=== PATIENT | female | born 1965 | race Hispanic/Latino ===

== ENCOUNTER 2019-08-22 14:20 | Emergency (ER) | payer OTHER ==
[2019-08-22] MEDS ORDERED: SODIUM CHLORIDE 0.9% 1000ML 1,000 ML IV ONE (14:21)
[2019-08-22 15:17] LABS: BASOPHILS % (AUTO) 0.4 % (0.0-5.0); HEMATOCRIT 32.5 % (36-48); LYMPHOCYTES % (AUTO) 20.5 % (21.0-51.0); MEAN CORPUSCULAR HEMOGLOBIN 26.8 pg (27.0-33.0); MEAN CORPUSCULAR VOLUME 83.8 fL (79-99); MONOCYTES % (AUTO) 8.4 % (3.0-13.0); NEUTROPHILS % (AUTO) 68.3 % (40.0-77.0); PLATELET COUNT (AUTO) 214 K/uL (130-400); RED BLOOD CELL COUNT(AUTO) 3.88 MIL/uL (4.00-5.50); RED CELL DISTRIBUTION WIDTH 14.3 % (11.0-15.5)
[2019-08-22 15:23] LABS: APPEARANCE,URINE Cloudy (CLEAR); BILIRUBIN,URINE Negative (NEGATIVE); COLOR,URINE Yellow (YELLOW); GLUCOSE, URINE (UA) 500 mg/dL (NEGATIVE); KETONES,URINE Negative (NEGATIVE); LEUKOCYTE ESTERASE ,URINE Moderate (NEGATIVE); NITRATE,URINE Positive (NEGATIVE); OCCULT BLOOD,URINE Negative (NEGATIVE); PROTEIN,URINE POS 2+ mg/dL (NEGATIVE); UROBILINOGEN,URINE 0.2 mg/dL (0.2-1.0)
[2019-08-22 15:34] LABS: ALBUMIN 2.9 g/dL (3.5-5.0); BILIRUBIN,TOTAL 0.2 mg/dL (0.2-1.0); CREATININE 2.8 mg/dL (0.5-1.5); POTASSIUM 4.2 mmol/L (3.5-5.1); TOTAL PROTEIN, SERUM 7.3 g/dL (6.0-8.3)
[2019-08-22 16:01] LABS: BACTERIA,URINE Many /HPF (None Seen); MUCUS,URINE Few LPF (None Seen); RBC,URINE None Seen /HPF (0-1)
[2019-08-22] MEDS ORDERED: CEFTRIAXONE SODIUM 1 GM ONE (16:34)
== END 2019-08-22 17:37 | disposition home or self-care (01) ==
LOC: EDH 14:20
DX: N17.9 Acute kidney failure, unspecified (principal); N39.0 Urinary tract infection, site not specified; E11.9 Type 2 diabetes mellitus without complications; I10 Essential (primary) hypertension; E78.00 Pure hypercholesterolemia, unspecified; Z98.890 Other specified postprocedural states
CPT/HCPCS: 36415; 71045; 80053; 81001; 85025; 87077; 87088; 87186; 96374; 99284; J0696; J7030

== ENCOUNTER 2022-02-22 12:44 | Inpatient (IN) | payer OTHER ==
[~2022-02-22] VITALS: Ht 160 cm; Wt 103.0 kg
[2022-02-22 13:08] VITALS: BP 141/81
[2022-02-22] MEDS ORDERED: DEXTROSE 50%-WATER 50 ML DISP.SYRIN IV PRN (14:00)
[2022-02-22] MEDS ORDERED: ONDANSETRON 4MG INJ IV PRN (14:00)
[2022-02-22] MEDS ORDERED: DiphenhydrAMINE HCL 50 MG/ML VIAL IV PRN (14:00)
[2022-02-22] MEDS ORDERED: GLUCAGON 1MG KIT 1 MG ML IM PRN (14:00)
[2022-02-22] MEDS ORDERED: MAG/ALUM/SIMETH 30 ML UDCUP PO PRN (14:00)
[2022-02-22] MEDS ORDERED: ACETAMINOPHEN 325 MG TAB PO PRN (14:00)
[2022-02-22] MEDS ORDERED: LACTULOSE 20 GM/30 ML UDCUP PO PRN (14:00)
[2022-02-22 14:30] LABS: BASOPHILS % (AUTO) 0.5 % (0.0-5.0); EOSINOPHILS % (AUTO) 2.1 % (0.0-8.0); HEMATOCRIT 35.7 % (36-48); LYMPHOCYTES % (AUTO) 16.4 % (21.0-51.0); MEAN CORPUSCULAR HGB CONC 32.5 g/dL (32.0-36.0); MEAN CORPUSCULAR VOLUME 86.2 fL (79-99); MONOCYTES % (AUTO) 7.2 % (3.0-13.0); NEUTROPHILS % (AUTO) 73.6 % (40.0-77.0); PLATELET COUNT (AUTO) 205 K/uL (130-400); RED BLOOD CELL COUNT(AUTO) 4.14 MIL/uL (4.00-5.50); RED CELL DISTRIBUTION WIDTH 15.2 % (11.0-15.5); WHITE BLOOD COUNT (AUTO) 8.8 K/uL (4.8-10.8)
[2022-02-22 14:39] LABS: INR 0.96 (0.85-1.15); PROTHROMBIN TIME 10.5 SEC (9.6-11.6)
[2022-02-22 14:43] LABS: ALBUMIN 3.1 g/dL (3.5-5.0); CREATININE 3.1 mg/dL (0.5-1.5); HEMOGLOBIN A1C 10.5 % (4.0-6.0); POTASSIUM 3.9 mmol/L (3.5-5.1); TOTAL PROTEIN, SERUM 7.5 g/dL (6.0-8.3)
[2022-02-22] MEDS: INSULIN HUMULIN R 100 UNIT/ML 3ML SQ SCH ×2 (15:43→20:35)
[2022-02-22 16:08] VITALS: BP 134/67
[2022-02-22] MEDS ORDERED: FOLI1TAB85 PO (16:31)
[2022-02-22] MEDS ORDERED: ATOR40TA69 PO (16:31)
[2022-02-22] MEDS ORDERED: CHOL500051 PO (16:31)
[2022-02-22] MEDS ORDERED: METO-391 PO (16:31)
[2022-02-22] MEDS ORDERED: HYDR-4153 PO (16:31)
[2022-02-22] MEDS ORDERED: GABA-529 PO (16:31)
[2022-02-22] MEDS ORDERED: TORS20TA4 PO (16:31)
[2022-02-22] MEDS ORDERED: ISOS60TA77 PO (16:31)
[2022-02-22] MEDS ORDERED: ENOXAPARIN SODIUM 100 MG/1 ML SQ SCH (18:00)
[2022-02-22 19:22] VITALS: BP 137/65
[2022-02-22] MEDS: METOPROLOL TARTRATE 25 MG TAB PO SCH (20:27)
[2022-02-22] MEDS ORDERED: HEPARIN 5,000 UNIT VIAL SQ SCH (21:00)
[2022-02-22 23:15] VITALS: BP 137/72
[2022-02-23 02:13] LABS: HEMATOCRIT 33.5 % (36-48); MEAN CORPUSCULAR HEMOGLOBIN 28.1 pg (27.0-33.0); MEAN CORPUSCULAR HGB CONC 33.1 g/dL (32.0-36.0); MEAN CORPUSCULAR VOLUME 84.8 fL (79-99); RED BLOOD CELL COUNT(AUTO) 3.95 MIL/uL (4.00-5.50); RED CELL DISTRIBUTION WIDTH 15.1 % (11.0-15.5); WHITE BLOOD COUNT (AUTO) 8.5 K/uL (4.8-10.8)
[2022-02-23 02:34] LABS: ALBUMIN 2.9 g/dL (3.5-5.0); CREATININE 3.1 mg/dL (0.5-1.5); POTASSIUM 3.7 mmol/L (3.5-5.1); TOTAL PROTEIN, SERUM 7.3 g/dL (6.0-8.3)
[2022-02-23 03:25] VITALS: BP 141/70
[2022-02-23] MEDS: INSULIN HUMULIN R 100 UNIT/ML 3ML SQ SCH ×4 (06:26→21:28)
[2022-02-23] MEDS ORDERED: REGADENOSON 0.4 MG/5 ML PF SYG IVP SCH (07:00)
[2022-02-23] MEDS: METOPROLOL TARTRATE 25 MG TAB PO SCH ×2 (07:39→21:26)
[2022-02-23 08:00] VITALS: BP 137/81
[2022-02-23] MEDS ORDERED: PANTOPRAZOLE 40 MG/VIAL IVP SCH (09:00)
[2022-02-23] MEDS: CLOPIDOGREL 75MG TAB PO SCH (10:29)
[2022-02-23] MEDS: PANTOPRAZOLE 40 MG TAB DR PO SCH (10:29)
[2022-02-23] MEDS: ACETAMINOPHEN 325 MG TAB PO PRN ×2 (11:22→23:38)
[2022-02-23] MEDS ORDERED: INSULIN HUMULIN R 100 UNIT/ML 3ML SQ SCH ×2 (11:30)
[2022-02-23 11:44] VITALS: BP 137/51
[2022-02-23 16:00] VITALS: BP 125/64
[2022-02-23] MEDS ORDERED: HEPARIN 25,000 UNITS/250ML D5W 250 ML IV SCH (17:00)
[2022-02-23 17:21] LABS: INR 0.99 (0.85-1.15); PROTHROMBIN TIME 10.8 SEC (9.6-11.6)
[2022-02-23 17:22] LABS: PARTIAL THROMBOPLASTIN TIME 26.2 SEC (26.3-35.5)
[2022-02-23] MEDS ORDERED: HEPARIN 5,000 UNIT VIAL ONE (18:37)
[2022-02-23 19:43] VITALS: BP 154/70
[2022-02-23] MEDS ORDERED: INSULIN GLARGINE 100 UNITS/ML 10 ML VIAL SQ SCH (21:00)
[2022-02-24] VITALS (12 sets, daily range): BP systolic 122–179; BP diastolic 62–113
[2022-02-24 01:29] LABS: BASOPHILS % (AUTO) 0.5 % (0.0-5.0); EOSINOPHILS % (AUTO) 2.1 % (0.0-8.0); HEMATOCRIT 35.1 % (36-48); LYMPHOCYTES % (AUTO) 19.9 % (21.0-51.0); MEAN CORPUSCULAR HGB CONC 32.8 g/dL (32.0-36.0); MEAN CORPUSCULAR VOLUME 85.6 fL (79-99); MONOCYTES % (AUTO) 7.3 % (3.0-13.0); PLATELET COUNT (AUTO) 211 K/uL (130-400); RED CELL DISTRIBUTION WIDTH 15.2 % (11.0-15.5); WHITE BLOOD COUNT (AUTO) 9.4 K/uL (4.8-10.8)
[2022-02-24 01:42] LABS: CREATININE 2.8 mg/dL (0.5-1.5); PHOSPHORUS 3.8 mg/dL (2.5-4.9); POTASSIUM 3.6 mmol/L (3.5-5.1)
[2022-02-24] MEDS: INSULIN HUMULIN R 100 UNIT/ML 3ML SQ SCH ×4 (06:18→20:59)
[2022-02-24] MEDS ORDERED: MIDAZOLAM HCL 1 MG/ML 2ML VIAL IVP ONE (08:00)
[2022-02-24] MEDS ORDERED: LIDOCAINE HCL 2% VISCOUS 15 ML UDCUP PO ONE (08:00)
[2022-02-24] MEDS ORDERED: ISOS20TA9 PO (08:22)
[2022-02-24] MEDS: CLOPIDOGREL 75MG TAB PO SCH (09:11)
[2022-02-24] MEDS: PANTOPRAZOLE 40 MG TAB DR PO SCH (09:11)
[2022-02-24] MEDS: METOPROLOL TARTRATE 25 MG TAB PO SCH ×2 (09:11→21:00)
[2022-02-24] MEDS: ISOSORBIDE DINITRATE 10MG TAB PO SCH ×2 (09:14→21:00)
[2022-02-25 00:22] VITALS: BP 150/73
[2022-02-25] MEDS: ACETAMINOPHEN 325 MG TAB PO PRN (01:36)
[2022-02-25 03:54] LABS: HEMATOCRIT 33.9 % (36-48); MEAN CORPUSCULAR HEMOGLOBIN 27.6 pg (27.0-33.0); MEAN CORPUSCULAR HGB CONC 32.2 g/dL (32.0-36.0); MEAN CORPUSCULAR VOLUME 85.8 fL (79-99); RED BLOOD CELL COUNT(AUTO) 3.95 MIL/uL (4.00-5.50); RED CELL DISTRIBUTION WIDTH 15.1 % (11.0-15.5); WHITE BLOOD COUNT (AUTO) 9.2 K/uL (4.8-10.8)
[2022-02-25 04:02] LABS: CREATININE 2.7 mg/dL (0.5-1.5); POTASSIUM 3.6 mmol/L (3.5-5.1)
[2022-02-25 04:32] VITALS: BP 139/66
[2022-02-25] MEDS: INSULIN HUMULIN R 100 UNIT/ML 3ML SQ SCH ×2 (06:00→12:36)
[2022-02-25 07:31] VITALS: BP 156/78
[2022-02-25] MEDS: ISOSORBIDE DINITRATE 10MG TAB PO SCH (08:06)
[2022-02-25] MEDS: PANTOPRAZOLE 40 MG TAB DR PO SCH (08:07)
[2022-02-25] MEDS: METOPROLOL TARTRATE 25 MG TAB PO SCH (08:07)
[2022-02-25] MEDS: CLOPIDOGREL 75MG TAB PO SCH (08:12)
[2022-02-25 11:34] VITALS: BP 123/60
[2022-02-25] MEDS ORDERED: CLOP75TA32 PO (12:09)
[2022-02-25] MEDS ORDERED: METO25TA6 PO (12:09)
[2022-02-25] MEDS ORDERED: ISOS10TA2 PO (12:09)
== END 2022-02-25 14:08 | disposition home or self-care (01) | DRG 291 ==
LOC: EDH 12:44 → DIRECT 12:45 → 2AH 13:08
PROVIDERS: ADMIT Hospitalist; ATTEND Hospitalist
PROC: B24BZZ4 Ultrasonography of Heart with Aorta, Transesophageal (ICD-10-PCS; principal; 2022-02-24)
DX: I13.0 Hypertensive heart and chronic kidney disease with heart failure and stage 1 through stage 4 chronic kidney disease, or unspecified chronic kidney disease (principal); I50.43 Acute on chronic combined systolic (congestive) and diastolic (congestive) heart failure; Z68.41 Body mass index [BMI] 40.0-44.9, adult; N17.9 Acute kidney failure, unspecified; N18.4 Chronic kidney disease, stage 4 (severe); I25.110 Atherosclerotic heart disease of native coronary artery with unstable angina pectoris; E66.01 Morbid (severe) obesity due to excess calories; E11.22 Type 2 diabetes mellitus with diabetic chronic kidney disease; D64.9 Anemia, unspecified; E78.00 Pure hypercholesterolemia, unspecified; Z95.5 Presence of coronary angioplasty implant and graft; Z79.02 Long term (current) use of antithrombotics/antiplatelets
CPT/HCPCS: 36415; 71045; 78452; 80048; 80053; 80061; 82948; 83036; 83880; 84100; 84484; 85025; 85027; 85610; 85730; 93017; 93306; 93312; 96374; A9500; G0378; J1644; J1650; J1815; J2250; J2785

== ENCOUNTER → 2022-03-21 | Outpatient (CLI) | payer OTHER ==
[~2022-03-21] MED LIST: ATOR40TA69 PO; CHOL500051 PO; CLOP75TA32 PO; FOLI1TAB85 PO; GABA-529 PO; ISOS10TA2 PO; METO25TA6 PO
[2022-03-21 13:08] LABS: CREATININE 3.8 mg/dL (0.5-1.5)
[2022-03-21 13:15] LABS: POTASSIUM 2.9 mmol/L (3.5-5.1)
== END | disposition home or self-care (01) ==
LOC: LAB 11:38
PROVIDERS: ATTEND Internal Medicine Cardiovascular Disease
DX: I25.10 Atherosclerotic heart disease of native coronary artery without angina pectoris (principal)
CPT/HCPCS: 36415; 80048; 83880

== ENCOUNTER → 2022-06-09 | Outpatient (CLI) | payer OTHER ==
[~2022-06-09] VITALS: Ht 160 cm; Wt 98.6 kg
[~2022-06-09] MED LIST changes: +ATOR40TA71 PO; +CARV6.2579 PO; +FAMO20TA8 PO; +INSU300I SQ; +INSU300I3 SQ; -ISOS10TA2 PO; +LORA10TA7 PO; -METO25TA6 PO; +NITR0.4T50 SL; +SEVE800 PO
[2022-06-09 14:31] LABS: BASOPHILS % (AUTO) 0.7 % (0.0-5.0); EOSINOPHILS % (AUTO) 4.5 % (0.0-8.0); HEMATOCRIT 38.5 % (36-48); LYMPHOCYTES % (AUTO) 17.5 % (21.0-51.0); MEAN CORPUSCULAR HEMOGLOBIN 29.6 pg (27.0-33.0); MEAN CORPUSCULAR HGB CONC 31.9 g/dL (32.0-36.0); MEAN CORPUSCULAR VOLUME 92.8 fL (79-99); MONOCYTES % (AUTO) 10.6 % (3.0-13.0); NEUTROPHILS % (AUTO) 66.4 % (40.0-77.0); PLATELET COUNT (AUTO) 200 K/uL (130-400); RED BLOOD CELL COUNT(AUTO) 4.15 MIL/uL (4.00-5.50); RED CELL DISTRIBUTION WIDTH 17.2 % (11.0-15.5); WHITE BLOOD COUNT (AUTO) 7.6 K/uL (4.8-10.8)
[2022-06-09 14:40] LABS: CREATININE 4.4 mg/dL (0.5-1.5); POTASSIUM 3.8 mmol/L (3.5-5.1)
[2022-06-09 14:44] LABS: INR 1.02 (0.85-1.15); PROTHROMBIN TIME 11.1 SEC (9.6-11.6)
[2022-06-09 14:45] LABS: PARTIAL THROMBOPLASTIN TIME 26.8 SEC (26.3-35.5)
[2022-06-09 15:02] LABS: B-TYPE NATRIURETIC PEPTIDE 399 pg/mL (0-100)
[2022-06-09 15:40] VITALS: BP 135/60
== END | disposition home or self-care (01) ==
LOC: DAH 10:00 → EDSTATUS 14:00
PROVIDERS: ATTEND Internal Medicine Cardiovascular Disease
DX: Z01.810 Encounter for preprocedural cardiovascular examination (principal); I25.10 Atherosclerotic heart disease of native coronary artery without angina pectoris; I50.22 Chronic systolic (congestive) heart failure; I44.7 Left bundle-branch block, unspecified; Z79.01 Long term (current) use of anticoagulants; Z79.899 Other long term (current) drug therapy
CPT/HCPCS: 36415; 71045; 80048; 83880; 85025; 85610; 85730; 93005

== ENCOUNTER 2022-06-28 06:02 | Day surgery (SDC) | payer OTHER ==
[2022-06-27 09:22] LABS: BASOPHILS % (AUTO) 0.7 % (0.0-5.0); EOSINOPHILS % (AUTO) 2.9 % (0.0-8.0); HEMATOCRIT 36.6 % (36-48); LYMPHOCYTES % (AUTO) 19.4 % (21.0-51.0); MEAN CORPUSCULAR HEMOGLOBIN 29.6 pg (27.0-33.0); MEAN CORPUSCULAR VOLUME 92.7 fL (79-99); MONOCYTES % (AUTO) 8.8 % (3.0-13.0); NEUTROPHILS % (AUTO) 67.9 % (40.0-77.0); PLATELET COUNT (AUTO) 147 K/uL (130-400); RED BLOOD CELL COUNT(AUTO) 3.95 MIL/uL (4.00-5.50); RED CELL DISTRIBUTION WIDTH 15.8 % (11.0-15.5); WHITE BLOOD COUNT (AUTO) 6.1 K/uL (4.8-10.8)
[2022-06-27 09:32] LABS: CREATININE 4.5 mg/dL (0.5-1.5); POTASSIUM 4.1 mmol/L (3.5-5.1)
[2022-06-27 09:37] VITALS: BP 155/80
[2022-06-27 10:00] LABS: INR 0.95 (0.85-1.15); PROTHROMBIN TIME 10.4 SEC (9.6-11.6)
[2022-06-27 10:01] LABS: PARTIAL THROMBOPLASTIN TIME 27.1 SEC (26.3-35.5)
[2022-06-27 10:17] LABS: B-TYPE NATRIURETIC PEPTIDE 499 pg/mL (0-100)
[2022-06-28] VITALS (10 sets, daily range): BP systolic 146–163; BP diastolic 63–80
[~2022-06-28] VITALS: Ht 162.6 cm; Wt 100.4 kg
[~2022-06-28 06:02] MED LIST changes: +0.9% NACL 500ML IV.SOLN 500 ML IV SCH; -ATOR40TA69 PO; +CARV6.25 PO; -CARV6.2579 PO; -FAMO20TA8 PO; -INSU300I SQ; -SEVE800 PO
[2022-06-28] MEDS ORDERED: 0.9%NACL 1000ML 1,000 ML IV ONE (06:36)
[2022-06-28] MEDS ORDERED: LIDOCAINE HCL 400MG/20ML VIAL ONE (07:27)
[2022-06-28] MEDS ORDERED: FENTANYL CITRATE PF 50 MCG/1 ML 2ML VIAL ONE (07:27)
[2022-06-28] MEDS ORDERED: IOHEXOL-350 50ML VIAL IV ONE (07:28)
[2022-06-28] MEDS ORDERED: IOHEXOL 350 MG/ML 100ML INFUS..BTL IV ONE (07:28)
[2022-06-28] MEDS ORDERED: HEPARIN 10,000 UNIT/10ML (1,000 UNIT/ML) VIAL ONE (07:28)
[2022-06-28] MEDS ORDERED: NITROGLYCERIN 50MG VIAL ONE (07:28)
[2022-06-28] MEDS ORDERED: MIDAZOLAM HCL 1 MG/ML 2ML VIAL ONE (07:28)
[2022-06-28] MEDS ORDERED: CLOPIDOGREL 300MG TAB ONE ×2 (08:39)
[2022-06-28] MEDS ORDERED: ASPIRIN 325MG EC TAB PO ONE (08:41)
[2022-06-28] MEDS ORDERED: ASPI-1197 PO (11:43)
== END 2022-06-28 13:50 | disposition home or self-care (01) ==
LOC: DAH 06:02
PROVIDERS: ATTEND Internal Medicine Cardiovascular Disease
DX: I25.119 Atherosclerotic heart disease of native coronary artery with unspecified angina pectoris (principal); E11.22 Type 2 diabetes mellitus with diabetic chronic kidney disease; I13.2 Hypertensive heart and chronic kidney disease with heart failure and with stage 5 chronic kidney disease, or end stage renal disease; N18.6 End stage renal disease; I50.22 Chronic systolic (congestive) heart failure; E78.5 Hyperlipidemia, unspecified; I25.5 Ischemic cardiomyopathy; Z99.2 Dependence on renal dialysis; Z79.01 Long term (current) use of anticoagulants; Z79.899 Other long term (current) drug therapy; Z95.5 Presence of coronary angioplasty implant and graft; Z98.890 Other specified postprocedural states; Z90.49 Acquired absence of other specified parts of digestive tract; Z82.49 Family history of ischemic heart disease and other diseases of the circulatory system; Z83.3 Family history of diabetes mellitus
CPT/HCPCS: 80048; 83880; 85025; 85610; 85730; 36415 ×2; 93005; 93571; 85347 ×2; 82948 ×2; 93458; C9600; C1887; C1894 ×2; C1760; C1769; C1874 ×2; C1725 ×2; J3010; J3490 ×2; J7030; J1644 ×2; J2250; Q9967 ×2; A4215; A4222; A4221; A4663; A4216; A4606; Q9965 ×2; A4223 ×3; 99156; 99157

== ENCOUNTER → 2022-09-22 | Outpatient (CLI) | payer OTHER ==
[~2022-09-22] MED LIST changes: -0.9% NACL 500ML IV.SOLN 500 ML IV SCH; +ASPI-1197 PO
== END | disposition home or self-care (01) ==
LOC: SHCH 12:32
PROVIDERS: ATTEND Internal Medicine Cardiovascular Disease
DX: I11.0 Hypertensive heart disease with heart failure (principal); I50.22 Chronic systolic (congestive) heart failure; I08.3 Combined rheumatic disorders of mitral, aortic and tricuspid valves; E78.5 Hyperlipidemia, unspecified; E11.9 Type 2 diabetes mellitus without complications
CPT/HCPCS: 93306

== ENCOUNTER 2022-12-13 05:37 | Day surgery (SDC) | payer OTHER ==
[2022-12-08 14:13] LABS: BASOPHILS # (AUTO) 0.03 K/uL (0.00-0.20); BASOPHILS % (AUTO) 0.4 % (0.0-5.0); EOSINOPHILS # (AUTO) 0.19 K/uL (0.00-0.70); EOSINOPHILS % (AUTO) 2.7 % (0.0-8.0); HEMATOCRIT 34.5 % (36-48); IMMATURE GRANULOCYTE ABSOLUTE 0.02 K/uL (0-1); LYMPHOCYTES # (AUTO) 1.7 K/uL (1.0-4.8); LYMPHOCYTES % (AUTO) 24.3 % (21.0-51.0); MEAN CORPUSCULAR HEMOGLOBIN 30.9 pg (27.0-33.0); MEAN CORPUSCULAR VOLUME 93.5 fL (79-99); MONOCYTES # (AUTO) 0.6 K/uL (0.1-1.0); NEUTROPHILS # (AUTO) 4.5 K/uL (1.8-7.7); NEUTROPHILS % (AUTO) 63.3 % (40.0-77.0); PLATELET COUNT (AUTO) 145 K/uL (130-400); RED BLOOD CELL COUNT(AUTO) 3.69 MIL/uL (4.00-5.50); RED CELL DISTRIBUTION WIDTH 14.2 % (11.0-15.5); WHITE BLOOD COUNT (AUTO) 7.1 K/uL (4.8-10.8)
[2022-12-08 14:17] VITALS: BP 184/75; PULSE 78; RESP 16
[2022-12-08 14:27] LABS: INR 0.94 (0.85-1.15); PROTHROMBIN TIME 10.9 SEC (9.6-11.6)
[2022-12-08 14:29] LABS: CREATININE 3.7 mg/dL (0.5-1.5); PARTIAL THROMBOPLASTIN TIME 26.9 SEC (26.3-35.5); POTASSIUM 4.7 mmol/L (3.5-5.1)
[~2022-12-13] VITALS: Ht 157.5 cm; Wt 101.6 kg
[2022-12-13] VITALS (10 sets, daily range): BP systolic 146–166; BP diastolic 60–83; PULSE 62–68; RESP 13–21
[~2022-12-13 05:37] MED LIST changes: +INSU100C14 SQ; -LORA10TA7 PO
[2022-12-13] MEDS ORDERED: 0.9%NACL 1000ML 1,000 ML IV ONE (06:19)
[2022-12-13] MEDS ORDERED: ISOS30TA92 PO (07:02)
[2022-12-13] MEDS ORDERED: BUPIVACAINE/PF 0.25% 30ML VIAL IJ ONE (07:19)
[2022-12-13] MEDS ORDERED: CEFAZOLIN SODIUM 1 GM VIAL ONE (07:19)
[2022-12-13] MEDS ORDERED: MEPERIDINE-PF 25 MG/ML SYG ONE ×5 (07:19→09:03)
[2022-12-13] MEDS ORDERED: LIDOCAINE HCL 1% MDV 50ML VIAL ONE (07:19)
[2022-12-13] MEDS ORDERED: MIDAZOLAM HCL 1 MG/ML 2ML VIAL ONE ×5 (07:19→09:03)
[2022-12-13] MEDS ORDERED: IOHEXOL-350 50ML VIAL IV ONE (08:23)
[2022-12-13] MEDS ORDERED: TRAM50TA4 PO (09:45)
[2022-12-13] MEDS ORDERED: ACETAMINOPHEN WITH CODEINE 1 TAB TAB PO PRN (10:00)
[2022-12-13] MEDS ORDERED: ACETAMINOPHEN 500 MG TABLET PO PRN (10:00)
== END 2022-12-13 13:08 | disposition home or self-care (01) ==
LOC: DAH 05:37
PROVIDERS: ATTEND Internal Medicine Cardiovascular Disease
DX: I25.5 Ischemic cardiomyopathy (principal); E11.22 Type 2 diabetes mellitus with diabetic chronic kidney disease; I13.2 Hypertensive heart and chronic kidney disease with heart failure and with stage 5 chronic kidney disease, or end stage renal disease; N18.6 End stage renal disease; I50.42 Chronic combined systolic (congestive) and diastolic (congestive) heart failure; I25.2 Old myocardial infarction; I25.10 Atherosclerotic heart disease of native coronary artery without angina pectoris; E78.5 Hyperlipidemia, unspecified; Z79.01 Long term (current) use of anticoagulants; Z79.899 Other long term (current) drug therapy; Z98.890 Other specified postprocedural states; Z79.82 Long term (current) use of aspirin; Z79.4 Long term (current) use of insulin; Z95.5 Presence of coronary angioplasty implant and graft; Z82.49 Family history of ischemic heart disease and other diseases of the circulatory system; Z83.3 Family history of diabetes mellitus; Z99.2 Dependence on renal dialysis
CPT/HCPCS: 80048; 85025; 85610; 85730; 36415; 93005; 33249; 82948; 71045; C1769; C1722; C1895; J0690; J7030 ×2; J3490 ×2; J2250 ×5; J2175 ×5; Q9967; A4215; A4222; A4221; A4663; A4216; A4606; A4223 ×2; 99156; 99157

== ENCOUNTER 2023-08-05 13:30 | Emergency (ER) | payer OTHER ==
[~2023-08-05] VITALS: Ht 157.5 cm; Wt 99.8 kg
[~2023-08-05 13:30] MED LIST changes: +ISOS30TA92 PO; +TRAM50TA4 PO
[2023-08-05 13:31] VITALS: BP 153/62; PULSE 79; RESP 18
[2023-08-05 14:11] LABS: BASOPHILS # (AUTO) 0.03 K/uL (0.00-0.20); BASOPHILS % (AUTO) 0.3 % (0.0-5.0); EOSINOPHILS # (AUTO) 0.14 K/uL (0.00-0.70); EOSINOPHILS % (AUTO) 1.4 % (0.0-8.0); HEMATOCRIT 38.7 % (36-48); IMMATURE GRANULOCYTE ABSOLUTE 0.03 K/uL (0-1); LYMPHOCYTES # (AUTO) 1.3 K/uL (1.0-4.8); MEAN CORPUSCULAR HEMOGLOBIN 30.8 pg (27.0-33.0); MEAN CORPUSCULAR HGB CONC 33.1 g/dL (32.0-36.0); MEAN CORPUSCULAR VOLUME 93.3 fL (79-99); MONOCYTES # (AUTO) 0.8 K/uL (0.1-1.0); MONOCYTES % (AUTO) 7.9 % (3.0-13.0); NEUTROPHILS # (AUTO) 7.7 K/uL (1.8-7.7); NEUTROPHILS % (AUTO) 77.1 % (40.0-77.0); PLATELET COUNT (AUTO) 137 K/uL (130-400); RED BLOOD CELL COUNT(AUTO) 4.15 MIL/uL (4.00-5.50); RED CELL DISTRIBUTION WIDTH 13.1 % (11.0-15.5)
[2023-08-05 14:44] LABS: POTASSIUM 4.5 mmol/L (3.5-5.1)
[2023-08-05 14:48] LABS: ALBUMIN 2.8 g/dL (3.5-5.0); BILIRUBIN,TOTAL 0.5 mg/dL (0.2-1.0); TOTAL PROTEIN, SERUM 7.1 g/dL (6.0-8.3)
[2023-08-05] MEDS: NEOMY SULF/BACITRA/POLYMYXIN B 1 EACH PACKET TP ONE (15:30)
[2023-08-05] MEDS: INSULIN HUMULIN R 100 UNIT/ML 3ML IV SCH (16:17)
[2023-08-05] MEDS: CLINDAMYCIN 150 MG CAP PO SCH (16:53)
[2023-08-05] MEDS ORDERED: CLIN-141 PO (17:45)
[2023-08-05] MEDS ORDERED: MUPI22O TP (17:45)
== END 2023-08-05 19:01 | disposition home or self-care (01) ==
LOC: EDH 13:30
DX: S90.822A Blister (nonthermal), left foot, initial encounter (principal); I12.9 Hypertensive chronic kidney disease with stage 1 through stage 4 chronic kidney disease, or unspecified chronic kidney disease; E11.22 Type 2 diabetes mellitus with diabetic chronic kidney disease; N18.9 Chronic kidney disease, unspecified; E11.65 Type 2 diabetes mellitus with hyperglycemia; E66.9 Obesity, unspecified; E78.00 Pure hypercholesterolemia, unspecified; Z79.82 Long term (current) use of aspirin; Z79.899 Other long term (current) drug therapy; Z98.890 Other specified postprocedural states; Z90.49 Acquired absence of other specified parts of digestive tract
CPT/HCPCS: 99284; 96374; 80053; 85025; 87040 ×2; 82948; 83605; 36415; 73630; J1815

== ENCOUNTER → 2023-09-30 | Outpatient (CLI) | payer OTHER ==
[~2023-09-30] MED LIST changes: +CLIN-141 PO; +MUPI22O TP
== END | disposition home or self-care (01) ==
LOC: SHCH 13:37
PROVIDERS: ATTEND Internal Medicine Cardiovascular Disease
DX: I70.203 Unspecified atherosclerosis of native arteries of extremities, bilateral legs (principal)
CPT/HCPCS: 93925

== ENCOUNTER 2024-01-05 21:22 | Emergency (ER) | payer OTHER ==
[~2024-01-05] VITALS: Ht 160 cm; Wt 99.8 kg
[2024-01-05 21:34] VITALS: TEMP 98.8
[2024-01-05] MEDS: NITROGLYCERIN 0.4 MG SL TAB SL PRN (21:41)
[2024-01-05] MEDS: ASPIRIN 81MG CHEW TAB PO ONE (21:41)
[2024-01-05 22:15] LABS: BASOPHILS # (AUTO) 0.06 K/uL (0.00-0.20); BASOPHILS % (AUTO) 0.7 % (0.0-5.0); EOSINOPHILS % (AUTO) 2.2 % (0.0-8.0); HEMATOCRIT 36.7 % (36-48); IMMATURE GRANULOCYTE ABSOLUTE 0.05 K/uL (0-1); LYMPHOCYTES # (AUTO) 2.1 K/uL (1.0-4.8); MEAN CORPUSCULAR HEMOGLOBIN 31.3 pg (27.0-33.0); MEAN CORPUSCULAR HGB CONC 33.8 g/dL (32.0-36.0); MEAN CORPUSCULAR VOLUME 92.7 fL (79-99); MONOCYTES # (AUTO) 0.8 K/uL (0.1-1.0); MONOCYTES % (AUTO) 8.9 % (3.0-13.0); NEUTROPHILS # (AUTO) 5.8 K/uL (1.8-7.7); NEUTROPHILS % (AUTO) 64.6 % (40.0-77.0); PLATELET COUNT (AUTO) 164 K/uL (130-400); RED BLOOD CELL COUNT(AUTO) 3.96 MIL/uL (4.00-5.50); RED CELL DISTRIBUTION WIDTH 12.6 % (11.0-15.5); WHITE BLOOD COUNT (AUTO) 8.9 K/uL (4.8-10.8)
[2024-01-05 22:16] LABS: B-TYPE NATRIURETIC PEPTIDE 110 pg/mL (0-100)
[2024-01-05 22:32] LABS: MAGNESIUM 2.5 mg/dL (1.80-2.40)
[2024-01-05 23:16] LABS: INR 1.06 (0.85-1.15); PROTHROMBIN TIME 11.4 SEC (9.6-11.6)
[2024-01-05] MEDS ORDERED: APIX5TAB PO (23:46)
[2024-01-05] MEDS ORDERED: FOLI0.8T22 PO (23:48)
[2024-01-06 00:19] LABS: CREATININE 5.5 mg/dL (0.5-1.0); POTASSIUM 3.9 mmol/L (3.5-5.1)
[2024-01-06] MEDS: ORPHENADRINE 60MG/2ML IM STA (00:33)
[2024-01-06 00:36] VITALS: BP 152/77; PULSE 97; RESP 18; O2SAT 98
[2024-01-06] MEDS ORDERED: METH100054 PO (01:31)
== END 2024-01-06 01:50 | disposition home or self-care (01) ==
LOC: EDH 21:22
DX: R07.89 Other chest pain (principal); E11.9 Type 2 diabetes mellitus without complications; E78.00 Pure hypercholesterolemia, unspecified; I10 Essential (primary) hypertension; Z79.01 Long term (current) use of anticoagulants; Z79.02 Long term (current) use of antithrombotics/antiplatelets; Z79.4 Long term (current) use of insulin; Z79.899 Other long term (current) drug therapy; Z90.49 Acquired absence of other specified parts of digestive tract; Z95.5 Presence of coronary angioplasty implant and graft; Z95.810 Presence of automatic (implantable) cardiac defibrillator
CPT/HCPCS: 36415; 71045; 80048; 82550; 83735; 83880; 84484; 85025; 85610; 93005; 96372; J2360

== ENCOUNTER 2024-11-22 12:43 | Emergency (ER) | payer OTHER ==
[~2024-11-22] VITALS: Ht 157.5 cm; Wt 98.9 kg
[~2024-11-22 12:43] MED LIST changes: +APIX5TAB PO; -ASPI-1197 PO; +ATOR40TA69 PO; -ATOR40TA71 PO; -CHOL500051 PO; -CLIN-141 PO; -CLOP75TA32 PO; +ESCI5TAB16 PO; +FOLI0.8T22 PO; -FOLI1TAB85 PO; -ISOS30TA92 PO; +Isosorbide Mono 30MG Sr Tab PO; -MUPI22O TP; +TICA90TA6 PO; -TRAM50TA4 PO
--- NOTE | 2024-11-22 13:03 | EKG ---
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[employer] [facility] : [id number] Requested By: GUILLAUME CAMPOS Order Number: [id number] Reading MD: Kendall Huffman Measurements Intervals [place] Rate: 74 P: -12 [place]: 177 QRS: -71 QRSD: 155 T: 68 QT: 484 QTc: 537 Interpretive Statements Sinus rhythm Nonspecific IVCD with LAD INTRAVENTRICULAR CONDUCTION DELAY Poor R wave progression Compared to ECG 11/10/2024 07:05:59 Intraventricular conduction delay now present Left ventricular hypertrophy now present Q waves now present Left bundle-branch block no longer present Electronically Signed On 11-22-2024 13:28:18 CDT by Kendall Huffman Please click the below link to view image of tracing.
[2024-11-22 13:23] VITALS: BP 98/46; PULSE 77; RESP 17; TEMP 98.2; O2SAT 92
[2024-11-22 13:29] LABS: IMMATURE GRANULOCYTE ABSOLUTE 0.03 K/uL (0-1); NUCLEATED RED BLOOD CELLS 2.1 % (0.0-0.19); PLATELET COUNT (AUTO) 157 K/uL (130-400); RED BLOOD CELL COUNT(AUTO) 3.13 MIL/uL (4.00-5.50); RED CELL DISTRIBUTION WIDTH 22.5 % (11.0-15.5); WHITE BLOOD COUNT (AUTO) 5.7 K/uL (4.8-10.8)
[2024-11-22 13:41] LABS: INR 1.3 (0.85-1.15)
[2024-11-22 13:46] LABS: CREATININE 4.3 mg/dL (0.5-1.0); GLOMERULAR FILTR. RATE CALC 11.0 mL/min (>90); GLUCOSE,RANDOM 185.0 mg/dL (70-105); SODIUM SERUM 131.0 mmol/L (136-145); UREA NITROGEN, BLOOD 46.0 mg/dL (7-18)
--- NOTE | 2024-11-22 13:55 | NUR ---
ER physician Dr. Dueñas informed of troponin levels of 566. As per Dr. Dueñas, order repeat troponins now, orders carried out.
[2024-11-22] MEDS ORDERED: IOHEXOL-350 75 ML VIAL IV ONE (14:55)
[2024-11-22] MEDS ORDERED: 0.9% NACL 500ML IV.SOLN 500 ML IV ONE (15:00)
--- NOTE | 2024-11-22 15:00 | HMCIMG ---
CHEST 1VW REASON: chest pain COMPARISON: Graft from 11/13/2024 is available. FINDINGS: Single view of the chest was obtained. Lungs are clear. There is cardiomegaly with left ventricular contour. There is uncoiling atherosclerotic change of thoracic aorta. There is a right-sided ICD with lead in right ventricle.. There is no pulmonary vascular congestion. Mediastinum and bony thorax appear unremarkable. IMPRESSION: 1 cardiomegaly with left ventricular contour which is unchanged from prior study 2. No evidence of airspace consolidation or pulmonary venous congestion..
--- NOTE | 2024-11-22 15:15 | NUR ---
PT RETURNED FROM CT AND CT STAFF REPORT IV INFILTRATED WHILE SCAN IN PROCESS. CT WAS NOT COMPLETED AND RETURNED TO ER. PT ADVICED THAT NEW ACCESS WOULD BE NEEDED TO COMPLETE CTP, PT REFUSED. PT STATES SHE DOES NOT WANT TO BE POKED ANYMORE AND WANTS TO GO HOME. PT SEEN CALLING HER FAMILY MEMBER TO COME PICK HER UP. ER MD MADE AWARE.
--- NOTE | 2024-11-22 15:37 | ERN ---
General Chief Complaint: Palpitations Stated Complaint: PALPITATIONS Time Seen by MD: 12:48 History of Present Illness Initial Comments 59-year-old female history of diabetes and hypertension, ESRD on dialysis, had a recent cardiac catheterization last week, who presents for episode of dizziness, palpitations and hypotension. Patient reports she completed dialysis earlier today. She went home. She was feeling weak. Home health checked on her, found her to be hypotensive blood pressure 90 systolic, with a heart rate 130. EMS found the patient to have episodes of tachycardia atrial fibrillation, but then she had returned to a sinus rhythm. On arrival here she has been sinus rhythm without complaints and stable vital signs. Allergies: Coded Allergies: No Known Allergies (Unverified Allergy, 11/14/12) Home Meds Active Scripts Ticagrelor (Ticagrelor) 90 Mg Tablet, 90 MG PO BID, #60 TAB 1 Refill Prov:YUMIKO LINDSAY 11/16/24 [Isosorbide [place] 30MG Sr Tab] 60 mg TAB.ER.24H No Conflict Check, 60 MG PO AM for 30 Days, #30 1 Refill Prov:YUMIKO LINDSAY 11/16/24 Reported Medications Escitalopram Oxalate (Escitalopram Oxalate) 5 Mg Tablet, 5 MG PO DAILY, TAB 11/12/24 Gabapentin (Gabapentin) 100 Mg Capsule, 300 MG PO BID, CAP 11/06/24 Atorvastatin Calcium (LIPITOR) 40 Mg Tablet, 40 MG PO HS, TAB 11/06/24 Folic Acid/Vitamin B Comp W-C (Shi-Cindy Tablet) 0.8 Mg Tablet, 0.8 MG PO DAILY, TAB 11/06/24 Apixaban (Eliquis) 5 Mg Tablet, 5 MG PO BID, TAB 11/06/24 Insulin Lispro (Humalog) 100 Unit/1 Ml Cartridge, 20 UNITS SQ TIDMEALS, CARTRIDGE 12/08/22 Carvedilol (Carvedilol) 6.25 Mg Tablet, 6.25 MG PO BID, TAB 06/27/22 Insulin Glargine,Hum.rec.anlog (Toujeo Max Solostar) 300 Unit/1 Ml Insuln.pen, 60 UNIT SQ DAILY, SYRINGE 06/09/22 Nitroglycerin (Nitroglycerin) 0.4 Mg Tab.subl, 0.4 MG SL AD PRN for CHEST PAIN, TAB.SL 06/09/22 Discontinued Reported Medications Isosorbide Mononitrate (Isosorbide Mononitrate ER) 30 Mg Tab.er.24h, 30 MG PO AM, TAB 12/13/22 Clopidogrel Bisulfate (Clopidogrel) 75 Mg Tablet, 75 MG PO DAILY, TAB 06/27/22 Past Medical History Past Medical History: Diabetes-Type II, High Cholesterol, Hypertension, Other Medical History Other: ckd on dialysis Past Surgical History: Cholecystectomy, LAVA Surgical History Other: DIALYSIS SHUNT TO LEFT ARM; CARDIAC STENTS Social History Social History: Lives with family Female( History) History: Not Applicable ROS Dictation CONSTITUTIONAL: Dizziness HEAD/FACE: No signs of trauma. EENT: No eye pain, no blurred vision, no tearing, no double vision, no ear pain, no ear discharge, no nose pain, no nasal congestion, no throat pain, no throat swelling, no mouth pain. RESPIRATORY: No cough, no orthopnea, no SOB, no stridor, no wheezing. CARDIOVASCULAR: Palpitation GASTROINTESTINAL/ABDOMINAL: No abdominal pain, no constipation, no diarrhea, no nausea, no vomiting. GENITOURINARY: No abnormal discharge, no dysuria, no frequent urination, no hematuria. No complaints of pain in the genitals. MUSCULOSKELETAL: No back pain, no gout, no joint pain, no joint swelling, no muscle pain, no muscle stiffness, no neck pain. INTEGUMENTARY: No change in color, no change in hair/nails, no dryness, no lesion, no lumps, no rash. NEUROLOGICAL/PSYCH: No anxiety, not depressed, no emotional problem, no headache, no numbness, no pre-existing deficit, no history of seizures, no tremors, no weakness. HEMATOLOGIC/LYMPHATIC: Not anemic, no history of blood clots, no apparent bleeding, no bruising, glands not swollen. All Systems Negative, Except as Noted. Physical Exam Physical Exam Dictation VITAL SIGNS: Reviewed. GENERAL APPEARANCE: Alert, oriented x3, no acute distress. HEAD AND FACE: Non-traumatic. EYES: PERRL, pink conjunctivas, eyelid no trauma, anterior chamber clear. EARS: Pinnas intact and no signs of trauma or erythema. Ear canals clear and no discharge. TMs no erythema. NOSE: No discharge, no bleeding. OROPHARYNX: Mouth normal, teeth no caries, tongue pink. Pharynx clear, no erythema. Tonsils no exudates, no abscesses noted. Mucous membrane moist. NECK: Supple, non-tender, no thyromegaly, no masses, no JVD, no bruits. BREAST: Deferred. CHEST: No tenderness, no crepitus, no paradoxical movement, no retractions. LUNGS: Clear, well-ventilated, symmetric, no rales, no wheezing, no rhonchi, no stridor, good breath sounds bilaterally. HEART: Regular rate, regular rhythm, no murmur, no gallops. VASCULAR: No peripheral edema. ABDOMEN: Soft, positive bowel sounds, nondistended, no guarding, nontender, no rebound, no masses no hepatomegaly, no splenomegaly, no Olson's sign, no hernias. RECTAL: Deferred. GENITAL: Deferred. NEUROLOGICAL: Normal speech, gross motor function intact, gross sensory function intact. MUSCULOSKELETAL: Neck nontender, full range of motion, back nontender, full range of motion. EXTREMITIES: Nontender, full range of motion. SKIN: Color pink, dry, no turgor, no rash, no lacerations, no abrasions, no contusions. LYMPHATICS: Deferred. Results Laboratory and Microbiology Lab and Micro Result Laboratory Tests Test 11/22/24 13:21 11/22/24 14:05 White Blood Count 5.7 K/uL (4.8-10.8) Red Blood Count 3.13 MIL/uL (4.00-5.50) L Hemoglobin 9.7 g/dL (12.0-16.0) L Hematocrit 31.2 % (36-48) L Mean Corpuscular Volume 99.7 fL (79-99) H Mean Corpuscular Hemoglobin 31.0 pg (27.0-33.0) Mean Corpuscular Hemoglobin Concent 31.1 g/dL (32.0-36.0) L Red Cell Distribution Width 22.5 % (11.0-15.5) H Platelet Count 157 K/uL (130-400) Mean Platelet Volume 10.2 fL (7.5-10.5) Immature Granulocyte % (Auto) 0.5 % (0-1) Neutrophils (%) (Auto) 71.9 % (40.0-77.0) Lymphocytes (%) (Auto) 16.4 % (21.0-51.0) L Monocytes (%) (Auto) 8.7 % (3.0-13.0) Eosinophils (%) (Auto) 1.6 % (0.0-8.0) Basophils (%) (Auto) 0.9 % (0.0-5.0) Neutrophils # (Auto) 4.1 K/uL (1.8-7.7) Lymphocytes # (Auto) 0.9 K/uL (1.0-4.8) L Monocytes # (Auto) 0.5 K/uL (0.1-1.0) Eosinophils # (Auto) 0.09 K/uL (0.00-0.70) Basophils # (Auto) 0.05 K/uL (0.00-0.20) Absolute Immature Granulocyte (auto 0.03 K/uL (0-1) Nucleated Red Blood Cells 2.1 % (0.0-0.19) H Red Blood Cell Morphology See comments Prothrombin Time 13.4 SEC (9.6-11.6) H Prothromb Time International Ratio 1.30 (0.85-1.15) H Activated Partial Thromboplast Time 29.2 SEC (26.3-35.5) Sodium Level 131 mmol/L (136-145) L Potassium Level 3.8 mmol/L (3.5-5.1) Chloride Level 93 mmol/L (101-111) L Carbon Dioxide Level 30 mmol/L (21-32) Blood Urea Nitrogen 46 mg/dL (7-18) H Creatinine 4.3 mg/dL (0.5-1.0) H Glomerular Filtration Rate Calc 11 mL/min (>90) Random Glucose 185 mg/dL (70-105) H Total Calcium 8.4 mg/dL (8.5-10.1) L Magnesium Level 2.20 mg/dL (1.80-2.40) Troponin I High Sensitivity 566 ng/L (4-50) *H 506 ng/L (4-50) *H MDM CC: Dizziness palpitation Historian: Patient Comorbidities: Diabetes, dyslipidemia, hypertension, ESRD requiring dialysis, cardiac stents Limitations by social determinants of health: None Differential diagnosis: Arrhythmia, ACS, electrolyte abnormality, metabolic disorder, infection, PE, other. Vital signs: Stable, remained stable in the ER CBC shows no leukocytosis no anemia. Normocytic anemia hemoglobin 9.7. Chemistries stable. Electrolytes are all within normal limits. Creatinine 4.3 BUN 46 baseline for patient. Troponin initially 566, down trending to five or six, this appears to be baseline for patient based on previous labs down trending. Chest x-ray shows cardiomegaly, no obvious focal infiltrates for major signs of fluid overload. Labs and imaging independently interpreted by me. Patient was kept on the property assessment monitor for about an hour. She had a 500 cc fluid bolus. We are pending a CT angiogram of the patient's chest. 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 The patient reported though that she feels much better and she wants to go home. She has had no episodes of arrhythmia, she has no desaturations, she has a baseline labs and otherwise looks well. Patient reports she does not want to be in the hospital anymore. She did not want to get the study. She has a GCS 15 and appears to understand the risks and benefits. DC. ED Course Orders Procedure Category Date Status Time 12 Lead Ekg Tracing- EKG 11/22/24 Resulted Technical 12:47 Cbc With Differential LAB 11/22/24 Complete 12:51 Prothrombin Time With LAB 11/22/24 Complete INR 12:51 Chest 1vw RAD 11/22/24 Resulted 12:51 12 Lead Ekg Tracing- EKG 11/22/24 Logged Technical 12:51 Magnesium LAB 11/22/24 Complete 12:51 Troponin I High LAB 11/22/24 Complete Sensitivity 12:51 Partial LAB 11/22/24 Complete Thromboplastin Time 12:51 Basic Metabolic Panel LAB 11/22/24 Complete 12:51 Troponin I High LAB 11/22/24 Complete Sensitivity 13:54 0.9% Nacl 500ml PHA 11/22/24 Complete Iv.Soln (Ns 500ml 15:00 Iohexol (Omnipaque) PHA 11/22/24 Complete 14:55 Current Medications Medications (Trade) Dose Ordered Sig/Mark Route PRN Reason Start Time Stop Time Status Last Admin Dose Admin Iohexol (Omnipaque) 75 ml STK-MED ONCE IV 11/22/24 14:55 11/22/24 15:00 DC Sodium Chloride 500 ml @ 0 mls/hr Q0M ONCE IV 11/22/24 15:00 11/22/24 15:01 DC Vital Signs Date Time Temp Pulse Resp B/P (MAP) Pulse Ox O2 Delivery O2 Flow Rate FiO2 11/22/24 13:23 98.2 77 17 98/46 92 Room Air* 0 21 11/22/24 12:50 97.9 96 20 95/64 99 Room Air DX & DISP Disposition: Discharge Departure Impression: Primary Impression: Atypical chest pain Additional Impressions: Palpitations, CKD (chronic kidney disease) Condition: Stable Additional Instructions: Your blood work is at baseline. Your EKG he has been stable. Your blood pressure has been stable. Please follow up with the primary doctor early next week. Please return to the emergency department if you have any concerns. Referrals: BERKLEY HEATH MD (PCP) GUILLAUME CAMPOS DO Nov 22, 2024 15:37
== END 2024-11-22 16:00 | disposition home or self-care (01) ==
LOC: EDH 12:43
DX: R07.89 Other chest pain (principal); R00.2 Palpitations; I12.0 Hypertensive chronic kidney disease with stage 5 chronic kidney disease or end stage renal disease; E11.22 Type 2 diabetes mellitus with diabetic chronic kidney disease; N18.6 End stage renal disease; E78.00 Pure hypercholesterolemia, unspecified; Z79.01 Long term (current) use of anticoagulants; Z79.4 Long term (current) use of insulin; Z79.02 Long term (current) use of antithrombotics/antiplatelets; Z79.899 Other long term (current) drug therapy; Z90.49 Acquired absence of other specified parts of digestive tract; Z99.2 Dependence on renal dialysis; Z95.5 Presence of coronary angioplasty implant and graft
CPT/HCPCS: 99285; 71045; 83735; 84484 ×2; 80048; 85025; 85610; 85730; 36415; 93005; Q9967

== ENCOUNTER 2024-12-22 21:55 | Inpatient (IN) | payer OTHER ==
[~2024-12-22] VITALS: Ht 157.5 cm; Wt 100.2 kg
[~2024-12-22 21:55] MED LIST changes: -CARV6.25 PO; +CHOL100040 PO; -ESCI5TAB16 PO; -GABA-529 PO; +GABA300C PO; -INSU100C14 SQ; +INSU500V SQ; +METO-391 PO; +VADA150T PO
--- NOTE | 2024-12-22 22:02 | EKG ---
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
[2024-12-22 22:36] LABS: IMMATURE GRANULOCYTE ABSOLUTE 0.02 K/uL (0-1); NUCLEATED RED BLOOD CELLS 0.0 % (0.0-0.19); PLATELET COUNT (AUTO) 123 K/uL (130-400); RED BLOOD CELL COUNT(AUTO) 3.70 MIL/uL (4.00-5.50); RED CELL DISTRIBUTION WIDTH 19.7 % (11.0-15.5); WHITE BLOOD COUNT (AUTO) 6.0 K/uL (4.8-10.8)
--- NOTE | 2024-12-22 22:46 | ERN ---
ED Note History of Present Illness Stated Complaint: SOB, HEADACHE, ABD PAIN Chief Complaint: Multiple Complaints Time Seen by MD: 22:12 Dictation: This is a 59-year-old female who presented to the emergency room with complaints of multiple somatic-shortness of breath, frontal headache and also epigastric pain. Patient also gives a history of a cough. Her spouse is at bedside who indicated that all this has been going on for a day. Patient appears extremely debilitated and weak and had to be redirected multiple times to clarify her symptoms. She denied any trauma to the head, blurred vision diplopia motor weakness or seizure activity. She stated that she is diligently compliant with her hemodialysis but has still been feeling short of breath with a cough. This has been going on for about a month. She denied any mucopurulent sputum or hemoptysis. Temperature 98.4 pulse 71 respirations 20 blood pressure 128/69 with a pulse oximetry of 97% on room air Her chronic medical problems include diabetes mellitus type 2, hypertension, hy perlipidemia, congestive heart failure, end-stage renal disease on MWF schedule, coronary artery disease status post stents and pacer and AICD., LAVA Allergies: Coded Allergies: No Known Allergies (Unverified Allergy, 11/14/12) Home Meds Active Scripts Ticagrelor (Ticagrelor) 90 Mg Tablet, 90 MG PO BID, #60 TAB 1 Refill Prov:YUMIKO LINDSAY 11/16/24 [Isosorbide [place] 30MG Sr Tab] 60 mg TAB.ER.24H No Conflict Check, 60 MG PO AM for 30 Days, #30 1 Refill Prov:YUMIKO LINDSAY 11/16/24 Reported Medications Insulin Regular, Human (Humulin R) 500 Unit/Ml (Concentrated) Vial, 5 UNIT SQ HS, VIAL 12/19/24 Insulin Regular, Human (Humulin R) 500 Unit/Ml (Concentrated) Vial, 20 UNIT SQ NOON, VIAL 12/19/24 Insulin Regular, Human (Humulin R) 500 Unit/Ml (Concentrated) Vial, 15 UNIT SQ AM, VIAL 12/19/24 Vadadustat (Vafseo) 150 Mg Tablet, 450 MG PO HS, TAB 12/19/24 Gabapentin (Neurontin) 300 Mg Capsule, 300 MG PO TID, CAP 12/19/24 Metoprolol Succinate (Metoprolol Succinate) 50 Mg Tab.er.24h, 50 MG PO AM, TAB 12/19/24 Cholecalciferol (Vitamin D3) (Vitamin D3) 25 Mcg (1000 Unit) Capsule, 25 MCG PO DAILY, CAP 12/19/24 Atorvastatin Calcium (LIPITOR) 40 Mg Tablet, 40 MG PO HS, TAB 11/06/24 Folic Acid/Vitamin B Comp W-C (Shi-Cindy Tablet) 0.8 Mg Tablet, 0.8 MG PO DAILY, TAB 11/06/24 Apixaban (Eliquis) 5 Mg Tablet, 5 MG PO BID, TAB 11/06/24 Insulin Glargine,Hum.rec.anlog (Totobi Taveras Solostar) 300 Unit/1 Ml Insuln.pen, 60 UNIT SQ DAILY, SYRINGE 06/09/22 Nitroglycerin (Nitroglycerin) 0.4 Mg Tab.subl, 0.4 MG SL AD PRN for CHEST PAIN, TAB.SL 06/09/22 Discontinued Reported Medications Escitalopram Oxalate (Escitalopram Oxalate) 5 Mg Tablet, 5 MG PO DAILY, TAB 11/12/24 Gabapentin (Gabapentin) 100 Mg Capsule, 300 MG PO BID, CAP 11/06/24 Insulin Lispro (Humalog) 100 Unit/1 Ml Cartridge, 20 UNITS SQ TIDMEALS, CARTRIDGE 12/08/22 Carvedilol (Carvedilol) 6.25 Mg Tablet, 6.25 MG PO BID, TAB 06/27/22 Past Medical History Past Medical History: CHF, Diabetes-Type II, High Cholesterol, Hypertension, Renal Disese, Renal Failure, Other Additional Past Medical Hx: ESBL Surgical History: Cholecystectomy, Pacer/AICD, LAVA Surgical History Other: DIALYSIS SHUNT TO LEFT ARM; CARDIAC STENTS Social History: Lives with family History: Not Applicable RN Note Reviewed/Agreed w/PFSH: Yes Review of System Dictation Constitutional: Negative for fever,chills, and weight loss positive for generalized body weakness Eyes: Negative for injury, pain,redness, and discharge ENT: Negative for injury,pain or swelling Cardiovascular: Negative for chest pain, palpitations, and edema Respiratory: Positive for shortness of breath, cough, and wheezing, Abdomen/GI: Positive for abdominal pain, nausea denied, vomiting, diarrhea, and constipation Back: Negative for injury and pain : Negative for injury, bleeding and discharge MS/Extremity: Negative for injury and deformity Skin: Negative for rash, and discoloration Neuro: Positive for front headache, denied weakness, numbness, tingling, and seizure Psych: Negative for suicide ideation, homicidal ideation, and hallucinations Initial Vital Sign VS Vital Signs Date Time Temp Pulse Resp B/P (MAP) Pulse Ox O2 Delivery O2 Flow Rate FiO2 12/22/24 21:56 98.4 71 20 128/69 97 Room Air 12/22/24 22:25 0 21 Physical Exam Dictation General: awake, alert, NAD very ill-appearing morbidly obese appears much older than her stated age Head/Face: Normocephalic, atraumatic Eyes: PERRL, EOMI, vision at baseline ENT: oral cavity clear, TMs clear, no signs of infection Neck: Trachea midline, supple, no nuchal rigidity Cardiovascular: RRR, normal S1/S2, No MRGs, no JVD Respiratory: Bilateral coarse rhonchi Abdomen: Soft, diffusely tender to palpation, non-distended, normal bowel sounds, no guarding or rebound. Skin: Warm, dry, normal turgor, no rash MS/Extremity: Pulses equal, no cyanosis, neurovascular intact, FROM Neuro: COAx4, GCS 15, strength 5/5, CN 2-12 intact, normal cerebellar exam, normal gait, Psych: Normal behavior, mood, and affect normal Extremities-trace edema without any palpable cords, Homans sign is negative Results (Laboratory/Radiology) Laboratory/Radiology Laboratory Tests Test 12/22/24 22:16 12/23/24 03:00 12/23/24 05:00 White Blood Count 6.0 K/uL (4.8-10.8) 6.3 K/uL (4.8-10.8) Red Blood Count 3.70 MIL/uL (4.00-5.50) L 3.74 MIL/uL (4.00-5.50) L Hemoglobin 12.1 g/dL (12.0-16.0) 12.0 g/dL (12.0-16.0) Hematocrit 37.8 % (36-48) 37.2 % (36-48) Mean Corpuscular Volume 102.2 fL (79-99) H 99.5 fL (79-99) H Mean Corpuscular Hemoglobin 32.7 pg (27.0-33.0) 32.1 pg (27.0-33.0) Mean Corpuscular Hemoglobin Concent 32.0 g/dL (32.0-36.0) 32.3 g/dL (32.0-36.0) Red Cell Distribution Width 19.7 % (11.0-15.5) H 19.8 % (11.0-15.5) H Platelet Count 123 K/uL (130-400) L 129 K/uL (130-400) L Mean Platelet Volume 11.0 fL (7.5-10.5) H 11.9 fL (7.5-10.5) H Immature Granulocyte % (Auto) 0.3 % (0-1) 0.5 % (0-1) Neutrophils (%) (Auto) 74.0 % (40.0-77.0) 79.2 % (40.0-77.0) H Lymphocytes (%) (Auto) 14.6 % (21.0-51.0) L 10.4 % (21.0-51.0) L Monocytes (%) (Auto) 8.8 % (3.0-13.0) 9.1 % (3.0-13.0) Eosinophils (%) (Auto) 1.5 % (0.0-8.0) 0.3 % (0.0-8.0) Basophils (%) (Auto) 0.8 % (0.0-5.0) 0.5 % (0.0-5.0) Neutrophils # (Auto) 4.5 K/uL (1.8-7.7) 5.0 K/uL (1.8-7.7) Lymphocytes # (Auto) 0.9 K/uL (1.0-4.8) L 0.7 K/uL (1.0-4.8) L Monocytes # (Auto) 0.5 K/uL (0.1-1.0) 0.6 K/uL (0.1-1.0) Eosinophils # (Auto) 0.09 K/uL (0.00-0.70) 0.02 K/uL (0.00-0.70) Basophils # (Auto) 0.05 K/uL (0.00-0.20) 0.03 K/uL (0.00-0.20) Absolute Immature Granulocyte (auto 0.02 K/uL (0-1) 0.03 K/uL (0-1) Nucleated Red Blood Cells 0.0 % (0.0-0.19) 0.0 % (0.0-0.19) Sodium Level 133 mmol/L (136-145) L Potassium Level 5.5 mmol/L (3.5-5.1) H Chloride Level 90 mmol/L (101-111) *L Carbon Dioxide Level 20 mmol/L (21-32) L Blood Urea Nitrogen 104 mg/dL (7-18) *H Creatinine 8.1 mg/dL (0.5-1.0) *H Glomerular Filtration Rate Calc 5 mL/min (>90) Random Glucose 142 mg/dL (70-105) H Total Calcium 8.5 mg/dL (8.5-10.1) Total Creatine Kinase 35 U/L (21-232) Troponin I High Sensitivity 51 ng/L (4-50) *H 59 ng/L (4-50) *H Lactic Acid Level 6.0 mmol/L (0.8-2.5) H 4.8 mmol/L (0.8-2.5) H B-Type Natriuretic Peptide 3100 pg/mL (0-100) H Procalcitonin 0.99 ng/mL (0.05-0.5) H Labs Reviewed?: Yes CT Scan Comment: CHRISTOPH: diffuse abdominal pain ESRD on HD ORDERING PHYSICIAN: DELVIS FLORES MD PROCEDURE: ABD PEL WO - CT ABDOMEN/PELVIS W/O CONTRAST EXAM: CT Abdomen and Pelvis without IV contrast. CLINICAL HISTORY: Diffuse abdominal pain. TECHNIQUE: Thin collimated axial CT images of the abdomen and pelvis were obtained, with sagittal and coronal reformatted images also submitted. A CT scan is done according to ALARA (As Low As Reasonably Achievable). CONTRAST: None. COMPARISON: CT abdomen and pelvis dated 10/15/2024. FINDINGS: Patchy groundglass opacities in both lung bases with multiple scattered nodules requiring correlation with the prior CT scan of the chest. Mild cardiomegaly. There is no focal abnormality appreciated within the liver, pancreas, spleen, adrenals, or kidneys. Status post cholecystectomy. There are a few small scattered subcapsular hepatic and perihepatic calcifications. There is no obvious bowel wall thickening. Bowel loops are normal in caliber without evidence of obstruction or ileus. Mild constipation. The appendix is unremarkable. There is no abnormality within the urinary bladder. Unremarkable reproductive organs. No lymphadenopathy. No free fluid. No pneumoperitoneum. There is patchy atherosclerotic calcification of the aorta and its major branches. Diffuse mild anasarca. There is no acute osseous abnormality. IMPRESSIONS: No acute process in the abdomen or pelvis. Diffuse mild anasarca. Patchy groundglass opacities in both lung bases with multiple scattered nodules; these are new findings compared to the previous CT abdomen and pelvis dated 10/15/2024, and likely represent an infectious or inflammatory process. Recommend a dedicated CT scan of the chest for optimal evaluation. /[place] DICTATED BY: CARLA BAÑUELOS Jr., MD DATE: 12/23/24310 ELECTRONICALLY SIGNED BY: CARLA BAÑUELOS Jr., MD DATE: 12/23/24310 ED Course ED Course Orders Procedure Category Date Status Time Vital Signs Per CPOE 12/22/24 Transmitted Routine 21:57 Chest 1vw RAD 12/22/24 Resulted 21:57 12 Lead Ekg Tracing- EKG 12/22/24 Complete Technical 21:57 Oxygen By Nc/Pulse Ox CPOE 12/22/24 Transmitted 21:57 Maintain Iv CPOE 12/22/24 Transmitted 21:57 Iv Insertion CPOE 12/22/24 Transmitted 21:57 Cardiac Monitoring CPOE 12/22/24 Transmitted 21:57 Pulse Oximetry With CPOE 12/22/24 Transmitted Vs And Prn 21:57 Cbc With Differential LAB 12/22/24 Complete 21:57 Activity: Br W/Brp CPOE 12/22/24 Transmitted With Assist 21:57 Creatine Kinase, Total LAB 12/22/24 Complete 21:57 Troponin I High LAB 12/22/24 Complete Sensitivity 21:57 Urinalysis Profile LAB 12/22/24 Logged 21:57 Basic Metabolic Panel LAB 12/22/24 Complete 21:57 Morphine 4mg Syg PHA 12/23/24 Complete (Morphine 4mg Syg) 00:30 Ondansetron 4mg Inj PHA 12/23/24 Complete (Zofran 4mg Inj) 00:30 Ct Abdomen/Pelvis W/O CT 12/23/24 Resulted Contrast 00:14 Dextrose 50%-Water PHA 12/23/24 Complete (D50w) 01:30 Blood Cult ROSSY 12/23/24 In Process 02:24 Lactic Acid LAB 12/23/24 Complete 02:24 Zosyn 3.375gm+Ns 50ml PHA 12/23/24 Complete (Zosyn 3.375gm+Ns 02:30 Vancomycin 1g/250ml PHA 12/23/24 Complete Kit (Vancomycin 1g/2 02:30 Albuterol 0.083% PHA 12/23/24 Complete 2.5mg/3ml (Proventil 02:30 Edm Admit Bridge Order ADM 12/23/24 Transmitted 03:01 Vital Signs(Adult CPOE 12/23/24 Transmitted Hospitalist) 03:30 Daily Weights CPOE 12/23/24 Transmitted 03:30 I&O Q Shift CPOE 12/23/24 Transmitted 03:30 Acetaminophen 325 Tab PHA 12/23/24 In Process (Tylenol 325mg Tab 03:30 Acetaminophen 325 Tab PHA 12/23/24 In Process (Tylenol 325mg Tab 03:30 Ondansetron 4mg Inj PHA 12/23/24 In Process (Zofran 4mg Inj) 03:30 Pulse Ox(Continuous) RT 12/23/24 Transmitted 03:30 Nurse To Enter Home CPOE 12/23/24 Transmitted Medication 03:30 Admit Orders ADM 12/23/24 Transmitted 03:30 Condition: CPOE 12/23/24 Transmitted 03:30 Telemetry Monitoring CPOE 12/23/24 Transmitted 03:30 Activity: Bed Rest CPOE 12/23/24 Transmitted 03:30 Renal Dialysis Diet DIET 12/23/24 Transmitted Breakfast Apply Scds CPOE 12/23/24 Transmitted 03:30 Vancomycin 1g/250ml PHA 12/23/24 Complete Kit (Vancomycin 1g/2 03:30 Zosyn 3.375gm+Ns 50ml PHA 12/23/24 In Process (Zosyn 3.375gm+Ns 15:00 Pulmonology Consult CONPHYSVC 12/23/24 Transmitted 03:30 Nephrology Consult CONPHYSVC 12/23/24 Transmitted 03:30 Cbc With Differential LAB 12/23/24 Complete 04:00 Comprehensive LAB 12/23/24 In Process Metabolic Panel 04:00 Magnesium LAB 12/23/24 In Process 04:00 B-Type Natriuretic LAB 12/23/24 Complete Peptide 04:00 D-Dimer LAB 12/23/24 Logged 04:00 Troponin I High LAB 12/23/24 Complete Sensitivity 03:30 Troponin I High LAB 12/23/24 Logged Sensitivity 09:30 Troponin I High LAB 12/23/24 Logged Sensitivity 15:30 Fall Precautions CPOE 12/23/24 Transmitted 03:30 Case Management CM 12/23/24 Transmitted Evaluation 03:30 Daily Weights CPOE 12/23/24 Transmitted 03:30 Daily Fluid Intake CPOE 12/23/24 Transmitted Restriction 03:30 Strict I&O CPOE 12/23/24 Transmitted 03:30 Lipase LAB 12/23/24 In Process 04:00 Initiate Hypoglycemia CRISTIANA 12/23/24 In Process Protocol 03:30 Dextrose 50%-Water PHA 12/23/24 In Process (D50w) 03:30 Glucagon 1mg Kit PHA 12/23/24 In Process (Glucagon 1mg Kit) 03:30 Initiate CRISTIANA 12/23/24 In Process Hyperglycemia Protoco 03:30 Thyroid Stimulating LAB 12/23/24 In Process Hormone 04:00 Procalcitonin LAB 12/23/24 Complete 04:00 Arterial Blood Gas + RT 12/23/24 Transmitted 07:00 Vancomycin Level LAB 12/25/24 Verified 05:00 Vancomycin 750mg PHA 12/23/24 In Process (Vancomycin 750mg) 16:00 *Nursing CPOE 12/23/24 Transmitted Communication: 03:50 Pantoprazole 40mg Tab PHA 12/23/24 In Process (Protonix 40mg Tab 09:00 Lactic Acid (Removed) LAB 12/23/24 Complete 05:00 Current Medications Medications (Trade) Dose Ordered Sig/Mark Route PRN Reason Start Time Stop Time Status Last Admin Dose Admin Acetaminophen (TYLenol 325MG TAB) 650 mg Q4H PRN PO MILD PAIN (1-3) 12/23/24 03:30 01/22/25 03:29 Acetaminophen (TYLenol 325MG TAB) 650 mg Q6H PRN PO TEMPERATURE GREATER THAN 101.5 12/23/24 03:30 01/22/25 03:29 Albuterol Sulfate (Proventil 0.083% 2.5mg/3ml) 2.5MG ONCE ONCE IH 12/23/24 02:30 12/23/24 02:31 DC 12/23/24 03:21 Dextrose (D50w) 50 ml AD PRN IV HYPOGLYCEMIA PROTOCOL 12/23/24 03:30 01/22/25 03:29 Dextrose (D50w) 50 ml ONCE ONCE IV 12/23/24 01:30 12/23/24 01:31 DC 12/23/24 02:59 Glucagon (Glucagon 1mg Kit) 1 mg AD PRN IM HYPOGLYCEMIA PROTOCOL 12/23/24 03:30 01/22/25 03:29 Morphine Sulfate (morPHINE 4MG SYG) 4 mg ONCE ONCE IVP 12/23/24 00:30 12/23/24 00:31 DC 12/23/24 00:31 Ondansetron HCl (zoFRAN 4MG INJ) 4 mg ONCE ONCE IVP 12/23/24 00:30 12/23/24 00:31 DC 12/23/24 00:30 Ondansetron HCl (zoFRAN 4MG INJ) 4 mg Q6H PRN IV NAUSEA/VOMITING 12/23/24 03:30 01/22/25 03:29 Piperacillin Sod/ Tazobactam Sod (Zosyn 3.375gm+NS 50ml) 3.375 gm ONCE ONCE IV 12/23/24 02:30 12/23/24 02:31 DC 12/23/24 03:00 Vancomycin HCl 250 ml @ 125 mls/hr ONCE IV 12/23/24 03:30 12/23/24 03:55 DC Vancomycin HCl (Vancomycin 1g/ 250ml Kit) 1 gm ONCE ONCE IV 12/23/24 02:30 12/23/24 02:46 DC 12/23/24 04:15 Vital Signs Date Time Temp Pulse Resp B/P (MAP) Pulse Ox O2 Delivery O2 Flow Rate FiO2 12/23/24 04:42 80 17 133/71 98 Room Air* 0 12/23/24 03:21 68 19 12/23/24 02:50 80 15 139/70 98 Room Air* 0 12/23/24 01:40 69 14 134/50 99 Room Air* 0 12/22/24 23:35 65 16 130/60 100 Room Air* 0 12/22/24 22:25 98.4 70 15 134/58 100 Room Air* 0 21 12/22/24 21:56 98.4 71 20 128/69 97 Room Air We will perform diagnostic labs, advanced imaging and administer medications according to the patient's complaint. Once the results are available, will review and personally interpreted the labs to rule out any acute life- threatening emergency the trach require immediate intervention and treatment. I will then re-evaluate the patient after treatment and diagnostic exams have return to determine whether the patient requires any further testing, can safely be discharged home or need further admission to hospital for additional treatment and evaluation. Medical Decision Making MDM Differential diagnosis: Infectious pneumonia, sarcoidosis, granulomatous lung disease, metastatic calcification with a end-stage renal disease. Uremic pneumonitis, fungal pneumonia This is a 59-year-old female who presented to the emergency room with complaints of multiple somatic-shortness of breath, frontal headache and also epigastric pain. Patient also gives a history of a cough. Her spouse is at bedside who indicated that all this has been going on for a day. Patient appears extremely debilitated and weak and had to be redirected multiple times to clarify her symptoms. She denied any trauma to the head, blurred vision diplopia motor weakness or seizure activity. She stated that she is diligently compliant with her hemodialysis but has still been feeling short of breath with a cough. This has been going on for about a month. She denied any mucopurulent sputum or hemoptysis. Temperature 98.4 pulse 71 respirations 20 blood pressure 128/69 with a pulse oximetry of 97% on room air Her chronic medical problems include diabetes mellitus type 2, hypertension, hyperlipidemia, congestive heart failure, end-stage renal disease on MWF schedule, coronary artery disease status post stents and pacer and AICD., LAVA 11:40 p.m. labs reviewed CBC is with a normal limits MCV is 102 BNP 7 is significant for a sodium of 133 chloride 90 BUN and creatinine are elevated. Troponins are 50 1 Chest x-ray shows cardiomegaly with a bilateral interstitial markings. 1:30 a.m. patient is sugars started to go down on her freestyle Susi to 60s and an amp of D50 was given. CT scan of the abdomen and pelvis was finally resulted around 2:30 a.m. which showed bases of the lungs showing interstitial infiltrates with nodules. Given the history of diabetes mellitus multi-system symptoms and chronic cough with the reticulonodular infiltrates, I recommended admission to the hospital for further evaluation and pulmonary consultation and possibly need for bronch to also rule out granulomatous infections. Patient and spouse are agreeable Rationale: Tests considered and ordered secondary to shared decision making include: labs, ECG and radiology Previous outside records reviewed: Old ER visits. Risk of complication and/or morbidity or mortality of patient management: None Medications-Per medication reconciliation Need for hospitalization: Patient does meet criteria for hospitalization. Need for emergency major/minor surgery: No There are no social concerns with this patient. Prescription drug management Prescriptions will include symptomatic care Patient's prior external medical records from other ER visits were reviewed by me as indicated. Prior testing and results from previous visits were reviewed. Prior tests were taken into account with medical decision making and resource utilization, independent historian/historians were used to obtain complete medical history. I independently interpreted the test that were performed, results were reviewed by me and considered findings on radiology if ordered. Medical management and examination interpretation discussions were had by me with other qualified healthcare professionals as indicated for the patient's care. Problem List Problem List: (1) Interstitial pneumonia of both lungs (2) Pulmonary nodules/lesions, multiple (3) Nonspecific abdominal pain (4) Chronic respiratory failure with hypoxia, on home O2 therapy (5) End-stage renal disease on hemodialysis (6) Hypoglycemia DX & DISP Disposition: Inpatient Decision to Admit Time: 02:26 Departure Impression: Primary Impression: Interstitial pneumonia of both lungs Additional Impressions: Pulmonary nodules/lesions, multiple, Nonspecific abdominal pain, Chronic respiratory failure with hypoxia, on home O2 therapy, End-stage renal disease on hemodialysis, Hypoglycemia Condition: Stable Additional Instructions: Patient was informed of all the diagnostic labs and procedures conducted in the emergency room today and demonstrated understanding of the results. I personally reviewed and interpreted all the diagnostic exams performed in the ER today. The patient will be admitted to the hospital for further treatment and evaluation. Disposition-admit to facility Condition-stable/guarded Course-uncertain at this time Pain status-decreased Assessment-exam unchanged Admission Certification- I certify that the patients status is appropriate and is based on my best clinical judgment and the patient's condition as documented in the medical records Referrals: BERKLEY HEATH MD (PCP) DELVIS FLORES MD Dec 22, 2024 22:46
[2024-12-22 22:59] LABS: CREATINE KINASE, TOTAL 35.0 U/L (21-232); GLOMERULAR FILTR. RATE CALC 5.0 mL/min (>90); GLUCOSE,RANDOM 142.0 mg/dL (70-105); SODIUM SERUM 133.0 mmol/L (136-145)
[2024-12-22 23:05] LABS: CREATININE 8.1 mg/dL (0.5-1.0); UREA NITROGEN, BLOOD 104.0 mg/dL (7-18)
--- NOTE | 2024-12-22 23:56 | HMCIMG ---
EXAM: CR Chest, 1 view CLINICAL HISTORY: Chest pain. COMPARISON: Chest radiograph dated 12/19/2024. FINDINGS: Mild cardiomegaly. Right side cardiac pacemaker device in place. No acute infiltrate, effusion, or pneumothorax. Mild atherosclerotic aorta. No acute osseous abnormality. IMPRESSION: Mild cardiomegaly. Right side cardiac pacemaker device in place. No acute infiltrate, effusion, or pneumothorax. Compared to the prior study, there is no significant interval change. /[place]
[2024-12-23] VITALS (23 sets, daily range): BP systolic 101–141; BP diastolic 33–74; PULSE 68–86; RESP 14–21; TEMP 97.6–98.6; O2SAT 96–100
--- NOTE | 2024-12-23 01:05 | NUR ---
PATIENT'S PERSONAL IMPLANTABLE GLUCOSE MONITOR READING 69, PATIENT REFUSED FINGER STICK FOR GLUCOSE CHECK, ED MD MADE AWARE.
--- NOTE | 2024-12-23 02:12 | HMCIMG ---
EXAM: CT Abdomen and Pelvis without IV contrast. CLINICAL HISTORY: Diffuse abdominal pain. TECHNIQUE: Thin collimated axial CT images of the abdomen and pelvis were obtained, with sagittal and coronal reformatted images also submitted. A CT scan is done according to ALARA (As Low As Reasonably Achievable). CONTRAST: None. COMPARISON: CT abdomen and pelvis dated 10/15/2024. FINDINGS: Patchy groundglass opacities in both lung bases with multiple scattered nodules requiring correlation with the prior CT scan of the chest. Mild cardiomegaly. There is no focal abnormality appreciated within the liver, pancreas, spleen, adrenals, or kidneys. Status post cholecystectomy. There are a few small scattered subcapsular hepatic and perihepatic calcifications. There is no obvious bowel wall thickening. Bowel loops are normal in caliber without evidence of obstruction or ileus. Mild constipation. The appendix is unremarkable. There is no abnormality within the urinary bladder. Unremarkable reproductive organs. No lymphadenopathy. No free fluid. No pneumoperitoneum. There is patchy atherosclerotic calcification of the aorta and its major branches. Diffuse mild anasarca. There is no acute osseous abnormality. IMPRESSIONS: No acute process in the abdomen or pelvis. Diffuse mild anasarca. Patchy groundglass opacities in both lung bases with multiple scattered nodules; these are new findings compared to the previous CT abdomen and pelvis dated 10/15/2024, and likely represent an infectious or inflammatory process. Recommend a dedicated CT scan of the chest for optimal evaluation. /[place]
[2024-12-23] MEDS: DEXTROSE 50%-WATER 50 ML DISP.SYRIN IV ONE (02:59)
[2024-12-23] MEDS: ZOSYN 3.375GM +NS 50ML IV ONE (03:00)
--- NOTE | 2024-12-23 03:04 | NUR ---
PATIENT'S PERSONAL IMPLANTABLE GLUCOSE MONITOR READING 97. REFUSED FINGER STICK FOR GLUCOSE CHECK, ED MD MADE AWARE.
[2024-12-23] MEDS: ALBUTEROL 0.083% 2.5 MG/3 ML INH IH ONE (03:21)
[2024-12-23] MEDS ORDERED: VANCOMYCIN 1G/250ML KIT 250 ML IV SCH (03:30)
[2024-12-23] MEDS ORDERED: GLUCAGON 1MG KIT 1 MG ML IM PRN (03:30)
[2024-12-23] MEDS: VANCOMYCIN KIT 1 GM/250 ML IV.KIT IV ONE (04:15)
--- NOTE | 2024-12-23 04:18 | HP ---
[facility] PH[facility] Date of Service: Dec 23, 2024 Time of Service: 03:28 PCP: Alberta Tilley HISTORY OF PRESENT ILLNESS: This is a 59-year-old female with past medical history of CHF, thrombocytopenia, pulmonary nodule, end-stage renal disease on hemodialysis Monday, diabetes, hypertension, hyperlipidemia, fatty liver, coronary artery disease with cardiac stent x5 and permanent pacemaker/AICD , morbid obesity and chronic respiratory failure on home O2 who presented to the ED for multiple complaints such as shortness of breaths, cough, headache and abdominal pain.Patient states she has been having shortness of breath and dry cough for about 1 month an going problem she said and was seen by her PCP in the clinic and was told just limit exertion and always sit on the wheelchair she said.Patient reports having frontal headache and abdominal pain around epigastric area started yesterday after eating meat and tortilla.Patient reports she was nauseated but no vomiting.Patient also states she was dialyzed last Monday and 3.5 L of fluid removed she has a LAVA and her sand conditioner machine is she is anuric and has been on hemodialysis for 3 yrs she said.Patient was recently admitted in this facility on Nov and underwent a left heart cath with PCI on 11/15/2024 by and was discharged home on [facility] on .During that admission was consulted for persistent thrombocytopenia and advised to work up for multiple myeloma.Pulmonology was also consulted at that time of admission to manage COVID 19 infection [address] chest done on 11/06/2024 of previous admission which showed right lower lobe pulmonary nodule ,ground glass opacity and a small pericardial effusion. Seen and examined patient in the ER awake,alert and coherent,appears short of breath on 3 L nasal cannula mildly in distress.Patient denies fever,vomiting diarrhea ,chest pain and palpitation. Latest vital signs temperature 98.4, heart rate 70, blood pressure 134/58 saturation 100% . Labs: WBC 6, neutrophi ls 74, hemoglobin 12, hematocrit 37 platelet count 123. Sodium 133, potassium 5.5, chloride 90, carbon dioxide 20, BUN one hundred four, creatinine 8.1, GFR five glucose 142 lactic acid six and troponin 51. Chest x-ray result revealed mild cardiomegaly. Right side cardiac pacemaker device in place. No acute infiltrate, effusion or pneumothorax. CT abdomen and pelvis without contrast result revealed no acute process in the abdomen or pelvis. Diffuse mild anasarca. Patchy ground-glass opacities in both lung bases with multiple scattered nodules these are new findings compared to the previous CT abdomen and pelvis dated October 15 and likely represent an infectious or inflammatory process. While in the ER patient received morphine 4 mg IV, Zofran 4 mg IV, dextrose IV, Zosyn IV and vancomycin IV and albuterol neb treatment. We will admit patient for further medical management. REVIEW OF SYSTEMS CONSTITUTIONAL: Denies fevers, chills, or night sweats. No unintentional weight loss reported. NEUROLOGICAL: Complaints of frontal headache Denies , amaurosis fugax, motor weakness, sensory deficit, vertigo/spinning sensation, gait abnormalities, or tremors. ENT: No hearing loss, otalgia, otorrhea, rhinitis, rhinorrhea, hoarseness, or sore throat. CARDIOVASCULAR: Denies any exertional angina, dyspnea on exertion, orthopnea, paroxysmal nocturnal dyspnea, palpitations, life-threatening arrhythmias, claudication. PULMONARY: Complaints of shortness of breaths and dry cough Denies phlegm/sputum, hemoptysis, pleuritic chest pain. SLEEP: Denies morning headaches, daytime somnolence or napping. Denies difficulty falling asleep, staying asleep, waking from sleep. Denies knowledge of snoring. GASTROINTESTINAL: Complains of nausea and abdominal pain Denies any type of dysphagia to either liquids or solids. Denies vomiting, pyrosis, early satiety,diarrhea, constipation, or changes in stool consistency or caliber. Denies coffee-ground emesis, hematemesis, hematochezia, or melanotic stools. GENITOURINARY: Denies frequency, urgency, nocturia, hematuria or incontinence (Storage/Irritative symptoms.) Low urinary stream, straining to void, urinary intermittency or hesitancy, splitting of the voiding stream, terminal dribbling. ENDOCRINOLOGIC: Denies polyuria, polydipsia, polyphagia or heat/cold intolerances. HEMATOLOGIC: Denies thrombophilia/previous clots, or coagulopathy/bleeding disorders. ONCOLOGIC: Denies personal history of malignancy. DERMATOLOGIC: Denies rashes or pruritus. PSYCHIATRIC: Denies any suicidal or homicidal ideation. Denies hallucinations. PAST MEDICAL HISTORY: [ CHF, thrombocytopenia, pulmonary nodule, end-stage renal disease on hemodialysis Monday, diabetes, hypertension, hyperlipidemia, fatty liver, coronary artery disease with cardiac stent x5 and permanent pacemaker/AICD , morbid obesity and chronic respiratory failure on home O2 ] PAST SURGICAL HISTORY: [ Cholecystectomy, pacer/AICD and Lava ] PAST SOCIAL HISTORY: [ Patient lives with . Patient denies alcohol tobacco and recreational drug use ] FAMILY HISTORY: [ Hypertension, diabetes, cardiovascular disease and Alzheimer's disease ] Coded Allergies: No Known Allergies (Unverified Allergy, 11/14/12) PHYSICAL EXAM GENERAL APPEARANCE: The patient is awake, alert, and oriented, mildly in distress. NEUROLOGICAL: Cranial nerves II-XII grossly intact. Motor is 5/5 in bilateral upper and lower extremities proximal to distal. No sensory deficits. HEENT: Face is symmetric. Pupils are equal and reactive. Extraocular movements are intact. NECK: Supple. No JVD. No thyromegaly. No submental, submandibular, pre- /postauricular, occipital or supraclavicular lymphadenopathy. CHEST: Normal chest expansion. No Telemetry. LUNGS: Diminished breath sounds CARDIOVASCULAR: Regular. S1 and S2 normal. No appreciable rubs, murmurs or gallops. ABDOMEN: Abdominal tenderness around epigastric area on palpation Soft and nondistended. There is no rebound, voluntary guarding, or rigidity. : Deferred. Anuric EXTREMITIES: Generalized edema SKIN: No skin breakdown. Vital Sign (Last 24 Hours) 12/22/24 12/23/24 22:25 03:21 Temp 98.4 Pulse 68 Resp 19 B/P (MAP) 134/58 Pulse Ox 100 O2 Delivery Room Air* O2 Flow Rate 0 FiO2 21 LABS: Laboratory: Test 12/23/24 03:00 12/22/24 22:16 Range/Units Lactic Acid Level 6.0 H 0.8-2.5 mmol/L White Blood Count 6.0 4.8-10.8 K/uL Red Blood Count 3.70 L 4.00-5.50 MIL/uL Hemoglobin 12.1 12.0-16.0 g/dL Hematocrit 37.8 36-48 % Mean Corpuscular Volume 102.2 H 79-99 fL Mean Corpuscular Hemoglobin 32.7 27.0-33.0 pg Mean Corpuscular Hemoglobin Concent 32.0 32.0-36.0 g/dL Red Cell Distribution Width 19.7 H 11.0-15.5 % Platelet Count 123 L 130-400 K/uL Mean Platelet Volume 11.0 H 7.5-10.5 fL Immature Granulocyte % (Auto) 0.3 0-1 % Neutrophils (%) (Auto) 74.0 40.0-77.0 % Lymphocytes (%) (Auto) 14.6 L 21.0-51.0 % Monocytes (%) (Auto) 8.8 3.0-13.0 % Eosinophils (%) (Auto) 1.5 0.0-8.0 % Basophils (%) (Auto) 0.8 0.0-5.0 % Neutrophils # (Auto) 4.5 1.8-7.7 K/uL Lymphocytes # (Auto) 0.9 L 1.0-4.8 K/uL Monocytes # (Auto) 0.5 0.1-1.0 K/uL Eosinophils # (Auto) 0.09 0.00-0.70 K/uL Basophils # (Auto) 0.05 0.00-0.20 K/uL Absolute Immature Granulocyte (auto 0.02 0-1 K/uL Nucleated Red Blood Cells 0.0 0.0-0.19 % Sodium Level 133 L 136-145 mmol/L Potassium Level 5.5 H 3.5-5.1 mmol/L Chloride Level 90 *L 101-111 mmol/L Carbon Dioxide Level 20 L 21-32 mmol/L Blood Urea Nitrogen 104 *H 7-18 mg/dL Creatinine 8.1 *H 0.5-1.0 mg/dL Glomerular Filtration Rate Calc 5 >90 mL/min Random Glucose 142 H 70-105 mg/dL Total Calcium 8.5 8.5-10.1 mg/dL Total Creatine Kinase 35 21-232 U/L Troponin I High Sensitivity 51 *H 4-50 ng/L DIAGNOSTICS / RADIOLOGY: [ ] ASSESSMENT: Possible pneumonia POA Multiple pulmonary nodules per CT POA Acute on chronic respiratory failure on home O2 POA High anion gap metabolic acidosis POA Lactic acidosis POA Chronic thrombocytopenia POA Electrolyte imbalance POA Acute on chronic kidney disease on hemodialysis POA Chronic troponinemia Hyponatremia POA Hyperkalemia POA PPM/ AICD cardiac status CHF POA Morbid Obesity POA Hypertension POA Diabetes POA Hyperlipidemia POA PLAN: We will admit patient in PCCU We will start on renal dialysis diet We will continue vancomycin and Zosyn IV for broad-spectrum coverage We will start on Protonix 40 mg p.o. daily for GI prophylaxis We will closely monitor blood sugar patient has a continuous blood glucose monitoring device We will start on insulin sliding scale AC & HS with hypoglycemia protocol We will add prn medication for fever,pain,cough , nausea and vomiting We will reconcile home meds once medlist available Daily weight and strict I&O per nursing Fluid restriction 1.5 L daily We will trend troponin q.6 x3 We will seek pulmonology consultation We will seek Nephrology consultation We will request for ABG and follow-up result and trend lactic acid We will request labs in am Further orders to follow depending on above results Case discussed with attending physician and came up with above treatment and plan of care. ADVANCED CARE PLANNING 1. Which of the following were discussed? Hospice Care - No Therapeutic options - Yes Advance Directives - No Other discussions - 2. Discussed with who? Patient 3. Voluntary nature of this service was explained to the patient? Yes 4. Amount of time spent - 25 min 5. Reviewed by Physician? (if this service was performed by NPP) Yes Patient seen and examined by me. Agree with note by ASSISTANT MEN'S LACROSSE COACH SEE ADDITIONAL ORDERS PER CHART DISCUSSED WITH NURSING STAFF JET FARIAS Dec 23, 2024 04:18
[2024-12-23 04:33] LABS: IMMATURE GRANULOCYTE ABSOLUTE 0.03 K/uL (0-1); NUCLEATED RED BLOOD CELLS 0.0 % (0.0-0.19); PLATELET COUNT (AUTO) 129 K/uL (130-400); RED BLOOD CELL COUNT(AUTO) 3.74 MIL/uL (4.00-5.50); RED CELL DISTRIBUTION WIDTH 19.8 % (11.0-15.5); WHITE BLOOD COUNT (AUTO) 6.3 K/uL (4.8-10.8)
--- NOTE | 2024-12-23 05:19 | NUR ---
PATIENT'S PERSONAL IMPLANTABLE GLUCOSE MONITOR READING 136 AT THIS TIME, ORDERED BY SENIOR INTERACTIVE DEVELOPER TIFFANIE MORENO VIA NURSING COMMUNICATION.
[2024-12-23 06:11] LABS: ASPARTATE AMINOTRANSFERASE 74.0 U/L (10-37); GLOMERULAR FILTR. RATE CALC 5.0 mL/min (>90); GLUCOSE,RANDOM 165.0 mg/dL (70-105); SODIUM SERUM 132.0 mmol/L (136-145); TOTAL PROTEIN, SERUM 7.4 g/dL (6.0-8.3)
[2024-12-23 06:17] LABS: UREA NITROGEN, BLOOD 112.0 mg/dL (7-18)
[2024-12-23 06:18] LABS: CREATININE 8.5 mg/dL (0.5-1.0)
--- NOTE | 2024-12-23 06:21 | NUR ---
PAGED PROVIDER FOR CRITICAL LAB VALUES. PENDING CALL BACK AT THIS TIME.
--- NOTE | 2024-12-23 06:28 | NUR ---
SPOKE TO CAMRON VILLALTA ABOUT CRITICAL LAB VALUES OF POTASSIUM, BUN, AND CR. ORDERS GIVEN.
[2024-12-23] MEDS: SODIUM ZIRCONIUM CYCLOSILICATE 5 GM POWD.PACK PO ONE (07:00)
--- NOTE | 2024-12-23 07:14 | NUR ---
REPORT GIVEN TO REHAN VAUGHAN AT THIS TIME
--- NOTE | 2024-12-23 07:18 | CONS ---
[facility] CONSULTATION NOTE Date Patient Seen: Dec 23, 2024 Time of Visit: 07:17 Supervising Physician: DR Magui VALDEZ Reason for Consultation: Acute on chronic respiratory failure Primary Care Physician: Treva Pinzon MD Outpatient Specialists: [ ] Inpatient Consults: Dr Juan Asencio, Dr Gomez Attending: [facility] team PROBLEM LIST: Acute hypoxemic respiratory failure, POA Scattered nodules versus septic embolization in peripheral of both lung POA with prominence at the base Differential diagnosis metastatic disease Acute on chronic respiratory failure on home O2 POA High anion gap metabolic acidosis POA resolved ESRD on HD Lactic acidosis POA Chronic thrombocytopenia POA Electrolyte imbalance POA Acute on chronic kidney disease on hemodialysis POA Chronic troponinemia Hyponatremia POA Hyperkalemia POA PPM/ AICD cardiac status CHF POA Morbid Obesity POA Hypertension POA Diabetes POA Hyperlipidemia POA Morbid obesity BMI of 41 HPI: This is a morbidly obese 59-year-old female with a past medical history of CHF, thrombocytopenia, pulmonary nodule, ESRD on hemodialysis Wednesdays and Fridays, type 2 diabetes mellitus, hypertension, hyperlipidemia, fatty liver, coronary artery disease with cardiac stents x5 and ICD in place. Patient prese nted to the ED for complaints of shortness of breaths, cough, headache and abdominal pain that started for one month. She was admitted by the [facility] team and we are consulted for acute on chronic respiratory failure and lung nodules. Vital signs are of temperature 98.4 respiratory rate of 18 saturating 100% on 2 L via nasal cannula heart rate of 77 with a blood pressure 139/53. Patient is in no apparent distress. Laboratory shows hyperkalemia with a potassium of 6.0 chloride of 92 covered with Lokelma, BUN of 118 creatinine 8.6 GFR of five glucose 166 mg/dL. She is pending hemodialysis for today sodium of 130 total calcium of 8.1. Latest lactic acid 4.8 trending down. Leaking troponins 51, 59, 53. Likely from ESRD. There was a CT abdomen and pelvis done in the ED and shows no acute process in the abdomen or pelvis. Diffuse mild anasarca. Patchy ground-glass opacities in both lungs bases with multiple scattered nodules. There also new findings compared to previous CT abdomen and pelvis dated 10/15/24. Likely represent infectious or inflammatory process. CT of the chest was ordered. She is refusing CT chest with contrast. Patient reports she does not tolerate contrast. On assessment she is awake alert and oriented x3. Lung sounds are clear but diminished to all lobes. Plus 2 pitting edema to bilateral lower extremities. Patient's has been once the bedside. Inform them of the reason for my consult and current clinical findings. I also explained the plan of care in regards to pulmonology team. Post verbalized understanding PAST MEDICAL HX: see above PAST SURGICAL HX: noncontributory SOCIAL HISTORY: No tobacco, ETOH, or illicit drug use Coded Allergies: No Known Allergies (Unverified Allergy, 11/14/12) REVIEW OF SYSTEMS: Const: Weight gain Eyes: no recent vision problems ENT: No congestion, ear pain, or sore throat C/V: Positive for swelling to bilateral lower extremities Resp shortness of the breath cough x1 month GI: No abdominal pain, nausea, vomiting, constipation, or diarrhea : No incontinence of or dyuria M/S: No joint or pain swelling Skin: No rash Neuro: no headache, focal numbness, or weakness, dizziness or seizures Psych: no depression or anxiety Heme: no abnormal bruising or bleeding Lymph: no swollen glands PHYSICAL EXAM: GENERAL: CHRONICALLY ILL HEENT: EOMI, Sclera non icteric, moist mucosa NECK: Supple, no JVD, trachea midline LUNGS: DIMINISHED TO ALL LOBES BILATERALLY. HEART: Regular rate and rhythm. Normal S1 and S2, without murmurs ABD: Abdomen soft, nontender. Bowel sounds present EXT: No clubbing cyanosis + 2 PITTING EDEMA NEURO: Alert and oriented to person, follows commands Vital Signs (last 8hr) Date Time Temp Pulse Resp B/P (MAP) Pulse Ox O2 Delivery O2 Flow Rate FiO2 12/23/24 06:40 78 22 122/73 98 Nasal Cannula* 2 12/23/24 04:42 80 17 133/71 98 Nasal Cannula* 2 12/23/24 03:21 68 19 12/23/24 02:50 80 15 139/70 98 Nasal Cannula* 2 12/23/24 01:40 69 14 134/50 99 Nasal Cannula* 2 12/22/24 23:35 65 16 130/60 100 Nasal Cannula* 2 LABS: Hematology Labs: Test 12/23/24 03:00 Range/Units White Blood Count 6.3 4.8-10.8 K/uL Red Blood Count 3.74 L 4.00-5.50 MIL/uL Hemoglobin 12.0 12.0-16.0 g/dL Hematocrit 37.2 36-48 % Mean Corpuscular Volume 99.5 H 79-99 fL Mean Corpuscular Hemoglobin 32.1 27.0-33.0 pg Mean Corpuscular Hemoglobin Concent 32.3 32.0-36.0 g/dL Red Cell Distribution Width 19.8 H 11.0-15.5 % Platelet Count 129 L 130-400 K/uL Mean Platelet Volume 11.9 H 7.5-10.5 fL Immature Granulocyte % (Auto) 0.5 0-1 % Neutrophils (%) (Auto) 79.2 H 40.0-77.0 % Lymphocytes (%) (Auto) 10.4 L 21.0-51.0 % Monocytes (%) (Auto) 9.1 3.0-13.0 % Eosinophils (%) (Auto) 0.3 0.0-8.0 % Basophils (%) (Auto) 0.5 0.0-5.0 % Neutrophils # (Auto) 5.0 1.8-7.7 K/uL Lymphocytes # (Auto) 0.7 L 1.0-4.8 K/uL Monocytes # (Auto) 0.6 0.1-1.0 K/uL Eosinophils # (Auto) 0.02 0.00-0.70 K/uL Basophils # (Auto) 0.03 0.00-0.20 K/uL Absolute Immature Granulocyte (auto 0.03 0-1 K/uL Nucleated Red Blood Cells 0.0 0.0-0.19 % Chemistry Labs: Test 12/23/24 05:00 12/23/24 03:00 12/22/24 22:16 Range/Units Sodium Level 132 L 136-145 mmol/L Potassium Level 6.7 *H 3.5-5.1 mmol/L Chloride Level 91 L 101-111 mmol/L Carbon Dioxide Level 19 L 21-32 mmol/L Blood Urea Nitrogen 112 *H 7-18 mg/dL Creatinine 8.5 *H 0.5-1.0 mg/dL Glomerular Filtration Rate Calc 5 >90 mL/min Random Glucose 165 H 70-105 mg/dL Lactic Acid Level 4.8 H 0.8-2.5 mmol/L Total Calcium 8.3 L 8.5-10.1 mg/dL Magnesium Level 2.60 H 1.80-2.40 mg/dL Total Bilirubin 1.3 H 0.2-1.0 mg/dL Aspartate Amino Transf (AST/SGOT) 74 H 10-37 U/L Alanine Aminotransferase (ALT/SGPT) 67 12-78 U/L Alkaline Phosphatase 198 H 50-136 U/L Total Protein 7.4 6.0-8.3 g/dL Albumin 2.8 L 3.5-5.0 g/dL Lipase 95 H 16-77 U/L Thyroid Stimulating Hormone (TSH) 2.77 # 0.36-3.74 uIU/mL Troponin I High Sensitivity 59 *H 4-50 ng/L B-Type Natriuretic Peptide 3100 H 0-100 pg/mL Procalcitonin 0.99 H 0.05-0.5 ng/mL Total Creatine Kinase 35 21-232 U/L DIAGNOSTICS / RADIOLOGY RESULTS: [[facility] [address] [place] [id number] IMAGING REPORT Signed PATIENT: NICK VEE MR#: [id number] : 1965 SEX: F AGE: 59 LOCATION: [facility] ORDER 59 STATUS: [facility] REPORT#: [id number] SERVICE 58 REASON: CHEST PAIN ORDERING PHYSICIAN: DELVIS FLORES MD PROCEDURE: CXR1VW - CHEST 1VW EXAM: CR Chest, 1 view CLINICAL HISTORY: Chest pain. COMPARISON: Chest radiograph dated 12/19/2024. FINDINGS: Mild cardiomegaly. Right side cardiac pacemaker device in place. No acute infiltrate, effusion, or pneumothorax. Mild atherosclerotic aorta. No acute osseous abnormality. IMPRESSION: Mild cardiomegaly. Right side cardiac pacemaker device in place. No acute infiltrate, effusion, or pneumothorax. Compared to the prior study, there is no significant interval change. /[facility] DICTATED BY: CARLA BAÑUELOS Jr., MD DATE: 12/23/2454 ELECTRONICALLY SIGNED BY: CARLA BAÑUELOS Jr., MD DATE: 12/23/2454 ] [facility] [address] [place] [address] IMAGING REPORT Signed PATIENT: NICK VEE MR#: [id number] : 1965 SEX: F AGE: 59 LOCATION: [facility] ORDER STATUS: REG ER REPORT#: [id number] SERVICE REASON: diffuse abdominal pain ESRD on HD ORDERING PHYSICIAN: DELVIS FLORES MD PROCEDURE: ABD PEL WO - CT ABDOMEN/PELVIS W/O CONTRAST EXAM: CT Abdomen and Pelvis without IV contrast. CLINICAL HISTORY: Diffuse abdominal pain. TECHNIQUE: Thin collimated axial CT images of the abdomen and pelvis were obtained, with sagittal and coronal reformatted images also submitted. A CT scan is done according to ALARA (As Low As Reasonably Achievable). CONTRAST: None. COMPARISON: CT abdomen and pelvis dated 10/15/2024. FINDINGS: Patchy groundglass opacities in both lung bases with multiple scattered nodules requiring correlation with the prior CT scan of the chest. Mild cardiomegaly. There is no focal abnormality appreciated within the liver, pancreas, spleen, adrenals, or kidneys. Status post cholecystectomy. There are a few small scattered subcapsular hepatic and perihepatic calcifications. There is no obvious bowel wall thickening. Bowel loops are normal in caliber without evidence of obstruction or ileus. Mild constipation. The appendix is unremarkable. There is no abnormality within the urinary bladder. Unremarkable reproductive organs. No lymphadenopathy. No free fluid. No pneumoperitoneum. There is patchy atherosclerotic calcification of the aorta and its major branches. Diffuse mild anasarca. There is no acute osseous abnormality. IMPRESSIONS: No acute process in the abdomen or pelvis. Diffuse mild anasarca. Patchy groundglass opacities in both lung bases with multiple scattered nodules; these are new findings compared to the previous CT abdomen and pelvis dated 10/15/2024, and likely represent an infectious or inflammatory process. Recommend a dedicated CT scan of the chest for optimal evaluation. /[facility] DICTATED BY: CARLA BAÑUELOS Jr., MD DATE: 12/23/24310 ELECTRONICALLY SIGNED BY: CARLA BAÑUELOS Jr., MD DATE: 12/23/24310 [facility] [address] [place] [address] IMAGING REPORT Signed PATIENT: NICK VEE MR#: [id number] : 1965 SEX: F AGE: 59 LOCATION: [facility] ORDER STATUS: REG ER REPORT#: [id number] SERVICE REASON: diffuse abdominal pain ESRD on HD ORDERING PHYSICIAN: DELVIS FLORES MD PROCEDURE: ABD PEL WO - CT ABDOMEN/PELVIS W/O CONTRAST EXAM: CT Abdomen and Pelvis without IV contrast. CLINICAL HISTORY: Diffuse abdominal pain. TECHNIQUE: Thin collimated axial CT images of the abdomen and pelvis were obtained, with sagittal and coronal reformatted images also submitted. A CT scan is done according to ALARA (As Low As Reasonably Achievable). CONTRAST: None. COMPARISON: CT abdomen and pelvis dated 10/15/2024. FINDINGS: Patchy groundglass opacities in both lung bases with multiple scattered nodules requiring correlation with the prior CT scan of the chest. Mild cardiomegaly. There is no focal abnormality appreciated within the liver, pancreas, spleen, adrenals, or kidneys. Status post cholecystectomy. There are a few small scattered subcapsular hepatic and perihepatic calcifications. There is no obvious bowel wall thickening. Bowel loops are normal in caliber without evidence of obstruction or ileus. Mild constipation. The appendix is unremarkable. There is no abnormality within the urinary bladder. Unremarkable reproductive organs. No lymphadenopathy. No free fluid. No pneumoperitoneum. There is patchy atherosclerotic calcification of the aorta and its major branches. Diffuse mild anasarca. There is no acute osseous abnormality. IMPRESSIONS: No acute process in the abdomen or pelvis. Diffuse mild anasarca. Patchy groundglass opacities in both lung bases with multiple scattered nodules; these are new findings compared to the previous CT abdomen and pelvis dated 10/15/2024, and likely represent an infectious or inflammatory process. Recommend a dedicated CT scan of the chest for optimal evaluation. /[facility] DICTATED BY: CARLA BAÑUELOS Jr., MD DATE: 12/23/24310 ELECTRONICALLY SIGNED BY: CARLA BAÑUELOS Jr., MD DATE: 12/23/[address] OF THE CHEST WITHOUT CONTRAST ABG CPAP AT HS TSH -IF ABNORMAL RDER US OF THE THYROID ASSESS FOR THYROID NODULES CONTINUE EMPIRIC ANTIBIOTICS WITH ZOSYN ANTIBIOTICS 6 MINUTE WALK BEFORE DISCHARGE ARRANGE OUTPATIENT PULMONOLOGY REFERRAL FOR SLEEP STUDY, PFT AND FOLLOW-UP MANAGEMENT UPON DISCHARGE WE WILL RECOMMENDATIONS TO COME AFTER CT CHEST RESULTS SUPPLEMENTAL 02 NEEDED TITRATE FIO2 TO KEEP SPO2 > OR = 90% DUONEBS AND CPT NEEDED IS HOURLY WHILE AWAKE FOR PULMONARY HYGIENE RESPIRATORY CULTURE CHECK FOR INFLUENZA AND COVID OUT OF BED TO CHAIR TOLERATED Rehab: PT/OT Prophylaxis: GI: [ Protonix] DVT: [ Heparin] Code Status: Full Resuscitation Disposition: Per primary team Other: Total patient care time exceeds 35 minutes excluding all procedures. Case was discussed and seen with my supervising physician. The above plan was formulated and agreed upon. ATTESTATION BY PHYSICIAN I reviewed the documentation, medical decision making, and treatment plan as noted by the mid-level provider above. I agree with the findings and plan of care. Dipesh Kilgore MD, NELLY J ARNP Dec 23, 2024 07:18
--- NOTE | 2024-12-23 07:44 | NUR ---
BG 166
[2024-12-23 07:45] LABS: GLOMERULAR FILTR. RATE CALC 5.0 mL/min (>90); GLUCOSE,RANDOM 176.0 mg/dL (70-105); SODIUM SERUM 130.0 mmol/L (136-145)
[2024-12-23 08:03] LABS: CREATININE 8.6 mg/dL (0.5-1.0); UREA NITROGEN, BLOOD 118.0 mg/dL (7-18)
[2024-12-23] MEDS: NA ZIRCON CYCLOSIL(LOKELMA 10GM) PO ONE (08:07)
--- NOTE | 2024-12-23 08:29 | NUR ---
PT REFUSES CONTRAST FOR CT,THEREFORE ORDER CHANGED TO CT CHEST W/O CONTRAST.
[2024-12-23] MEDS ORDERED: PoTASSium chl 10% ELIXIR 20MEQ 20 MEQ/15 ML UDCUP PO PRN (09:00)
[2024-12-23] MEDS ORDERED: MAGNESIUM 2GM PREMIX 50ML 50 ML IV PRN (09:00)
[2024-12-23] MEDS ORDERED: PoTASSium chloRIDE 20MEQ ER 20 MEQ ERTAB PO PRN (09:00)
[2024-12-23] MEDS: 0.9%NACL 1000ML 1,000 ML IV SCH (10:47)
[2024-12-23] MEDS: SODIUM CHLORIDE 3% FOR INHALATION 4 ML/AMP VIAL.NEB IH ONE ×3 (11:42→23:48)
--- NOTE | 2024-12-23 12:56 | NUR ---
DIALYSIS COMPLETED.4.2 L FLUID REMOVED.
[2024-12-23 14:03] LABS: CREATININE 5.4 mg/dL (0.5-1.0); GLOMERULAR FILTR. RATE CALC 9.0 mL/min (>90); GLUCOSE,RANDOM 124.0 mg/dL (70-105); SODIUM SERUM 134.0 mmol/L (136-145); UREA NITROGEN, BLOOD 64.0 mg/dL (7-18)
--- NOTE | 2024-12-23 14:07 | NUR ---
PT REFUSING DOPPLER OF LOWER LEGS DUE TO PAIN.
[2024-12-23 14:20] LABS: COVID19 (SARS ANTIGEN RAPID) PRESUMPTIVE NEGATIVE (NEGATIVE)
[2024-12-23 14:30] LABS: INFLUENZA TYPE A Negative For Type A (NEGATIVE); INFLUENZA TYPE B Negative For Type B (NEGATIVE)
[2024-12-23] MEDS ORDERED: BUSP5TAB3 PO (15:07)
[2024-12-23] MEDS: ZOSYN 3.375GM+NS 50ML 50 ML IV SCH (15:13)
--- NOTE | 2024-12-23 15:49 | PN ---
[facility] PROGRESS NOTE Date of Service: Dec 23, 2024 Time of Service: 15:40 SUBJECTIVE: [ ] This is a 59-year-old female with past medical history of CHF, thrombocytopenia, pulmonary nodule, end-stage renal disease on hemodialysis Monday, diabetes, hypertension, hyperlipidemia, fatty liver, coronary artery disease with cardiac stent x5 and permanent pacemaker/AICD , morbid obesity and chronic respiratory failure on home O2 who presented to the ED for multiple complaints such as shortness of breaths, cough, headache and abdominal pain.Patient states she has been having shortness of breath and dry cough for about 1 month an going problem she said and was seen by her PCP in the clinic and was told just limit exertion and always sit on the wheelchair she said.Patient reports having frontal headache and abdominal pain around epigastric area started yesterday after eating meat and tortilla.Patient reports she was nauseated but no vomiting.Patient also states she was dialyzed last Monday and 3.5 L of fluid removed she has a LAVA 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 12/23/24 patient was seen earlier today: patient is being scheduled for dialysis we will be done in ED. patient is pending a CT chest most likely we will be done after dialysis. Apparently patient was scheduled for left heart catheterization tomorrow per Dr. Poe: as per nurse practitioner Celeste Garrido to restart Brilinta and Eliquis most likely left heart catheterization we will be done later on this week. Patient returns venous Dopplers to lower extremity given to having pain we will start her Neurontin home meds. Patient denied chest pain. REVIEW OF SYSTEMS CONSTITUTIONAL: Denies fevers, chills, or night sweats. No unintentional weight loss reported. NEUROLOGICAL: Complaints of frontal headache Denies , amaurosis fugax, motor weakness, sensory deficit, vertigo/spinning sensation, gait abnormalities, or tremors. ENT: No hearing loss, otalgia, otorrhea, rhinitis, rhinorrhea, hoarseness, or sore throat. CARDIOVASCULAR: Denies any exertional angina, dyspnea on exertion, orthopnea, paroxysmal nocturnal dyspnea, palpitations, life-threatening arrhythmias, claudication. PULMONARY: Complaints of shortness of breaths and dry cough Denies phlegm/sputum, hemoptysis, pleuritic chest pain. SLEEP: Denies morning headaches, daytime somnolence or napping. Denies difficulty falling asleep, staying asleep, waking from sleep. Denies knowledge of snoring. GASTROINTESTINAL: Complains of nausea and abdominal pain Denies any type of dysphagia to either liquids or solids. Denies vomiting, pyrosis, early satiety,diarrhea, constipation, or changes in stool consistency or caliber. Denies coffee-ground emesis, hematemesis, hematochezia, or melanotic stools. GENITOURINARY: Denies frequency, urgency, nocturia, hematuria or incontinence (Storage/Irritative symptoms.) Low urinary stream, straining to void, urinary intermittency or hesitancy, splitting of the voiding stream, terminal dribbling. ENDOCRINOLOGIC: Denies polyuria, polydipsia, polyphagia or heat/cold intolerances. HEMATOLOGIC: Denies thrombophilia/previous clots, or coagulopathy/bleeding disorders. ONCOLOGIC: Denies personal history of malignancy. DERMATOLOGIC: Denies rashes or pruritus. PSYCHIATRIC: Denies any suicidal or homicidal ideation. Denies hallucinations. PHYSICAL EXAM GENERAL APPEARANCE: The patient is awake, alert, and oriented, mildly in distress. NEUROLOGICAL: Cranial nerves II-XII grossly intact. Motor is 5/5 in bilateral upper and lower extremities proximal to distal. No sensory deficits. HEENT: Face is symmetric. Pupils are equal and reactive. Extraocular movements are intact. NECK: Supple. No JVD. No thyromegaly. No submental, submandibular, pre- /postauricular, occipital or supraclavicular lymphadenopathy. CHEST: Normal chest expansion. No Telemetry. LUNGS: Diminished breath sounds CARDIOVASCULAR: Regular. S1 and S2 normal. No appreciable rubs, murmurs or gallops. ABDOMEN: Abdominal tenderness around epigastric area on palpation Soft and nondistended. There is no rebound, voluntary guarding, or rigidity. : Deferred. Anuric EXTREMITIES: Generalized edema SKIN: No skin breakdown. Vital Signs (last 8hr) Date Time Temp Pulse Resp B/P (MAP) Pulse Ox O2 Delivery O2 Flow Rate FiO2 12/23/24 14:41 99 Nasal Cannula* 2 28 12/23/24 14:35 97.7 86 18 101/40 99 Nasal Cannula 2.0 12/23/24 13:43 98.4 81 20 114/58 100 Nasal Cannula* 2 28 12/23/24 12:35 98.6 80 20 124/61 100 Room Air 12/23/24 12:15 76 17 141/59 100 Room Air 12/23/24 12:00 77 17 126/53 100 Room Air 12/23/24 11:45 75 16 137/47 100 Room Air 12/23/24 11:42 98.4 77 18 139/53 100 Nasal Cannula* 2 12/23/24 11:30 74 15 139/53 100 Room Air 12/23/24 11:15 74 15 131/68 100 Room Air 12/23/24 11:00 74 15 132/48 100 Room Air 12/23/24 10:45 75 15 126/49 100 Room Air 12/23/24 10:30 75 15 130/45 100 Room Air 12/23/24 10:15 75 14 122/51 100 Room Air 12/23/24 10:00 74 14 138/33 100 Room Air 12/23/24 09:45 76 15 141/38 100 Room Air 12/23/24 09:37 97.9 75 18 122/52 100 Nasal Cannula* 2 28 12/23/24 09:25 98.4 74 15 123/50 100 Room Air 12/23/24 09:00 98.4 74 17 122/62 100 Room Air 12/23/24 07:48 70 21 N/Cannula Low lpm 2.0 12/23/24 07:45 97.9 80 18 109/64 100 Nasal Cannula* 2 28 LABS: Laboratory: Test 12/23/24 13:47 12/23/24 13:45 12/23/24 12:18 12/23/24 09:44 Range/Units Sodium Level 134 L 136-145 mmol/L Potassium Level 3.7 3.5-5.1 mmol/L Chloride Level 92 L 101-111 mmol/L Carbon Dioxide Level 31 21-32 mmol/L Blood Urea Nitrogen 64 #H 7-18 mg/dL Creatinine 5.4 H 0.5-1.0 mg/dL Glomerular Filtration Rate Calc 9 >90 mL/min Random Glucose 124 H 70-105 mg/dL Total Calcium 8.4 L 8.5-10.1 mg/dL Influenza Type A Antigen Negative For Type A NEGATIVE Influenza Type B Antigen Negative For Type B NEGATIVE SARS-CoV-2 Antigen (Rapid) PRESUMPTIVE NEGATIVE NEGATIVE Whole Blood Glucose 101 70-110 MG/DL D-Dimer Quantitative (PE/DVT) 2559 *H 0-500 ng/mL Troponin I High Sensitivity 53 *H 4-50 ng/L Test 12/23/24 05:00 12/23/24 03:00 12/22/24 22:16 Range/Units Lactic Acid Level 4.8 H 0.8-2.5 mmol/L Magnesium Level 2.60 H 1.80-2.40 mg/dL Total Bilirubin 1.3 H 0.2-1.0 mg/dL Aspartate Amino Transf (AST/SGOT) 74 H 10-37 U/L Alanine Aminotransferase (ALT/SGPT) 67 12-78 U/L Alkaline Phosphatase 198 H 50-136 U/L Total Protein 7.4 6.0-8.3 g/dL Albumin 2.8 L 3.5-5.0 g/dL Lipase 95 H 16-77 U/L Thyroid Stimulating Hormone (TSH) 2.77 # 0.36-3.74 uIU/mL White Blood Count 6.3 4.8-10.8 K/uL Red Blood Count 3.74 L 4.00-5.50 MIL/uL Hemoglobin 12.0 12.0-16.0 g/dL Hematocrit 37.2 36-48 % Mean Corpuscular Volume 99.5 H 79-99 fL Mean Corpuscular Hemoglobin 32.1 27.0-33.0 pg Mean Corpuscular Hemoglobin Concent 32.3 32.0-36.0 g/dL Red Cell Distribution Width 19.8 H 11.0-15.5 % Platelet Count 129 L 130-400 K/uL Mean Platelet Volume 11.9 H 7.5-10.5 fL Immature Granulocyte % (Auto) 0.5 0-1 % Neutrophils (%) (Auto) 79.2 H 40.0-77.0 % Lymphocytes (%) (Auto) 10.4 L 21.0-51.0 % Monocytes (%) (Auto) 9.1 3.0-13.0 % Eosinophils (%) (Auto) 0.3 0.0-8.0 % Basophils (%) (Auto) 0.5 0.0-5.0 % Neutrophils # (Auto) 5.0 1.8-7.7 K/uL Lymphocytes # (Auto) 0.7 L 1.0-4.8 K/uL Monocytes # (Auto) 0.6 0.1-1.0 K/uL Eosinophils # (Auto) 0.02 0.00-0.70 K/uL Basophils # (Auto) 0.03 0.00-0.20 K/uL Absolute Immature Granulocyte (auto 0.03 0-1 K/uL Nucleated Red Blood Cells 0.0 0.0-0.19 % B-Type Natriuretic Peptide 3100 H 0-100 pg/mL Procalcitonin 0.99 H 0.05-0.5 ng/mL Total Creatine Kinase 35 21-232 U/L Current Medications Medications (Trade) Dose Ordered Sig/Mark Route PRN Reason Start Time Stop Time Status Last Admin Dose Admin Acetaminophen (TYLenol 325MG TAB) 650 mg Q4H PRN PO MILD PAIN (1-3) 12/23/24 03:30 01/22/25 03:29 Acetaminophen (TYLenol 325MG TAB) 650 mg Q6H PRN PO TEMPERATURE GREATER THAN 101.5 12/23/24 03:30 01/22/25 03:29 12/23/24 08:07 650 MG Dextrose (D50w) 50 ml AD PRN IV HYPOGLYCEMIA PROTOCOL 12/23/24 03:30 01/22/25 03:29 Glucagon (Glucagon 1mg Kit) 1 mg AD PRN IM HYPOGLYCEMIA PROTOCOL 12/23/24 03:30 01/22/25 03:29 Heparin Sodium (Porcine) (HEParin 5,000 UNIT VIAL) 5,000 unit Q12H SQ 12/23/24 14:00 01/22/25 13:59 12/23/24 15:14 5,000 UNIT Insulin Human Regular (humuLIN R 100 UNIT/ML 3ML) INSULIN SLIDING SCAL... ACHS SQ 12/23/24 11:30 01/22/25 11:29 Magnesium Sulfate 50 ml @ 0 mls/hr PROTOCOL PRN IV low mag level 12/23/24 09:00 01/22/25 08:59 Ondansetron HCl (zoFRAN 4MG INJ) 4 mg Q6H PRN IV NAUSEA/VOMITING 12/23/24 03:30 01/22/25 03:29 Pantoprazole Sodium (PROTonix 40MG TAB) 40 mg DAILY PO 12/23/24 09:00 01/22/25 08:59 12/23/24 09:31 40 MG Piperacillin Sod/ Tazobactam Sod 50 ml @ 12.5 mls/hr Q12H IV 12/23/24 15:00 01/02/25 14:59 12/23/24 15:13 12.5 MLS/HR Potassium Chloride 100 ml @ 100 mls/hr AD PRN IV POTASSIUM PROTOCOL 12/23/24 09:00 01/22/25 08:59 Potassium Chloride (K-Dur/Klor-Con 20meq) 20 meq AD PRN PO POTASSIUM PROTOCOL 12/23/24 09:00 01/22/25 08:59 Potassium Chloride (KCl 10% Elixir 20meq/15ml) 20 meq AD PRN PO POTASSIUM PROTOCOL 12/23/24 09:00 01/22/25 08:59 Sevelamer HCl (RENAgel 800 MG TAB) 1,600 mg TIDMEALS PO 12/23/24 12:00 01/22/25 11:59 12/23/24 12:26 1,600 MG Sodium Chloride 1,000 ml @ 0 mls/hr ONCE IV 12/23/24 09:30 01/22/25 09:29 12/23/24 10:47 100 MLS/HR Vancomycin HCl 250 ml @ 125 mls/hr ONCE IV 12/23/24 03:30 12/23/24 03:55 DC Vancomycin HCl (Vancomycin 750mg) 750 mg MWFPHD IVPB 12/23/24 16:00 01/02/25 15:59 DIAGNOSTICS / RADIOLOGY: [ ] ASSESSMENT: Possible pneumonia POA Multiple pulmonary nodules per CT POA Acute on chronic respiratory failure on home O2 POA High anion gap metabolic acidosis POA Lactic acidosis POA Chronic thrombocytopenia POA Electrolyte imbalance POA Acute on chronic kidney disease on hemodialysis POA Chronic troponinemia Hyponatremia POA Hyperkalemia POA PPM/ AICD cardiac status CHF POA Morbid Obesity POA Hypertension POA Diabetes POA Hyperlipidemia POA s/p ACS NSTEMI: 11/15/24 Hypercoagulable state on Brilinta and Eliquis: PLAN: Patient is receiving COAT CHECKER patient was given a total of 15 mg Zorconium prior to HD treatment: CT chest pending Home medications reconciled, resumed Eliquis and Brilinta consulted DR Poe for possible Left Heart cath on this admission. s/p ACS NSTEMI culprit lesion: 90-95% ISR within the stent in the proximal to mid LAD status post successful treatment with balloon angioplasty, balloon lithotripsy, and drug coated balloon angioplasty, and 70% stenosis in the ostial LAD s/p successful treatment with balloon lithotripsy and GENEVA placement (Xience Skypoint 3.5 x 15 mm) CAD, 70% stenosis in the mid LCX and serial lesions each with 90% stenosis in the distal LCX status post successful treatment with balloon angioplasty, and balloon lithotripsy CAD s/p PCI with GENEVA placement the LAD done in 2022 We will admit patient in PCCU We will start on renal dialysis diet We will continue vancomycin and Zosyn IV for broad-spectrum coverage We will start on Protonix 40 mg p.o. daily for GI prophylaxis We will closely monitor blood sugar patient has a continuous blood glucose monitoring device We will start on insulin sliding scale AC & HS with hypoglycemia protocol We will add prn medication for fever,pain,cough , nausea and vomiting We will reconcile home meds once medlist available Daily weight and strict I&O per nursing Fluid restriction 1.5 L daily We will trend troponin q.6 x3 We will seek pulmonology consultation We will seek Nephrology consultation We will request for ABG and follow-up result and trend lactic acid We will request labs in am Further orders to follow depending on above results Case discussed with attending physician and came up with above treatment and plan of care. ATTESTATION BY PHYSICIAN I have seen and examined the patient. I reviewed the documentation, medical de cision making, and treatment plan as noted by the mid-level provider above. I agree with the findings and plan of care. TESSA SINGLETON MD, ELIZABETH NP Dec 23, 2024 15:49
--- NOTE | 2024-12-23 16:52 | NUR ---
DCP: HOME with [facility] PT/nursing Sw met with pt and her Corey Humphreys [phone]. transports pt to dialysis MWF at [facility]. Family assists pt as needed to complete ADLS. Pt has saw mendiola, w/c, O2 concentrator at home. No provider. Pt has [facility] for PT and nursing 2x a week. PCP is Hubert Pinzon and [facility]. Pt wants to continue with [facility] [place]. Consent on chart Addendum: 12/23/24 at 1659 by HUDSON DRAPER Amended: Links added.
[2024-12-23] MEDS: VANCOMYCIN 750MG VIAL IVPB SCH (18:17)
[2024-12-23] MEDS: VADADUSTAT PO SCH (21:00)
[2024-12-23] MEDS: GABAPENTIN 300 MG CAPSULE PO SCH (21:53)
--- NOTE | 2024-12-23 22:57 | NUR ---
Patient with complaint of dry cough. Spoke to malinda gorman comic writer with hospitalist. Ordered Guaifenesin 400mg q6hrs prn.
--- NOTE | 2024-12-23 23:41 | HMCIMG ---
EXAMINATION: ULTRASOUND OF THE ABDOMEN (LIMITED) WITH COLOR DOPPLER. CLINICAL HISTORY: To assess for CBD dilatation and mass. COMPARISON: CT abdomen and pelvis without contrast from the same day. TECHNIQUE: Real-time grayscale ultrasound images of the abdomen. In addition, color Doppler is medically necessary to perform in order to evaluate vascularity and blood flow. FINDINGS: Liver: Normal in caliber, the right hepatic lobe measures 15.0 cm in the craniocaudal dimension. There is increased echogenicity of the hepatic parenchyma. There is no focal hepatic abnormality or intrahepatic biliary ductal dilatation. There is normal spectral Doppler of the main portal vein. Gallbladder: Post cholecystectomy status. Common bile duct is normal in caliber, measuring 0.50 cm. Pancreas: Normal in caliber and echotexture. No calcification or dilated pancreatic duct. The right kidney is normal in caliber, the right kidney measures 9.5 x 5.0 x 4.5 cm in craniocaudal, AP, and transverse dimensions respectively. There is normal renal cortical thickness and increased cortical echogenicity. There is no renal calculus or hydronephrosis. IMPRESSION: Hepatic steatosis. Post cholecystectomy status. Right renal parenchymal disease. /Jud
[2024-12-24] VITALS (10 sets, daily range): BP systolic 111–128; BP diastolic 42–77; PULSE 74–83; RESP 18; TEMP 97.6–98.1; O2SAT 93–99
[2024-12-24 05:06] LABS: IMMATURE GRANULOCYTE ABSOLUTE 0.01 K/uL (0-1); NUCLEATED RED BLOOD CELLS 0.0 % (0.0-0.19); PLATELET COUNT (AUTO) 120 K/uL (130-400); RED BLOOD CELL COUNT(AUTO) 3.13 MIL/uL (4.00-5.50); RED CELL DISTRIBUTION WIDTH 18.9 % (11.0-15.5); WHITE BLOOD COUNT (AUTO) 5.0 K/uL (4.8-10.8)
[2024-12-24 06:32] LABS: ASPARTATE AMINOTRANSFERASE 44.0 U/L (10-37); CREATININE 6.7 mg/dL (0.5-1.0); GLOMERULAR FILTR. RATE CALC 7.0 mL/min (>90); GLUCOSE,RANDOM 153.0 mg/dL (70-105); SODIUM SERUM 133.0 mmol/L (136-145); TOTAL PROTEIN, SERUM 6.7 g/dL (6.0-8.3)
[2024-12-24 06:35] LABS: UREA NITROGEN, BLOOD 80.0 mg/dL (7-18)
[2024-12-24] MEDS: ISOSORBIDE MONO 60MG SR TAB PO SCH (08:27)
[2024-12-24] MEDS: CHOLECALCIFEROL 25 MCG PO SCH (08:30)
[2024-12-24] MEDS: VITAMIN B COMP W C PO SCH (08:30)
[2024-12-24] MEDS: FOLIC ACID PO SCH (08:30)
--- NOTE | 2024-12-24 09:47 | HMCIMG ---
EXAM: CT Chest Without Contrast CLINICAL HISTORY: For nodules. TECHNIQUE: Thin collimated axial CT images of the chest were obtained with sagittal and coronal reformatted images also submitted. CT scan done according to ALARA (As Low as Reasonably Achievable). CONTRAST USED: None. COMPARISON: CT dated November 07, 2024. FINDINGS: There are irregular ground glass opacities in both lungs. Multiple peribronchovascular nodules in both upper and lower lobes, largest measuring approximately 6.2mm in the right lower lobe (series 3, image 24). No collapse or consolidation. Mild bilateral pleural thickening. No pleural effusions. No pericardial effusion. Cardiomegaly. Pacemaker in situ. Coronary arterial disease with atherosclerosis. No axillary, or supraclavicular lymphadenopathy. Sub-centimeter lymph nodes in pre-paratracheal and subcarinal regions. No focal thyroid abnormality. Limited views of the upper abdomen demonstrate perihepatic calcified nodule with surgical clips in the gall bladder fossa. The bones under view show degenerative spondylotic changes in the spine. IMPRESSION: 1. Cardiomegaly. Atherosclerosis coronary artery disease. 2. Ground glass opacities with interstitial thickening in both lungs suggestive of an interstitial lung disease could be hypersensitivity pneumonitis. 3. Multiple peribronchovascular nodules in both lungs ??? significantly increased in number since the previous CT dated November 07, 2024 could also represent infectious or inflammatory process. Compared to the previous CT dated November 07, 2024, there is significant increase in the bilateral lung nodules with resolution of left pleural effusion. /[place]
--- NOTE | 2024-12-24 09:52 | CONS ---
CONSULT NOTE REASON FOR CONSULTATION: Coronary artery disease, volume overload, and hyperkalemia. HISTORY OF PRESENT ILLNESS: A 59-year-old female with history of diabetes mellitus and hypertension. She has a history of known coronary artery disease status post AICD placement. The patient presented to the hospital with increasing shortness of breath and orthopnea. In the Emergency Room, the patient was found to have significant hyperkalemia with initial potassium of 6.7 mL/L. The patient was treated medically for the potassium and she is being seen for urgent dialysis. PAST MEDICAL HISTORY: Diabetes mellitus, hypertension, ESRD, coronary artery disease. PAST SURGICAL HISTORY: AV access, coronary catheterization, AICD. SOCIAL HISTORY: She lives with family. There is no tobacco use. FAMILY HISTORY: There is no renal failure. ALLERGIES: No known drug allergies. MEDICATIONS: Noted. REVIEW OF SYSTEMS: GENERAL: She is feeling weak and tired. HEENT: No change in vision. No change in hearing. CARDIOVASCULAR: There is no current chest pain or palpitations. PULMONARY: She is complaining of shortness of breath. GASTROINTESTINAL: She is tolerating a diet. MUSCULOSKELETAL: No weakness. No back tenderness. NEUROLOGIC: No seizures or focal deficits. PSYCHIATRIC: No history of hallucinations or psychosis. ENDOCRINE: Diabetes mellitus. No history of thyroid disease. HEME: History of anemia. No history of malignancy. PHYSICAL EXAMINATION: VITAL SIGNS: Blood pressure 132/52, pulse 70, afebrile. GENERAL: Chronically ill female, looks older than her appearing. HEENT: Head is atraumatic. Pupils are equal, round and reactive to light. Oropharynx is without exudate. Nares clear. NECK: There is no JVP. There is no thyromegaly. No mass. CARDIOVASCULAR: Regular. There is no S3 or S4 gallop. LUNGS: Coarse with equal thoracic movement. ABDOMEN: Soft, nondistended, nontender. EXTREMITIES: Reveal no clubbing, no cyanosis. NEUROLOGICAL: She is awake. She is alert. She is oriented. SKIN: Reveals no rash or nodules. BACK: There is no CVA tenderness. No back deformity. LABORATORY DATA: Sodium 130, potassium 6, chloride 92, bicarb 23, BUN 118, creatinine 8.6. Initial troponin was 59, hemoglobin 12, hematocrit 37. Chest x-ray reveals cardiomegaly. CT scan does reveal anasarca. IMPRESSION: * Coronary artery disease. * Hyperkalemia. * Volume overload. * Diabetes mellitus. * Hypertension history. PLAN: The patient will proceed with dialysis on the day of this consultation. She will continue on Monday, Monday, Monday schedule. We will continue with maximum filtration as blood pressure allows. The patient will be resumed on her phosphate binders. The patient has been counseled in regards to her general compliance including her fluid restriction. We will continue to monitor closely all labs and repeat in the morning. There is no need for Epogen at this time. TID: [id number] RECEIPT: [id number]
--- NOTE | 2024-12-24 09:53 | PN ---
FOLLOWUP PROGRESS NOTE SUBJECTIVE: The patient was seen and evaluated on ____, prescription noted. PHYSICAL EXAMINATION: VITAL SIGNS: Blood pressure is 122/73. CARDIOVASCULAR: Regular. LUNGS: Coarse. IMPRESSION: End-stage renal disease. PLAN: The patient will continue with maximal filtration as blood pressure allows. TID: [id number] RECEIPT: [id number]
--- NOTE | 2024-12-24 10:48 | PN ---
[facility] PROGRESS NOTE Date Patient Seen: Dec 24, 2024 Time of Visit: 10:47 Supervising Physician: MICHELLE DOMÍNGUEZ MD Primary Care Physician: Treva Pinzon MD Outpatient Specialists: [ ] Inpatient Consults: Dr Juan Asencio, Dr Gomez Attending: [employer] team PROBLEM LIST: Acute hypoxemic respiratory failure, POA Scattered nodules versus septic embolization in peripheral of both lung POA with prominence at the base Differential diagnosis metastatic disease Acute on chronic respiratory failure on home O2 POA High anion gap metabolic acidosis POA resolved ESRD on HD Lactic acidosis POA Chronic thrombocytopenia POA Electrolyte imbalance POA Acute on chronic kidney disease on hemodialysis POA Chronic troponinemia Hyponatremia POA Hyperkalemia POA PPM/ AICD cardiac status CHF POA Morbid Obesity POA Hypertension POA Diabetes POA Hyperlipidemia POA Morbid obesity BMI of 41 INTERVAL HISTORY: Chart reviewed including all laboratory and imaging results. Patient assessed at bedside. Denies chest pain, palpitation, or shortness for breath. He is currently on 2 L via nasal cannula in no apparent respiratory distress. This is her baseline as per patient she uses 2 L at home. Hemodynamically stable. No major overnight events reported. Ct chest reviewed with Dr Domínguez noticeable bilateral ground-glass opacities and recommended a high-resolution CT chest to compare to prior CT and have hopefully better visualization of nodular densities . Plan- repeat CT chest with high resolution (HCRT) CBC CMP ESR/CRP follow cultures autoimmune work up AFP REVIEW OF SYSTEMS: Const: Weight gain Eyes: no recent vision problems ENT: No congestion, ear pain, or sore throat C/V: Positive for swelling to bilateral lower extremities Resp shortness of the breath cough x1 month GI: No abdominal pain, nausea, vomiting, constipation, or diarrhea : No incontinence of or dyuria M/S: No joint or pain swelling Skin: No rash Neuro: no headache, focal numbness, or weakness, dizziness or seizures Psych: no depression or anxiety Heme: no abnormal bruising or bleeding Lymph: no swollen glands PHYSICAL EXAM: GENERAL: CHRONICALLY ILL on 2 L HEENT: EOMI, Sclera non icteric, moist mucosa NECK: Supple, no JVD, trachea midline LUNGS: CLEAR TO ALL LOBES BILATERALLY. HEART: Regular rate and rhythm. Normal S1 and S2, without murmurs ABD: Abdomen soft, nontender. Bowel sounds present EXT: No clubbing cyanosis + 2 [place] NEURO: Alert and oriented to person, follows commands Vital Signs (last 8hr) Date Time Temp Pulse Resp B/P (MAP) Pulse Ox O2 Delivery O2 Flow Rate FiO2 12/24/24 08:11 97.5 76 18 111/69 98 Room Air 12/24/24 07:30 74 18 N/Cannula Low lpm 2.0 28 12/24/24 03:34 97.9 74 18 124/74 96 Room Air LABS: Hematology Labs: Test 12/24/24 04:30 Range/Units White Blood Count 5.0 4.8-10.8 K/uL Red Blood Count 3.13 L 4.00-5.50 MIL/uL Hemoglobin 10.3 L 12.0-16.0 g/dL Hematocrit 30.3 L 36-48 % Mean Corpuscular Volume 96.8 79-99 fL Mean Corpuscular Hemoglobin 32.9 27.0-33.0 pg Mean Corpuscular Hemoglobin Concent 34.0 32.0-36.0 g/dL Red Cell Distribution Width 18.9 H 11.0-15.5 % Platelet Count 120 L 130-400 K/uL Mean Platelet Volume 11.0 H 7.5-10.5 fL Immature Granulocyte % (Auto) 0.2 0-1 % Neutrophils (%) (Auto) 68.0 40.0-77.0 % Lymphocytes (%) (Auto) 12.6 L 21.0-51.0 % Monocytes (%) (Auto) 13.0 3.0-13.0 % Eosinophils (%) (Auto) 5.2 0.0-8.0 % Basophils (%) (Auto) 1.0 0.0-5.0 % Neutrophils # (Auto) 3.4 1.8-7.7 K/uL Lymphocytes # (Auto) 0.6 L 1.0-4.8 K/uL Monocytes # (Auto) 0.7 0.1-1.0 K/uL Eosinophils # (Auto) 0.26 0.00-0.70 K/uL Basophils # (Auto) 0.05 0.00-0.20 K/uL Absolute Immature Granulocyte (auto 0.01 0-1 K/uL Nucleated Red Blood Cells 0.0 0.0-0.19 % Chemistry Labs: Test 12/24/24 10:38 12/24/24 04:30 12/23/24 18:34 12/23/24 05:00 Range/Units Whole Blood Glucose 74 70-110 MG/DL Sodium Level 133 L 136-145 mmol/L Potassium Level 4.2 3.5-5.1 mmol/L Chloride Level 93 L 101-111 mmol/L Carbon Dioxide Level 26 21-32 mmol/L Blood Urea Nitrogen 80 *H 7-18 mg/dL Creatinine 6.7 H 0.5-1.0 mg/dL Glomerular Filtration Rate Calc 7 >90 mL/min Random Glucose 153 H 70-105 mg/dL Total Calcium 8.1 L 8.5-10.1 mg/dL Magnesium Level 2.50 H 1.80-2.40 mg/dL Total Bilirubin 1.1 H 0.2-1.0 mg/dL Aspartate Amino Transf (AST/SGOT) 44 H 10-37 U/L Alanine Aminotransferase (ALT/SGPT) 56 12-78 U/L Alkaline Phosphatase 155 H 50-136 U/L Total Protein 6.7 6.0-8.3 g/dL Albumin 2.7 L 3.5-5.0 g/dL Thyroid Stimulating Hormone (TSH) 1.61 # 0.36-3.74 uIU/mL Troponin I High Sensitivity 41 4-50 ng/L Lactic Acid Level 4.8 H 0.8-2.5 mmol/L Lipase 95 H 16-77 U/L Test 12/23/24 03:00 12/22/24 22:16 Range/Units B-Type Natriuretic Peptide 3100 H 0-100 pg/mL Procalcitonin 0.99 H 0.05-0.5 ng/mL Total Creatine Kinase 35 21-232 U/L Coagulation Labs: Test 12/23/24 09:44 Range/Units D-Dimer Quantitative (PE/DVT) 2559 *H 0-500 ng/mL DIAGNOSTICS / RADIOLOGY RESULTS: [ [place] [address] [address] IMAGING REPORT Signed PATIENT: NICK VEE MR#: [id number] : 1965 SEX: F AGE: 59 LOCATION: [facility] ORDER STATUS: ADM IN REPORT#: [id number] SERVICE [id number] REASON: FOR NODULES ORDERING PHYSICIAN: CLINT FORTE PROCEDURE: CHEST WO - CT CHEST W/O CONTRAST EXAM: CT Chest Without Contrast CLINICAL HISTORY: For nodules. TECHNIQUE: Thin collimated axial CT images of the chest were obtained with sagittal and coronal reformatted images also submitted. CT scan done according to ALARA (As Low as Reasonably Achievable). CONTRAST USED: None. COMPARISON: CT dated November 07, 2024. FINDINGS: There are irregular ground glass opacities in both lungs. Multiple peribronchovascular nodules in both upper and lower lobes, largest measuring approximately 6.2mm in the right lower lobe (series 3, image 24). No collapse or consolidation. Mild bilateral pleural thickening. No pleural effusions. No pericardial effusion. Cardiomegaly. Pacemaker in situ. Coronary arterial disease with atherosclerosis. No axillary, or supraclavicular lymphadenopathy. Sub-centimeter lymph nodes in pre-paratracheal and subcarinal regions. No focal thyroid abnormality. Limited views of the upper abdomen demonstrate perihepatic calcified nodule with surgical clips in the gall bladder fossa. The bones under view show degenerative spondylotic changes in the spine. IMPRESSION: 1. Cardiomegaly. Atherosclerosis coronary artery disease. 2. Ground glass opacities with interstitial thickening in both lungs suggestive of an interstitial lung disease could be hypersensitivity pneumonitis. 3. Multiple peribronchovascular nodules in both lungs ??? significantly increased in number since the previous CT dated November 07, 2024 could also represent infectious or inflammatory process. Compared to the previous CT dated November 07, 2024, there is significant increase in the bilateral lung nodules with resolution of left pleural effusion. /[place] DICTATED BY: OMARI LEE MD DATE: 12/24/241045 ELECTRONICALLY SIGNED BY: OMARI LEE MD DATE: 12/24/241045 ] PLAN NEURO: Minimize central acting medications as possible. Maintain fall precautions, adequate lighting during the day PULMONARY: Supplemental 02 as needed. Maintain aspiration precautions at all times CARDIOVASCULAR: Follow hemodynamics. Vital signs per facility protocol GI & NUTRITION: Continue with nutritional support. Continue stool softeners and laxatives as needed. KIDNEYS & ELECTROLYTES: Strict monitoring of intake, output and overall fluid balance. Avoid nephrotoxic medications to the extent possible. Medications to be dosed according to renal function. Monitor electrolytes and replace as needed ENDOCRINE: Maintain blood glucose between 100-180 at all times. Hypoglycemia protocol in place INFECTIOUS DISEASE: Trend temperature, WBC and procalcitonin level Follow cultures, deescalate antibiotics as soon as possible. Panculture if new onset fever ONCOLOGY/HEMATOLOGY/COAGULATION: Monitor for s/s of bleeding Monitor hemoglobin, coagulation studies as needed SKIN: Pressure ulcer prevention per facility protocol Specialty mattress ORTHO/REHAB: Continue PT/OT Prophylaxis: Continue GI and DVT prophylaxis Code Status: Full Resuscitation Disposition: TBD Other: Total patient care time exceeds 35 minutes excluding all procedures. CLINT FORTE [facility] Dec 24, 2024 10:48
--- NOTE | 2024-12-24 10:50 | NUR ---
Patient noted with low blood glucose. Patient symptomatic. Patient was immediately provided 3 orange juices and applesauce with an additional sugar package with no improvement in glucose level. Dextrose administered per protocol. Tylenol given for headache. Sadaf Rudd NP, Dr. Roper, and SEGUNDO Cobb made aware. Orders to discontinue Humalog insulin, add sliding scale, and decrease Lantus insulin were placed and executed.
[2024-12-24] MEDS: DEXTROSE 50%-WATER 50 ML DISP.SYRIN IV PRN (10:57)
--- NOTE | 2024-12-24 11:41 | PN ---
[facility] PROGRESS NOTE Date of Service: Dec 24, 2024 Time of Service: 11:41 SUBJECTIVE: [ ] This is a 59-year-old female with past medical history of CHF, thrombocytopenia, pulmonary nodule, end-stage renal disease on hemodialysis Monday, diabetes, hypertension, hyperlipidemia, fatty liver, coronary artery disease with cardiac stent x5 and permanent pacemaker/AICD , morbid obesity and chronic respiratory failure on home O2 who presented to the ED for multiple complaints such as shortness of breaths, cough, headache and abdominal pain.Patient states she has been having shortness of breath and dry cough for about 1 month an going problem she said and was seen by her PCP in the clinic and was told just limit exertion and always sit on the wheelchair she said.Patient reports having frontal headache and abdominal pain around epigastric area started yesterday after eating meat and tortilla.Patient reports she was nauseated but no vomiting.Patient also states she was dialyzed last Monday and 3.5 L of fluid removed she has a LAVA and her can slider is she is anuric and has been on hemodialysis for 3 yrs she said.Patient was recently admitted in this facility on Nov and underwent a left heart cath with PCI on 11/15/2024 by and was discharged home on Eliquis on .During that admission was consulted for persistent thrombocytopenia and advised to work up for multiple myeloma.Pulmonology was also consulted at that time of admission to manage COVID [address] infection [address] chest done on 11/06/2024 of previous admission which showed right lower lobe pulmonary nodule ,ground glass opacity and a small pericardial effusion. 12/23/24 patient was seen earlier today: patient is being scheduled for dialysis we will be done in ED. patient is pending a CT chest most likely we will be done after dialysis. Apparently patient was scheduled for left heart catheterization tomorrow per Dr. Poe: as per nurse practitioner Celeste Garrido to restart Brilinta and Eliquis most likely left heart catheterization we will be done later on this week. Patient returns venous Dopplers to lower extremity given to having pain we will start her Neurontin home meds. Patient denied chest pain. 12/24/24 The patient was seen earlier: episodes of hypoglycemia, D50 was given. modified long acting insulin. sand mixer do not plan to do Left Heart cath on this admission: will be done as outpatient. Pulmologist ordered a CT chest repeat on HIGH RESOLUTION on room at this time. the patient will transition to medical floor with Tele. REVIEW OF SYSTEMS CONSTITUTIONAL: Denies fevers, chills, or night sweats. No unintentional weight loss reported. NEUROLOGICAL: Complaints of frontal headache Denies , amaurosis fugax, motor weakness, sensory deficit, vertigo/spinning sensation, gait abnormalities, or tremors. ENT: No hearing loss, otalgia, otorrhea, rhinitis, rhinorrhea, hoarseness, or sore throat. CARDIOVASCULAR: Denies any exertional angina, dyspnea on exertion, orthopnea, paroxysmal nocturnal dyspnea, palpitations, life-threatening arrhythmias, claudication. PULMONARY: Complaints of shortness of breaths and dry cough Denies phlegm/sputum, hemoptysis, pleuritic chest pain. SLEEP: Denies morning headaches, daytime somnolence or napping. Denies difficulty falling asleep, staying asleep, waking from sleep. Denies knowledge of snoring. GASTROINTESTINAL: Complains of nausea and abdominal pain Denies any type of dysphagia to either liquids or solids. Denies vomiting, pyrosis, early satiety,diarrhea, constipation, or changes in stool consistency or caliber. Denies coffee-ground emesis, hematemesis, hematochezia, or melanotic stools. GENITOURINARY: Denies frequency, urgency, nocturia, hematuria or incontinence (Storage/Irritative symptoms.) Low urinary stream, straining to void, urinary intermittency or hesitancy, splitting of the voiding stream, terminal dribbling. ENDOCRINOLOGIC: Denies polyuria, polydipsia, polyphagia or heat/cold intolerances. HEMATOLOGIC: Denies thrombophilia/previous clots, or coagulopathy/bleeding disorders. ONCOLOGIC: Denies personal history of malignancy. DERMATOLOGIC: Denies rashes or pruritus. PSYCHIATRIC: Denies any suicidal or homicidal ideation. Denies hallucinations. PHYSICAL EXAM GENERAL APPEARANCE: The patient is awake, alert, and oriented, mildly in distress. NEUROLOGICAL: Cranial nerves II-XII grossly intact. Motor is 5/5 in bilateral upper and lower extremities proximal to distal. No sensory deficits. HEENT: Face is symmetric. Pupils are equal and reactive. Extraocular movements are intact. NECK: Supple. No JVD. No thyromegaly. No submental, submandibular, pre- /postauricular, occipital or supraclavicular lymphadenopathy. CHEST: Normal chest expansion. No Telemetry. LUNGS: Diminished breath sounds CARDIOVASCULAR: Regular. S1 and S2 normal. No appreciable rubs, murmurs or gallops. ABDOMEN: Abdominal tenderness around epigastric area on palpation Soft and nondistended. There is no rebound, voluntary guarding, or rigidity. : Deferred. Anuric EXTREMITIES: Generalized edema SKIN: No skin breakdown. Vital Signs (last 8hr) Date Time Temp Pulse Resp B/P (MAP) Pulse Ox O2 Delivery O2 Flow Rate FiO2 12/24/24 08:11 97.5 76 18 111/69 98 Room Air 12/24/24 07:30 74 18 N/Cannula Low lpm 2.0 28 LABS: Laboratory: Test 12/24/24 11:39 12/24/24 04:30 12/23/24 18:34 12/23/24 13:45 Range/Units Whole Blood Glucose 123 H 70-110 MG/DL White Blood Count 5.0 4.8-10.8 K/uL Red Blood Count 3.13 L 4.00-5.50 MIL/uL Hemoglobin 10.3 L 12.0-16.0 g/dL Hematocrit 30.3 L 36-48 % Mean Corpuscular Volume 96.8 79-99 fL Mean Corpuscular Hemoglobin 32.9 27.0-33.0 pg Mean Corpuscular Hemoglobin Concent 34.0 32.0-36.0 g/dL Red Cell Distribution Width 18.9 H 11.0-15.5 % Platelet Count 120 L 130-400 K/uL Mean Platelet Volume 11.0 H 7.5-10.5 fL Immature Granulocyte % (Auto) 0.2 0-1 % Neutrophils (%) (Auto) 68.0 40.0-77.0 % Lymphocytes (%) (Auto) 12.6 L 21.0-51.0 % Monocytes (%) (Auto) 13.0 3.0-13.0 % Eosinophils (%) (Auto) 5.2 0.0-8.0 % Basophils (%) (Auto) 1.0 0.0-5.0 % Neutrophils # (Auto) 3.4 1.8-7.7 K/uL Lymphocytes # (Auto) 0.6 L 1.0-4.8 K/uL Monocytes # (Auto) 0.7 0.1-1.0 K/uL Eosinophils # (Auto) 0.26 0.00-0.70 K/uL Basophils # (Auto) 0.05 0.00-0.20 K/uL Absolute Immature Granulocyte (auto 0.01 0-1 K/uL Nucleated Red Blood Cells 0.0 0.0-0.19 % Sodium Level 133 L 136-145 mmol/L Potassium Level 4.2 3.5-5.1 mmol/L Chloride Level 93 L 101-111 mmol/L Carbon Dioxide Level 26 21-32 mmol/L Blood Urea Nitrogen 80 *H 7-18 mg/dL Creatinine 6.7 H 0.5-1.0 mg/dL Glomerular Filtration Rate Calc 7 >90 mL/min Random Glucose 153 H 70-105 mg/dL Total Calcium 8.1 L 8.5-10.1 mg/dL Magnesium Level 2.50 H 1.80-2.40 mg/dL Total Bilirubin 1.1 H 0.2-1.0 mg/dL Aspartate Amino Transf (AST/SGOT) 44 H 10-37 U/L Alanine Aminotransferase (ALT/SGPT) 56 12-78 U/L Alkaline Phosphatase 155 H 50-136 U/L Total Protein 6.7 6.0-8.3 g/dL Albumin 2.7 L 3.5-5.0 g/dL Thyroid Stimulating Hormone (TSH) 1.61 # 0.36-3.74 uIU/mL Troponin I High Sensitivity 41 4-50 ng/L Influenza Type A Antigen Negative For Type A NEGATIVE Influenza Type B Antigen Negative For Type B NEGATIVE SARS-CoV-2 Antigen (Rapid) PRESUMPTIVE NEGATIVE NEGATIVE Test 12/23/24 09:44 12/23/24 05:00 12/23/24 03:00 12/22/24 22:16 Range/Units D-Dimer Quantitative (PE/DVT) 2559 *H 0-500 ng/mL Lactic Acid Level 4.8 H 0.8-2.5 mmol/L Lipase 95 H 16-77 U/L B-Type Natriuretic Peptide 3100 H 0-100 pg/mL Procalcitonin 0.99 H 0.05-0.5 ng/mL Total Creatine Kinase 35 21-232 U/L Current Medications Medications (Trade) Dose Ordered Sig/Mark Route PRN Reason Start Time Stop Time Status Last Admin Dose Admin Acetaminophen (TYLenol 325MG TAB) 650 mg Q4H PRN PO MILD PAIN (1-3) 12/23/24 03:30 01/22/25 03:29 12/24/24 11:03 650 MG Acetaminophen (TYLenol 325MG TAB) 650 mg Q6H PRN PO TEMPERATURE GREATER THAN 101.5 12/23/24 03:30 01/22/25 03:29 12/23/24 08:07 650 MG Apixaban (EliquIS) 5 mg BID PO 12/23/24 21:00 01/22/25 20:59 12/24/24 08:26 5 MG Atorvastatin Calcium (LIPItor 40MG) 40 mg HS PO 12/23/24 21:00 01/22/25 20:59 12/23/24 21:53 40 MG Buspirone HCl (BUspar) 5 mg BID PO 12/23/24 21:00 01/22/25 20:59 12/24/24 08:25 5 MG Dextrose (D50w) 50 ml AD PRN IV HYPOGLYCEMIA PROTOCOL 12/23/24 03:30 01/22/25 03:29 12/24/24 10:57 50 ML Gabapentin (NEURontin 300 MG CAP) 300 mg HS PO 12/23/24 21:00 01/22/25 20:59 12/23/24 21:53 300 MG Glucagon (Glucagon 1mg Kit) 1 mg AD PRN IM HYPOGLYCEMIA PROTOCOL 12/23/24 03:30 01/22/25 03:29 Guaifenesin (RobiTUSSin SUGAR-FREE 100 MG/ 5 ML UDCUP) 400 mg Q6H6 PRN PO COUGH 12/23/24 23:00 01/22/25 22:59 12/24/24 11:04 400 MG Heparin Sodium (Porcine) (HEParin 5,000 UNIT VIAL) 5,000 unit Q12H SQ 12/23/24 14:00 12/23/24 15:53 DC 12/23/24 15:14 5,000 UNIT Home Med (Home Medication) DAILY PO 12/24/24 09:00 01/23/25 08:59 12/24/24 08:30 1 EACH Home Med (Home Medication) DAILY PO 12/24/24 09:00 01/23/25 08:59 12/24/24 08:30 1 EACH Home Med (Home Medication) HS PO 12/23/24 21:00 01/22/25 20:59 Insulin Glargine (LANtus 100 UNITS/ML 10 ML VIAL) 48 units DAILY SQ 12/24/24 09:00 01/23/25 08:59 12/24/24 08:32 48 UNITS Insulin Human Lispro (HumaLOG LISpro 100 UNIT/ML 3ML) 5 unit ACDINNER SQ 12/24/24 16:30 01/22/25 20:59 Insulin Human Lispro (HumaLOG LISpro 100 UNIT/ML 3ML) 5 unit HS SQ 12/23/24 21:00 12/23/24 21:49 DC Insulin Human Lispro (HumaLOG LISpro 100 UNIT/ML 3ML) 15 unit ACBKFST SQ 12/24/24 07:30 01/23/25 07:29 12/24/24 08:33 15 UNIT Insulin Human Lispro (HumaLOG LISpro 100 UNIT/ML 3ML) 20 unit ACLUNCH SQ 12/24/24 11:30 01/23/25 11:29 Insulin Human Regular (humuLIN R 100 UNIT/ML 3ML) INSULIN SLIDING SCAL... ACHS SQ 12/23/24 11:30 01/22/25 11:29 Isosorbide Mononitrate (Imdur 60mg Sr) 60 mg AM PO 12/24/24 09:00 01/23/25 08:59 12/24/24 08:27 60 MG Magnesium Sulfate 50 ml @ 0 mls/hr PROTOCOL PRN IV low mag level 12/23/24 09:00 01/22/25 08:59 Metoprolol Succinate (TopROL XL) 50 mg AM PO 12/24/24 09:00 01/23/25 08:59 12/24/24 08:26 50 MG Ondansetron HCl (zoFRAN 4MG INJ) 4 mg Q6H PRN IV NAUSEA/VOMITING 12/23/24 03:30 01/22/25 03:29 Pantoprazole Sodium (PROTonix 40MG TAB) 40 mg DAILY PO 12/23/24 09:00 01/22/25 08:59 12/24/24 08:27 40 MG Piperacillin Sod/ Tazobactam Sod 50 ml @ 12.5 mls/hr Q12H IV 12/23/24 15:00 01/02/25 14:59 12/24/24 02:56 12.5 MLS/HR Potassium Chloride 100 ml @ 100 mls/hr AD PRN IV POTASSIUM PROTOCOL 12/23/24 09:00 01/22/25 08:59 Potassium Chloride (K-Dur/Klor-Con 20meq) 20 meq AD PRN PO POTASSIUM PROTOCOL 12/23/24 09:00 01/22/25 08:59 Potassium Chloride (KCl 10% Elixir 20meq/15ml) 20 meq AD PRN PO POTASSIUM PROTOCOL 12/23/24 09:00 01/22/25 08:59 Sevelamer HCl (RENAgel 800 MG TAB) 1,600 mg TIDMEALS PO 12/23/24 12:00 01/22/25 11:59 12/24/24 11:04 1,600 MG Sodium Chloride 1,000 ml @ 0 mls/hr ONCE IV 12/23/24 09:30 01/22/25 09:29 12/23/24 10:47 100 MLS/HR Ticagrelor (BRILinta) 90 mg BID PO 12/23/24 21:00 01/22/25 20:59 12/24/24 08:26 90 MG Vancomycin HCl 250 ml @ 125 mls/hr ONCE IV 12/23/24 03:30 12/23/24 03:55 DC Vancomycin HCl (Vancomycin 750mg) 750 mg MWFPHD IVPB 12/23/24 16:00 01/02/25 15:59 12/23/24 18:17 750 MG DIAGNOSTICS / RADIOLOGY: [ ] ASSESSMENT: Possible pneumonia POA Multiple pulmonary nodules per CT POA Acute on chronic respiratory failure on home O2 POA High anion gap metabolic acidosis POA Lactic acidosis POA Chronic thrombocytopenia POA Electrolyte imbalance POA Acute on chronic kidney disease on hemodialysis POA Chronic troponinemia Hyponatremia POA Hyperkalemia POA PPM/ AICD cardiac status CHF POA Morbid Obesity POA Hypertension POA Diabetes POA Hyperlipidemia POA s/p ACS NSTEMI: 11/15/24 Hypercoagulable state on Brilinta and Eliquis: PLAN: admit: P[facility]U solar consultant: pulmologist, sand mixer continue with Eliquis and Brilinta consulted DR Poe Left Heart cath will be done outpatient setting Imaging: Repeat CT chest with HIGH RESOLUTION given to bilateral lung nodules. 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 Replace electrolytes as needed protocol PT eval and treat: encouraged OOB to Chair with MeaLS. GI PPX with Protonix 40 mg p.o. daily All questions and concerns addressed. Case discussed with attending physician and came up with above treatment and plan of care. ATTESTATION BY PHYSICIAN I have seen and examined the patient. I reviewed the documentation, medical decision making, and treatment plan as noted by the mid-level provider above. I agree with the findings and plan of care. TESSA SINGLETON MD, ELIZABETH NP Dec 24, 2024 11:41
--- NOTE | 2024-12-24 14:41 | NUR ---
[facility] Consult: Patient assessed by wound healing team. See wound assessment. Assessment and recommendations provided to primary nurse. Education provided to patient related wound and wound care treatment. Addendum: 12/25/24 at 1405 by ESTER WILLIAM RN RN/ Amended: Links added.
[2024-12-24] MEDS ORDERED: PHARMACY COMMUNICATION MISC SCH (15:30)
--- NOTE | 2024-12-24 16:52 | CONS ---
CONSULTATION NOTE Date of Service: Dec 24, 2024 Reason for Consultation: [ ] Requesting Physician: [ ] HISTORY OF PRESENT ILLNESS: [ ] REVIEW OF SYSTEMS CONSTITUTIONAL: Denies fever, chills, or fatigue. HEAD/FACE: No signs of trauma. EENT: Denies eye pain, blurred vision, double vision, or light sensitivity. RESPIRATORY: Denies shortness of breath, cough, wheezing CARDIOVASCULAR: Denies chest pain, palpitation, syncope GASTROINTESTINAL/ABDOMINAL: Denies abdominal pain, constipation, diarrhea, nausea or vomiting GENITOURINARY: Denies dysuria or hematuria. MUSCULOSKELETAL: Denies joint pain, tenderness, or trauma. INTEGUMENTARY: Denies rash or itchiness NEUROLOGICAL/PSYCH: Denies anxiety, depression, heat or cold intolerance. PAST MEDICAL HISTORY: [ ] PAST SURGICAL HISTORY: [ ] PAST SOCIAL HISTORY: [ ] FAMILY HISTORY: [ ] Coded Allergies: No Known Allergies (Unverified Allergy, 11/14/12) PHYSICAL EXAM EYES: Anicteric. Pupils equal and reactive. HENT: No oral thrush seen, moist Oral mucosa NECK: Supple, no JVD or thyromegaly. LUNGS: Good air entry. No rales, no rhonchi. CARDIOVASCULAR: S1, S2 regular. No murmur heard. ABDOMEN: Soft, non tender, bowel sounds present, no organomegaly CENTRAL NERVOUS SYSTEM: Awake, alert, oriented x 3. No focal deficits. SKIN: No rashes, no swelling. LYMPHATICS: No peripheral lymphadenopathy MUSCULOSKELETAL: No joint swelling, erythema or tenderness. EXTREMITIES: No cyanosis or clubbing BACK: No deformity, no pressure ulcer. GENITOURINARY: No dysuria or hematuria Vital Sign (Last 24 Hours) 12/24/24 12/24/24 11:47 15:37 Temp 97.9 Pulse 81 Resp 18 B/P (MAP) 119/54 Pulse Ox 96 O2 Delivery Room Air O2 Flow Rate 2.0 FiO2 28 Intake & Output (last 24hrs) 12/23/24 12/23/24 12/24/24 15:00 23:00 07:00 Intake Total 290.0 ml Output Total 4200 ml Balance -4200 ml 290.0 ml LABS: Laboratory: Test 12/24/24 16:23 12/24/24 04:30 12/23/24 18:34 12/23/24 13:45 Range/Units Whole Blood Glucose 138 #H 70-110 MG/DL White Blood Count 5.0 4.8-10.8 K/uL Red Blood Count 3.13 L 4.00-5.50 MIL/uL Hemoglobin 10.3 L 12.0-16.0 g/dL Hematocrit 30.3 L 36-48 % Mean Corpuscular Volume 96.8 79-99 fL Mean Corpuscular Hemoglobin 32.9 27.0-33.0 pg Mean Corpuscular Hemoglobin Concent 34.0 32.0-36.0 g/dL Red Cell Distribution Width 18.9 H 11.0-15.5 % Platelet Count 120 L 130-400 K/uL Mean Platelet Volume 11.0 H 7.5-10.5 fL Immature Granulocyte % (Auto) 0.2 0-1 % Neutrophils (%) (Auto) 68.0 40.0-77.0 % Lymphocytes (%) (Auto) 12.6 L 21.0-51.0 % Monocytes (%) (Auto) 13.0 3.0-13.0 % Eosinophils (%) (Auto) 5.2 0.0-8.0 % Basophils (%) (Auto) 1.0 0.0-5.0 % Neutrophils # (Auto) 3.4 1.8-7.7 K/uL Lymphocytes # (Auto) 0.6 L 1.0-4.8 K/uL Monocytes # (Auto) 0.7 0.1-1.0 K/uL Eosinophils # (Auto) 0.26 0.00-0.70 K/uL Basophils # (Auto) 0.05 0.00-0.20 K/uL Absolute Immature Granulocyte (auto 0.01 0-1 K/uL Nucleated Red Blood Cells 0.0 0.0-0.19 % Sodium Level 133 L 136-145 mmol/L Potassium Level 4.2 3.5-5.1 mmol/L Chloride Level 93 L 101-111 mmol/L Carbon Dioxide Level 26 21-32 mmol/L Blood Urea Nitrogen 80 *H 7-18 mg/dL Creatinine 6.7 H 0.5-1.0 mg/dL Glomerular Filtration Rate Calc 7 >90 mL/min Random Glucose 153 H 70-105 mg/dL Total Calcium 8.1 L 8.5-10.1 mg/dL Magnesium Level 2.50 H 1.80-2.40 mg/dL Total Bilirubin 1.1 H 0.2-1.0 mg/dL Aspartate Amino Transf (AST/SGOT) 44 H 10-37 U/L Alanine Aminotransferase (ALT/SGPT) 56 12-78 U/L Alkaline Phosphatase 155 H 50-136 U/L Total Protein 6.7 6.0-8.3 g/dL Albumin 2.7 L 3.5-5.0 g/dL Thyroid Stimulating Hormone (TSH) 1.61 # 0.36-3.74 uIU/mL Troponin I High Sensitivity 41 4-50 ng/L Influenza Type A Antigen Negative For Type A NEGATIVE Influenza Type B Antigen Negative For Type B NEGATIVE SARS-CoV-2 Antigen (Rapid) PRESUMPTIVE NEGATIVE NEGATIVE Test 12/23/24 09:44 12/23/24 05:00 12/23/24 03:00 12/22/24 22:16 Range/Units D-Dimer Quantitative (PE/DVT) 2559 *H 0-500 ng/mL Lactic Acid Level 4.8 H 0.8-2.5 mmol/L Lipase 95 H 16-77 U/L B-Type Natriuretic Peptide 3100 H 0-100 pg/mL Procalcitonin 0.99 H 0.05-0.5 ng/mL Total Creatine Kinase 35 21-232 U/L DIAGNOSTICS / RADIOLOGY: [ ] PROBLEM LIST : Chronic venous hypertension with ulcer of right lower leg Non pressure chronic ulcer of right lower leg limited to skin breakdown PLAN: Wound care to right lower leg- paint wound with betadine daily, leave open to air Keep wounds clean and dry Offloading/reposition q 2 hours Continue IV antibiotics per ID Comorbidities per primary care team Further Management per hospital course. Thank You for the consult and allowing us to participate in the care of this patient. KUNAL MTZ NP Dec 24, 2024 16:52
--- NOTE | 2024-12-24 16:54 | CONS ---
Cardiology Consult Note Attending Head Holder: Dr. Kendall Poe Consulting Physician: Hospitalist Date of Service: 12/24/2024 Reason for Consult: Acute on chronic HFrEF HPI: This is a 59-year-old female with a past medical history of HTN, HLP, poorly controlled DM 2, ESRD, on HD (MWF), paroxysmal atrial fibrillation, on antico agulation, abnormal Lexiscan stress test done on 02/23/2022, CAD s/p successful PCI with overlapping GENEVA placement (Medtronic Resolute Hewlett 3.0 x 22 mm and 2.75 x 18 mm) in the mid LAD done on 06/28/2022, ACS-NSTEMI, s/p LHC/coronary angiogram (11/11/2024) which identified 3V+branch CAD (turned down for CABG), s/p successful treatment with a staged PCI with PTCA, balloon lithotripsy, and DCB angioplasty in the ISR within the proximal-mid LAD, successful treatment with balloon lithotripsy and GENEVA placement (Xience Skypoint 3.5x15 mm) in the ostial LAD, and successful treatment with PTCA and balloon lithotripsy in the mid and distal LCx done on 11/15/2024, BiV HFrEF (LVEF: 20-25% by echo done on 11/07/2024), ICM s/p right-sided single lead ICD implantation done on 12/13/2022, COVID-19 viral pneumonia, PAD, and obesity who presents with [place] of > 1 weeks in duration. The symptoms began spontaneously and over the ensuing timeframe have been constant and have progressively worsened. Previously the patient could walk 100 feet before she would develop symptoms, but prior to admission her symptoms would develop after walking 5 feet. The symptoms were exacerbated by physical activity and would slowly resolve with rest. Associated symptoms include headache, PND, 60 degree orthopnea, abdominal pain, and bilateral lower extremity swelling. Pertinent negatives include dizziness, syncope, chest pain, chest pressure, palpitations, nausea, vomiting, weight gain, diaphoresis, fever, or chills. The patient's progression of symptoms prompted her to seek a higher level of care. While on the inpatient service, laboratory data identified and elevated BNP level. Cardiology was consulted for treatment recommendations. PMH: Listed above PSH: Listed above FH: Noncontributory SH: Denies alcohol, tobacco, or illicit drug use. Allergies: Coded Allergies: No Known Allergies (Unverified Allergy, 11/14/12) Review of systems: General: Denies fever or chills HEENT: As per the HPI Neck: Denies pain or stiffness Cardio: As per the HPI Pulm: As per the HPI GI: As per the HPI MSK: Denies decreased ROM or joint pain. Heme: Denies anemia, easy bruising, or bleeding. Neuro: As per the HPI Psyche: Denies anxiety, depression, or suicidal ideation. Physical Exam: Vital Signs Date Time Temp Pulse Resp B/P (MAP) Pulse Ox O2 Delivery O2 Flow Rate FiO2 12/24/24 15:37 97.9 81 18 119/54 96 Room Air 12/24/24 11:47 2.0 28 General: Alert and oriented. NAD. Chronically ill appearing. HEENT: NC/AT. Oral mucosa is moist. Neck: No masses, JVD, or carotid bruits Lungs: NRD. SCM. Bilateral air entry. Diminished breath sounds noted throughout. Cardio: Regular rate. Distant, but normal S1 and S2. +S4. PMI was not displaced. Abdomen: Obese abdomen. Soft. NT. ND. Normal active bowel sounds x 4 quadrants. Extremities: Diminished throughout. Trace edema seen in the bilateral lower extremities. Abrasion noted to the right shift. Neuro: CN II-XII were grossly intact. No focal deficits. Labs: Laboratory Tests Test 12/23/24 18:34 12/23/24 21:39 12/24/24 04:30 12/24/24 05:48 Range/Units Troponin I High Sensitivity 41 4-50 ng/L Whole Blood Glucose 167 #H 119 H 70-110 MG/DL White Blood Count 5.0 4.8-10.8 K/uL Red Blood Count 3.13 L 4.00-5.50 MIL/uL Hemoglobin 10.3 L 12.0-16.0 g/dL Hematocrit 30.3 L 36-48 % Mean Corpuscular Volume 96.8 79-99 fL Mean Corpuscular Hemoglobin 32.9 27.0-33.0 pg Mean Corpuscular Hemoglobin Concent 34.0 32.0-36.0 g/dL Red Cell Distribution Width 18.9 H 11.0-15.5 % Platelet Count 120 L 130-400 K/uL Mean Platelet Volume 11.0 H 7.5-10.5 fL Immature Granulocyte % (Auto) 0.2 0-1 % Neutrophils (%) (Auto) 68.0 40.0-77.0 % Lymphocytes (%) (Auto) 12.6 L 21.0-51.0 % Monocytes (%) (Auto) 13.0 3.0-13.0 % Eosinophils (%) (Auto) 5.2 0.0-8.0 % Basophils (%) (Auto) 1.0 0.0-5.0 % Neutrophils # (Auto) 3.4 1.8-7.7 K/uL Lymphocytes # (Auto) 0.6 L 1.0-4.8 K/uL Monocytes # (Auto) 0.7 0.1-1.0 K/uL Eosinophils # (Auto) 0.26 0.00-0.70 K/uL Basophils # (Auto) 0.05 0.00-0.20 K/uL Absolute Immature Granulocyte (auto 0.01 0-1 K/uL Nucleated Red Blood Cells 0.0 0.0-0.19 % Sodium Level 133 L 136-145 mmol/L Potassium Level 4.2 3.5-5.1 mmol/L Chloride Level 93 L 101-111 mmol/L Carbon Dioxide Level 26 21-32 mmol/L Blood Urea Nitrogen 80 *H 7-18 mg/dL Creatinine 6.7 H 0.5-1.0 mg/dL Glomerular Filtration Rate Calc 7 >90 mL/min Random Glucose 153 H 70-105 mg/dL Total Calcium 8.1 L 8.5-10.1 mg/dL Magnesium Level 2.50 H 1.80-2.40 mg/dL Total Bilirubin 1.1 H 0.2-1.0 mg/dL Aspartate Amino Transf (AST/SGOT) 44 H 10-37 U/L Alanine Aminotransferase (ALT/SGPT) 56 12-78 U/L Alkaline Phosphatase 155 H 50-136 U/L Total Protein 6.7 6.0-8.3 g/dL Albumin 2.7 L 3.5-5.0 g/dL Thyroid Stimulating Hormone (TSH) 1.61 # 0.36-3.74 uIU/mL Test 12/24/24 10:38 12/24/24 10:47 12/24/24 10:53 12/24/24 11:10 Range/Units Whole Blood Glucose 74 291 #H 188 H 141 H 70-110 MG/DL Test 12/24/24 11:39 12/24/24 16:08 12/24/24 16:23 Range/Units Whole Blood Glucose 123 H 76 138 #H 70-110 MG/DL Assessment: -Acute on chronic hypoxemic respiratory failure -Lactic acidosis -Volume overloaded state -HAP -BiV HFrEF (LVEF: 20-25% by echo done on 11/07/2024) -Electrolyte derangement -Hypoalbuminemia -Paroxysmal atrial fibrillation, on anticoagulation -ESRD, on HD (MWF) -CAD s/p successful PCI with overlapping GENEVA placement (Medtronic Resolute Hewlett 3.0 x 22 mm and 2.75 x 18 mm) in the mid LAD done on 06/28/2022, ACS-NSTEMI, s/p LHC/coronary angiogram (11/11/2024) which identified 3V+branch CAD (turned down for CABG), s/p successful treatment with a staged PCI with PTCA, balloon lithotripsy, and DCB angioplasty in the ISR within the proximal-mid LAD, successful treatment with balloon lithotripsy and GENEVA placement (Xience Skypoint 3.5x15 mm) in the ostial LAD, and successful treatment with PTCA and balloon lithotripsy in the mid and distal LCx done on 11/15/2024, pending PCI of the LCx -HTN -HLP -DM2 -Abnormal Lexiscan stress test done on 02/23/2022 -ICM s/p right-sided single lead ICD implantation done on 12/13/2022 -COVID-19 viral pneumonia -PAD -Obesity Plan: 1. BiV HFrEF (LVEF: 20-25% by echo done on 11/07/2024) -Stable -BNP: 3100 -The patient will continue on metoprolol succinate 50 mg daily. -She is not a candidate for GDMT with ACEI/ARB/ARNI therapy due to her borderline blood pressures or aldosterone antagonist therapy due to her advanced renal dysfunction. -Her volume status is being addressed via HD. -Please record strict I/O's, daily weights, and restrict fluids to less than 1.5L/day 2. Paroxysmal atrial fibrillation, on anticoagulation -Substrate: Dilated atria -Currently stable, asymptomatic, and in a sinus rhythm -Continue metoprolol succinate 50 mg daily -CHADS2 VASc score: 5 points. Continue Eliquis 5 mg BID. -Please keep the patient on continuous telemetry monitoring and maintain electrolytes within normal parameters. 3. CAD s/p successful PCI with overlapping GENEVA placement (Medtronic Resolute [place]is x 3.0 x 22 mm and 2.75 x 18 mm) in the mid LAD done on 06/28/2022, ACS-NSTEMI, s/p LHC/coronary angiogram (11/11/2024) which identified 3V+branch CAD (turned down for CABG), s/p successful treatment with a staged PCI with PTCA, balloon lithotripsy, and DCB angioplasty in the ISR within the proximal-mid LAD, successful treatment with balloon lithotripsy and GENEVA placement (Xience Skypoint 3.5x15 mm) in the ostial LAD, and successful treatment with PTCA and balloon lithotripsy in the mid and distal LCx done on 11/15/2024, pending PCI of the LCx -The patient will continue on ticagrelor 90 mg BID, metoprolol succinate 50 mg daily, isosorbide mononitrate ER 60 mg daily, and atorvastatin 40 mg QHS. -We will defer the planned staged PCI to the LCx until the patient's volume status and infectious process has been addressed. Thank you for this interesting consult and allowing us to participate in the care of your patient. This case was seen and discussed with my Supervising Physician, Dr. Kendall Poe, and the above mentioned plan was formulated and agreed upon. -Consult Note written by Vasiliy Machado, MSN, LUMBER STACKER, AGACNP-BC VASILIY MACHADO NP Dec 24, 2024 16:54
--- NOTE | 2024-12-24 18:08 | HMCIMG ---
EXAM: CT Chest Without Intravenous Contrast. CLINICAL HISTORY: 59-year-old female. TECHNIQUE: Axial computed tomography images of the chest without intravenous contrast. Dose reduction technique was used including one or more of the following: automated exposure control, adjustment of mA and kV according to patient size, and/or iterative reconstruction. CONTRAST: None. COMPARISON: None provided. FINDINGS: LUNGS: No pulmonary mass. Bilateral nodular densities in the lower lobes raise the question of infectious versus inflammatory nodules. Consider a follow-up CT chest in 6 months. PLEURAL SPACES: A small left pleural effusion is present. HEART AND MEDIASTINUM: Mild cardiomegaly is present. A small pericardial effusion is present. Atherosclerotic changes are noted in the coronary arteries. LYMPH NODES: The mediastinal and hilar lymph nodes appear unremarkable. CHEST WALL AND UPPER ABDOMEN: Cholecystectomy clips are present. BONES: No acute osseous abnormality. IMPRESSION: 1. Bilateral nodular densities in the lower lobes, possibly infectious or inflammatory. Consider a follow-up CT chest in 6 months. 2. Small left pleural effusion. 3. Mild cardiomegaly and small pericardial effusion. /Atkins
--- NOTE | 2024-12-24 21:34 | PN ---
FOLLOWUP PROGRESS NOTE SUBJECTIVE: A 59-year-old female with a history of diabetes mellitus and hypertension. The patient presented to the hospital with increasing shortness of breath and orthopnea. The patient did receive dialysis with 4.2 L of ultrafiltration. The patient's pulmonary symptoms have greatly improved and she is being seen as a followup visit for all the above. REVIEW OF SYSTEMS: She is feeling improved. HEENT: No change in vision. No change in hearing. CARDIOVASCULAR: There is no current chest pains or palpitations. PULMONARY: Her shortness of breath has improved. GASTROINTESTINAL: She is tolerating a diet. MUSCULOSKELETAL: Complains of weakness. PHYSICAL EXAMINATION: VITAL SIGNS: Blood pressure 111/69, pulse 70. She is afebrile. GENERAL: Chronically ill female, much older than appearing. HEENT: Head is atraumatic. Pupils are equal, round, and reactive to light. Oropharynx is without exudate. Nares clear. NECK: There is no JVP. There is no thyromegaly, no mass. CARDIOVASCULAR: Regular. There is no S3 or S4 gallop. LUNGS: Coarse with equal thoracic movement. ABDOMEN: Soft, nondistended, and nontender. EXTREMITIES: Extremities reveal no clubbing or cyanosis. NEUROLOGICAL: She is awake, she is alert. LABORATORY DATA: Sodium 132, potassium 4, BUN 80, creatinine 6.7, hemoglobin 10 and hematocrit 30. IMPRESSION: Respiratory failure with volume overload. Known coronary artery disease. Diabetes mellitus. Hypertension. PLAN: The patient's pulmonary symptoms have greatly improved. The patient has been counseled in regard to general medical care including fluid restriction. Once the patient is discharged, the patient's dry weight will be adjusted at the dialysis unit. We will continue to follow closely. The patient had multiple questions, all of which were answered. TID: [id number] RECEIPT: [id number]
--- NOTE | 2024-12-24 22:54 | HMCIMG ---
EXAM: NM Lung Perfusion Scan. CLINICAL HISTORY: SOB. PE Suspected. TECHNIQUE: Rradiolabeled MAA was administered intravenously, and planar images of the lungs were obtained in multiple projections. RADIOPHARMACEUTICAL: Perfusion: technetium 99m MAA. COMPARISON: CT examination dated December 25, 2024. FINDINGS: Tracer defect noted in the region of right upper lobe - correlates with the pacemaker. Wedge shaped defect correlating with the oblique fissure of the left lung. Homogeneous uptake of the radiotracer throughout rest of the bilateral lungs. IMPRESSION: Normal perfusion scan. /[place]le[place]
[2024-12-25] VITALS (25 sets, daily range): BP systolic 96–166; BP diastolic 41–68; PULSE 67–81; RESP 16–22; TEMP 97.8–98.6; O2SAT 87–100
[2024-12-25 05:01] LABS: IMMATURE GRANULOCYTE ABSOLUTE 0.02 K/uL (0-1); NUCLEATED RED BLOOD CELLS 0.0 % (0.0-0.19); PLATELET COUNT (AUTO) 123 K/uL (130-400); RED BLOOD CELL COUNT(AUTO) 3.24 MIL/uL (4.00-5.50); RED CELL DISTRIBUTION WIDTH 19.2 % (11.0-15.5); WHITE BLOOD COUNT (AUTO) 6.0 K/uL (4.8-10.8)
[2024-12-25 07:32] LABS: SODIUM SERUM 133.0 mmol/L (136-145)
[2024-12-25 07:45] LABS: ASPARTATE AMINOTRANSFERASE 30.0 U/L (10-37); GLOMERULAR FILTR. RATE CALC 5.0 mL/min (>90); GLUCOSE,RANDOM 91.0 mg/dL (70-105); TOTAL PROTEIN, SERUM 7.0 g/dL (6.0-8.3); VANCOMYCIN TROUGH 18.0 UG/ML (10.0-20.0)
[2024-12-25 07:52] LABS: CREATININE 8.1 mg/dL (0.5-1.0); UREA NITROGEN, BLOOD 94.0 mg/dL (7-18)
[2024-12-25] MEDS ORDERED: ALBUMIN (HUMAN) 25% 50 ML IV.SOLN. IV SCH (10:00)
[2024-12-25] MEDS: ALBUMIN (HUMAN) 25% 50 ML IV.SOLN. IV SCH (10:04)
--- NOTE | 2024-12-25 11:36 | PN ---
[facility] PROGRESS NOTE Date Patient Seen: Dec 25, 2024 Time of Visit: 11:36 Supervising Physician: [MICHELLE MALLORY MD Primary Care Physician: Treva Pinzon MD Outpatient Specialists: [ ] Inpatient Consults: Dr Juan Asencio, Dr Gomez Attending: [employer] team PROBLEM LIST: Acute hypoxemic respiratory failure, POA Scattered nodules versus septic embolization in peripheral of both lung POA with prominence at the base Ruled out by HRCT Mild bronchitic disease with peribronchial thickening on HRCT 12/24/24 Acute on chronic respiratory failure on home O2 POA, back to baseline High anion gap metabolic acidosis POA resolved ESRD on HD Lactic acidosis POA Chronic thrombocytopenia POA Electrolyte imbalance POA Acute on chronic kidney disease on hemodialysis POA Chronic troponinemia Hyponatremia POA Hyperkalemia POA PPM/ AICD cardiac status CHF POA Morbid Obesity POA Hypertension POA Diabetes POA Hyperlipidemia POA Morbid obesity BMI of 41 INTERVAL HISTORY: Chart reviewed including all laboratory and imaging results. High-resolution CT chest reviewed with . No nodules noted. Mild bronchiectasis with peribronchial thickening. Recommendation for antibiotics for 10-[address] chest in six months. Pt was informed of findings and recommendations Patient assessed at bedside. Denies chest pain, palpitation, or shortness for breath. Hemodynamically stable. Currently on HD treatment tolerating well. No major overnight events reported. Plan- Antibiotics for 10-14 days recommended repeat HRCT chest in six months Pt on home o2 no need for 6 min walk Arrange outpatient pulmonology referral for sleep study, PFT and follow-up management upon discharge REVIEW OF SYSTEMS: Const: Weight gain Eyes: no recent vision problems ENT: No congestion, ear pain, or sore throat C/V: Positive for swelling to bilateral lower extremities Resp shortness of the breath cough x1 month GI: No abdominal pain, nausea, vomiting, constipation, or diarrhea : No incontinence of or dyuria M/S: No joint or pain swelling Skin: No rash Neuro: no headache, focal numbness, or weakness, dizziness or seizures Psych: no depression or anxiety Heme: no abnormal bruising or bleeding Lymph: no swollen glands PHYSICAL EXAM: GENERAL: CHRONICALLY ILL on 2 L HEENT: EOMI, Sclera non icteric, moist mucosa NECK: Supple, no JVD, trachea midline LUNGS: CLEAR TO ALL LOBES BILATERALLY. HEART: Regular rate and rhythm. Normal S1 and S2, without murmurs ABD: Abdomen soft, nontender. Bowel sounds present EXT: No clubbing cyanosis + 2 PITTING EDEMA NEURO: Alert and oriented to person, follows commands Vital Signs (last 8hr) Date Time Temp Pulse Resp B/P (MAP) Pulse Ox O2 Delivery O2 Flow Rate FiO2 12/25/24 09:10 98.6 72 18 123/68 Nasal Cannula 2.0 12/25/24 08:39 98.1 71 18 128/46 100 Nasal Cannula 2.0 12/25/24 07:46 69 18 N/Cannula Low lpm 2.0 28 12/25/24 04:14 98.4 71 18 110/58 96 Nasal Cannula 2.0 LABS: Hematology Labs: Test 12/25/24 04:36 Range/Units White Blood Count 6.0 4.8-10.8 K/uL Red Blood Count 3.24 L 4.00-5.50 MIL/uL Hemoglobin 10.6 L 12.0-16.0 g/dL Hematocrit 31.9 L 36-48 % Mean Corpuscular Volume 98.5 79-99 fL Mean Corpuscular Hemoglobin 32.7 27.0-33.0 pg Mean Corpuscular Hemoglobin Concent 33.2 32.0-36.0 g/dL Red Cell Distribution Width 19.2 H 11.0-15.5 % Platelet Count 123 L 130-400 K/uL Mean Platelet Volume 11.0 H 7.5-10.5 fL Immature Granulocyte % (Auto) 0.3 0-1 % Neutrophils (%) (Auto) 72.8 40.0-77.0 % Lymphocytes (%) (Auto) 10.1 L 21.0-51.0 % Monocytes (%) (Auto) 10.2 3.0-13.0 % Eosinophils (%) (Auto) 5.9 0.0-8.0 % Basophils (%) (Auto) 0.7 0.0-5.0 % Neutrophils # (Auto) 4.4 1.8-7.7 K/uL Lymphocytes # (Auto) 0.6 L 1.0-4.8 K/uL Monocytes # (Auto) 0.6 0.1-1.0 K/uL Eosinophils # (Auto) 0.35 0.00-0.70 K/uL Basophils # (Auto) 0.04 0.00-0.20 K/uL Absolute Immature Granulocyte (auto 0.02 0-1 K/uL Nucleated Red Blood Cells 0.0 0.0-0.19 % Erythrocyte Sedimentation Rate 0-30 MM/HR Chemistry Labs: Test 12/25/24 10:49 12/25/24 06:55 12/24/24 04:30 12/23/24 18:34 Range/Units Whole Blood Glucose 83 70-110 MG/DL Sodium Level 133 L 136-145 mmol/L Potassium Level 4.8 3.5-5.1 mmol/L Chloride Level 93 L 101-111 mmol/L Carbon Dioxide Level 28 21-32 mmol/L Blood Urea Nitrogen 94 *H 7-18 mg/dL Creatinine 8.1 *H 0.5-1.0 mg/dL Glomerular Filtration Rate Calc 5 >90 mL/min Random Glucose 91 70-105 mg/dL Total Calcium 7.6 L 8.5-10.1 mg/dL Magnesium Level 2.60 H 1.80-2.40 mg/dL Ferritin 2671 H 15-150 ng/mL Total Bilirubin 0.9 0.2-1.0 mg/dL Aspartate Amino Transf (AST/SGOT) 30 10-37 U/L Alanine Aminotransferase (ALT/SGPT) 48 12-78 U/L Alkaline Phosphatase 153 H 50-136 U/L C-Reactive Protein, Quantitative 56.20 H 0.5-3.0 mg/L Total Protein 7.0 6.0-8.3 g/dL Albumin 2.6 L 3.5-5.0 g/dL Thyroid Stimulating Hormone (TSH) 1.61 # 0.36-3.74 uIU/mL Troponin I High Sensitivity 41 4-50 ng/L DIAGNOSTICS / RADIOLOGY RESULTS: [ [facility] [address] [place] [address] [id number] IMAGING REPORT Addendum PATIENT: NICK VEE MR#: [id number] : 1965 SEX: F AGE: 59 LOCATION: 2AH ORDER STATUS: ADM IN REPORT#: [id number] SERVICE [id number] REASON: repeat on high resolution ORDERING PHYSICIAN: CLINT FORTE PROCEDURE: CHEST HR - CT CHEST HIGH RESOLUTION (WO) ADDENDUM REPORT ADDENDUM: Results were shared by telephone at 19:36 pm on 12/24/24 and acknowledged by Patient's Nurse Kelly Rudd. /[facility] EXAM: CT Chest Without Intravenous Contrast. CLINICAL HISTORY: 59-year-old female. TECHNIQUE: Axial computed tomography images of the chest without intravenous contrast. Dose reduction technique was used including one or more of the following: automated exposure control, adjustment of mA and kV according to patient size, and/or iterative reconstruction. CONTRAST: None. COMPARISON: None provided. FINDINGS: LUNGS: No pulmonary mass. Bilateral nodular densities in the lower lobes raise the question of infectious versus inflammatory nodules. Consider a follow-up CT chest in 6 months. PLEURAL SPACES: A small left pleural effusion is present. HEART AND MEDIASTINUM: Mild cardiomegaly is present. A small pericardial effusion is present. Atherosclerotic changes are noted in the coronary arteries. LYMPH NODES: The mediastinal and hilar lymph nodes appear unremarkable. CHEST WALL AND UPPER ABDOMEN: Cholecystectomy clips are present. BONES: No acute osseous abnormality. IMPRESSION: 1. Bilateral nodular densities in the lower lobes, possibly infectious or inflammatory. Consider a follow-up CT chest in 6 months. 2. Small left pleural effusion. 3. Mild cardiomegaly and small pericardial effusion. /[facility] DICTATED BY: HECTOR RICKS MD DATE: 12/24/241936 ELECTRONICALLY SIGNED BY: DATE: EXAM: CT Chest Without Intravenous Contrast. CLINICAL HISTORY: 59-year-old female. TECHNIQUE: Axial computed tomography images of the chest without intravenous contrast. Dose reduction technique was used including one or more of the following: automated exposure control, adjustment of mA and kV according to patient size, and/or iterative reconstruction. CONTRAST: None. COMPARISON: None provided. FINDINGS: LUNGS: No pulmonary mass. Bilateral nodular densities in the lower lobes raise the question of infectious versus inflammatory nodules. Consider a follow-up CT chest in 6 months. PLEURAL SPACES: A small left pleural effusion is present. HEART AND MEDIASTINUM: Mild cardiomegaly is present. A small pericardial effusion is present. Atherosclerotic changes are noted in the coronary arteries. LYMPH NODES: The mediastinal and hilar lymph nodes appear unremarkable. CHEST WALL AND UPPER ABDOMEN: Cholecystectomy clips are present. BONES: No acute osseous abnormality. IMPRESSION: 1. Bilateral nodular densities in the lower lobes, possibly infectious or inflammatory. Consider a follow-up CT chest in 6 months. 2. Small left pleural effusion. 3. Mild cardiomegaly and small pericardial effusion. /[facility] DICTATED BY: HECTOR RICKS MD DATE: 12/24/241906 ELECTRONICALLY SIGNED BY: HECTOR RICKS MD DATE: 12/24/241906 ] [place] [id number] IMAGING REPORT Addendum PATIENT: NICK VEE MR#: [id number] : 1965 SEX: F AGE: 59 LOCATION: 2A ORDER 34 STATUS: ADM IN REPORT#: [id number] SERVICE 32 REASON: rule out PE/ shes refusing contrast for CTA ORDERING PHYSICIAN: CLINT FORTE PROCEDURE: PULM V P - NM PULMONARY/LUNG VENT/PERF VQ ADDENDUM REPORT ADDENDUM: EXAM: NM Lung Perfusion and Ventilation Scan. CLINICAL HISTORY: rule out PE/ shes refusing contrast for CTA TECHNIQUE: Ventilation images of the lungs were obtained after inhalation of the radiopharmceutical. Then, radiolabeled MAA was administered intravenously and planar images of the lungs were obtained in multiple projections. COMPARISON: None provided. FINDINGS: VENTILATION: No segmental ventilation defect. PERFUSION: No segmental perfusion defect. IMPRESSION: Normal VQ scan based on modified PIOPED criteria. /[facility] EXAM: NM Lung Perfusion Scan. CLINICAL HISTORY: SOB. PE Suspected. TECHNIQUE: Rradiolabeled MAA was administered intravenously, and planar images of the lungs were obtained in multiple projections. RADIOPHARMACEUTICAL: Perfusion: technetium 99m MAA. COMPARISON: CT examination dated December 25, 2024. FINDINGS: Tracer defect noted in the region of right upper lobe - correlates with the pacemaker. Wedge shaped defect correlating with the oblique fissure of the left lung. Homogeneous uptake of the radiotracer throughout rest of the bilateral lungs. IMPRESSION: Normal perfusion scan. /[facility] DICTATED BY: CARLA BAÑUELOS Jr., MD DATE: 12/24/242354 ELECTRONICALLY SIGNED BY: DATE: EXAM: NM Lung Perfusion Scan. CLINICAL HISTORY: SOB. PE Suspected. TECHNIQUE: Rradiolabeled MAA was administered intravenously, and planar images of the lungs were obtained in multiple projections. RADIOPHARMACEUTICAL: Perfusion: technetium 99m MAA. COMPARISON: CT examination dated December 25, 2024. FINDINGS: Tracer defect noted in the region of right upper lobe - correlates with the pacemaker. Wedge shaped defect correlating with the oblique fissure of the left lung. Homogeneous uptake of the radiotracer throughout rest of the bilateral lungs. IMPRESSION: Normal perfusion scan. /[facility] DICTATED BY: CARLA BAÑUELOS Jr., MD DATE: 12/24/242352 ELECTRONICALLY SIGNED BY: CARLA BAÑUELOS Jr., MD DATE: 12/24/242352 PLAN NEURO: Minimize central acting medications as possible. Maintain fall precautions, adequate lighting during the day PULMONARY: Supplemental 02 as needed. Maintain aspiration precautions at all times CARDIOVASCULAR: Follow hemodynamics. Vital signs per facility protocol GI & NUTRITION: Continue with nutritional support. Continue stool softeners and laxatives as needed. KIDNEYS & ELECTROLYTES: Strict monitoring of intake, output and overall fluid balance. Avoid nephrotoxic medications to the extent possible. Medications to be dosed according to renal function. Monitor electrolytes and replace as needed ENDOCRINE: Maintain blood glucose between 100-180 at all times. Hypoglycemia protocol in place INFECTIOUS DISEASE: Trend temperature, WBC and procalcitonin level Follow cultures, deescalate antibiotics as soon as possible. Panculture if new onset fever ONCOLOGY/HEMATOLOGY/COAGULATION: Monitor for s/s of bleeding Monitor hemoglobin, coagulation studies as needed SKIN: Pressure ulcer prevention per facility protocol Specialty mattress ORTHO/REHAB: Continue PT/OT Prophylaxis: Continue GI and DVT prophylaxis Code Status: Full Resuscitation Disposition: TBD Other: Total patient care time exceeds 35 minutes excluding all procedures. CLINT FORTE [facility] Dec 25, 2024 11:36
--- NOTE | 2024-12-25 13:02 | PN ---
[facility] PROGRESS NOTE Date of Service: Dec 25, 2024 Time of Service: 13:00 SUBJECTIVE: [ ] This is a 59-year-old female with past medical history of CHF, thrombocytopenia, pulmonary nodule, end-stage renal disease on hemodialysis Monday, diabetes, hypertension, hyperlipidemia, fatty liver, coronary artery disease with cardiac stent x5 and permanent pacemaker/AICD , morbid obesity and chronic respiratory failure on home O2 who presented to the ED for multiple complaints such as shortness of breaths, cough, headache and abdominal pain.Patient states she has been having shortness of breath and dry cough for about 1 month an going problem she said and was seen by her PCP in the clinic and was told just limit exertion and always sit on the wheelchair she said.Patient reports having frontal headache and abdominal pain around epigastric area started yesterday after eating meat and tortilla.Patient reports she was nauseated but no vomiting.Patient also states she was dialyzed last Monday and 3.5 L of fluid removed she has a LAVA and her lighting adviser is she is anuric and has been on hemodialysis for 3 yrs she said.Patient was recently admitted in this facility on Nov and underwent a left heart cath with PCI on 11/15/2024 by and was discharged home on Eliquis on .During that admission was consulted for persistent thrombocytopenia and advised to work up for multiple myeloma.Pulmonology was also consulted at that time of admission to manage COVID [address] infection [address] chest done on 11/06/2024 of previous admission which showed right lower lobe pulmonary nodule ,ground glass opacity and a small pericardial effusion. 12/23/24 patient was seen earlier today: patient is being scheduled for dialysis we will be done in ED. patient is pending a CT chest most likely we will be done after dialysis. Apparently patient was scheduled for left heart catheterization tomorrow per Dr. Poe: as per nurse practitioner Celeste Garrido to restart Brilinta and Eliquis most likely left heart catheterization we will be done later on this week. Patient returns venous Dopplers to lower extremity given to having pain we will start her Neurontin home meds. Patient denied chest pain. 12/24/24 The patient was seen earlier: episodes of hypoglycemia, D50 was given. modified long acting insulin. 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 Pulmologist ordered a CT chest repeat on HIGH RESOLUTION on room at this time. the patient will transition to medical floor with Tele. 12/25/24 patient was seen earlier patient is getting her dialysis. Patient continues to have low blood sugars patient has her own monitor was 63 patient refused all scheduled insulin overnight. Patient was given orange juice x2. We will continue to monitor patient closely. Patient denied chest pain or shortness for breath but she does complain dizziness most likely secondary to blood sugar being low. Most likely is not receiving pm snack. REVIEW OF SYSTEMS CONSTITUTIONAL: Denies fevers, chills, or night sweats. No unintentional weight loss reported. NEUROLOGICAL: Complaints of frontal headache Denies , amaurosis fugax, motor weakness, sensory deficit, vertigo/spinning sensation, gait abnormalities, or tremors. ENT: No hearing loss, otalgia, otorrhea, rhinitis, rhinorrhea, hoarseness, or sore throat. CARDIOVASCULAR: Denies any exertional angina, dyspnea on exertion, orthopnea, paroxysmal nocturnal dyspnea, palpitations, life-threatening arrhythmias, claudication. PULMONARY: Complaints of shortness of breaths and dry cough Denies phlegm/sputum, hemoptysis, pleuritic chest pain. SLEEP: Denies morning headaches, daytime somnolence or napping. Denies difficulty falling asleep, staying asleep, waking from sleep. Denies knowledge of snoring. GASTROINTESTINAL: Complains of nausea and abdominal pain Denies any type of dysphagia to either liquids or solids. Denies vomiting, pyrosis, early satiet y,diarrhea, constipation, or changes in stool consistency or caliber. Denies coffee-ground emesis, hematemesis, hematochezia, or melanotic stools. GENITOURINARY: Denies frequency, urgency, nocturia, hematuria or incontinence (Storage/Irritative symptoms.) Low urinary stream, straining to void, urinary intermittency or hesitancy, splitting of the voiding stream, terminal dribbling. ENDOCRINOLOGIC: Denies polyuria, polydipsia, polyphagia or heat/cold i ntolerances. HEMATOLOGIC: Denies thrombophilia/previous clots, or coagulopathy/bleeding disorders. ONCOLOGIC: Denies personal history of malignancy. DERMATOLOGIC: Denies rashes or pruritus. PSYCHIATRIC: Denies any suicidal or homicidal ideation. Denies hallucinations. PHYSICAL EXAM GENERAL APPEARANCE: The patient is awake, alert, and oriented, mildly in distress. NEUROLOGICAL: Cranial nerves II-XII grossly intact. Motor is 5/5 in bilateral upper and lower extremities proximal to distal. No sensory deficits. HEENT: Face is symmetric. Pupils are equal and reactive. Extraocular movements are intact. NECK: Supple. No JVD. No thyromegaly. No submental, submandibular, pre- /postauricular, occipital or supraclavicular lymphadenopathy. CHEST: Normal chest expansion. No Telemetry. LUNGS: Diminished breath sounds CARDIOVASCULAR: Regular. S1 and S2 normal. No appreciable rubs, murmurs or gallops. ABDOMEN: Abdominal tenderness around epigastric area on palpation Soft and nondistended. There is no rebound, voluntary guarding, or rigidity. : Deferred. Anuric EXTREMITIES: Generalized edema SKIN: No skin breakdown. Vital Signs (last 8hr) Date Time Temp Pulse Resp B/P (MAP) Pulse Ox O2 Delivery O2 Flow Rate FiO2 12/25/24 12:16 97.9 69 18 113/46 98 Nasal Cannula 2.0 12/25/24 12:15 70 16 112/53 Nasal Cannula 2.0 12/25/24 12:00 70 16 120/50 Nasal Cannula 2.0 12/25/24 11:45 71 16 115/55 Nasal Cannula 2.0 12/25/24 11:30 67 16 105/41 Nasal Cannula 2.0 12/25/24 11:15 69 16 112/46 Nasal Cannula 2.0 12/25/24 11:00 68 16 120/55 Nasal Cannula 2.0 12/25/24 10:45 67 16 110/50 Nasal Cannula 2.0 12/25/24 10:30 67 16 104/47 Nasal Cannula 2.0 12/25/24 10:15 68 16 104/43 Nasal Cannula 2.0 12/25/24 10:00 68 16 113/49 Nasal Cannula 2.0 12/25/24 09:45 68 16 115/54 Nasal Cannula 2.0 12/25/24 09:30 69 16 96/52 Nasal Cannula 2.0 12/25/24 09:15 98.6 68 16 105/50 Nasal Cannula 2.0 12/25/24 09:10 98.6 72 18 123/68 Nasal Cannula 2.0 12/25/24 08:39 98.1 71 18 128/46 100 Nasal Cannula 2.0 12/25/24 08:00 95 Room Air* 0 21 12/25/24 07:46 69 18 N/Cannula Low lpm 2.0 28 LABS: Laboratory: Test 12/25/24 10:49 12/25/24 06:55 12/25/24 04:36 12/24/24 04:30 Range/Units Whole Blood Glucose 83 70-110 MG/DL Sodium Level 133 L 136-145 mmol/L Potassium Level 4.8 3.5-5.1 mmol/L Chloride Level 93 L 101-111 mmol/L Carbon Dioxide Level 28 21-32 mmol/L Blood Urea Nitrogen 94 *H 7-18 mg/dL Creatinine 8.1 *H 0.5-1.0 mg/dL Glomerular Filtration Rate Calc 5 >90 mL/min Random Glucose 91 70-105 mg/dL Total Calcium 7.6 L 8.5-10.1 mg/dL Magnesium Level 2.60 H 1.80-2.40 mg/dL Ferritin 2671 H 15-150 ng/mL Total Bilirubin 0.9 0.2-1.0 mg/dL Aspartate Amino Transf (AST/SGOT) 30 10-37 U/L Alanine Aminotransferase (ALT/SGPT) 48 12-78 U/L Alkaline Phosphatase 153 H 50-136 U/L C-Reactive Protein, Quantitative 56.20 H 0.5-3.0 mg/L Total Protein 7.0 6.0-8.3 g/dL Albumin 2.6 L 3.5-5.0 g/dL Vancomycin Level Trough 18.0 10.0-20.0 UG/ML White Blood Count 6.0 4.8-10.8 K/uL Red Blood Count 3.24 L 4.00-5.50 MIL/uL Hemoglobin 10.6 L 12.0-16.0 g/dL Hematocrit 31.9 L 36-48 % Mean Corpuscular Volume 98.5 79-99 fL Mean Corpuscular Hemoglobin 32.7 27.0-33.0 pg Mean Corpuscular Hemoglobin Concent 33.2 32.0-36.0 g/dL Red Cell Distribution Width 19.2 H 11.0-15.5 % Platelet Count 123 L 130-400 K/uL Mean Platelet Volume 11.0 H 7.5-10.5 fL Immature Granulocyte % (Auto) 0.3 0-1 % Neutrophils (%) (Auto) 72.8 40.0-77.0 % Lymphocytes (%) (Auto) 10.1 L 21.0-51.0 % Monocytes (%) (Auto) 10.2 3.0-13.0 % Eosinophils (%) (Auto) 5.9 0.0-8.0 % Basophils (%) (Auto) 0.7 0.0-5.0 % Neutrophils # (Auto) 4.4 1.8-7.7 K/uL Lymphocytes # (Auto) 0.6 L 1.0-4.8 K/uL Monocytes # (Auto) 0.6 0.1-1.0 K/uL Eosinophils # (Auto) 0.35 0.00-0.70 K/uL Basophils # (Auto) 0.04 0.00-0.20 K/uL Absolute Immature Granulocyte (auto 0.02 0-1 K/uL Nucleated Red Blood Cells 0.0 0.0-0.19 % Erythrocyte Sedimentation Rate 0-30 MM/HR Thyroid Stimulating Hormone (TSH) 1.61 # 0.36-3.74 uIU/mL Test 12/23/24 18:34 12/23/24 13:45 Range/Units Troponin I High Sensitivity 41 4-50 ng/L Influenza Type A Antigen Negative For Type A NEGATIVE Influenza Type B Antigen Negative For Type B NEGATIVE SARS-CoV-2 Antigen (Rapid) PRESUMPTIVE NEGATIVE NEGATIVE Current Medications Medications (Trade) Dose Ordered Sig/Mark Route PRN Reason Start Time Stop Time Status Last Admin Dose Admin Acetaminophen (TYLenol 325MG TAB) 650 mg Q4H PRN PO MILD PAIN (1-3) 12/23/24 03:30 01/22/25 03:29 12/24/24 11:03 650 MG Acetaminophen (TYLenol 325MG TAB) 650 mg Q6H PRN PO TEMPERATURE GREATER THAN 101.5 12/23/24 03:30 01/22/25 03:29 12/23/24 08:07 650 MG Albumin Human (Albumin (Human) 25%) 50 ml ONCE IV 12/25/24 10:00 12/25/24 09:51 DC Albumin Human (Albumin (Human) 25%) 100 ml ONCE IV 12/25/24 10:00 12/26/24 09:59 12/25/24 10:04 100 ML Apixaban (EliquIS) 5 mg BID PO 12/23/24 21:00 01/22/25 20:59 12/25/24 09:03 5 MG Atorvastatin Calcium (LIPItor 40MG) 40 mg HS PO 12/23/24 21:00 01/22/25 20:59 12/24/24 20:52 40 MG Buspirone HCl (BUspar) 5 mg BID PO 12/23/24 21:00 01/22/25 20:59 12/25/24 09:04 5 MG Dextrose (D50w) 50 ml AD PRN IV HYPOGLYCEMIA PROTOCOL 12/23/24 03:30 01/22/25 03:29 12/24/24 16:09 50 ML Gabapentin (NEURontin 300 MG CAP) 300 mg HS PO 12/23/24 21:00 01/22/25 20:59 12/24/24 20:52 300 MG Glucagon (Glucagon 1mg Kit) 1 mg AD PRN IM HYPOGLYCEMIA PROTOCOL 12/23/24 03:30 01/22/25 03:29 Guaifenesin (RobiTUSSin SUGAR-FREE 100 MG/ 5 ML UDCUP) 400 mg Q6H6 PRN PO COUGH 12/23/24 23:00 01/22/25 22:59 12/24/24 11:04 400 MG Heparin Sodium (Porcine) (HEParin 5,000 UNIT VIAL) 5,000 unit Q12H SQ 12/23/24 14:00 12/23/24 15:53 DC 12/23/24 15:14 5,000 UNIT Home Med (Home Medication) DAILY PO 12/24/24 09:00 01/23/25 08:59 12/24/24 08:30 1 EACH Home Med (Home Medication) DAILY PO 12/24/24 09:00 01/23/25 08:59 12/24/24 08:30 1 EACH Home Med (Home Medication) HS PO 12/23/24 21:00 01/22/25 20:59 Insulin Glargine (LANtus 100 UNITS/ML 10 ML VIAL) 30 units DAILY SQ 12/25/24 09:00 01/24/25 08:59 Insulin Glargine (LANtus 100 UNITS/ML 10 ML VIAL) 48 units DAILY SQ 12/24/24 09:00 12/24/24 12:25 DC 12/24/24 08:32 48 UNITS Insulin Human Lispro (HumaLOG LISpro 100 UNIT/ML 3ML) 5 unit ACDINNER SQ 12/24/24 16:30 12/24/24 12:25 DC Insulin Human Lispro (HumaLOG LISpro 100 UNIT/ML 3ML) 5 unit HS SQ 12/23/24 21:00 12/23/24 21:49 DC Insulin Human Lispro (HumaLOG LISpro 100 UNIT/ML 3ML) 15 unit ACBKFST SQ 12/24/24 07:30 12/24/24 12:25 DC 12/24/24 08:33 15 UNIT Insulin Human Lispro (HumaLOG LISpro 100 UNIT/ML 3ML) 20 unit ACLUNCH SQ 12/24/24 11:30 12/24/24 12:25 DC Insulin Human Regular (humuLIN R 100 UNIT/ML 3ML) INSULIN SLIDING SCAL... ACHS SQ 12/23/24 11:30 12/24/24 12:27 DC Insulin Human Regular (humuLIN R 100 UNIT/ML 3ML) INSULIN SLIDING SCAL... ACHS SQ 12/24/24 16:30 01/23/25 16:29 Isosorbide Mononitrate (Imdur 60mg Sr) 60 mg AM PO 12/24/24 09:00 01/23/25 08:59 12/24/24 08:27 60 MG Magnesium Sulfate 50 ml @ 0 mls/hr PROTOCOL PRN IV low mag level 12/23/24 09:00 01/22/25 08:59 Metoprolol Succinate (TopROL XL) 50 mg AM PO 12/24/24 09:00 01/23/25 08:59 12/24/24 08:26 50 MG Ondansetron HCl (zoFRAN 4MG INJ) 4 mg Q6H PRN IV NAUSEA/VOMITING 12/23/24 03:30 01/22/25 03:29 Pantoprazole Sodium (PROTonix 40MG TAB) 40 mg DAILY PO 12/23/24 09:00 01/22/25 08:59 12/25/24 09:04 40 MG Pharmacy Profile Note (Pharmacy Communication) 1 each AD MISC 12/24/24 15:30 12/24/24 15:33 DC Piperacillin Sod/ Tazobactam Sod 50 ml @ 12.5 mls/hr Q12H IV 12/23/24 15:00 01/02/25 14:59 12/25/24 02:45 12.5 MLS/HR Potassium Chloride 100 ml @ 100 mls/hr AD PRN IV POTASSIUM PROTOCOL 12/23/24 09:00 01/22/25 08:59 Potassium Chloride (K-Dur/Klor-Con 20meq) 20 meq AD PRN PO POTASSIUM PROTOCOL 12/23/24 09:00 01/22/25 08:59 Potassium Chloride (KCl 10% Elixir 20meq/15ml) 20 meq AD PRN PO POTASSIUM PROTOCOL 12/23/24 09:00 01/22/25 08:59 Sevelamer HCl (RENAgel 800 MG TAB) 1,600 mg TIDMEALS PO 12/23/24 12:00 01/22/25 11:59 12/25/24 09:03 1,600 MG Sodium Chloride 1,000 ml @ 0 mls/hr ONCE IV 12/23/24 09:30 01/22/25 09:29 12/25/24 10:05 100 MLS/HR Ticagrelor (BRILinta) 90 mg BID PO 12/23/24 21:00 01/22/25 20:59 12/25/24 09:02 90 MG Vancomycin HCl 250 ml @ 125 mls/hr ONCE IV 12/23/24 03:30 12/23/24 03:55 DC Vancomycin HCl (Vancomycin 750mg) 750 mg MWFPHD IVPB 12/23/24 16:00 12/25/24 11:48 DC 12/23/24 18:17 750 MG DIAGNOSTICS / RADIOLOGY: [ ] ASSESSMENT: Possible pneumonia POA Multiple pulmonary nodules per CT POA Acute on chronic respiratory failure on home O2 POA High anion gap metabolic acidosis POA Lactic acidosis POA Chronic thrombocytopenia POA Electrolyte imbalance POA Acute on chronic kidney disease on hemodialysis POA Chronic troponinemia Hyponatremia POA Hyperkalemia POA PPM/ AICD cardiac status CHF POA Morbid Obesity POA Hypertension POA Diabetes POA Hyperlipidemia POA s/p ACS NSTEMI: 11/15/24 Hypercoagulable state on Brilinta and Eliquis: PLAN: admit: [facility] immigration consultant: pulmologist, 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 cont with SSRI Hypoglycemia protocol encouraged PM snacks continue with vancomycin and Zosyn IV for broad-spectrum coverage Microbiology: Blood cultures so far negative Monitor H&H trend transfuse to keep hemoglobin above 7.0. Replace electrolytes as needed protocol PT eval and treat: encouraged OOB to Chair with MeaLS. GI PPX with Protonix 40 mg p.o. daily All questions and concerns addressed. Case discussed with attending physician and came up with above treatment and plan of care. ATTESTATION BY PHYSICIAN I have seen and examined the patient. I reviewed the documentation, medical decision making, and treatment plan as noted by the mid-level provider above. I agree with the findings and plan of care. TESSA SINGLETON MD, ELIZABETH NP Dec 25, 2024 13:02
--- NOTE | 2024-12-25 16:42 | PN ---
Cardiology Progress Note Date of Service: 12/25/2024 Attending Color Room Attendant: Dr. Kendall Poe Reason for Consult: Acute on chronic BiV HFrEF Problem List: -Acute on chronic hypoxemic respiratory failure -Lactic acidosis -Volume overloaded state -HAP -BiV HFrEF (LVEF: 20-25% by echo done on 11/07/2024) -Electrolyte derangement -Hypoalbuminemia -Paroxysmal atrial fibrillation, on anticoagulation -ESRD, on HD (MWF) -CAD s/p successful PCI with overlapping GENEVA placement (Medtronic Resolute [place] 3.0 x 22 mm and 2.75 x 18 mm) in the mid LAD done on 06/28/2022, ACS-NSTEMI, s/p LHC/coronary angiogram (11/11/2024) which identified 3V+branch CAD (turned down for CABG), s/p successful treatment with a staged PCI with PTCA, balloon lithotripsy, and DCB angioplasty in the ISR within the proximal-mid LAD, successful treatment with balloon lithotripsy and GENEVA placement (Xience Skypoint 3.5x15 mm) in the ostial LAD, and successful treatment with PTCA and balloon lithotripsy in the mid and distal LCx done on 11/15/2024, pending PCI of the LCx -HTN -HLP -DM2 -Abnormal Lexiscan stress test done on 02/23/2022 -ICM s/p right-sided single lead ICD implantation done on 12/13/2022 -COVID-19 viral pneumonia -PAD -Obesity Subjective: This is a 59y/o female who was seen and evaluated at the bedside today. The patient states that her SOB and orthopnea are slowly improving. She denies any chest pain, chest pressure, or palpitations. As per the nurse, there were no overnight events. Vitals/Labs Vital Signs Date Time Temp Pulse Resp B/P (MAP) Pulse Ox O2 Delivery O2 Flow Rate FiO2 12/25/24 16:04 98.2 81 18 104/45 97 Nasal Cannula 2.0 12/25/24 08:00 21 General: Alert and oriented. NAD. Chronically ill appearing. HEENT: NC/AT. Oral mucosa is moist. Neck: No masses, JVD, or carotid bruits Lungs: NRD. SCM. Bilateral air entry. Diminished breath sounds noted throughout. Cardio: Regular rate. Distant, but normal S1 and S2. +S4. PMI was not displaced. Abdomen: Obese abdomen. Soft. NT. ND. Normal active bowel sounds x 4 quadrants. Extremities: Diminished throughout. Trace edema seen in the bilateral lower extremities. Abrasion noted to the right shift. Neuro: CN II-XII were grossly intact. No focal deficits. Laboratory Tests 12/25/24 04:36 12/25/24 06:55 Assessment: -Acute on chronic hypoxemic respiratory failure -Lactic acidosis -Volume overloaded state -HAP -BiV HFrEF (LVEF: 20-25% by echo done on 11/07/2024) -Electrolyte derangement -Hypoalbuminemia -Paroxysmal atrial fibrillation, on anticoagulation -ESRD, on HD (MWF) -CAD s/p successful PCI with overlapping GENEVA placement (Medtronic Resolute [place] 3.0 x 22 mm and 2.75 x 18 mm) in the mid LAD done on 06/28/2022, ACS-NSTEMI, s/p LHC/coronary angiogram (11/11/2024) which identified 3V+branch CAD (turned down for CABG), s/p successful treatment with a staged PCI with PTCA, balloon lithotripsy, and DCB angioplasty in the ISR within the proximal-mid LAD, successful treatment with balloon lithotripsy and GENEVA placement (Xience Skypoint 3.5x15 mm) in the ostial LAD, and successful treatment with PTCA and balloon lithotripsy in the mid and distal LCx done on 11/15/2024, pending PCI of the LCx -HTN -HLP -DM2 -Abnormal Lexiscan stress test done on 02/23/2022 -ICM s/p right-sided single lead ICD implantation done on 12/13/2022 -COVID-19 viral pneumonia -PAD -Obesity Plan: 1. BiV HFrEF (LVEF: 20-25% by echo done on 11/07/2024) -Improving -Continue on metoprolol succinate 50 mg daily. -She is not a candidate for GDMT with ACEI/ARB/ARNI therapy due to her borderline blood pressures or aldosterone antagonist therapy due to her advanced renal dysfunction. -Her volume status is being addressed via HD. We will repeat a BNP level in the AM to assess the patient's volume status. -Please record strict I/O's, daily weights, and restrict fluids to less than 1.5L/day 2. Paroxysmal atrial fibrillation, on anticoagulation -Substrate: Dilated atria -12H telemetry: Sinus rhythm, no arrhythmias noted -Currently stable, asymptomatic, and in a sinus rhythm -Continue metoprolol succinate 50 mg daily -CHADS2 VASc score: 5 points. Continue Eliquis 5 mg BID. -Please keep the patient on continuous telemetry monitoring and maintain electrolytes within normal parameters. 3. CAD s/p successful PCI with overlapping GENEVA placement (Medtronic Resolute [place] 3.0 x 22 mm and 2.75 x 18 mm) in the mid LAD done on 06/28/2022, ACS-NSTEMI, s/p LHC/coronary angiogram (11/11/2024) which identified 3V+branch CAD (turned down for CABG), s/p successful treatment with a staged PCI with PTCA, balloon lithotripsy, and DCB angioplasty in the ISR within the proximal-mid LAD, successful treatment with balloon lithotripsy and GENEVA placement (Xience Skypoint 3.5x15 mm) in the ostial LAD, and successful treatment with PTCA and balloon lithotripsy in the mid and distal LCx done on 11/15/2024, pending PCI of the LCx -Stable -The patient will continue on ticagrelor 90 mg BID, metoprolol succinate 50 mg daily, isosorbide mononitrate ER 60 mg daily, and atorvastatin 40 mg QHS. -We will defer the planned staged PCI to the LCx until the patient's volume status, infectious process, and respiratory status has been stabilized and addressed, likely early next week. This case was seen and discussed with my Supervising Physician, Dr. Kendall Poe, and the above mentioned plan was formulated and agreed upon. -Progress Note written by Vasiliy Machado, MSN, SHINGLE CATCHER, AGACNP-BC VASILIY MACHADO NP Dec 25, 2024 16:42
--- NOTE | 2024-12-25 21:17 | PN ---
FOLLOWUP PROGRESS NOTE SUBJECTIVE: The patient was seen and evaluated on hemodialysis, prescription noted. OBJECTIVE: VITAL SIGNS: Blood pressure is 128/46. CARDIOVASCULAR: Regular. LUNGS: Coarse. IMPRESSION: End-stage renal disease. PLAN: The patient will continue with maximum ultrafiltration as blood pressure allows. Once the patient is discharged, the patient will follow up with dialysis unit. The patient's outpatient dry weight will be adjusted. TID: [id number] RECEIPT: [id number]
[2024-12-26] VITALS (11 sets, daily range): BP systolic 103–119; BP diastolic 51–76; PULSE 68–82; RESP 16–22; TEMP 97.2–98.5; O2SAT 97–99
[2024-12-26 04:28] LABS: IMMATURE GRANULOCYTE ABSOLUTE 0.01 K/uL (0-1); NUCLEATED RED BLOOD CELLS 0.4 % (0.0-0.19); PLATELET COUNT (AUTO) 119 K/uL (130-400); RED BLOOD CELL COUNT(AUTO) 3.12 MIL/uL (4.00-5.50); RED CELL DISTRIBUTION WIDTH 19.1 % (11.0-15.5); WHITE BLOOD COUNT (AUTO) 5.5 K/uL (4.8-10.8)
[2024-12-26 04:55] LABS: ASPARTATE AMINOTRANSFERASE 20.0 U/L (10-37); CREATININE 6.3 mg/dL (0.5-1.0); GLOMERULAR FILTR. RATE CALC 7.0 mL/min (>90); GLUCOSE,RANDOM 114.0 mg/dL (70-105); SODIUM SERUM 134.0 mmol/L (136-145); TOTAL PROTEIN, SERUM 7.0 g/dL (6.0-8.3); UREA NITROGEN, BLOOD 61.0 mg/dL (7-18)
--- NOTE | 2024-12-26 07:00 | NUR ---
Paged on-call for gram positive cocci clusters found in anaerobic blood culture bottle. Pending call back. Notified day shift nurse of situation.
--- NOTE | 2024-12-26 08:46 | PN ---
Cardiology Progress Note Date of Service: 12/26/2024 Attending Supervisor Belt And Link Assembly: Dr. Kendall Poe Reason for Consult: Acute on chronic BiV HFrEF Problem List: -Acute on chronic hypoxemic respiratory failure -Lactic acidosis -Bacteremia (gram positive cocci in clusters) -Volume overloaded state -HAP -BiV HFrEF (LVEF: 20-25% by echo done on 11/07/2024) -Electrolyte derangement -Hypoalbuminemia -Paroxysmal atrial fibrillation, on anticoagulation -ESRD, on HD (MWF) -CAD s/p successful PCI with overlapping GENEVA placement (Medtronic Resolute [place] 3.0 x 22 mm and 2.75 x 18 mm) in the mid LAD done on 06/28/2022, ACS-NSTEMI, s/p LHC/coronary angiogram (11/11/2024) which identified 3V+branch CAD (turned down for CABG), s/p successful treatment with a staged PCI with PTCA, balloon lithotripsy, and DCB angioplasty in the ISR within the proximal-mid LAD, successful treatment with balloon lithotripsy and GENEVA placement (Xience Skypoint 3.5x15 mm) in the ostial LAD, and successful treatment with PTCA and balloon lithotripsy in the mid and distal LCx done on 11/15/2024, pending PCI of the LCx -HTN -HLP -DM2 -Abnormal Lexiscan stress test done on 02/23/2022 -ICM s/p right-sided single lead ICD implantation done on 12/13/2022 -COVID-19 viral pneumonia -PAD -Obesity Subjective: This is a 59y/o female who was seen and evaluated at the bedside today. The patient states that her SOB continues to improve. She denies any chest pain, chest pressure, or palpitations. As per the nurse, there were no overnight events. Vitals/Labs Vital Signs Date Time Temp Pulse Resp B/P (MAP) Pulse Ox O2 Delivery O2 Flow Rate FiO2 12/26/24 06:58 68 22 N/A Room Air 21 12/26/24 03:59 98.1 104/51 100 2.0 General: Alert and oriented. NAD. Chronically ill appearing. HEENT: NC/AT. Oral mucosa is moist. Neck: No masses, JVD, or carotid bruits Lungs: NRD. SCM. Bilateral air entry. Diminished breath sounds noted throughout. Cardio: Regular rate. Distant, but normal S1 and S2. +S4. PMI was not displaced. Abdomen: Obese abdomen. Soft. NT. ND. Normal active bowel sounds x 4 quadrants. Extremities: Diminished throughout. Trace edema seen in the bilateral lower extremities. Abrasion noted to the right shift. Neuro: CN II-XII were grossly intact. No focal deficits. Laboratory Tests 12/26/24 03:47 Assessment: -Acute on chronic hypoxemic respiratory failure -Lactic acidosis -Bacteremia (gram positive cocci in clusters) -Volume overloaded state -HAP -BiV HFrEF (LVEF: 20-25% by echo done on 11/07/2024) -Electrolyte derangement -Hypoalbuminemia -Paroxysmal atrial fibrillation, on anticoagulation -ESRD, on HD (MWF) -CAD s/p successful PCI with overlapping GENEVA placement (Medtronic Resolute [place] 3.0 x 22 mm and 2.75 x 18 mm) in the mid LAD done on 06/28/2022, ACS-NSTEMI, s/p LHC/coronary angiogram (11/11/2024) which identified 3V+branch CAD (turned down for CABG), s/p successful treatment with a staged PCI with PTCA, balloon lithotripsy, and DCB angioplasty in the ISR within the proximal-mid LAD, successful treatment with balloon lithotripsy and GENEVA placement (Xience Skypoint 3.5x15 mm) in the ostial LAD, and successful treatment with PTCA and balloon lithotripsy in the mid and distal LCx done on 11/15/2024, pending PCI of the LCx -HTN -HLP -DM2 -Abnormal Lexiscan stress test done on 02/23/2022 -ICM s/p right-sided single lead ICD implantation done on 12/13/2022 -COVID-19 viral pneumonia -PAD -Obesity Plan: 1. BiV HFrEF (LVEF: 20-25% by echo done on 11/07/2024) -Improving -Continue on metoprolol succinate 50 mg daily. -She is not a candidate for GDMT with ACEI/ARB/ARNI therapy due to her borderline blood pressures or aldosterone antagonist therapy due to her advanced renal dysfunction. -Her volume status is being addressed via HD. We will repeat a BNP level in the AM to assess the patient's volume status. -Please record strict I/O's, daily weights, and restrict fluids to less than 1.5L/day 2. Paroxysmal atrial fibrillation, on anticoagulation -Substrate: Dilated atria -12H telemetry: Sinus rhythm, no arrhythmias noted -Currently stable, asymptomatic, and in a sinus rhythm -Continue metoprolol succinate 50 mg daily -CHADS2 VASc score: 5 points. Continue Eliquis 5 mg BID. -Please keep the patient on continuous telemetry monitoring and maintain electrolytes within normal parameters. 3. CAD s/p successful PCI with overlapping GENEVA placement (Medtronic Resolute [place] 3.0 x 22 mm and 2.75 x 18 mm) in the mid LAD done on 06/28/2022, ACS-NSTEMI, s/p LHC/coronary angiogram (11/11/2024) which identified 3V+branch CAD (turned down for CABG), s/p successful treatment with a staged PCI with PTCA, balloon lithotripsy, and DCB angioplasty in the ISR within the proximal-mid LAD, successful treatment with balloon lithotripsy and GENEVA placement (Xience Skypoint 3.5x15 mm) in the ostial LAD, and successful treatment with PTCA and balloon lithotripsy in the mid and distal LCx done on 11/15/2024, pending PCI of the LCx -Stable -The patient will continue on ticagrelor 90 mg BID, metoprolol succinate 50 mg daily, isosorbide mononitrate ER 60 mg daily, and atorvastatin 40 mg QHS. -In light of the patient's bacteremia, will defer the previously planned staged PCI to the LCx to the outpatient setting. This case was seen and discussed with my Supervising Physician, Dr. Kendall Poe, and the above mentioned plan was formulated and agreed upon. -Progress Note written by Vasiliy Machado, MSN, HIGHWAY TRUCK DRIVER, AGACNP-BC VASILIY MACHADO NP Dec 26, 2024 08:46
--- NOTE | 2024-12-26 09:17 | PN ---
[facility] PROGRESS NOTE Date of Service: Dec 26, 2024 Time of Service: 09:16 SUBJECTIVE: [ ] This is a 59-year-old female with past medical history of CHF, thrombocytopenia, pulmonary nodule, end-stage renal disease on hemodialysis Monday, diabetes, hypertension, hyperlipidemia, fatty liver, coronary artery disease with cardiac stent x5 and permanent pacemaker/AICD , morbid obesity and chronic respiratory failure on home O2 who presented to the ED for multiple complaints such as shortness of breaths, cough, headache and abdominal pain.Patient states she has been having shortness of breath and dry cough for about 1 month an going problem she said and was seen by her PCP in the clinic and was told just limit exertion and always sit on the wheelchair she said.Patient reports having frontal headache and abdominal pain around epigastric area started yesterday after eating meat and tortilla.Patient reports she was nauseated but no vomiting.Patient also states she was dialyzed last Monday and 3.5 L of fluid removed she has a LAVA and her associate account director is she is anuric and has been on hemodialysis for 3 yrs she said.Patient was recently admitted in this facility on Nov and underwent a left heart cath with PCI on 11/15/2024 by and was discharged home on Eliquis on .During that admission was consulted for persistent thrombocytopenia and advised to work up for multiple myeloma.Pulmonology was also consulted at that time of admission to manage COVID [address] infection [address] CT chest done on 11/06/2024 of previous admission which showed right lower lobe pulmonary nodule ,ground glass opacity and a small pericardial effusion. 12/23/24 patient was seen earlier today: patient is being scheduled for dialysis we will be done in ED. patient is pending a CT chest most likely we will be done after dialysis. Apparently patient was scheduled for left heart catheterization tomorrow per Dr. Poe: as per nurse practitioner Celeste Garrido to restart Brilinta and Eliquis most likely left heart catheterization we will be done later on this week. Patient returns venous Dopplers to lower extremity given to having pain we will start her Neurontin home meds. Patient denied chest pain. 12/24/24 The patient was seen earlier: episodes of hypoglycemia, D50 was given. modified long acting insulin. fourdrinier machine operator do not plan to do Left Heart cath on this admission: will be done as outpatient. Pulmologist ordered a CT chest repeat on HIGH RESOLUTION on room at this time. the patient will transition to medical floor with Tele. 12/25/24 patient was seen earlier patient is getting her dialysis. Patient continues to have low blood sugars patient has her own monitor was 63 patient refused all scheduled insulin overnight. Patient was given orange juice x2. We will continue to monitor patient closely. Patient denied chest pain or shortness for breath but she does complain dizziness most likely secondary to blood sugar being low. Most likely is not receiving pm snack. 12/26/24 patient continues to have hypoglycemic in the morning we will consult endocrinologists for regimen. Patient appears very weak and fragile case management discussed SNF placement. REVIEW OF SYSTEMS CONSTITUTIONAL: Denies fevers, chills, or night sweats. No unintentional weight loss reported. NEUROLOGICAL: Complaints of frontal headache Denies , amaurosis fugax, motor weakness, sensory deficit, vertigo/spinning sensation, gait abnormalities, or tr emors. ENT: No hearing loss, otalgia, otorrhea, rhinitis, rhinorrhea, hoarseness, or sore throat. CARDIOVASCULAR: Denies any exertional angina, dyspnea on exertion, orthopnea, paroxysmal nocturnal dyspnea, palpitations, life-threatening arrhythmias, claudication. PULMONARY: Complaints of shortness of breaths and dry cough Denies phlegm/sputum, hemoptysis, pleuritic chest pain. SLEEP: Denies morning headaches, daytime somnolence or napping. Denies difficulty falling asleep, staying asleep, waking from sleep. Denies knowledge of snoring. GASTROINTESTINAL: Complains of nausea and abdominal pain Denies any type of dysphagia to either liquids or solids. Denies vomiting, pyrosis, early satiety,diarrhea, constipation, or changes in stool consistency or caliber. Denies coffee-ground emesis, hematemesis, hematochezia, or melanotic stools. GENITOURINARY: Denies frequency, urgency, nocturia, hematuria or incontinence (Storage/Irritative symptoms.) Low urinary stream, straining to void, urinary intermittency or hesitancy, splitting of the voiding stream, terminal dribbling. ENDOCRINOLOGIC: Denies polyuria, polydipsia, polyphagia or heat/cold intolerances. HEMATOLOGIC: Denies thrombophilia/previous clots, or coagulopathy/bleeding disorders. ONCOLOGIC: Denies personal history of malignancy. DERMATOLOGIC: Denies rashes or pruritus. PSYCHIATRIC: Denies any suicidal or homicidal ideation. Denies hallucinations. PHYSICAL EXAM GENERAL APPEARANCE: The patient is awake, alert, and oriented, mildly in distress. NEUROLOGICAL: Cranial nerves II-XII grossly intact. Motor is 5/5 in bilateral upper and lower extremities proximal to distal. No sensory deficits. HEENT: Face is symmetric. Pupils are equal and reactive. Extraocular movements are intact. NECK: Supple. No JVD. No thyromegaly. No submental, submandibular, pre- /postauricular, occipital or supraclavicular lymphadenopathy. CHEST: Normal chest expansion. No Telemetry. LUNGS: Diminished breath sounds CARDIOVASCULAR: Regular. S1 and S2 normal. No appreciable rubs, murmurs or gallops. ABDOMEN: Abdominal tenderness around epigastric area on palpation Soft and nondistended. There is no rebound, voluntary guarding, or rigidity. : Deferred. Anuric EXTREMITIES: Generalized edema SKIN: No skin breakdown. Vital Signs (last 8hr) Date Time Temp Pulse Resp B/P (MAP) Pulse Ox O2 Delivery O2 Flow Rate FiO2 12/26/24 08:00 97.2 82 21 119/65 97 Nasal Cannula 2.0 12/26/24 06:58 68 22 N/A Room Air 21 12/26/24 03:59 98.1 77 18 104/51 100 Room Air 2.0 LABS: Laboratory: Test 12/26/24 05:22 12/26/24 03:47 12/25/24 06:55 12/25/24 04:36 Range/Units Whole Blood Glucose 120 H 70-110 MG/DL White Blood Count 5.5 4.8-10.8 K/uL Red Blood Count 3.12 L 4.00-5.50 MIL/uL Hemoglobin 10.2 L 12.0-16.0 g/dL Hematocrit 30.8 L 36-48 % Mean Corpuscular Volume 98.7 79-99 fL Mean Corpuscular Hemoglobin 32.7 27.0-33.0 pg Mean Corpuscular Hemoglobin Concent 33.1 32.0-36.0 g/dL Red Cell Distribution Width 19.1 H 11.0-15.5 % Platelet Count 119 L 130-400 K/uL Mean Platelet Volume 10.6 H 7.5-10.5 fL Immature Granulocyte % (Auto) 0.2 0-1 % Neutrophils (%) (Auto) 72.8 40.0-77.0 % Lymphocytes (%) (Auto) 10.6 L 21.0-51.0 % Monocytes (%) (Auto) 11.3 3.0-13.0 % Eosinophils (%) (Auto) 4.6 0.0-8.0 % Basophils (%) (Auto) 0.5 0.0-5.0 % Neutrophils # (Auto) 4.0 1.8-7.7 K/uL Lymphocytes # (Auto) 0.6 L 1.0-4.8 K/uL Monocytes # (Auto) 0.6 0.1-1.0 K/uL Eosinophils # (Auto) 0.25 0.00-0.70 K/uL Basophils # (Auto) 0.03 0.00-0.20 K/uL Absolute Immature Granulocyte (auto 0.01 0-1 K/uL Nucleated Red Blood Cells 0.4 H 0.0-0.19 % Sodium Level 134 L 136-145 mmol/L Potassium Level 4.7 3.5-5.1 mmol/L Chloride Level 94 L 101-111 mmol/L Carbon Dioxide Level 28 21-32 mmol/L Blood Urea Nitrogen 61 #H 7-18 mg/dL Creatinine 6.3 H 0.5-1.0 mg/dL Glomerular Filtration Rate Calc 7 >90 mL/min Random Glucose 114 H 70-105 mg/dL Total Calcium 7.8 L 8.5-10.1 mg/dL Magnesium Level 2.30 1.80-2.40 mg/dL Total Bilirubin 1.1 #H 0.2-1.0 mg/dL Aspartate Amino Transf (AST/SGOT) 20 10-37 U/L Alanine Aminotransferase (ALT/SGPT) 37 # 12-78 U/L Alkaline Phosphatase 156 H 50-136 U/L B-Type Natriuretic Peptide 2500 H 0-100 pg/mL Total Protein 7.0 6.0-8.3 g/dL Albumin 2.8 L 3.5-5.0 g/dL Ferritin 2671 H 15-150 ng/mL C-Reactive Protein, Quantitative 56.20 H 0.5-3.0 mg/L Vancomycin Level Trough 18.0 10.0-20.0 UG/ML Erythrocyte Sedimentation Rate 0-30 MM/HR Myoglobin 118 H 25-58 ng/mL Tumor Marker Alpha Fetoprotein <1.8 0.0-9.2 ng/mL Current Medications Medications (Trade) Dose Ordered Sig/Mark Route PRN Reason Start Time Stop Time Status Last Admin Dose Admin Acetaminophen (TYLenol 325MG TAB) 650 mg Q4H PRN PO MILD PAIN (1-3) 12/23/24 03:30 01/22/25 03:29 12/24/24 11:03 650 MG Acetaminophen (TYLenol 325MG TAB) 650 mg Q6H PRN PO TEMPERATURE GREATER THAN 101.5 12/23/24 03:30 01/22/25 03:29 12/23/24 08:07 650 MG Albumin Human (Albumin (Human) 25%) 50 ml ONCE IV 12/25/24 10:00 12/25/24 09:51 DC Albumin Human (Albumin (Human) 25%) 100 ml ONCE IV 12/25/24 10:00 12/26/24 09:59 12/25/24 10:04 100 ML Apixaban (EliquIS) 5 mg BID PO 12/23/24 21:00 01/22/25 20:59 12/26/24 08:03 5 MG Atorvastatin Calcium (LIPItor 40MG) 40 mg HS PO 12/23/24 21:00 01/22/25 20:59 12/25/24 20:23 40 MG Buspirone HCl (BUspar) 5 mg BID PO 12/23/24 21:00 01/22/25 20:59 12/26/24 08:01 5 MG Dextrose (D50w) 50 ml AD PRN IV HYPOGLYCEMIA PROTOCOL 12/23/24 03:30 01/22/25 03:29 12/26/24 01:29 50 ML Gabapentin (NEURontin 300 MG CAP) 300 mg HS PO 12/23/24 21:00 01/22/25 20:59 12/25/24 20:23 300 MG Glucagon (Glucagon 1mg Kit) 1 mg AD PRN IM HYPOGLYCEMIA PROTOCOL 12/23/24 03:30 01/22/25 03:29 Guaifenesin (RobiTUSSin SUGAR-FREE 100 MG/ 5 ML UDCUP) 400 mg Q6H6 PRN PO COUGH 12/23/24 23:00 01/22/25 22:59 12/26/24 08:08 400 MG Heparin Sodium (Porcine) (HEParin 5,000 UNIT VIAL) 5,000 unit Q12H SQ 12/23/24 14:00 12/23/24 15:53 DC 12/23/24 15:14 5,000 UNIT Home Med (Home Medication) DAILY PO 12/24/24 09:00 01/23/25 08:59 12/24/24 08:30 1 EACH Home Med (Home Medication) DAILY PO 12/24/24 09:00 01/23/25 08:59 12/26/24 08:03 1 EACH Home Med (Home Medication) HS PO 12/23/24 21:00 01/22/25 20:59 12/25/24 20:25 3 EACH Insulin Glargine (LANtus 100 UNITS/ML 10 ML VIAL) 30 units DAILY SQ 12/25/24 09:00 01/24/25 08:59 Insulin Glargine (LANtus 100 UNITS/ML 10 ML VIAL) 48 units DAILY SQ 12/24/24 09:00 12/24/24 12:25 DC 12/24/24 08:32 48 UNITS Insulin Human Lispro (HumaLOG LISpro 100 UNIT/ML 3ML) 5 unit ACDINNER SQ 12/24/24 16:30 12/24/24 12:25 DC Insulin Human Lispro (HumaLOG LISpro 100 UNIT/ML 3ML) 5 unit HS SQ 12/23/24 21:00 12/23/24 21:49 DC Insulin Human Lispro (HumaLOG LISpro 100 UNIT/ML 3ML) 15 unit ACBKFST SQ 12/24/24 07:30 12/24/24 12:25 DC 12/24/24 08:33 15 UNIT Insulin Human Lispro (HumaLOG LISpro 100 UNIT/ML 3ML) 20 unit ACLUNCH SQ 12/24/24 11:30 12/24/24 12:25 DC Insulin Human Regular (humuLIN R 100 UNIT/ML 3ML) INSULIN SLIDING SCAL... ACHS SQ 12/23/24 11:30 12/24/24 12:27 DC Insulin Human Regular (humuLIN R 100 UNIT/ML 3ML) INSULIN SLIDING SCAL... ACHS SQ 12/24/24 16:30 01/23/25 16:29 12/25/24 20:52 4 UNIT Isosorbide Mononitrate (Imdur 60mg Sr) 60 mg AM PO 12/24/24 09:00 01/23/25 08:59 12/26/24 08:08 60 MG Magnesium Sulfate 50 ml @ 0 mls/hr PROTOCOL PRN IV low mag level 12/23/24 09:00 01/22/25 08:59 Metoprolol Succinate (TopROL XL) 50 mg AM PO 12/24/24 09:00 01/23/25 08:59 12/26/24 08:08 50 MG Ondansetron HCl (zoFRAN 4MG INJ) 4 mg Q6H PRN IV NAUSEA/VOMITING 12/23/24 03:30 01/22/25 03:29 Pantoprazole Sodium (PROTonix 40MG TAB) 40 mg DAILY PO 12/23/24 09:00 01/22/25 08:59 12/26/24 08:01 40 MG Pharmacy Profile Note (Pharmacy Communication) 1 each AD MISC 12/24/24 15:30 12/24/24 15:33 DC Piperacillin Sod/ Tazobactam Sod 50 ml @ 12.5 mls/hr Q12H IV 12/23/24 15:00 01/02/25 14:59 12/26/24 02:29 12.5 MLS/HR Potassium Chloride 100 ml @ 100 mls/hr AD PRN IV POTASSIUM PROTOCOL 12/23/24 09:00 01/22/25 08:59 Potassium Chloride (K-Dur/Klor-Con 20meq) 20 meq AD PRN PO POTASSIUM PROTOCOL 12/23/24 09:00 01/22/25 08:59 Potassium Chloride (KCl 10% Elixir 20meq/15ml) 20 meq AD PRN PO POTASSIUM PROTOCOL 12/23/24 09:00 01/22/25 08:59 Sevelamer HCl (RENAgel 800 MG TAB) 1,600 mg TIDMEALS PO 12/23/24 12:00 01/22/25 11:59 12/26/24 08:02 1,600 MG Sodium Chloride 1,000 ml @ 0 mls/hr ONCE IV 12/23/24 09:30 01/22/25 09:29 12/25/24 10:05 100 MLS/HR Ticagrelor (BRILinta) 90 mg BID PO 12/23/24 21:00 01/22/25 20:59 12/26/24 08:02 90 MG Vancomycin HCl 250 ml @ 125 mls/hr ONCE IV 12/23/24 03:30 12/23/24 03:55 DC Vancomycin HCl (Vancomycin 750mg) 750 mg MWFPHD IVPB 12/23/24 16:00 12/25/24 11:48 DC 12/23/24 18:17 750 MG DIAGNOSTICS / RADIOLOGY: [ ] ASSESSMENT: Possible pneumonia POA Multiple pulmonary nodules per CT POA Acute on chronic respiratory failure on home O2 POA High anion gap metabolic acidosis POA Lactic acidosis POA Chronic thrombocytopenia POA Electrolyte imbalance POA Acute on chronic kidney disease on hemodialysis POA Chronic troponinemia Hyponatremia POA Hyperkalemia POA PPM/ AICD cardiac status CHF POA Morbid Obesity POA Hypertension POA Diabetes POA Hyperlipidemia POA s/p ACS NSTEMI: 11/15/24 Hypercoagulable state on Brilinta and Eliquis: PLAN: admit: PCCU sales representative consultant: pulmologist, fourdrinier machine operator continue with Eliquis and Brilinta consulted DR Poe Left Heart cath will be done outpatient setting Imaging: Repeat CT chest noted: outpatient setting follow up pulmologist: cont with PHARMACIST management: 3x weekly, Employee Service Officer following fluid restriction 1 liter daily, strict I/O daily weight avoid NSAIDS and renal dose medications Modified insulin regiment: discontinue pre meal insulin dosage change on long acting; Hold long acting. cont with SSRI ( WILL CONSULT DR MOON FOR INSULIN REGIMEN) Hypoglycemia protocol encouraged PM snacks continue with vancomycin and Zosyn IV for broad-spectrum coverage Microbiology: Blood cultures so far negative Monitor H&H trend transfuse to keep hemoglobin above 7.0. Replace electrolytes as needed protocol PT eval and treat: encouraged OOB to Chair with MeaLS. GI PPX with Protonix 40 mg p.o. daily All questions and concerns addressed. CASE MANAGEMENT: SNF PLACEMENT: Case discussed with attending physician and came up with above treatment and plan of care. ATTESTATION BY PHYSICIAN I have seen and examined the patient. I reviewed the documentation, medical decision making, and treatment plan as noted by the mid-level provider above. I agree with the findings and plan of care. TESSA SINGLETON MD, ELIZABETH NP Dec 26, 2024 09:17
--- NOTE | 2024-12-26 11:10 | PN ---
[facility] PROGRESS NOTE Date Patient Seen: Dec 26, 2024 Time of Visit: 11:10 Supervising Physician: Radha Domínguez MD Primary Care Physician: Treva Pinzon MD Outpatient Specialists: [ ] Inpatient Consults: Dr Juan Asencio, Dr Gomez Attending: Nancie team PROBLEM LIST: Chronic hypoxic respiratory failure, POA on Home o2 Scattered nodules versus septic embolization in peripheral of both lung POA with prominence at the base Ruled out by HRCT Mild bronchiectasis with peribronchial thickening on HRCT 12/24/24 Acute on chronic respiratory failure on home O2 POA, back to baseline High anion gap metabolic acidosis POA resolved ESRD on HD Lactic acidosis POA Chronic thrombocytopenia POA Electrolyte imbalance POA Acute on chronic kidney disease on hemodialysis POA Chronic troponinemia Hyponatremia POA Hyperkalemia POA PPM/ AICD cardiac status CHF POA Morbid Obesity POA Hypertension POA Diabetes POA Hyperlipidemia POA Morbid obesity BMI of 41 INTERVAL HISTORY: Chart reviewed including all laboratory and imaging results. Pt at at this time, intermittent use of O2 at 2 L. Patient assessed at bedside. Denies chest pain, palpitation, or shortness for breath. Hemodynamically stable. Blood cultures grew Gram-positive cocci 1/2. Repeat blood cultures for tomorrow. No major overnight events reported. Plan- Antibiotics for 10-14 days recommended repeat HRCT chest in six months Pt on home o2 no need for 6 min walk Arrange outpatient pulmonology referral for sleep study, PFT and follow-up management upon discharge REVIEW OF SYSTEMS: Const: Weight gain Eyes: no recent vision problems ENT: No congestion, ear pain, or sore throat C/V: Positive for swelling to bilateral lower extremities Resp shortness of the breath cough x1 month GI: No abdominal pain, nausea, vomiting, constipation, or diarrhea : No incontinence of or dyuria M/S: No joint or pain swelling Skin: No rash Neuro: no headache, focal numbness, or weakness, dizziness or seizures Psych: no depression or anxiety Heme: no abnormal bruising or bleeding Lymph: no swollen glands PHYSICAL EXAM: GENERAL: CHRONICALLY ILL on 2 L HEENT: EOMI, Sclera non icteric, moist mucosa NECK: Supple, no JVD, trachea midline LUNGS: CLEAR TO ALL LOBES BILATERALLY. HEART: Regular rate and rhythm. Normal S1 and S2, without murmurs ABD: Abdomen soft, nontender. Bowel sounds present EXT: No clubbing cyanosis + 2 PITTING EDEMA NEURO: Alert and oriented to person, follows commands Vital Signs (last 8hr) Date Time Temp Pulse Resp B/P (MAP) Pulse Ox O2 Delivery O2 Flow Rate FiO2 12/26/24 08:00 97.2 82 21 119/65 97 Nasal Cannula 2.0 12/26/24 06:58 68 22 N/A Room Air 21 12/26/24 03:59 98.1 77 18 104/51 100 Room Air 2.0 LABS: Hematology Labs: Test 12/26/24 03:47 12/25/24 04:36 Range/Units White Blood Count 5.5 4.8-10.8 K/uL Red Blood Count 3.12 L 4.00-5.50 MIL/uL Hemoglobin 10.2 L 12.0-16.0 g/dL Hematocrit 30.8 L 36-48 % Mean Corpuscular Volume 98.7 79-99 fL Mean Corpuscular Hemoglobin 32.7 27.0-33.0 pg Mean Corpuscular Hemoglobin Concent 33.1 32.0-36.0 g/dL Red Cell Distribution Width 19.1 H 11.0-15.5 % Platelet Count 119 L 130-400 K/uL Mean Platelet Volume 10.6 H 7.5-10.5 fL Immature Granulocyte % (Auto) 0.2 0-1 % Neutrophils (%) (Auto) 72.8 40.0-77.0 % Lymphocytes (%) (Auto) 10.6 L 21.0-51.0 % Monocytes (%) (Auto) 11.3 3.0-13.0 % Eosinophils (%) (Auto) 4.6 0.0-8.0 % Basophils (%) (Auto) 0.5 0.0-5.0 % Neutrophils # (Auto) 4.0 1.8-7.7 K/uL Lymphocytes # (Auto) 0.6 L 1.0-4.8 K/uL Monocytes # (Auto) 0.6 0.1-1.0 K/uL Eosinophils # (Auto) 0.25 0.00-0.70 K/uL Basophils # (Auto) 0.03 0.00-0.20 K/uL Absolute Immature Granulocyte (auto 0.01 0-1 K/uL Nucleated Red Blood Cells 0.4 H 0.0-0.19 % Erythrocyte Sedimentation Rate 0-30 MM/HR Chemistry Labs: Test 12/26/24 05:22 12/26/24 03:47 12/25/24 06:55 12/25/24 04:36 Range/Units Whole Blood Glucose 120 H 70-110 MG/DL Sodium Level 134 L 136-145 mmol/L Potassium Level 4.7 3.5-5.1 mmol/L Chloride Level 94 L 101-111 mmol/L Carbon Dioxide Level 28 21-32 mmol/L Blood Urea Nitrogen 61 #H 7-18 mg/dL Creatinine 6.3 H 0.5-1.0 mg/dL Glomerular Filtration Rate Calc 7 >90 mL/min Random Glucose 114 H 70-105 mg/dL Total Calcium 7.8 L 8.5-10.1 mg/dL Magnesium Level 2.30 1.80-2.40 mg/dL Total Bilirubin 1.1 #H 0.2-1.0 mg/dL Aspartate Amino Transf (AST/SGOT) 20 10-37 U/L Alanine Aminotransferase (ALT/SGPT) 37 # 12-78 U/L Alkaline Phosphatase 156 H 50-136 U/L B-Type Natriuretic Peptide 2500 H 0-100 pg/mL Total Protein 7.0 6.0-8.3 g/dL Albumin 2.8 L 3.5-5.0 g/dL Ferritin 2671 H 15-150 ng/mL C-Reactive Protein, Quantitative 56.20 H 0.5-3.0 mg/L Myoglobin 118 H 25-58 ng/mL Tumor Marker Alpha Fetoprotein <1.8 0.0-9.2 ng/mL DIAGNOSTICS / RADIOLOGY RESULTS: [ ] PLAN NEURO: Minimize central acting medications as possible. Maintain fall precautions, adequate lighting during the day PULMONARY: Supplemental 02 as needed. Maintain aspiration precautions at all times CARDIOVASCULAR: Follow hemodynamics. Vital signs per facility protocol GI & NUTRITION: Continue with nutritional support. Continue stool softeners and laxatives as needed. KIDNEYS & ELECTROLYTES: Strict monitoring of intake, output and overall fluid balance. Avoid nephrotoxic medications to the extent possible. Medications to be dosed according to renal function. Monitor electrolytes and replace as needed ENDOCRINE: Maintain blood glucose between 100-180 at all times. Hypoglycemia protocol in place INFECTIOUS DISEASE: Trend temperature, WBC and procalcitonin level Follow cultures, deescalate antibiotics as soon as possible. Panculture if new onset fever ONCOLOGY/HEMATOLOGY/COAGULATION: Monitor for s/s of bleeding Monitor hemoglobin, coagulation studies as needed SKIN: Pressure ulcer prevention per facility protocol Specialty mattress ORTHO/REHAB: Continue PT/OT Prophylaxis: Continue GI and DVT prophylaxis Code Status: Full Resuscitation Disposition: TBD Other: Total patient care time exceeds 35 minutes excluding all procedures. ATTESTATION BY PHYSICIAN The patient has been seen and evaluated, the case has been discussed with the PASSENGER LOCOMOTIVE ENGINEER, I agree with the clinical findings and plan of care. Angel Bernal MD, [facility] Dec 26, 2024 11:10
--- NOTE | 2024-12-26 11:15 | NUR ---
[facility] Follow-up: Patient re-assessed by wound healing team, Wound improving. Assessment and recommendations provided to primary nurse Education provided. Addendum: 12/27/24 at 1417 by ESTER WILLIAM RN RN/ Amended: Links added.
--- NOTE | 2024-12-26 13:00 | NUR ---
CM Note Order obtained to refer to skilled facility, spoke to pt regarding DC plan and provided list with in network facilities. Pt states would not have an answer until tomorrow to discuss and decide with family which SNF. CM to follow up.
[2024-12-26 13:13] LABS: ANTI-SCLERODERMA 70 >8.0 AI (0.0-0.9)
--- NOTE | 2024-12-26 16:16 | PN ---
PROGRESS NOTE Date of Service: Dec 26, 2024 Time of Service: 16:16 SUBJECTIVE: [ ] REVIEW OF SYSTEMS CONSTITUTIONAL: Denies fever, chills, or fatigue. HEAD/FACE: No signs of trauma. EENT: Denies eye pain, blurred vision, double vision, or light sensitivity. RESPIRATORY: Denies shortness of breath, cough, wheezing CARDIOVASCULAR: Denies chest pain, palpitation, syncope GASTROINTESTINAL/ABDOMINAL: Denies abdominal pain, constipation, diarrhea, nausea or vomiting GENITOURINARY: Denies dysuria or hematuria. MUSCULOSKELETAL: Denies joint pain, tenderness, or trauma. INTEGUMENTARY: Denies rash or itchiness NEUROLOGICAL/PSYCH: Denies anxiety, depression, heat or cold intolerance. PHYSICAL EXAM EYES: Anicteric. Pupils equal and reactive. HENT: No oral thrush seen, moist Oral mucosa NECK: Supple, no JVD or thyromegaly. LUNGS: Good air entry. No rales, no rhonchi. CARDIOVASCULAR: S1, S2 regular. No murmur heard. ABDOMEN: Soft, non tender, bowel sounds present, no organomegaly CENTRAL NERVOUS SYSTEM: Awake, alert, oriented x 3. No focal deficits. SKIN: No rashes, no swelling. LYMPHATICS: No peripheral lymphadenopathy MUSCULOSKELETAL: No joint swelling, erythema or tenderness. EXTREMITIES: No cyanosis or clubbing BACK: No deformity, no pressure ulcer. GENITOURINARY: No dysuria or hematuria Vital Signs (last 8hr) Date Time Temp Pulse Resp B/P (MAP) Pulse Ox O2 Delivery O2 Flow Rate FiO2 12/26/24 12:00 97.5 80 21 116/76 97 Nasal Cannula 2.0 LABS: Laboratory: Test 12/26/24 11:35 12/26/24 03:47 12/25/24 06:55 12/25/24 04:36 Range/Units Whole Blood Glucose 137 H 70-110 MG/DL White Blood Count 5.5 4.8-10.8 K/uL Red Blood Count 3.12 L 4.00-5.50 MIL/uL Hemoglobin 10.2 L 12.0-16.0 g/dL Hematocrit 30.8 L 36-48 % Mean Corpuscular Volume 98.7 79-99 fL Mean Corpuscular Hemoglobin 32.7 27.0-33.0 pg Mean Corpuscular Hemoglobin Concent 33.1 32.0-36.0 g/dL Red Cell Distribution Width 19.1 H 11.0-15.5 % Platelet Count 119 L 130-400 K/uL Mean Platelet Volume 10.6 H 7.5-10.5 fL Immature Granulocyte % (Auto) 0.2 0-1 % Neutrophils (%) (Auto) 72.8 40.0-77.0 % Lymphocytes (%) (Auto) 10.6 L 21.0-51.0 % Monocytes (%) (Auto) 11.3 3.0-13.0 % Eosinophils (%) (Auto) 4.6 0.0-8.0 % Basophils (%) (Auto) 0.5 0.0-5.0 % Neutrophils # (Auto) 4.0 1.8-7.7 K/uL Lymphocytes # (Auto) 0.6 L 1.0-4.8 K/uL Monocytes # (Auto) 0.6 0.1-1.0 K/uL Eosinophils # (Auto) 0.25 0.00-0.70 K/uL Basophils # (Auto) 0.03 0.00-0.20 K/uL Absolute Immature Granulocyte (auto 0.01 0-1 K/uL Nucleated Red Blood Cells 0.4 H 0.0-0.19 % Sodium Level 134 L 136-145 mmol/L Potassium Level 4.7 3.5-5.1 mmol/L Chloride Level 94 L 101-111 mmol/L Carbon Dioxide Level 28 21-32 mmol/L Blood Urea Nitrogen 61 #H 7-18 mg/dL Creatinine 6.3 H 0.5-1.0 mg/dL Glomerular Filtration Rate Calc 7 >90 mL/min Random Glucose 114 H 70-105 mg/dL Total Calcium 7.8 L 8.5-10.1 mg/dL Magnesium Level 2.30 1.80-2.40 mg/dL Total Bilirubin 1.1 #H 0.2-1.0 mg/dL Aspartate Amino Transf (AST/SGOT) 20 10-37 U/L Alanine Aminotransferase (ALT/SGPT) 37 # 12-78 U/L Alkaline Phosphatase 156 H 50-136 U/L B-Type Natriuretic Peptide 2500 H 0-100 pg/mL Total Protein 7.0 6.0-8.3 g/dL Albumin 2.8 L 3.5-5.0 g/dL Ferritin 2671 H 15-150 ng/mL C-Reactive Protein, Quantitative 56.20 H 0.5-3.0 mg/L Vancomycin Level Trough 18.0 10.0-20.0 UG/ML Erythrocyte Sedimentation Rate 0-30 MM/HR Myoglobin 118 H 25-58 ng/mL Tumor Marker Alpha Fetoprotein <1.8 0.0-9.2 ng/mL Anti-Nuclear Antibody Screen Positive H Negative Anti-Nuclear Antibody Interpret Comment . MEDINA-1 Antibody <0.2 0.0-0.9 AI SS-A/Ro Antibody 0.5 0.0-0.9 AI SS-B/La Antibody <0.2 0.0-0.9 AI Sm (Toney) IgG Antibody, Quant <0.2 0.0-0.9 AI SIGN WRITER HAND IgG Antibody, Quantitative 0.2 0.0-0.9 AI Scl-70 (Scleroderma) Antibody >8.0 H 0.0-0.9 AI Anti-Double Strand DNA Antibody 1 0-9 IU/mL Chromatin Antibody <0.2 0.0-0.9 AI Anti-Centromere IgG Antibody 0.2 0.0-0.9 AI DIAGNOSTICS / RADIOLOGY: [ ] PROBLEM LIST : Chronic venous hypertension with ulcer of right lower leg Non pressure chronic ulcer of right lower leg limited to skin breakdown PLAN: Wound care to right lower leg- paint wound with betadine daily, leave open to air Keep wounds clean and dry Offloading/reposition q 2 hours Continue IV antibiotics per ID Comorbidities per primary care team Further Management per hospital course. Thank You for the consult and allowing us to participate in the care of this reji yang. KUNAL MTZ NP Dec 26, 2024 16:16
--- NOTE | 2024-12-26 16:24 | CONS ---
CONSULT NOTE: endocrinology consult Chief complaint:SOB Reason for consult:uncontrolled dm-2 DOS:12/26/24 HISTORY OF PRESENT ILLNESS: This is a 59-year-old female with past medical history of CHF, thrombocytopenia, pulmonary nodule, end-stage renal disease on hemodialysis Monday, diabetes, hypertension, hyperlipidemia, fatty liver, coronary artery disease with cardiac stent x5 and permanent pacemaker/AICD , morbid obesity and chronic respiratory failure on home O2 who presented to the ED for multiple complaints such as shortness of breaths, cough, headache and abdominal pain. Patient states she has been having shortness of breath and dry cough for about 1 month an going problem she said and was seen by her PCP in the clinic and was told just limit exertion and always sit on the wheelchair she said. Patient was recently admitted in this facility on Nov and underwent a left heart cath with PCI on 11/15/2024 by and was discharged home on Eliquis on .During that admission was consulted for persistent thrombocytopenia and advised to work up for multiple myeloma.Pulmonology was also consulted at that time of admission to manage COVID 19 infection [address] chest done on 11/06/2024 of previous admission which showed right lower lobe pulmonary nodule ,ground glass opacity and a small pericardial effusion. Seen and examined patient in the ER awake,alert and coherent,appears short of breath on 3 L nasal cannula mildly in distress.Patient denies fever,vomiting diarrhea ,chest pain and palpitation. Latest vital signs temperature 98.4, heart rate 70, blood pressure 134/58 saturation 100% . Labs: WBC 6, neutrophils 74, hemoglobin 12, hematocrit 37 platelet count 123. Sodium 133, potassium 5.5, chloride 90, carbon dioxide 20, BUN one hundred four, creatinine 8.1, GFR five glucose 142 lactic acid six and troponin 51. Chest x-ray result revealed mild cardiomegaly. Right side cardiac pacemaker device in place. No acute infiltrate, effusion or pneumothorax. CT abdomen and pelvis without contrast result revealed no acute process in the abdomen or pelvis. Diffuse mild anasarca. Patchy ground-glass opacities in both lung bases with multiple scattered nodules these are new findings compared to the previous CT abdomen and pelvis dated October 15 and likely represent an infectious or inflammatory process. While in the ER patient received morphine 4 mg IV, Zofran 4 mg IV, dextrose IV, Zosyn IV and vancomycin IV and albuterol neb treatment. We will admit patient for further medical management. Home diabetic regimen: toujeo 60 units daily, humulin R 50 insulin 15 units tid before meals Hba1c 8.7% REVIEW OF SYSTEMS CONSTITUTIONAL: Denies fevers, chills, or night sweats. No unintentional weight loss reported. NEUROLOGICAL: Denies , amaurosis fugax, motor weakness, sensory deficit, vertigo/spinning sensation, gait abnormalities, or tremors. ENT: No hearing loss, otalgia, otorrhea, rhinitis, rhinorrhea, hoarseness, or sore throat. CARDIOVASCULAR: Denies any exertional angina, dyspnea on exertion, orthopnea, paroxysmal nocturnal dyspnea, palpitations, life-threatening arrhythmias, claudication. PULMONARY: Complaints of shortness of breaths and dry cough Denies phlegm/sputum, hemoptysis, pleuritic chest pain. SLEEP: Denies morning headaches, daytime somnolence or napping. Denies difficulty falling asleep, staying asleep, waking from sleep. Denies knowledge of snoring. GASTROINTESTINAL: Denies any type of dysphagia to either liquids or solids. Denies vomiting, pyrosis, early satiety,diarrhea, constipation, or changes in stool consistency or caliber. Denies coffee-ground emesis, hematemesis, hematochezia, or melanotic stools. GENITOURINARY: Denies frequency, urgency, nocturia, hematuria or incontinence (Storage/Irritative symptoms.) Low urinary stream, straining to void, urinary intermittency or hesitancy, splitting of the voiding stream, terminal dribbling. ENDOCRINOLOGIC: Denies polyuria, polydipsia, polyphagia or heat/cold intolerances. HEMATOLOGIC: Denies thrombophilia/previous clots, or coagulopathy/bleeding disorders. ONCOLOGIC: Denies personal history of malignancy. DERMATOLOGIC: Denies rashes or pruritus. PSYCHIATRIC: Denies any suicidal or homicidal ideation. Denies hallucinations. PAST MEDICAL HISTORY: [ CHF, thrombocytopenia, pulmonary nodule, end-stage renal disease on hemodialysis Monday, diabetes, hypertension, hyperlipidemia, fatty liver, coronary artery disease with cardiac stent x5 and permanent pacemaker/AICD , morbid obesity and chronic respiratory failure on home O2 ] PAST SURGICAL HISTORY: [ Cholecystectomy, pacer/AICD and Lava ] PAST SOCIAL HISTORY: [ Patient lives with . Patient denies alcohol tobacco and recreational drug use ] FAMILY HISTORY: [ Hypertension, diabetes, cardiovascular disease and Alzheimer's disease ] Coded Allergies: No Known Allergies (Unverified Allergy, 11/14/12) PHYSICAL EXAM GENERAL APPEARANCE: The patient is awake, alert, and oriented, mildly in distress. NEUROLOGICAL: Cranial nerves II-XII grossly intact. Motor is 5/5 in bilateral upper and lower extremities proximal to distal. No sensory deficits. HEENT: Face is symmetric. Pupils are equal and reactive. Extraocular movements are intact. NECK: Supple. No JVD. No thyromegaly. No submental, submandibular, pre-/postauricular, occipital or supraclavicular lymphadenopathy. CHEST: Normal chest expansion. No Telemetry. LUNGS: Diminished breath sounds CARDIOVASCULAR: Regular. S1 and S2 normal. No appreciable rubs, murmurs or gallops. ABDOMEN: Abdominal tenderness around epigastric area on palpation Soft and nondistended. There is no rebound, voluntary guarding, or rigidity. : Deferred. Anuric EXTREMITIES: Generalized edema SKIN: No skin breakdown. ASSESSMENT: DM-2 Possible pneumonia POA Multiple pulmonary nodules per CT POA Acute on chronic respiratory failure on home O2 POA High anion gap metabolic acidosis POA Lactic acidosis POA Chronic thrombocytopenia POA Electrolyte imbalance POA Acute on chronic kidney disease on hemodialysis POA Chronic troponinemia Hyponatremia POA Hyperkalemia POA PPM/ AICD cardiac status CHF POA Morbid Obesity POA Hypertension POA Diabetes POA Hyperlipidemia POA PLAN: continue to hold but will resume Lantus 15 units daily if hyperglycemia. Continue low dose sliding scale insulin. Monitor glucose q x 6 hourly. Continue carb consistent diet. Keep glucose less than 180 mg/dl. Patient will need to discontinue humulin R 500 insulin and switch to humalog 10 units tid before meals decrease toujeo to 30 units daily at discharge. Thanks for allowing me to participate in patient care and will continue to follow up. Vital Signs 12/26/24 12/26/24 08:00 12:00 Temp 97.5 Pulse 80 Resp 21 B/P (MAP) 116/76 Pulse Ox 97 O2 Delivery Nasal Cannula O2 Flow Rate 2.0 FiO2 21 Hematology Labs: Test 12/26/24 03:47 12/25/24 04:36 Range/Units White Blood Count 5.5 4.8-10.8 K/uL Red Blood Count 3.12 L 4.00-5.50 MIL/uL Hemoglobin 10.2 L 12.0-16.0 g/dL Hematocrit 30.8 L 36-48 % Mean Corpuscular Volume 98.7 79-99 fL Mean Corpuscular Hemoglobin 32.7 27.0-33.0 pg Mean Corpuscular Hemoglobin Concent 33.1 32.0-36.0 g/dL Red Cell Distribution Width 19.1 H 11.0-15.5 % Platelet Count 119 L 130-400 K/uL Mean Platelet Volume 10.6 H 7.5-10.5 fL Immature Granulocyte % (Auto) 0.2 0-1 % Neutrophils (%) (Auto) 72.8 40.0-77.0 % Lymphocytes (%) (Auto) 10.6 L 21.0-51.0 % Monocytes (%) (Auto) 11.3 3.0-13.0 % Eosinophils (%) (Auto) 4.6 0.0-8.0 % Basophils (%) (Auto) 0.5 0.0-5.0 % Neutrophils # (Auto) 4.0 1.8-7.7 K/uL Lymphocytes # (Auto) 0.6 L 1.0-4.8 K/uL Monocytes # (Auto) 0.6 0.1-1.0 K/uL Eosinophils # (Auto) 0.25 0.00-0.70 K/uL Basophils # (Auto) 0.03 0.00-0.20 K/uL Absolute Immature Granulocyte (auto 0.01 0-1 K/uL Nucleated Red Blood Cells 0.4 H 0.0-0.19 % Erythrocyte Sedimentation Rate 0-30 MM/HR Chemistry Labs: Test 12/26/24 11:35 12/26/24 03:47 12/25/24 06:55 12/25/24 04:36 Range/Units Whole Blood Glucose 137 H 70-110 MG/DL Sodium Level 134 L 136-145 mmol/L Potassium Level 4.7 3.5-5.1 mmol/L Chloride Level 94 L 101-111 mmol/L Carbon Dioxide Level 28 21-32 mmol/L Blood Urea Nitrogen 61 #H 7-18 mg/dL Creatinine 6.3 H 0.5-1.0 mg/dL Glomerular Filtration Rate Calc 7 >90 mL/min Random Glucose 114 H 70-105 mg/dL Total Calcium 7.8 L 8.5-10.1 mg/dL Magnesium Level 2.30 1.80-2.40 mg/dL Total Bilirubin 1.1 #H 0.2-1.0 mg/dL Aspartate Amino Transf (AST/SGOT) 20 10-37 U/L Alanine Aminotransferase (ALT/SGPT) 37 # 12-78 U/L Alkaline Phosphatase 156 H 50-136 U/L B-Type Natriuretic Peptide 2500 H 0-100 pg/mL Total Protein 7.0 6.0-8.3 g/dL Albumin 2.8 L 3.5-5.0 g/dL Ferritin 2671 H 15-150 ng/mL C-Reactive Protein, Quantitative 56.20 H 0.5-3.0 mg/L Myoglobin 118 H 25-58 ng/mL Tumor Marker Alpha Fetoprotein <1.8 0.0-9.2 ng/mL Current Medications Medications (Trade) Dose Ordered Sig/Mark Route Start Time Stop Time Status Last Admin Dose Admin Albumin Human (Albumin (Human) 25%) 50 ml ONCE IV 12/25/24 10:00 12/25/24 09:51 DC Albumin Human (Albumin (Human) 25%) 100 ml ONCE IV 12/25/24 10:00 12/26/24 09:59 DC 12/25/24 10:04 100 ML Apixaban (EliquIS) 5 mg BID PO 12/23/24 21:00 01/22/25 20:59 12/26/24 08:03 5 MG Atorvastatin Calcium (LIPItor 40MG) 40 mg HS PO 12/23/24 21:00 01/22/25 20:59 12/25/24 20:23 40 MG Buspirone HCl (BUspar) 5 mg BID PO 12/23/24 21:00 01/22/25 20:59 12/26/24 08:01 5 MG Gabapentin (NEURontin 300 MG CAP) 300 mg HS PO 12/23/24 21:00 01/22/25 20:59 12/25/24 20:23 300 MG Heparin Sodium (Porcine) (HEParin 5,000 UNIT VIAL) 5,000 unit Q12H SQ 12/23/24 14:00 12/23/24 15:53 DC 12/23/24 15:14 5,000 UNIT Home Med (Home Medication) DAILY PO 12/24/24 09:00 01/23/25 08:59 12/24/24 08:30 1 EACH Home Med (Home Medication) DAILY PO 12/24/24 09:00 01/23/25 08:59 12/26/24 08:03 1 EACH Home Med (Home Medication) HS PO 12/23/24 21:00 01/22/25 20:59 12/25/24 20:25 3 EACH Insulin Glargine (LANtus 100 UNITS/ML 10 ML VIAL) 30 units DAILY SQ 12/25/24 09:00 12/26/24 11:00 DC Insulin Glargine (LANtus 100 UNITS/ML 10 ML VIAL) 48 units DAILY SQ 12/24/24 09:00 12/24/24 12:25 DC 12/24/24 08:32 48 UNITS Insulin Human Lispro (HumaLOG LISpro 100 UNIT/ML 3ML) 5 unit ACDINNER SQ 12/24/24 16:30 12/24/24 12:25 DC Insulin Human Lispro (HumaLOG LISpro 100 UNIT/ML 3ML) 5 unit HS SQ 12/23/24 21:00 12/23/24 21:49 DC Insulin Human Lispro (HumaLOG LISpro 100 UNIT/ML 3ML) 15 unit ACBKFST SQ 12/24/24 07:30 12/24/24 12:25 DC 12/24/24 08:33 15 UNIT Insulin Human Lispro (HumaLOG LISpro 100 UNIT/ML 3ML) 20 unit ACLUNCH SQ 12/24/24 11:30 12/24/24 12:25 DC Insulin Human Regular (humuLIN R 100 UNIT/ML 3ML) INSULIN SLIDING SCAL... ACHS SQ 12/23/24 11:30 12/24/24 12:27 DC Insulin Human Regular (humuLIN R 100 UNIT/ML 3ML) INSULIN SLIDING SCAL... ACHS SQ 12/24/24 16:30 01/23/25 16:29 12/25/24 20:52 4 UNIT Isosorbide Mononitrate (Imdur 60mg Sr) 60 mg AM PO 12/24/24 09:00 01/23/25 08:59 12/26/24 08:08 60 MG Metoprolol Succinate (TopROL XL) 50 mg AM PO 12/24/24 09:00 01/23/25 08:59 12/26/24 08:08 50 MG Pantoprazole Sodium (PROTonix 40MG TAB) 40 mg DAILY PO 12/23/24 09:00 01/22/25 08:59 12/26/24 08:01 40 MG Pharmacy Profile Note (Pharmacy Communication) 1 each AD MISC 12/24/24 15:30 12/24/24 15:33 DC Piperacillin Sod/ Tazobactam Sod 50 ml @ 12.5 mls/hr Q12H IV 12/23/24 15:00 01/02/25 14:59 12/26/24 15:24 12.5 MLS/HR Sevelamer HCl (RENAgel 800 MG TAB) 1,600 mg TIDMEALS PO 12/23/24 12:00 01/22/25 11:59 12/26/24 12:10 1,600 MG Sodium Chloride 1,000 ml @ 0 mls/hr ONCE IV 12/23/24 09:30 01/22/25 09:29 12/25/24 10:05 100 MLS/HR Ticagrelor (BRILinta) 90 mg BID PO 12/23/24 21:00 01/22/25 20:59 12/26/24 08:02 90 MG Vancomycin HCl 250 ml @ 125 mls/hr ONCE IV 12/23/24 03:30 12/23/24 03:55 DC Vancomycin HCl (Vancomycin 750mg) 750 mg MWFPHD IVPB 12/23/24 16:00 12/25/24 11:48 DC 12/23/24 18:17 750 MG JANNA MOON MD Dec 26, 2024 16:24
--- NOTE | 2024-12-26 21:00 | NUR ---
Chela suárez for hospitalist for pt stating 10/10 pain with tremors all over body. Jimbo Perez returned page and ordered one time dose of morphine 2mg ivp and to reassess in one hour, if pt continues to state having severe pain to then give another one time dose of morphine 2mg, repeated back orders.
[2024-12-27] VITALS (19 sets, daily range): BP systolic 103–130; BP diastolic 50–80; PULSE 71–86; RESP 16–20; TEMP 97.4–98.2
--- NOTE | 2024-12-27 00:16 | PN ---
FOLLOWUP PROGRESS NOTE SUBJECTIVE: A 59-year-old female with a history of diabetes mellitus, hypertension. She initially presented with significant volume overload. The patient did receive dialysis yesterday with 4 liters of ultrafiltration. The patient's pulmonary symptoms have much improved. She has been counseled in regard to her noncompliance and she is being seen as a followup visit for all of the above. REVIEW OF SYSTEMS: CONSTITUTIONAL: She is feeling improved since admission. HEENT: No change in vision. No change in hearing. CARDIOVASCULAR: There is no current chest pain or palpitations. PULMONARY: Shortness of breath has improved. GASTROINTESTINAL: The patient is tolerating a diet. MUSCULOSKELETAL: Complains of weakness. PHYSICAL EXAMINATION: VITAL SIGNS: Blood pressure is 119/65, pulse 80, she is afebrile. GENERAL: She is a chronically ill, much older than appearing female, lying in bed on the medical floor. HEENT: Head is atraumatic. Pupils are equal, round, reactive to light. Oropharynx is without exudate. Nares are clear. NECK: There is no JVP. There is no thyromegaly, no mass. HEART: Regular. There is no S3 or S4 gallop. LUNGS: Coarse with equal thoracic movement. ABDOMEN: Soft, nondistended and nontender. EXTREMITIES: There is no edema. NEUROLOGICAL: She is awake. She is alert. She is oriented. LABORATORY DATA: Hemoglobin 10, hematocrit 30, white count is 5000. IMPRESSION: * Coronary artery disease with volume overload. * Diabetes mellitus. * Hypertension. * ESRD. PLAN: The patient's pulmonary symptoms have greatly improved. The patient has been instructed in regard to compliance with her general medical care as well as her fluid restriction. Once the patient is discharged, the patient's dry weight will be adjusted at the outpatient center. We will continue to follow closely. The patient with multiple questions, all of which were answered. TID: [id number] RECEIPT: [id number]
[2024-12-27 03:56] LABS: IMMATURE GRANULOCYTE ABSOLUTE 0.02 K/uL (0-1); NUCLEATED RED BLOOD CELLS 0.6 % (0.0-0.19); PLATELET COUNT (AUTO) 110 K/uL (130-400); RED BLOOD CELL COUNT(AUTO) 3.07 MIL/uL (4.00-5.50); RED CELL DISTRIBUTION WIDTH 19.2 % (11.0-15.5); WHITE BLOOD COUNT (AUTO) 4.8 K/uL (4.8-10.8)
[2024-12-27 04:21] LABS: ASPARTATE AMINOTRANSFERASE 24.0 U/L (10-37); CREATININE 7.6 mg/dL (0.5-1.0); GLOMERULAR FILTR. RATE CALC 6.0 mL/min (>90); GLUCOSE,RANDOM 218.0 mg/dL (70-105); SODIUM SERUM 132.0 mmol/L (136-145); TOTAL PROTEIN, SERUM 7.1 g/dL (6.0-8.3)
[2024-12-27 05:00] LABS: UREA NITROGEN, BLOOD 79.0 mg/dL (7-18)
[2024-12-27] MEDS ORDERED: VANCOMYCIN PROTOCOL PER PHARMACY IV SCH (10:30)
--- NOTE | 2024-12-27 10:34 | PN ---
[facility] PROGRESS NOTE Date Patient Seen: Dec 27, 2024 Time of Visit: 10:34 Supervising Physician: Bernard Marin MD Primary Care Physician: Treva Pinzon MD Outpatient Specialists: [ ] Inpatient Consults: Dr Juan Asencio, Dr Gomez Attending: Nancie team PROBLEM LIST: Chronic hypoxic respiratory failure, POA on Home o2 Scattered nodules versus septic embolization in peripheral of both lung POA with prominence at the base Ruled out by HRCT Mild bronchiectasis with peribronchial thickening on HRCT 12/24/24 Acute on chronic respiratory failure on home O2 POA, back to baseline High anion gap metabolic acidosis POA resolved ESRD on HD Lactic acidosis POA Chronic thrombocytopenia POA Electrolyte imbalance POA Acute on chronic kidney disease on hemodialysis POA Chronic troponinemia Hyponatremia POA Hyperkalemia POA PPM/ AICD cardiac status CHF POA Morbid Obesity POA Hypertension POA Diabetes POA Hyperlipidemia POA Morbid obesity BMI of 41 INTERVAL HISTORY: Chart reviewed including all laboratory and imaging results. Pt at at this time, intermittent use of O2 at 2 L. Patient assessed at bedside. Denies chest pain, palpitation, or shortness for breath. Hemodynamically stable. Blood cultures grew Gram-positive cocci 1/2. Repeat blood cultures for tomorrow. No major overnight events reported. Plan- Antibiotics for 10-14 days recommended repeat HRCT chest in six months Pt on home o2 no need for 6 min walk Arrange outpatient pulmonology referral for sleep study, PFT and follow-up management upon discharge REVIEW OF SYSTEMS: Const: Weight gain Eyes: no recent vision problems ENT: No congestion, ear pain, or sore throat C/V: Positive for swelling to bilateral lower extremities Resp shortness of the breath cough x1 month GI: No abdominal pain, nausea, vomiting, constipation, or diarrhea : No incontinence of or dyuria M/S: No joint or pain swelling Skin: No rash Neuro: no headache, focal numbness, or weakness, dizziness or seizures Psych: no depression or anxiety Heme: no abnormal bruising or bleeding Lymph: no swollen glands PHYSICAL EXAM: GENERAL: CHRONICALLY ILL on 2 L HEENT: EOMI, Sclera non icteric, moist mucosa NECK: Supple, no JVD, trachea midline LUNGS: CLEAR TO ALL LOBES BILATERALLY. HEART: Regular rate and rhythm. Normal S1 and S2, without murmurs ABD: Abdomen soft, nontender. Bowel sounds present EXT: No clubbing cyanosis + 2 P[place]DE[place] NEURO: Alert and oriented to person, follows commands Vital Signs (last 8hr) Date Time Temp Pulse Resp B/P (MAP) Pulse Ox O2 Delivery O2 Flow Rate FiO2 12/27/24 08:00 97.5 81 20 108/60 92 Nasal Cannula 2.0 12/27/24 03:53 97.3 81 16 103/55 98 Nasal Cannula 2.0 LABS: Hematology Labs: Test 12/27/24 03:18 Range/Units White Blood Count 4.8 4.8-10.8 K/uL Red Blood Count 3.07 L 4.00-5.50 MIL/uL Hemoglobin 9.8 L 12.0-16.0 g/dL Hematocrit 30.8 L 36-48 % Mean Corpuscular Volume 100.3 H 79-99 fL Mean Corpuscular Hemoglobin 31.9 27.0-33.0 pg Mean Corpuscular Hemoglobin Concent 31.8 L 32.0-36.0 g/dL Red Cell Distribution Width 19.2 H 11.0-15.5 % Platelet Count 110 L 130-400 K/uL Mean Platelet Volume 10.5 7.5-10.5 fL Immature Granulocyte % (Auto) 0.4 0-1 % Neutrophils (%) (Auto) 63.6 40.0-77.0 % Lymphocytes (%) (Auto) 16.4 L 21.0-51.0 % Monocytes (%) (Auto) 13.6 H 3.0-13.0 % Eosinophils (%) (Auto) 5.2 0.0-8.0 % Basophils (%) (Auto) 0.8 0.0-5.0 % Neutrophils # (Auto) 3.0 1.8-7.7 K/uL Lymphocytes # (Auto) 0.8 L 1.0-4.8 K/uL Monocytes # (Auto) 0.7 0.1-1.0 K/uL Eosinophils # (Auto) 0.25 0.00-0.70 K/uL Basophils # (Auto) 0.04 0.00-0.20 K/uL Absolute Immature Granulocyte (auto 0.02 0-1 K/uL Nucleated Red Blood Cells 0.6 H 0.0-0.19 % Red Blood Cell Morphology See comments Chemistry Labs: Test 12/27/24 05:02 12/27/24 03:18 12/26/24 03:47 Range/Units Whole Blood Glucose 156 H 70-110 MG/DL Sodium Level 132 L 136-145 mmol/L Potassium Level 5.1 3.5-5.1 mmol/L Chloride Level 92 L 101-111 mmol/L Carbon Dioxide Level 26 21-32 mmol/L Blood Urea Nitrogen 79 *H 7-18 mg/dL Creatinine 7.6 H 0.5-1.0 mg/dL Glomerular Filtration Rate Calc 6 >90 mL/min Random Glucose 218 #H 70-105 mg/dL Total Calcium 7.9 L 8.5-10.1 mg/dL Magnesium Level 2.60 H 1.80-2.40 mg/dL Total Bilirubin 1.1 H 0.2-1.0 mg/dL Aspartate Amino Transf (AST/SGOT) 24 10-37 U/L Alanine Aminotransferase (ALT/SGPT) 35 12-78 U/L Alkaline Phosphatase 219 #H 50-136 U/L Total Protein 7.1 6.0-8.3 g/dL Albumin 2.7 L 3.5-5.0 g/dL B-Type Natriuretic Peptide 2500 H 0-100 pg/mL DIAGNOSTICS / RADIOLOGY RESULTS: [ ] PLAN Antibiotics for 10-14 days recommended repeat HRCT chest in six months Pt on home o2 no need for 6 min walk Arrange outpatient pulmonology referral for sleep study, PFT and follow-up management upon discharge Rehab: PT/OT Prophylaxis: GI: [ Protonix] DVT: [ Heparin] Code Status: Full Resuscitation Disposition: Per primary team Other: Total patient care time exceeds 35 minutes excluding all procedures. Case was discussed and seen with my supervising physician. The above plan was formulated and agreed upon. ATTESTATION BY PHYSICIAN I reviewed the documentation, medical decision making, and treatment plan as noted by the mid-level provider above. I agree with the findings and plan of care. Bernard Marin MD, [facility] Dec 27, 2024 10:34
--- NOTE | 2024-12-27 11:16 | NUR ---
CM note refusal of SNF Followed up to speak with pt regarding [facility]. Pt states she will not be going to a facility, educated the importance of continuation for IV antibiotic therapy, pt verbalized she understands but will be going home after her hemodialysis treatment has been completed. Pt signed form against medical advice for recommendations [facility]iary facility for IV antibiotic treatment. Jaime Rudd NP made aware.
[2024-12-27] MEDS ORDERED: INSU300I SQ (13:06)
[2024-12-27] MEDS ORDERED: INSU200I SQ (13:06)
--- NOTE | 2024-12-27 13:22 | DS ---
Discharge Summary Hospital Course Summary: This is a 59-year-old female with past medical history of CHF, thrombocytopenia, pulmonary nodule, end-stage renal disease on hemodialysis Monday, diabetes, hypertension, hyperlipidemia, fatty liver, coronary artery disease with cardiac stent x5 and permanent pacemaker/AICD , morbid obesity and chronic respiratory failure on home O2 who presented to the ED for multiple complaints such as shortness of breaths, cough, headache and abdominal pain.Patient states she has been having shortness of breath and dry cough for about 1 month an going problem she said and was seen by her PCP in the clinic and was told just limit exertion and always sit on the wheelchair she said.Jeff trey reports having frontal headache and abdominal pain around epigastric area started yesterday after eating meat and tortilla.Patient reports she was nauseated but no vomiting.Patient also states she was dialyzed last Monday and 3.5 L of fluid removed she has a LAVA and her bowl attendant is she is anuric and has been on hemodialysis for 3 yrs she said.Patient was recently admitted in this facility on Nov and underwent a left heart cath with PCI on 11/15/2024 by and was discharged home on Eliquis on .During that admission was consulted for persistent thrombocytopenia and advised to work up for multiple myeloma.Pulmonology was also consulted at that time of admission to manage COVID [address] chest done on 11/06/2024 of previous admission which showed right lower lobe pulmonary nodule ,ground glass opacity and a small pericardial effusion. 12/23/24 patient was seen earlier today: patient is being scheduled for dialysis we will be done in ED. patient is pending a CT chest most likely we will be done after dialysis. Apparently patient was scheduled for left heart catheterization tomorrow per Dr. Poe: as per nurse practitioner Celeste Garrido to restart Brilinta and Eliquis most likely left heart catheterization we will be done later on this week. Patient returns venous Dopplers to lower extremity given to having pain we will start her Neurontin home meds. Patient denied chest pain. 12/24/24 The patient was seen earlier: episodes of hypoglycemia, D50 was given. modified long acting insulin. art supervisor do not plan to do Left Heart cath on this admission: will be done as outpatient. Pulmologist ordered a CT chest repeat on HIGH RESOLUTION on room at this time. the patient will transition to medical floor with Tele. 12/25/24 patient was seen earlier patient is getting her dialysis. Patient continues to have low blood sugars patient has her own monitor was 63 patient refused all scheduled insulin overnight. Patient was given orange juice x2. We will continue to monitor patient closely. Patient denied chest pain or shortness for breath but she does complain dizziness most likely secondary to blood sugar being low. Most likely is not receiving pm snack. 12/26/24 patient continues to have hypoglycemic in the morning we will consult endocrinologists for regimen. Patient appears very weak and fragile case management discussed SNF placement. 12/27/24 patient was seen earlier patient refused to sign referral consent for SNF she wants to go home instead: she reports she has sisters who can take care of her at home> she is adamant that she wants to go home today we will she will leave AMA. Blood cultures growing Gram-positive cocci as per ID cultures were contaminated his recommendations Levaquin 500 mg p.o. every 48 hours for 10 days. she does not want to go to no facility for IV antibiotics therefore we will send her home with oral antibiotics. patient already has home oxygen. Patient's blood sugars are much controlled now Dr Esparza was consulted for insulin regimen. Home regimen was discontinued and we will follow his recommendations on Humalog before meals and toujeo to 30 units daily at discharge. the patient will be checking blood sugar patient has skin device that monitor her blood sugar: She might have to resume Lantus 50 units daily if hyperglyemia per Dr Esparza. Patient received hemodialysis today. She denies any chest pain or shortness for breath. Patient needs to follow-up with information technology instructor's 2-3 weeks for possible biopsy of nodules and she we will follow- up with Dr. Poe two weeks the plan is left heart catheterization outpatient setting. . Patient has been afebrile no leukocytosis. Senior Php Developer(s): GENERAL APPEARANCE: The patient is awake, alert, and oriented, mildly in distress. Patient has home oxygen NEUROLOGICAL: Cranial nerves II-XII grossly intact. Motor is 5/5 in bilateral upper and lower extremities proximal to distal. No sensory deficits. HEENT: Face is symmetric. Pupils are equal and reactive. Extraocular movements are intact. NECK: Supple. No JVD. No thyromegaly. No submental, submandibular, pre- /postauricular, occipital or supraclavicular lymphadenopathy. CHEST: Normal chest expansion. No Telemetry. LUNGS: Diminished breath sounds CARDIOVASCULAR: Regular. S1 and S2 normal. No appreciable rubs, murmurs or gallops. ABDOMEN: Abdominal tenderness around epigastric area on palpation Soft and nondistended. There is no rebound, voluntary guarding, or rigidity. : Deferred. Anuric EXTREMITIES: Trace of edema to lower extremity SKIN: No skin breakdown. Procedure(s): REASON: repeat on high resolution ORDERING PHYSICIAN: CLINT FORTE PROCEDURE: CHEST HR - CT CHEST HIGH RESOLUTION (WO) ADDENDUM REPORT ADDENDUM: Results were shared by telephone at 19:36 pm on 12/24/24 and acknowledged by Patient's Nurse Kelly Rudd. /[place] EXAM: CT Chest Without Intravenous Contrast. CLINICAL HISTORY: 59-year-old female. TECHNIQUE: Axial computed tomography images of the chest without intravenous contrast. Dose reduction technique was used including one or more of the following: automated exposure control, adjustment of mA and kV according to patient size, and/or iterative reconstruction. CONTRAST: None. COMPARISON: None provided. FINDINGS: LUNGS: No pulmonary mass. Bilateral nodular densities in the lower lobes raise the question of infectious versus inflammatory nodules. Consider a follow-up CT chest in 6 months. PLEURAL SPACES: A small left pleural effusion is present. HEART AND MEDIASTINUM: Mild cardiomegaly is present. A small pericardial effusion is present. Atherosclerotic changes are noted in the coronary arteries. LYMPH NODES: The mediastinal and hilar lymph nodes appear unremarkable. CHEST WALL AND UPPER ABDOMEN: Cholecystectomy clips are present. BONES: No acute osseous abnormality. IMPRESSION: 1. Bilateral nodular densities in the lower lobes, possibly infectious or inflammatory. Consider a follow-up CT chest in 6 months. 2. Small left pleural effusion. 3. Mild cardiomegaly and small pericardial effusion. /[place] DICTATED BY: HECTOR RICKS MD DATE: 12/24/241936 ELECTRONICALLY SIGNED BY: DATE: EXAM: CT Chest Without Intravenous Contrast. CLINICAL HISTORY: 59-year-old female. REASON: rule out PE/ shes refusing contrast for CTA ORDERING PHYSICIAN: CLINT FORTE PROCEDURE: PULM V P - NM PULMONARY/LUNG VENT/PERF VQ ADDENDUM REPORT ADDENDUM: EXAM: NM Lung Perfusion and Ventilation Scan. CLINICAL HISTORY: rule out PE/ shes refusing contrast for CTA TECHNIQUE: Ventilation images of the lungs were obtained after inhalation of the radiopharmceutical. Then, radiolabeled MAA was administered intravenously and planar images of the lungs were obtained in multiple projections. COMPARISON: None provided. FINDINGS: VENTILATION: No segmental ventilation defect. PERFUSION: No segmental perfusion defect. IMPRESSION: Normal VQ scan based on modified PIOPED criteria. /[place] EXAM: NM Lung Perfusion Scan. CLINICAL HISTORY: SOB. PE Suspected. TECHNIQUE: Rradiolabeled MAA was administered intravenously, and planar images of the lungs were obtained in multiple projections. RADIOPHARMACEUTICAL: Perfusion: technetium 99m MAA. COMPARISON: CT examination dated December 25, 2024. FINDINGS: Tracer defect noted in the region of right upper lobe - correlates with the pacemaker. Wedge shaped defect correlating with the oblique fissure of the left lung. Homogeneous uptake of the radiotracer throughout rest of the bilateral lungs. IMPRESSION: Normal perfusion scan. REASON: FOR NODULES ORDERING PHYSICIAN: CLINT FORTE PROCEDURE: CHEST WO - CT CHEST W/O CONTRAST EXAM: CT Chest Without Contrast CLINICAL HISTORY: For nodules. TECHNIQUE: Thin collimated axial CT images of the chest were obtained with sagittal and coronal reformatted images also submitted. CT scan done according to ALARA (As Low as Reasonably Achievable). CONTRAST USED: None. COMPARISON: CT dated November 07, 2024. FINDINGS: There are irregular ground glass opacities in both lungs. Multiple peribronchovascular nodules in both upper and lower lobes, largest measuring approximately 6.2mm in the right lower lobe (series 3, image 24). No collapse or consolidation. Mild bilateral pleural thickening. No pleural effusions. No pericardial effusion. Cardiomegaly. Pacemaker in situ. Coronary arterial disease with atherosclerosis. No axillary, or supraclavicular lymphadenopathy. Sub-centimeter lymph nodes in pre-paratracheal and subcarinal regions. No focal thyroid abnormality. Limited views of the upper abdomen demonstrate perihepatic calcified nodule with surgical clips in the gall bladder fossa. The bones under view show degenerative spondylotic changes in the spine. IMPRESSION: 1. Cardiomegaly. Atherosclerosis coronary artery disease. 2. Ground glass opacities with interstitial thickening in both lungs suggestive of an interstitial lung disease could be hypersensitivity pneumonitis. 3. Multiple peribronchovascular nodules in both lungs ??? significantly increased in number since the previous CT dated November 07, 2024 could also represent infectious or inflammatory process. Compared to the previous CT dated November 07, 2024, there is significant increase in the bilateral lung nodules with resolution of left pleural effusion. REASON: assess for CBD dilation, mass? ORDERING PHYSICIAN: CLINT FORTE PROCEDURE: ABDRUQLTD - US ABDOMINAL RUQ\LTD EXAMINATION: ULTRASOUND OF THE ABDOMEN (LIMITED) WITH COLOR DOPPLER. CLINICAL HISTORY: To assess for CBD dilatation and mass. COMPARISON: CT abdomen and pelvis without contrast from the same day. TECHNIQUE: Real-time grayscale ultrasound images of the abdomen. In addition, color Doppler is medically necessary to perform in order to evaluate vascularity and blood flow. FINDINGS: Liver: Normal in caliber, the right hepatic lobe measures 15.0 cm in the craniocaudal dimension. There is increased echogenicity of the hepatic parenchyma. There is no focal hepatic abnormality or intrahepatic biliary ductal dilatation. There is normal spectral Doppler of the main portal vein. Gallbladder: Post cholecystectomy status. Common bile duct is normal in caliber, measuring 0.50 cm. Pancreas: Normal in caliber and echotexture. No calcification or dilated pancreatic duct. The right kidney is normal in caliber, the right kidney measures 9.5 x 5.0 x 4.5 cm in craniocaudal, AP, and transverse dimensions respectively. There is normal renal cortical thickness and increased cortical echogenicity. There is no renal calculus or hydronephrosis. IMPRESSION: Hepatic steatosis. Post cholecystectomy status. Right renal parenchymal disease. REASON: diffuse abdominal pain ESRD on HD ORDERING PHYSICIAN: DELVIS FLORES MD PROCEDURE: ABD PEL WO - CT ABDOMEN/PELVIS W/O CONTRAST EXAM: CT Abdomen and Pelvis without IV contrast. CLINICAL HISTORY: Diffuse abdominal pain. TECHNIQUE: Thin collimated axial CT images of the abdomen and pelvis were obtained, with sagittal and coronal reformatted images also submitted. A CT scan is done according to ALARA (As Low As Reasonably Achievable). CONTRAST: None. COMPARISON: CT abdomen and pelvis dated 10/15/2024. FINDINGS: Patchy groundglass opacities in both lung bases with multiple scattered nodules requiring correlation with the prior CT scan of the chest. Mild cardiomegaly. There is no focal abnormality appreciated within the liver, pancreas, spleen, adrenals, or kidneys. Status post cholecystectomy. There are a few small scattered subcapsular hepatic and perihepatic calcifications. There is no obvious bowel wall thickening. Bowel loops are normal in caliber without evidence of obstruction or ileus. Mild constipation. The appendix is unremarkable. There is no abnormality within the urinary bladder. Unremarkable reproductive organs. No lymphadenopathy. No free fluid. No pneumoperitoneum. There is patchy atherosclerotic calcification of the aorta and its major branches. Diffuse mild anasarca. There is no acute osseous abnormality. IMPRESSIONS: No acute process in the abdomen or pelvis. Diffuse mild anasarca. Patchy groundglass opacities in both lung bases with multiple scattered nodules; these are new findings compared to the previous CT abdomen and pelvis dated 10/15/2024, and likely represent an infectious or inflammatory process. Recommend a dedicated CT scan of the chest for optimal evaluation. /[place] Assessment/Plan: Discharged dx's Possible pneumonia POA Multiple pulmonary nodules per CT POA Acute on chronic respiratory failure on home O2 POA High anion gap metabolic acidosis POA Lactic acidosis POA Chronic thrombocytopenia POA Electrolyte imbalance POA Acute on chronic kidney disease on hemodialysis POA Chronic troponinemia Hyponatremia POA Hyperkalemia POA PPM/ AICD cardiac status CHF POA Morbid Obesity POA Hypertension POA Diabetes POA Hyperlipidemia POA s/p ACS NSTEMI: 11/15/24 Hypercoagulable state on Brilinta and Eliquis: PLAN: ADMISSION DATE: 12/22/2024 DISCHARGE DATE: 12/27/2024 DISPOSITION: Home CONDITION: Stable FURNACE MASON(S): Director Of Supply Chain's, art supervisor's, bowl attendant's FOLLOW UP APPOINTMENT(S): We will continue with TUTORING MANAGER 3 times a week outpatient setting dialysis Dr. Asencio we will follow her there. Follow-up with information technology instructor's 2-3 weeks for possible nodule biopsy art supervisor's two weeks the plan is left heart catheterization. PROCEDURES: None IMAGING (S) report attached to summary : MICROBIOLOGY: report attached to summary; ACTIVITY: Ad vonda as tolerated HOME MEDICATIONS reviewed CHANGES ON HOME MEDICATIONS home insulin discontinued NEW MEDICATIONS see below TEACHING: Advised patient to continue checking blood sugars before meals at b edtime follow new regimen if she starts with hyperglycemia to start her long- acting insulin. Oral antibiotics as directed. Emergency instructions: The patient was instructed to present to the nearest Emergency Department or call 911 should their symptoms return or worsen. Home Medications: Active Scripts Ticagrelor (Ticagrelor) 90 Mg Tablet, 90 MG PO BID, #60 TAB 1 Refill Prov:YUMIKO LINDSAY 11/16/24 [Isosorbide [place] 30MG Sr Tab] 60 mg TAB.ER.24H No Conflict Check, 60 MG PO AM for 30 Days, #30 1 Refill Prov:YUMIKO LINDSAY 11/16/24 Reported Medications Buspirone HCl (Buspirone HCl) 5 Mg Tablet, 1 TAB PO BID for 30 Days, #60 TAB 0 Refills 12/23/24 Insulin Regular, Human (Humulin R) 500 Unit/Ml (Concentrated) Vial, 5 UNIT SQ HS, VIAL 12/19/24 Insulin Regular, Human (Humulin R) 500 Unit/Ml (Concentrated) Vial, 20 UNIT SQ NOON, VIAL 12/19/24 Insulin Regular, Human (Humulin R) 500 Unit/Ml (Concentrated) Vial, 15 UNIT SQ AM, VIAL 12/19/24 Vadadustat (Vafseo) 150 Mg Tablet, 450 MG PO HS, TAB 12/19/24 Gabapentin (Neurontin) 300 Mg Capsule, 300 MG PO TID, CAP 12/19/24 Metoprolol Succinate (Metoprolol Succinate) 50 Mg Tab.er.24h, 50 MG PO AM, TAB 12/19/24 Cholecalciferol (Vitamin D3) (Vitamin D3) 25 Mcg (1000 Unit) Capsule, 25 MCG PO DAILY, CAP 12/19/24 Atorvastatin Calcium (LIPITOR) 40 Mg Tablet, 40 MG PO HS, TAB 11/06/24 Folic Acid/Vitamin B Comp W-C (Shi-Cindy Tablet) 0.8 Mg Tablet, 0.8 MG PO DAILY, TAB 11/06/24 Apixaban (Eliquis) 5 Mg Tablet, 5 MG PO BID, TAB 11/06/24 Insulin Glargine,Hum.rec.anlog (Toujeo Max Solostar) 300 Unit/1 Ml Insuln.pen, 60 UNIT SQ DAILY, SYRINGE 06/09/22 Nitroglycerin (Nitroglycerin) 0.4 Mg Tab.subl, 0.4 MG SL AD PRN for CHEST PAIN, TAB.SL 06/09/22 New Medications: Insulin Glargine,Hum.rec.anlog (Toujeo Solostar) 300 Unit/Ml (1.5 Ml) Insuln.pen 30 UNIT SQ DAILY for 30 Days, #2 SYRINGE Insulin Lispro (Humalog Kwikpen) 200 Unit/Ml (3 Ml) Insuln.pen 5 UNIT SQ TIDAC for 30 Days, #2 SYRINGE Continued Medications: Apixaban (Eliquis) 5 Mg Tablet 5 MG PO BID, TAB Atorvastatin Calcium (Lipitor) 40 Mg Tablet 40 MG PO HS, TAB Buspirone HCl (Buspirone HCl) 5 Mg Tablet 1 TAB PO BID for 30 Days, #60 TAB 0 Refills Cholecalciferol (Vitamin D3) (Vitamin D3) 25 Mcg (1000 Unit) Capsule 25 MCG PO DAILY, CAP Folic Acid/Vitamin B Comp W-C (Shi-Cindy Tablet) 0.8 Mg Tablet 0.8 MG PO DAILY, TAB Gabapentin (Neurontin) 300 Mg Capsule 300 MG PO TID, CAP [Isosorbide [place] 30MG Sr Tab] () 60 mg TAB.ER.24H 60 MG PO AM for 30 Days, #30 1 Refill Metoprolol Succinate (Metoprolol Succinate) 50 Mg Tab.er.24h 50 MG PO AM, TAB Nitroglycerin (Nitroglycerin) 0.4 Mg Tab.subl 0.4 MG SL AD PRN for CHEST PAIN, TAB.SL Ticagrelor (Ticagrelor) 90 Mg Tablet 90 MG PO BID, #60 TAB 1 Refill Vadadustat (Vafseo) 150 Mg Tablet 450 MG PO HS, TAB Discontinued Medications: Insulin Glargine,Hum.rec.anlog (Izabela Saavedra) 300 Unit/1 Ml Insuln.pen 60 UNIT SQ DAILY, SYRINGE Insulin Regular, Human (Humulin R) 500 Unit/Ml (Concentrated) Vial 15 UNIT SQ AM, VIAL Insulin Regular, Human (Humulin R) 500 Unit/Ml (Concentrated) Vial 20 UNIT SQ NOON, VIAL Insulin Regular, Human (Humulin R) 500 Unit/Ml (Concentrated) Vial 5 UNIT SQ HS, VIAL Time spent arranging discharge: 31-60 minutes ATTESTATION BY PHYSICIAN I have seen and examined the patient. I reviewed the documentation, medical decision making, and treatment plan as noted by the mid-level provider above. I agree with the findings and plan of care. TESSA SINGLETON MD, ELIZABETH NP Dec 27, 2024 13:22
[2024-12-27] MEDS ORDERED: LEVO-70 PO (14:02)
[2024-12-27] MEDS: ALBUMIN (HUMAN) 25% 50 ML IV.SOLN. IV SCH (14:26)
--- NOTE | 2024-12-27 15:20 | PN ---
Cardiology Progress Note Date of Service: 12/27/2024 Attending Agricultural Research Technician: Dr. Kendall Poe Reason for Consult: Acute on chronic BiV HFrEF Problem List: -Acute on chronic hypoxemic respiratory failure -Lactic acidosis -Bacteremia (gram positive cocci in clusters) -Volume overloaded state -HAP -BiV HFrEF (LVEF: 20-25% by echo done on 11/07/2024) -Electrolyte derangement -Hypoalbuminemia -Paroxysmal atrial fibrillation, on anticoagulation -ESRD, on HD (MWF) -CAD s/p successful PCI with overlapping GENEVA placement (Medtronic Resolute [place] 3.0 x 22 mm and 2.75 x 18 mm) in the mid LAD done on 06/28/2022, ACS-NSTEMI, s/p LHC/coronary angiogram (11/11/2024) which identified 3V+branch CAD (turned down for CABG), s/p successful treatment with a staged PCI with PTCA, balloon lithotripsy, and DCB angioplasty in the ISR within the proximal-mid LAD, successful treatment with balloon lithotripsy and GENEVA placement (Xience Skypoint 3.5x15 mm) in the ostial LAD, and successful treatment with PTCA and balloon lithotripsy in the mid and distal LCx done on 11/15/2024, pending PCI of the LCx -HTN -HLP -DM2 -Abnormal Lexiscan stress test done on 02/23/2022 -ICM s/p right-sided single lead ICD implantation done on 12/13/2022 -COVID-19 viral pneumonia -PAD -Obesity Subjective: This is a 59y/o female who was seen and evaluated at the bedside today. The patient states that her SOB continues to improve. She denies any chest pain, chest pressure, or palpitations. As per the nurse, there were no overnight events. Vitals/Labs Vital Signs Date Time Temp Pulse Resp B/P (MAP) Pulse Ox O2 Delivery O2 Flow Rate FiO2 12/27/24 12:40 98.2 78 16 129/50 Nasal Cannula 2.0 12/27/24 08:00 92 12/26/24 20:00 21 General: Alert and oriented. NAD. Chronically ill appearing. HEENT: NC/AT. Oral mucosa is moist. Neck: No masses, JVD, or carotid bruits Lungs: NRD. SCM. Bilateral air entry. Diminished breath sounds noted throughout. Cardio: Regular rate. Distant, but normal S1 and S2. +S4. PMI was not displaced. Abdomen: Obese abdomen. Soft. NT. ND. Normal active bowel sounds x 4 quadrants. Extremities: Diminished throughout. Trace edema seen in the bilateral lower extremities. Abrasion noted to the right shift. Neuro: CN II-XII were grossly intact. No focal deficits. Laboratory Tests 12/27/24 03:18 Assessment: -Acute on chronic hypoxemic respiratory failure -Lactic acidosis -Bacteremia (gram positive cocci in clusters) -Volume overloaded state -HAP -BiV HFrEF (LVEF: 20-25% by echo done on 11/07/2024) -Electrolyte derangement -Hypoalbuminemia -Paroxysmal atrial fibrillation, on anticoagulation -ESRD, on HD (MWF) -CAD s/p successful PCI with overlapping GENEVA placement (Medtronic Resolute [place] 3.0 x 22 mm and 2.75 x 18 mm) in the mid LAD done on 06/28/2022, ACS-NSTEMI, s/p LHC/coronary angiogram (11/11/2024) which identified 3V+branch CAD (turned down for CABG), s/p successful treatment with a staged PCI with PTCA, balloon lithotripsy, and DCB angioplasty in the ISR within the proximal-mid LAD, successful treatment with balloon lithotripsy and GENEVA placement (Xience Skypoint 3.5x15 mm) in the ostial LAD, and successful treatment with PTCA and balloon lithotripsy in the mid and distal LCx done on 11/15/2024, pending PCI of the LCx -HTN -HLP -DM2 -Abnormal Lexiscan stress test done on 02/23/2022 -ICM s/p right-sided single lead ICD implantation done on 12/13/2022 -COVID-19 viral pneumonia -PAD -Obesity Plan: 1. BiV HFrEF (LVEF: 20-25% by echo done on 11/07/2024) -Improving -Continue on metoprolol succinate 50 mg daily. -She is not a candidate for GDMT with ACEI/ARB/ARNI therapy due to her borderline blood pressures or aldosterone antagonist therapy due to her advanced renal dysfunction. -Her volume status is being addressed via HD. We will repeat a BNP level in the AM to assess the patient's volume status. -Please record strict I/O's, daily weights, and restrict fluids to less than 1.5L/day 2. Paroxysmal atrial fibrillation, on anticoagulation -Substrate: Dilated atria -12H telemetry: Sinus rhythm, no arrhythmias noted -Currently stable, asymptomatic, and in a sinus rhythm -Continue metoprolol succinate 50 mg daily -CHADS2 VASc score: 5 points. Continue Eliquis 5 mg BID. -Please keep the patient on continuous telemetry monitoring and maintain electrolytes within normal parameters. 3. CAD s/p successful PCI with overlapping GENEVA placement (Medtronic Resolute [place] 3.0 x 22 mm and 2.75 x 18 mm) in the mid LAD done on 06/28/2022, ACS-NSTEMI, s/p LHC/coronary angiogram (11/11/2024) which identified 3V+branch CAD (turned down for CABG), s/p successful treatment with a staged PCI with PTCA, balloon lithotripsy, and DCB angioplasty in the ISR within the proximal-mid LAD, successful treatment with balloon lithotripsy and GENEVA placement (Xience Skypoint 3.5x15 mm) in the ostial LAD, and successful treatment with PTCA and balloon lithotripsy in the mid and distal LCx done on 11/15/2024, pending PCI of the LCx -Stable -The patient will continue on ticagrelor 90 mg BID, metoprolol succinate 50 mg daily, isosorbide mononitrate ER 60 mg daily, and atorvastatin 40 mg QHS. -In light of the patient's bacteremia, will defer the previously planned staged PCI to the LCx to the outpatient setting. We will be signing off of the case. Please have the patient follow up with Cardiology, Dr. Kendall Poe, 2 weeks after discharge. This case was seen and discussed with my Supervising Physician, Dr. Kendall Poe, and the above mentioned plan was formulated and agreed upon. -Progress Note written by Vasiliy Machado, MSN, BELT CUTTER, AGACNP-BC VASILIY MACHADO NP Dec 27, 2024 15:20
--- NOTE | 2024-12-27 17:47 | NUR ---
SPEECH TRIGGER COMPLETED / POSSIBLE PNA Pt IS A 59 Y.O. FEMALE ADMITTED SECONDARY TO POSSIBLE PNA. Pt HAS A PAST MEDICAL HISTORY SIGNIFICANT FOR CHF, THROMBOCYTOPENIA, PULMONARY NODULE, ESRD ON HD, DM, HTN, HYPERLIPIDEMIA, FATTY LIVER, CAD WITH CARDIAC STENT x5, MORBID OBESITY, AND CHRONIC RESPIRATORY FAILURE. PATIENT PRESENTED WITH NO PULMONARY INFILTRATES ON MOST RECENT CHEST X-RAY (12/22/2024). Pt CURRENTLY ON RENAL DIALYSIS DIET (REGULAR TEXTURE AND THIN LIQUIDS). PER NURSE GIMENEZ, Pt TOLERATING DIET WITH NO OVERT S/S OF ASPIRATION. PLEASE REQUEST SPEECH THERAPY SERVICES FOR SKILLED BEDSIDE SWALLOW EVALUATION IF Pt PRESENTS WITH +S/S OF ASPIRATION SUCH COUGH RESPONSE, THROAT CLEAR, OR WET VOCAL QUALITY DURING ORAL INTAKE. ALL QUESTIONS ANSWERED AT THIS TIME. Addendum: 12/27/[address]I NARANJO Amended: Links added.
--- NOTE | 2024-12-27 18:05 | NUR ---
pt was discharged after her dialysis treatment and pt was advised of antibiotic ordered for her for her pneumonia. appointments to be made by patient and paperwork for refusal to go to long term.
--- NOTE | 2024-12-27 19:09 | PN ---
endocrinology progress note DOS:12/27/24 subjective: hyperglycemia is improving. Home diabetic regimen: toujeo 60 units daily, humulin R 50 insulin 15 units tid before meals Hba1c 8.7% REVIEW OF SYSTEMS CONSTITUTIONAL: Denies fevers, chills, or night sweats. No unintentional weight loss reported. NEUROLOGICAL: Denies , amaurosis fugax, motor weakness, sensory deficit, vertigo/spinning sensation, gait abnormalities, or tremors. ENT: No hearing loss, otalgia, otorrhea, rhinitis, rhinorrhea, hoarseness, or sore throat. CARDIOVASCULAR: Denies any exertional angina, dyspnea on exertion, orthopnea, paroxysmal nocturnal dyspnea, palpitations, life-threatening arrhythmias, claudication. PULMONARY: Denies phlegm/sputum, hemoptysis, pleuritic chest pain. SLEEP: Denies morning headaches, daytime somnolence or napping. Denies difficulty falling asleep, staying asleep, waking from sleep. Denies knowledge of snoring. GASTROINTESTINAL: Denies any type of dysphagia to either liquids or solids. Denies vomiting, pyrosis, early satiety,diarrhea, constipation, or changes in stool consistency or caliber. Denies coffee-ground emesis, hematemesis, hematochezia, or melanotic stools. GENITOURINARY: Denies frequency, urgency, nocturia, hematuria or incontinence (Storage/Irritative symptoms.) Low urinary stream, straining to void, urinary intermittency or hesitancy, splitting of the voiding stream, terminal dribbling. ENDOCRINOLOGIC: Denies polyuria, polydipsia, polyphagia or heat/cold intolerances. HEMATOLOGIC: Denies thrombophilia/previous clots, or coagulopathy/bleeding disorders. ONCOLOGIC: Denies personal history of malignancy. DERMATOLOGIC: Denies rashes or pruritus. PSYCHIATRIC: Denies any suicidal or homicidal ideation. Denies hallucinations. PAST MEDICAL HISTORY: [ CHF, thrombocytopenia, pulmonary nodule, end-stage renal disease on hemodialysis Monday, diabetes, hypertension, hyperlipidemia, fatty liver, coronary artery disease with cardiac stent x5 and permanent pacemaker/AICD , morbid obesity and chronic respiratory failure on home O2 ] PAST SURGICAL HISTORY: [ Cholecystectomy, pacer/AICD and Lava ] PAST SOCIAL HISTORY: [ Patient lives with . Patient denies alcohol tobacco and recreational drug use ] FAMILY HISTORY: [ Hypertension, diabetes, cardiovascular disease and Alzheimer's disease ] Coded Allergies: No Known Allergies (Unverified Allergy, 11/14/12) ASSESSMENT: DM-2 Possible pneumonia POA Multiple pulmonary nodules per CT POA Acute on chronic respiratory failure on home O2 POA High anion gap metabolic acidosis POA Lactic acidosis POA Chronic thrombocytopenia POA Electrolyte imbalance POA Acute on chronic kidney disease on hemodialysis POA Chronic troponinemia Hyponatremia POA Hyperkalemia POA PPM/ AICD cardiac status CHF POA Morbid Obesity POA Hypertension POA Diabetes POA Hyperlipidemia POA PLAN: continue to hold but will resume Lantus 15 units daily if hyperglycemia. Continue low dose sliding scale insulin. Monitor glucose q x 6 hourly. Continue carb consistent diet. Keep glucose less than 180 mg/dl. Patient will need to discontinue humulin R 500 insulin and switch to humalog 10 units tid before meals decrease toujeo to 30 units daily at discharge. Vitals/Labs Vital Signs Date Time Temp Pulse Resp B/P (MAP) Pulse Ox O2 Delivery O2 Flow Rate FiO2 12/27/24 16:50 98.2 73 16 118/59 Nasal Cannula 2.0 12/27/24 12:00 97 12/26/24 20:00 21 Laboratory Tests 12/27/24 03:18 Medications Current Medications Morphine Sulfate 4 mg ONCE ONCE IVP Last administered on 12/23/24at 00:31; Start 12/23/24 at 00:30; Stop 12/23/24 at 00:31; Status DC Ondansetron HCl 4 mg ONCE ONCE IVP Last administered on 12/23/24at 00:30; Start 12/23/24 at 00:30; Stop 12/23/24 at 00:31; Status DC Dextrose 50 ml ONCE ONCE IV Last administered on 12/23/24at 02:59; Start 12/23/24 at 01:30; Stop 12/23/24 at 01:31; Status DC Piperacillin Sod/ Tazobactam Sod 3.375 gm ONCE ONCE IV Last administered on 12/23/24at 03:00; Start 12/23/24 at 02:30; Stop 12/23/24 at 02:31; Status DC Vancomycin HCl 1 gm ONCE ONCE IV Last administered on 12/23/24at 04:15; Start 12/23/24 at 02:30; Stop 12/23/24 at 02:46; Status DC Albuterol Sulfate 2.5MG ONCE ONCE IH Last administered on 12/23/24at 03:21; Start 12/23/24 at 02:30; Stop 12/23/24 at 02:31; Status DC Acetaminophen 650 mg Q6H PRN PO Last administered on 12/23/24at 08:07; Start 12/23/24 at 03:30; Stop 01/22/25 at 03:29 Acetaminophen 650 mg Q4H PRN PO Last administered on 12/26/24at 11:43; Start 12/23/24 at 03:30; Stop 01/22/25 at 03:29 Ondansetron HCl 4 mg Q6H PRN IV; Start 12/23/24 at 03:30; Stop 01/22/25 at 03:29 Vancomycin HCl 250 ml @ 125 mls/hr ONCE IV; Start 12/23/24 at 03:30; Stop 12/23/24 at 03:55; Status DC Piperacillin Sod/ Tazobactam Sod 50 ml @ 12.5 mls/hr Q12H IV Last administered on 12/27/24at 02:20; Start 12/23/24 at 15:00; Stop 01/02/25 at 14:59 Dextrose 50 ml AD PRN IV Last administered on 12/26/24at 01:29; Start 12/23/24 at 03:30; Stop 01/22/25 at 03:29 Glucagon 1 mg AD PRN IM; Start 12/23/24 at 03:30; Stop 01/22/25 at 03:29 Vancomycin HCl 750 mg MWFPHD IVPB Last administered on 12/23/24at 18:17; Start 12/23/24 at 16:00; Stop 12/25/24 at 11:48; Status DC Pantoprazole Sodium 40 mg DAILY PO Last administered on 12/27/24at 08:15; Start 12/23/24 at 09:00; Stop 01/22/25 at 08:59 Sodium Zirconium Cyclosilicate 5 gm ONCE ONCE PO; Start 12/23/24 at 07:00; Stop 12/23/24 at 07:01; Status DC Sodium Zirconium Cyclosilicate 10 gm ONCE ONCE PO Last administered on 12/23/24at 08:07; Start 12/23/24 at 07:30; Stop 12/23/24 at 07:31; Status DC Magnesium Sulfate 50 ml @ 0 mls/hr PROTOCOL PRN IV; Start 12/23/24 at 09:00; Stop 01/22/25 at 08:59 Potassium Chloride 100 ml @ 100 mls/hr AD PRN IV; Start 12/23/24 at 09:00; Stop 01/22/25 at 08:59 Potassium Chloride 20 meq AD PRN PO; Start 12/23/24 at 09:00; Stop 01/22/25 at 08:59 Potassium Chloride 20 meq AD PRN PO; Start 12/23/24 at 09:00; Stop 01/22/25 at 08:59 Insulin Human Regular INSULIN SLIDING SCAL... ACHS SQ; Start 12/23/24 at 11:30; Stop 12/24/24 at 12:27; Status DC Sodium Chloride 1,000 ml @ 0 mls/hr ONCE IV Last administered on 12/27/24at 14:26; Start 12/23/24 at 09:30; Stop 01/22/25 at 09:29 Sevelamer HCl 1,600 mg TIDMEALS PO Last administered on 12/27/24at 08:08; Start 12/23/24 at 12:00; Stop 01/22/25 at 11:59 Sodium Chloride 4 ml STK-MED ONCE IH Last administered on 12/23/24at 11:42; Start 12/23/24 at 10:38; Stop 12/23/24 at 10:38; Status DC Heparin Sodium (Porcine) 5,000 unit Q12H SQ Last administered on 12/23/24at 15:14; Start 12/23/24 at 14:00; Stop 12/23/24 at 15:53; Status DC Apixaban 5 mg BID PO Last administered on 12/27/24at 08:09; Start 12/23/24 at 21:00; Stop 01/22/25 at 20:59 Atorvastatin Calcium 40 mg HS PO Last administered on 12/26/24at 20:37; Start 12/23/24 at 21:00; Stop 01/22/25 at 20:59 Buspirone HCl 5 mg BID PO Last administered on 12/27/24at 08:08; Start 12/23/24 at 21:00; Stop 01/22/25 at 20:59 Gabapentin 300 mg HS PO Last administered on 12/26/24at 20:37; Start 12/23/24 at 21:00; Stop 01/22/25 at 20:59 Metoprolol Succinate 50 mg AM PO Last administered on 12/27/24at 08:08; Start 12/24/24 at 09:00; Stop 01/23/25 at 08:59 Ticagrelor 90 mg BID PO Last administered on 12/27/24at 08:09; Start 12/23/24 at 21:00; Stop 01/22/25 at 20:59 Home Med DAILY PO Last administered on 12/27/24at 08:20; Start 12/24/24 at 09:00; Stop 01/23/25 at 08:59 Home Med DAILY PO Last administered on 12/27/24at 08:19; Start 12/24/24 at 09:00; Stop 01/23/25 at 08:59 Insulin Glargine 48 units DAILY SQ Last administered on 12/24/24at 08:32; Start 12/24/24 at 09:00; Stop 12/24/24 at 12:25; Status DC Insulin Human Lispro 5 unit HS SQ; Start 12/23/24 at 21:00; Stop 12/23/24 at 21:49; Status DC Insulin Human Lispro 15 unit ACBKFST SQ Last administered on 12/24/24at 08:33; Start 12/24/24 at 07:30; Stop 12/24/24 at 12:25; Status DC Insulin Human Lispro 20 unit ACLUNCH SQ; Start 12/24/24 at 11:30; Stop 12/24/24 at 12:25; Status DC Home Med HS PO Last administered on 12/26/24at 20:37; Start 12/23/24 at 21:00; Stop 01/22/25 at 20:59 Isosorbide Mononitrate 60 mg AM PO Last administered on 12/27/24at 08:09; Start 12/24/24 at 09:00; Stop 01/23/25 at 08:59 Sodium Chloride 4 ml STK-MED ONCE IH Last administered on 12/23/24at 19:28; Start 12/23/24 at 18:33; Stop 12/23/24 at 18:33; Status DC Insulin Human Lispro 5 unit ACDINNER SQ; Start 12/24/24 at 16:30; Stop 12/24/24 at 12:25; Status DC Guaifenesin 400 mg Q6H6 PRN PO Last administered on 12/27/24at 09:03; Start 12/23/24 at 23:00; Stop 01/22/25 at 22:59 Sodium Chloride 4 ml STK-MED ONCE IH Last administered on 12/23/24at 23:48; Start 12/23/24 at 23:14; Stop 12/23/24 at 23:14; Status DC Insulin Glargine 30 units DAILY SQ; Start 12/25/24 at 09:00; Stop 12/26/24 at 11:00; Status DC Insulin Human Regular INSULIN SLIDING SCAL... ACHS SQ Last administered on 12/25/24at 20:52; Start 12/24/24 at 16:30; Stop 01/23/25 at 16:29 Pharmacy Profile Note 1 each AD MISC; Start 12/24/24 at 15:30; Stop 12/24/24 at 15:33; Status DC Albumin Human 50 ml ONCE IV; Start 12/25/24 at 10:00; Stop 12/25/24 at 09:51; Status DC Albumin Human 100 ml ONCE IV Last administered on 12/25/24at 10:04; Start 12/25/24 at 10:00; Stop 12/26/24 at 09:59; Status DC Morphine Sulfate 2 mg ONCE ONCE IVP Last administered on 12/26/24at 21:07; Start 12/26/24 at 21:00; Stop 12/26/24 at 21:01; Status DC Vancomycin HCl 1 each AD IV; Start 12/27/24 at 10:30; Stop 01/10/25 at 10:29 Vancomycin HCl 750 mg QMOWEFR@2000 IVPB; Start 12/27/24 at 20:00; Stop 01/06/25 at 19:59 Albumin Human 100 ml ONCE IV Last administered on 12/27/24at 14:26; Start 12/27/24 at 14:00; Stop 12/28/24 at 13:59 JANNA MOON MD Dec 27, 2024 19:09
[2024-12-27] MEDS ORDERED: VANCOMYCIN 750MG VIAL IVPB SCH (20:00)
--- NOTE | 2024-12-28 00:53 | PN ---
FOLLOWUP PROGRESS NOTE SUBJECTIVE: The patient seen and evaluated, on hemodialysis, prescription noted. OBJECTIVE: VITAL SIGNS: Blood pressure is 108/70. CARDIOVASCULAR: Regular. LUNGS: Coarse. IMPRESSION: End-stage renal disease. PLAN: The patient will continue with maximum ultrafiltration as blood pressure allows. Once the patient is discharged, the patient will follow up at the dialysis unit. TID: [id number] RECEIPT: [id number]
[2024-12-28 03:10] LABS: RHEUMATOID ARTHRITIS FACTOR 191.3 IU/mL (<14.0)
--- NOTE | 2024-12-28 10:06 | CONS ---
INFECTIOUS DISEASE CONSULTATION DATE OF SERVICE: 12/27/2024. REASON FOR CONSULTATION: Pneumonia and antibiotic management. HISTORY OF PRESENT ILLNESS: A 59-year-old female with ESRD, on dialysis, pulmonary edema, and CHF, was admitted after complained of cough and shortness of breath. The patient was found to have pneumonia and started on vancomycin and Zosyn. The patient has no fever or chills. No chest pain. No diarrhea. No abdominal pain. Denies urinary frequency. PAST MEDICAL HISTORY: * ESRD * Pulmonary edema due to ESRD. * Dilated cardiomyopathy. * Hypertension. * Dyslipidemia. * Coronary artery disease * Chronic respiratory failure, on home oxygen PAST SURGICAL HISTORY: * PCI * * AV fistula. * . ALLERGIES: No known drug allergies. CURRENT MEDICATIONS: * Vancomycin. * Bumex. * Metoprolol. * Zosyn. * Insulin. * . SOCIAL HISTORY: No alcohol or tobacco. FAMILY HISTORY: Positive for diabetes mellitus. REVIEW OF SYSTEMS: Greater than 10 systems were reviewed. Negative except documented above. PHYSICAL EXAMINATION: GENERAL: Middle aged female, awake. VITAL SIGNS: Temperature 97.5, pulse 81, respirations 20, blood pressure 122/50. EYES: No icterus. Pupils equal and reactive. HENT: Moist oral mucosa. No oral thrush seen. NECK: Supple. No JVD or thyromegaly. LUNGS: Crackles bilaterally. No rhonchi. CARDIOVASCULAR: S1 and S2. Regular. No murmur heard. ABDOMEN: Obese, soft, nontender. Bowel sounds present. CENTRAL NERVOUS SYSTEM: Awake, alert, and oriented x 3. No focal deficits. SKIN: No rashes, no itchiness. LYMPHATIC: No peripheral lymphadenopathy. BACK: No deformity or pressure ulcer. LABORATORY DATA: JOVANNY positive as noted, antibody positive. Sodium 135, potassium 5.1, BUN 79, creatinine 7.6. WBC 4.8, hemoglobin 9.8, platelets 110. Blood culture growing gram-positive rods. ASSESSMENT: A 59-year-old female with presenting with: * Cough and shortness of breath, pulmonary edema with associated pneumonia. * Chronic respiratory failure. * Gram-positive bacteremia, which is a contaminant. * Endstage renal disease * Obesity. PLAN: * Continue critical care support. * Continue Zosyn. * Continue dialysis. * Continue antihypertensive. * Continue anti-diabetics. * Continue nutritional support. * Monitor electrolytes. * The patient will be followed closely. Thank you for allowing me to participate in the care of this patient. TID: [id number] RECEIPT: [id number] [facility]
[2025-01-02 15:14] LABS: ATYPICAL P-ANCA AB <1:20 titer (Neg:<1:20)
== END 2024-12-27 18:05 | disposition home or self-care (01) | DRG 871 ==
LOC: EDH 21:55 → EDHIP 12-23 03:30 → 2AH 12-23 14:10
PROVIDERS: ADMIT Internal Medicine; ATTEND Internal Medicine
PROC: 5A1D70Z Performance of Urinary Filtration, Intermittent, Less than 6 Hours Per Day (ICD-10-PCS; principal; 2024-12-23)
PROC: 5A1D70Z Performance of Urinary Filtration, Intermittent, Less than 6 Hours Per Day (ICD-10-PCS; 2024-12-25)
PROC: 5A1D70Z Performance of Urinary Filtration, Intermittent, Less than 6 Hours Per Day (ICD-10-PCS; 2024-12-27)
DX: A41.9 Sepsis, unspecified organism (principal); I50.23 Acute on chronic systolic (congestive) heart failure; J96.21 Acute and chronic respiratory failure with hypoxia; N18.6 End stage renal disease; J18.9 Pneumonia, unspecified organism; I13.2 Hypertensive heart and chronic kidney disease with heart failure and with stage 5 chronic kidney disease, or end stage renal disease; D68.59 Other primary thrombophilia; E87.1 Hypo-osmolality and hyponatremia; E87.20 Acidosis, unspecified; Z68.41 Body mass index [BMI] 40.0-44.9, adult; D69.6 Thrombocytopenia, unspecified; E11.22 Type 2 diabetes mellitus with diabetic chronic kidney disease; E66.01 Morbid (severe) obesity due to excess calories; E87.5 Hyperkalemia; I25.2 Old myocardial infarction; Z53.20 Procedure and treatment not carried out because of patient's decision for unspecified reasons; I25.10 Atherosclerotic heart disease of native coronary artery without angina pectoris; I48.0 Paroxysmal atrial fibrillation; K76.0 Fatty (change of) liver, not elsewhere classified; E78.00 Pure hypercholesterolemia, unspecified; E11.65 Type 2 diabetes mellitus with hyperglycemia; E11.649 Type 2 diabetes mellitus with hypoglycemia without coma; Z79.01 Long term (current) use of anticoagulants; Z79.4 Long term (current) use of insulin; Z82.0 Family history of epilepsy and other diseases of the nervous system; Z82.49 Family history of ischemic heart disease and other diseases of the circulatory system; Z83.3 Family history of diabetes mellitus; Z87.01 Personal history of pneumonia (recurrent); Z91.199 Patient's noncompliance with other medical treatment and regimen due to unspecified reason; Z86.16 Personal history of COVID-19; Z95.5 Presence of coronary angioplasty implant and graft; Z99.2 Dependence on renal dialysis; Z99.81 Dependence on supplemental oxygen; Z95.810 Presence of automatic (implantable) cardiac defibrillator
CPT/HCPCS: 36415; 71045; 71250; 74176; 76705; 78582; 80048; 80053; 80202; 82103; 82105; 82550; 82728; 82948; 83516; 83605; 83690; 83735; 83874; 83880; 84145; 84443; 84484; 85025; 85378; 86038; 86140; 86215; 86235; 86255; 86431; 87040; 87426; 87804; 90935; 93005; 94640; 99285; A9540; A9558; G0378; J1644; J1815; J2270; J2405; J2543; J3373; J7070; P9047; J3370

== ENCOUNTER 2025-01-03 10:39 | Emergency (ER) | payer OTHER ==
[~2025-01-03] VITALS: Ht 157.5 cm; Wt 99.8 kg
[~2025-01-03 10:39] MED LIST changes: +BUSP5TAB3 PO; +INSU200I SQ; +INSU300I SQ; -INSU300I3 SQ; -INSU500V SQ; +LEVO-70 PO
--- NOTE | 2025-01-03 11:07 | ERN ---
ED Note History of Present Illness Stated Complaint: CP Chief Complaint: Chest Pain Time Seen by MD: 10:46 Dictation: 59-year-old female history of ESRD on hemodialysis Monday who presents to emergency room with complaints of chest pain. Starting yesterday. Patient states that she has been having intermittent progressively worsening chest pain since yesterday. She underwent3 L of dialysis earlier today before she decided to come to the emergency room for evaluation of chest pain. No vomiting or diarrhea. She does state that there were multiple patients that she has been contact with who have had COVID. Allergies: Coded Allergies: No Known Allergies (Unverified Allergy, 11/14/12) Home Meds Active Scripts Levofloxacin (Levofloxacin) 500 Mg Tablet, 1 TAB PO every 48 hours for 10 Days, #10 TAB 0 Refills Prov:ROSI WELLS NP 12/27/24 Insulin Lispro (Humalog Kwikpen) 200 Unit/Ml (3 Ml) Insuln.pen, 5 UNIT SQ TIDAC for 30 Days, #2 SYRINGE Prov:ROSI WELLS NP 12/27/24 Insulin Glargine,Hum.rec.anlog (Toujeo Solostar) 300 Unit/Ml (1.5 Ml) Insuln.pen, 30 UNIT SQ DAILY for 30 Days, #2 SYRINGE Prov:ROSI WELLS NP 12/27/24 Ticagrelor (Ticagrelor) 90 Mg Tablet, 90 MG PO BID, #60 TAB 1 Refill Prov:YUMIKO LINDSAY 11/16/24 [Isosorbide Hidalgo 30MG Sr Tab] 60 mg TAB.ER.24H No Conflict Check, 60 MG PO AM for 30 Days, #30 1 Refill Prov:YUMIKO LINDSAY 11/16/24 Reported Medications Buspirone HCl (Buspirone HCl) 5 Mg Tablet, 1 TAB PO BID for 30 Days, #60 TAB 0 Refills 12/23/24 Vadadustat (Vafseo) 150 Mg Tablet, 450 MG PO HS, TAB 12/19/24 Gabapentin (Neurontin) 300 Mg Capsule, 300 MG PO TID, CAP 12/19/24 Metoprolol Succinate (Metoprolol Succinate) 50 Mg Tab.er.24h, 50 MG PO AM, TAB 12/19/24 Cholecalciferol (Vitamin D3) (Vitamin D3) 25 Mcg (1000 Unit) Capsule, 25 MCG PO DAILY, CAP 12/19/24 Atorvastatin Calcium (LIPITOR) 40 Mg Tablet, 40 MG PO HS, TAB 11/06/24 Folic Acid/Vitamin B Comp W-C (Shi-Cindy Tablet) 0.8 Mg Tablet, 0.8 MG PO DAILY, TAB 11/06/24 Apixaban (Eliquis) 5 Mg Tablet, 5 MG PO BID, TAB 11/06/24 Nitroglycerin (Nitroglycerin) 0.4 Mg Tab.subl, 0.4 MG SL AD PRN for CHEST PAIN, TAB.SL 06/09/22 Discontinued Reported Medications Insulin Regular, Human (Humulin R) 500 Unit/Ml (Concentrated) Vial, 5 UNIT SQ HS, VIAL 12/19/24 Insulin Regular, Human (Humulin R) 500 Unit/Ml (Concentrated) Vial, 20 UNIT SQ NOON, VIAL 12/19/24 Insulin Regular, Human (Humulin R) 500 Unit/Ml (Concentrated) Vial, 15 UNIT SQ AM, VIAL 12/19/24 Insulin Glargine,Hum.rec.anlog (Toujeo Max Solostar) 300 Unit/1 Ml Insuln.pen, 60 UNIT SQ DAILY, SYRINGE 06/09/22 Past Medical History Past Medical History: CAD, Diabetes-Type II, High Cholesterol, Hypertension Additional Past Medical Hx: ESBL Surgical History: LAVA Surgical History Other: DIALYSIS SHUNT TO LEFT ARM; CARDIAC STENTS, BILATERAL FEET Social History: Negative, Lives with family History: Not Applicable Review of System Dictation Positive for chest pain, palpitations, weakness Review of Systems: was completed, & the rest were negative. Initial Vital Sign VS Vital Signs Date Time Temp Pulse Resp B/P (MAP) Pulse Ox O2 Delivery O2 Flow Rate FiO2 01/03/25 10:43 97.2 98 20 114/83 92 Room Air 0 01/03/25 10:49 21 Physical Exam Dictation GENERAL APPEARANCE NAD, activity normal for age, well developed/ well nourished, no cyanosis, pallor, or diaphoresis. EYES lids/conjunctiva normal. EARS/NOSE/THROAT Mucous membranes moist, nares normal, lips/teeth normal uvula midline without oral pharyngeal erythema, exudate or swelling TMs normal bilaterally. No lymphangitis/lymphedema. HEAD/NECK normocephalic atraumatic, no facial trauma, neck is supple. RESPIRATORY on2 L nasal cannula. respiratory effort normal, speaks in full sentences, no tripod position, no accessory muscle use. Lungs clear to auscultation without rhonchi, wheezes, rales CARDIAC Regular rate and rhythm, no edema. ABDOMINAL Soft, ND/NT. No evidence of fluid wave. No pulsatile masses on exam, rebound tenderness, Olson sign or pain over Mcburney's point. MUSCLES/EXTREMITIES bilateral lower extremity swelling. AV fistula intact. Good bruit SKIN Warm, pink and dry. No rashes, dermatoses, petechiae or lesions. NEUROLOGICAL Speech is clear and appropriate. Normal level of consciousness. Gait and coordination are normal. 5/5 strength in all extremities. PSYCH Normal mood and affect. Judgement/competence is appropriate IVF Sepsis Management BMI >30kg/m2?: No Results (Laboratory/Radiology) Laboratory/Radiology Laboratory Tests Test 01/03/25 10:55 01/03/25 11:04 01/03/25 13:11 Influenza Type A Antigen Negative For Type A Influenza Type B Antigen Negative For Type B SARS-CoV-2 Antigen (Rapid) PRESUMPTIVE NEGATIVE White Blood Count 8.0 K/uL (4.8-10.8) Red Blood Count 3.65 MIL/uL (4.00-5.50) L Hemoglobin 11.6 g/dL (12.0-16.0) L Hematocrit 35.7 % (36-48) L Mean Corpuscular Volume 97.8 fL (79-99) Mean Corpuscular Hemoglobin 31.8 pg (27.0-33.0) Mean Corpuscular Hemoglobin Concent 32.5 g/dL (32.0-36.0) Red Cell Distribution Width 19.0 % (11.0-15.5) H Platelet Count 176 K/uL (130-400) Mean Platelet Volume 10.6 fL (7.5-10.5) H Immature Granulocyte % (Auto) 0.4 % (0-1) Neutrophils (%) (Auto) 78.0 % (40.0-77.0) H Lymphocytes (%) (Auto) 7.7 % (21.0-51.0) L Monocytes (%) (Auto) 8.2 % (3.0-13.0) Eosinophils (%) (Auto) 5.2 % (0.0-8.0) Basophils (%) (Auto) 0.5 % (0.0-5.0) Neutrophils # (Auto) 6.2 K/uL (1.8-7.7) Lymphocytes # (Auto) 0.6 K/uL (1.0-4.8) L Monocytes # (Auto) 0.7 K/uL (0.1-1.0) Eosinophils # (Auto) 0.41 K/uL (0.00-0.70) Basophils # (Auto) 0.04 K/uL (0.00-0.20) Absolute Immature Granulocyte (auto 0.03 K/uL (0-1) Nucleated Red Blood Cells 0.0 % (0.0-0.19) White Cell Morphology Comment See comments Red Blood Cell Morphology ANISO 1+ Prothrombin Time 13.1 SEC (9.6-11.6) H Prothromb Time International Ratio 1.26 (0.85-1.15) H Activated Partial Thromboplast Time 31.6 SEC (26.3-35.5) Sodium Level 131 mmol/L (136-145) L Potassium Level 3.5 mmol/L (3.5-5.1) Chloride Level 89 mmol/L (101-111) *L Carbon Dioxide Level 29 mmol/L (21-32) Blood Urea Nitrogen 33 mg/dL (7-18) H Creatinine 3.7 mg/dL (0.5-1.0) H Glomerular Filtration Rate Calc 14 mL/min (>90) Random Glucose 214 mg/dL (70-105) H Total Calcium 8.9 mg/dL (8.5-10.1) Magnesium Level 2.40 mg/dL (1.80-2.40) Total Bilirubin 1.9 mg/dL (0.2-1.0) H Direct Bilirubin 0.9 mg/dL (0.0-0.3) H Aspartate Amino Transf (AST/SGOT) 20 U/L (10-37) Alanine Aminotransferase (ALT/SGPT) 20 U/L (12-78) Alkaline Phosphatase 289 U/L (50-136) H Troponin I High Sensitivity 17 ng/L (4-50) 17 ng/L (4-50) B-Type Natriuretic Peptide 4690 pg/mL (0-100) H Total Protein 8.6 g/dL (6.0-8.3) H Albumin 3.2 g/dL (3.5-5.0) L EKG: (+) NSR ED Course ED Course Orders Procedure Category Date Status Time Cbc With Differential LAB 01/03/25 Complete 11:04 Prothrombin Time With LAB 01/03/25 Complete INR 11:04 Magnesium LAB 01/03/25 Complete 11:04 Troponin I High LAB 01/03/25 Complete Sensitivity 11:04 Partial LAB 01/03/25 Complete Thromboplastin Time 11:04 Basic Metabolic Panel LAB 01/03/25 Complete 11:04 B-Type Natriuretic LAB 01/03/25 Complete Peptide 11:05 Covid19 (Sars Antigen LAB 01/03/25 Complete Rapid) 11:07 Influenza Type A & B, LAB 01/03/25 Complete Rapid 11:07 12 Lead Ekg Tracing- EKG 01/03/25 Complete Technical 11:07 Chest 1vw RAD 01/03/25 Resulted 11:08 Hepatic Function Panel LAB 01/03/25 Complete 11:04 Acetaminophen 500mg PHA 01/03/25 Complete Tab (Tylenol 500mg T 12:00 Troponin I High LAB 01/03/25 Complete Sensitivity 13:00 Current Medications Medications (Trade) Dose Ordered Sig/Mark Route PRN Reason Start Time Stop Time Status Last Admin Dose Admin Acetaminophen (TYLenol 500MG TAB) 1,000 mg ONCE ONCE PO 01/03/25 12:00 01/03/25 12:01 DC 01/03/25 12:10 Vital Signs Date Time Temp Pulse Resp B/P (MAP) Pulse Ox O2 Delivery O2 Flow Rate FiO2 01/03/25 10:49 97.5 100 18 109/55 98 Nasal Cannula* 2 28 01/03/25 10:49 97.2 98 20 114/83 92 Room Air* 0 21 01/03/25 10:43 97.2 98 20 114/83 92 Room Air 0 1328: Patient still remains asymptomatic. Sleeping comfortably at this time. Waiting for 2nd troponin prior to discharge home. 1341: Patient well-appearing no acute distress. Vital signs stable. Pain-free at this time. Labs reviewed with the patient and patient's friend. We will discharge home at this time. All questions answered. Medical Decision Making MDM 59-year-old female history of ESRD on hemodialysis here for chest pain. Patient pending 2nd troponin at this time. Sleeping comfortably at this time. If 2nd troponin is negative we will discharge home with PCP follow up. DX & DISP Disposition: Discharge Departure Impression: Primary Impression: Chest wall pain Additional Impression: ESRD on hemodialysis Condition: Stable Referrals: BERKLEY HEATH MD (PCP) CHRISTINE ANGELA MD Jan 03, 2025 11:07
[2025-01-03 11:20] LABS: IMMATURE GRANULOCYTE ABSOLUTE 0.03 K/uL (0-1); NUCLEATED RED BLOOD CELLS 0.0 % (0.0-0.19); PLATELET COUNT (AUTO) 176 K/uL (130-400); RED BLOOD CELL COUNT(AUTO) 3.65 MIL/uL (4.00-5.50); RED CELL DISTRIBUTION WIDTH 19.0 % (11.0-15.5); WHITE BLOOD COUNT (AUTO) 8.0 K/uL (4.8-10.8)
--- NOTE | 2025-01-03 11:21 | EKG ---
[facility] Test Date: 2025-01-03 Test Time: 10:41:39 Pat Name: NICK VEE Department: [facility] Room: Gender: F Learning Coach: [id number] : [id number] Requested By: CHRISTINE ANGELA Order Number: [id number] Reading MD: Kendall Huffman Measurements Intervals [place] Rate: 100 P: 20 IL: 159 QRS: -60 QRSD: 144 T: 106 QT: 390 QTc: 502 Interpretive Statements Sinus tachycardia Nonspecific IVCD with LAD LVH with secondary repolarization abnormality Anterior Q waves, possibly due to LVH Compared to ECG 12/30/2024 03:48:10 Early repolarization now present Q waves now present Sinus rhythm no longer present Electronically Signed On 01-03-2025 15:38:05 CDT by Kendall Huffman Please click the below link to view image of tracing.
[2025-01-03 11:25] LABS: CREATININE 3.7 mg/dL (0.5-1.0); GLOMERULAR FILTR. RATE CALC 14.0 mL/min (>90); GLUCOSE,RANDOM 214.0 mg/dL (70-105); SODIUM SERUM 131.0 mmol/L (136-145); UREA NITROGEN, BLOOD 33.0 mg/dL (7-18)
[2025-01-03 11:29] LABS: ASPARTATE AMINOTRANSFERASE 20.0 U/L (10-37); TOTAL PROTEIN, SERUM 8.6 g/dL (6.0-8.3)
[2025-01-03 11:36] LABS: INR 1.26 (0.85-1.15)
[2025-01-03 11:41] LABS: INFLUENZA TYPE A Negative For Type A (NEGATIVE); INFLUENZA TYPE B Negative For Type B (NEGATIVE)
[2025-01-03 11:42] LABS: COVID19 (SARS ANTIGEN RAPID) PRESUMPTIVE NEGATIVE (NEGATIVE)
--- NOTE | 2025-01-03 12:03 | HMCIMG ---
CHEST 1VW REASON: chest pain, esrd hd COMPARISON: From 12/30/2024 is available. FINDINGS: Single view of the chest was obtained. Lungs are clear. There is cardiomegaly with left ventricular contour. There is a right-sided AICD with lead in right ventricle. There is uncoiling atherosclerotic change of thoracic aorta.. There is no pulmonary vascular congestion. Mediastinum and bony thorax appear unremarkable. IMPRESSION: 1. Cardiomegaly with left ventricular contour 2. No evidence of airspace consolidation or pulmonary venous congestion and unchanged from prior study.
--- NOTE | 2025-01-03 13:25 | NUR ---
PT IS NOT SHOWING ANY SIGNS OF DISTRSS AT THIS TIME. PT IS ASLEEP.
[2025-01-03 14:04] VITALS: BP 111/60; PULSE 84; RESP 20; TEMP 97.7; O2SAT 100
== END 2025-01-03 14:35 | disposition home or self-care (01) ==
LOC: EDH 10:39
DX: I13.11 Hypertensive heart and chronic kidney disease without heart failure, with stage 5 chronic kidney disease, or end stage renal disease (principal); E11.22 Type 2 diabetes mellitus with diabetic chronic kidney disease; N18.6 End stage renal disease; I25.10 Atherosclerotic heart disease of native coronary artery without angina pectoris; R07.89 Other chest pain; E78.00 Pure hypercholesterolemia, unspecified; Z79.01 Long term (current) use of anticoagulants; Z79.4 Long term (current) use of insulin; Z79.899 Other long term (current) drug therapy; Z95.5 Presence of coronary angioplasty implant and graft; Z99.2 Dependence on renal dialysis; Z20.822 Contact with and (suspected) exposure to COVID-19
CPT/HCPCS: 36415; 71045; 80048; 80076; 83735; 83880; 84484; 85025; 85610; 85730; 87426; 87804; 93005; 99285

== ENCOUNTER 2025-01-06 18:27 | Inpatient (IN) | payer OTHER ==
[~2025-01-06] VITALS: Ht 157.5 cm; Wt 99.5 kg
--- NOTE | 2025-01-06 19:11 | ERN ---
ED Note History of Present Illness Stated Complaint: SOB Chief Complaint: Shortness of Breath Time Seen by MD: 18:46 Dictation: PATIENT IS A 59-YEAR-OLD FEMALE WHO CAME IN VIA EMS WITH COMPLAINTS OF NECK PAIN AND SHORTNESS BREATH SHE HAS HAD FOR TWO DAYS. NO NAUSEA NO VOMITING NO DIARRHEA THE PAIN DOES NOT RADIATE. SHE STATES SHE GOES TO HEMODIALYSIS WENT TODAY AND COMPLETED HER HEMODIALYSIS WITH A LEFT ARM FISTULA WITH A GOOD THRILL AND BRUIT. SHE STATES SHE WAS HERE LAST NIGHT FOR THE SAME COMPLAINT AND DID A WORKUP AND WAS EXPLAINING TO THE PROVIDER THAT SHE IS HAVING SOME FINANCIAL CONCERNS IN HIS MAKING HER VERY ANXIOUS. SHE IS CURRENTLY TAKING [facility] HER PRIMARY CARE DOCTOR HOWEVER SAID IT IS NOT HELPING. SHE DENIES CHEST PAIN BACK PAIN. Allergies: Coded Allergies: No Known Allergies (Unverified Allergy, 11/14/12) Home Meds Active Scripts Levofloxacin (Levofloxacin) 500 Mg Tablet, 1 TAB PO every 48 hours for 10 Days, #10 TAB 0 Refills Prov:ROSI WELLS NP 12/27/24 Insulin Lispro (Humalog Kwikpen) 200 Unit/Ml (3 Ml) Insuln.pen, 5 UNIT SQ TIDAC for 30 Days, #2 SYRINGE Prov:ROSI WELLS NP 12/27/24 Insulin Glargine,Hum.rec.anlog (Toujeo Solostar) 300 Unit/Ml (1.5 Ml) Insuln.pen, 30 UNIT SQ DAILY for 30 Days, #2 SYRINGE Prov:ROSI WELLS NP 12/27/24 Ticagrelor (Ticagrelor) 90 Mg Tablet, 90 MG PO BID, #60 TAB 1 Refill Prov:YUMIKO LINDSAY 11/16/24 [Isosorbide [place] 30MG Sr Tab] 60 mg TAB.ER.24H No Conflict Check, 60 MG PO AM for 30 Days, #30 1 Refill Prov:YUMIKO LINDSAY 11/16/24 Reported Medications Buspirone HCl (Buspirone HCl) 5 Mg Tablet, 1 TAB PO BID for 30 Days, #60 TAB 0 R efills 12/23/24 Vadadustat (Vafseo) 150 Mg Tablet, 450 MG PO HS, TAB 12/19/24 Gabapentin (Neurontin) 300 Mg Capsule, 300 MG PO TID, CAP 12/19/24 Metoprolol Succinate (Metoprolol Succinate) 50 Mg Tab.er.24h, 50 MG PO AM, TAB 12/19/24 Cholecalciferol (Vitamin D3) (Vitamin D3) 25 Mcg (1000 Unit) Capsule, 25 MCG PO DAILY, CAP 12/19/24 Atorvastatin Calcium (LIPITOR) 40 Mg Tablet, 40 MG PO HS, TAB 11/06/24 Folic Acid/Vitamin B Comp W-C (Shi-Cindy Tablet) 0.8 Mg Tablet, 0.8 MG PO DAILY, TAB 11/06/24 Apixaban (Eliquis) 5 Mg Tablet, 5 MG PO BID, TAB 11/06/24 Nitroglycerin (Nitroglycerin) 0.4 Mg Tab.subl, 0.4 MG SL AD PRN for CHEST PAIN, TAB.SL 06/09/22 Past Medical History Past Medical History: Diabetes-Type II, High Cholesterol, Hypertension Additional Past Medical Hx: CKD ON DIALYSIS Surgical History: Other Surgical History Other: RIGHT CHEST PERMACATH Social History: Negative, Lives with family History: Not Applicable RN Note Reviewed/Agreed w/PFSH: Yes Review of System Dictation CONSTITUTIONAL: NEGATIVE EXCEPT FOR HPI HEAD/FACE: NEGATIVE EXCEPT FOR HPI EENT: NEGATIVE EXCEPT FOR HPI RESPIRATORY: NEGATIVE EXCEPT FOR HPI SOB GASTROINTESTINAL/ABDOMINAL: NEGATIVE EXCEPT FOR HPI GENITOURINARY: NEGATIVE EXCEPT FOR HPI MUSCULOSKELETAL: NEGATIVE EXCEPT FOR HPI INTEGUMENTARY: NEGATIVE EXCEPT FOR HPI NEUROLOGICAL/PSYCH: NEGATIVE EXCEPT FOR HPI ANXIETY HEMATOLOGIC/LYMPHATIC: NEGATIVE EXCEPT FOR HPI ALL SYSTEMS NEGATIVE, EXCEPT NOTED ABOVE. 13 POINT REVIEW OF SYSTEMS ASSESSED AND ALL NEGATIVE EXCEPT FOR ABOVE. Initial Vital Sign VS Vital Signs Date Time Temp Pulse Resp B/P (MAP) Pulse Ox O2 Delivery O2 Flow Rate FiO2 01/06/25 18:29 90 18 116/65 95 Room Air 0 Physical Exam Dictation VITAL SIGNS REVIEWED GENERAL APPEARANCE: ALERT, ORIENTED X 3, NO ACUTE DISTRESS, WELL DEVELOPED, NOURISHED. OBESE/VERY ANXIOUS HEAD AND FACE: NON-TRAUMATIC. EYES: PERRL, PINK CONJUNCTIVAS, EYELID NO TRAUMA, ANTERIOR CHAMBER WITH ARCUS SENILIS. EARS: PINNAS INTACT AND NO SIGNS OF TRAUMA OR ERYTHEMA EAR CANALS CLEAR AND NO DISCHARGE TM NO ERYTHEMA NOSE: NO DISCHARGE, NO BLEEDING. OROPHARYNX: MOUTH NORMAL, TONGUE PINK, PHARYNX CLEAR,NO ERYTHEMA, TONSILS NO EXUDATES, NO ABSCESSES NOTED, MUCOUS MEMBRANE MOIST NECK: SUPPLE, NON-TENDER, NO THYROMEGALY, NO MASSES, NO JVD, NO BRUITS BREAST:DEFERRED CHEST:NO TENDERNESS, NO CREPITUS, NO PARADOXICAL MOVEMENT, NO RETRACTIONS LUNGS:CLEAR, WELL-VENTILATED, SYMMETRIC, NO RALES, NO WHEEZING, NO RHONCHI, NO STRIDOR, GOOD BREATH SOUNDS BILATERALLY HEART: REGULAR RATE, REGULAR RHYTHM, NO MURMUR, NO GALLOPS VASCULAR: NO PERIPHERAL EDEMA, LEFT ARM FISTULA WITH GOOD THRILL AND BRUIT. ABDOMEN: SOFT, POSITIVE BOWEL SOUNDS, NONDISTENDED, NO GUARDING, NONTENDER, NO REBOUND, NO MASSES NO HEPATOMEGALY, NO SPLENOMEGALY, NO BECKMAN'S SIGN, NO HERNIAS. RECTAL: DEFERRED GENITAL: DEFERRED NEUROLOGICAL: NORMAL SPEECH, MOTOR FUNCTION INTACT, SENSORY FUNCTION INTACT NO SUICIDAL OR HOMICIDAL IDEATION. PATIENT HAS A VERY ANXIOUS AFFECT MUSCULOSKELETAL: NECK NONTENDER, FULL RANGE OF MOTION, BACK NONTENDER, FULL RANGE OF MOTION, EXTREMITIES: NONTENDER, FULL RANGE OF MOTION SKIN: COLOR PINK, DRY, NO TURGOR, NO RASH, NO LACERATIONS, NO ABRASIONS, NO CONTUSIONS. LYMPHATIC: DEFERRED Results (Laboratory/Radiology) Laboratory/Radiology Laboratory Tests Test 01/06/25 19:24 White Blood Count 5.6 K/uL (4.8-10.8) Red Blood Count 3.24 MIL/uL (4.00-5.50) L Hemoglobin 10.2 g/dL (12.0-16.0) L Hematocrit 31.3 % (36-48) L Mean Corpuscular Volume 96.6 fL (79-99) Mean Corpuscular Hemoglobin 31.5 pg (27.0-33.0) Mean Corpuscular Hemoglobin Concent 32.6 g/dL (32.0-36.0) Red Cell Distribution Width 18.6 % (11.0-15.5) H Platelet Count 173 K/uL (130-400) Mean Platelet Volume 10.7 fL (7.5-10.5) H Immature Granulocyte % (Auto) 0.4 % (0-1) Neutrophils (%) (Auto) 79.6 % (40.0-77.0) H Lymphocytes (%) (Auto) 6.5 % (21.0-51.0) L Monocytes (%) (Auto) 10.8 % (3.0-13.0) Eosinophils (%) (Auto) 2.2 % (0.0-8.0) Basophils (%) (Auto) 0.5 % (0.0-5.0) Neutrophils # (Auto) 4.4 K/uL (1.8-7.7) Lymphocytes # (Auto) 0.4 K/uL (1.0-4.8) L Monocytes # (Auto) 0.6 K/uL (0.1-1.0) Eosinophils # (Auto) 0.12 K/uL (0.00-0.70) Basophils # (Auto) 0.03 K/uL (0.00-0.20) Absolute Immature Granulocyte (auto 0.02 K/uL (0-1) Nucleated Red Blood Cells 0.0 % (0.0-0.19) Sodium Level 134 mmol/L (136-145) L Potassium Level 4.2 mmol/L (3.5-5.1) Chloride Level 93 mmol/L (101-111) L Carbon Dioxide Level 28 mmol/L (21-32) Blood Urea Nitrogen 50 mg/dL (7-18) H Creatinine 5.0 mg/dL (0.5-1.0) H Glomerular Filtration Rate Calc 10 mL/min (>90) Random Glucose 300 mg/dL (70-105) H Total Calcium 8.5 mg/dL (8.5-10.1) Magnesium Level 2.40 mg/dL (1.80-2.40) Troponin I High Sensitivity 110 ng/L (4-50) *H 2030/chest x-ray shows a pacemaker in place with vascular congestion. No acute changes from chest x-ray on 01/04/2020 Labs Reviewed?: Yes EKG Comment: EKG sinus rhythm/heart rate 87/left ventricular hypertrophy/Q-wave noted anterior lead leads, likely three pressure for Review of prior EKGs shows no change from her EKG on 01/03/2025. ED Course ED Course Orders Procedure Category Date Status Time Chest 1vw RAD 01/06/25 Taken 19:09 12 Lead Ekg Tracing- EKG 01/06/25 Complete Technical 19:09 Magnesium LAB 01/06/25 Complete 19:09 ,Urine Test LAB 01/06/25 Logged 19:09 Troponin I High LAB 01/06/25 Complete Sensitivity 19:09 Basic Metabolic Panel LAB 01/06/25 Complete 19:09 Cbc With Differential LAB 01/06/25 Complete 19:09 Vital Signs Date Time Temp Pulse Resp B/P (MAP) Pulse Ox O2 Delivery O2 Flow Rate FiO2 01/06/25 18:29 90 18 116/65 95 Room Air 0 2034/patient will be admitted for elevated troponin/uncontrolled diabetes hyponatremia and high-risk chest pain 2039/spoke with Jane ROSE hospitalist reviewed chest x-ray EKG labs troponin. EKG to one on 01/03. She agreed to admit patient HEART Score Response (Comments) Value EKG: Repolarization changes 1 Risk Factors: 3+ risk factors (+2) 2 Initial Troponin: 1-3x Normal Limit (+1) 1 Total 4 Medical Decision Making MDM MDM: Differential diagnosis: ACS/AMI/electrolyte imbalance/dehydration/fluid overload/anxiety Rationale: Tests considered and ordered secondary to shared decision making include: labs, ECG and radiology Previous outside records reviewed: Old ER visits. Risk of complication and/or morbidity or mortality of patient management: None Medications-Per medication reconciliation Need for hospitalization: Patient does meet criteria for hospitalization. Patient will be admitted for elevated troponin to repeat EKG in enzymes, cardiac consultation for elevated troponin and fluid management Need for emergency major/minor surgery: No There are no social concerns with this patient. Prescription drug management Prescriptions will include symptomatic care Patient's prior external medical records from other ER visits were reviewed by me as indicated. Prior testing and results from previous visits were reviewed. Prior tests were taken into account with medical decision making and resource utilization, independent historian/historians were used to obtain complete medical history. I independently interpreted the test that were performed, results were reviewed by me and considered findings on radiology if ordered. Medical management and examination interpretation discussions were had by me with other qualified healthcare professionals as indicated for the patient's care. DX & DISP Disposition: Inpatient Decision to Admit Time: 20:43 Departure Impression: Primary Impression: ACS (acute coronary syndrome) Additional Impressions: Elevated troponin level not due myocardial infarction, Hyponatremia, Anemia of chronic renal failure, Uncontrolled diabetes mellitus, Dependence on continuous supplemental oxygen, Anxiety, ESRD (end stage renal disease) on dialysis Condition: Stable Referrals: BERKLEY HEATH MD (PCP) Time of Disposition: 20:43 I have reviewed the case, and I agree with, Diagnosis and Plan CARLOS PALMA SOFTWARE TECHNICIAN Jan 06, 2025 19:11
[2025-01-06 19:33] LABS: IMMATURE GRANULOCYTE ABSOLUTE 0.02 K/uL (0-1); NUCLEATED RED BLOOD CELLS 0.0 % (0.0-0.19); PLATELET COUNT (AUTO) 173 K/uL (130-400); RED BLOOD CELL COUNT(AUTO) 3.24 MIL/uL (4.00-5.50); RED CELL DISTRIBUTION WIDTH 18.6 % (11.0-15.5); WHITE BLOOD COUNT (AUTO) 5.6 K/uL (4.8-10.8)
[2025-01-06 19:45] LABS: CREATININE 5.0 mg/dL (0.5-1.0); GLOMERULAR FILTR. RATE CALC 10.0 mL/min (>90); GLUCOSE,RANDOM 300.0 mg/dL (70-105); SODIUM SERUM 134.0 mmol/L (136-145); UREA NITROGEN, BLOOD 50.0 mg/dL (7-18)
--- NOTE | 2025-01-06 19:49 | EKG ---
[facility] Test Date: 2025-01-06 Test Time: 19:42:46 Pat Name: NICK VEE Department: ED Room: 208 Gender: F Patient Portal Representative: [id number] : 1965 Requested By: CARLOS PALMA Order Number: [id number] Reading MD: Lamar Diaz Measurements Intervals [place] Rate: 87 P: 5 LA: 158 QRS: -57 QRSD: 133 T: 106 QT: 442 QTc: 531 Interpretive Statements Sinus rhythm Nonspecific IVCD with LAD Left ventricular hypertrophy Anterior Q waves, possibly due to LVH Compared to ECG 01/03/2025 10:41:39 Sinus tachycardia no longer present Early repolarization no longer present Electronically Signed On 01-07-2025 16:11:34 CDT by Lamar Diaz Please click the below link to view image of tracing.
--- NOTE | 2025-01-06 20:09 | NUR ---
IN CT SCAN AT THIS TIME.
--- NOTE | 2025-01-06 21:07 | HMCIMG ---
EXAM: XR Chest, 1 View. CLINICAL HISTORY: 59-year-old female with chest pain and shortness of breath. COMPARISON: XR Chest from 01/03/2025 at 02/03/2025 11:15 AM. FINDINGS: LUNGS: The lungs are clear. No consolidation. PLEURAL SPACES: No pleural effusion or pneumothorax. HEART: The heart size is mildly enlarged, indicating mild cardiomegaly. A right-sided cardiac pacemaker is present. BONES: No acute osseous abnormality. IMPRESSION: 1. No acute cardiopulmonary pathology. 2. Mild cardiomegaly with a right-sided cardiac pacemaker. 3. Findings similar to prior XR Chest from 01/03/2025 at 11:15 AM. /[place]
--- NOTE | 2025-01-06 22:25 | HP ---
[facility] Date of Service: Jan 06, 2025 Time of Service: 22:24 PCP:Alberta Tilley HISTORY OF PRESENT ILLNESS: This is a 59-year-old female with past medical history of diabetes, hypertension, hyperlipidemia, CHF, coronary artery disease with cardiac stent x4 and permanent pacemaker, end-stage renal disease on hemodialysis who was brought by EMS to the ED for complaints of shortness of breaths and tightness of the neck onset a week ago and it comes and goes and 2 days ago it started to come back and symptoms have been progressively getting worse so today she went for her dialysis and was able to complete the treatment and she continue to have neck tightness and shortness of breath so she decided to come to this facility for evaluation.Patient reports she was here yesterday for similar problem and was anxious and unable to manage financial components of her house and was discharged home .Patient was also here in this ER on 01/03/2025 for chest pain wall and was also discharged home with negative troponin at that time.Patient also reports she has recent cardiac stent x 2 last November 2024 and had a stent x 1 placed on 2012 and another stent x 1 placed on 2014 .Upon arrival to ER an EKG was done and showed sinus rhythm heart rate 87 with nonspecific intraventricular conduction delay with LAD. Left ventricular hypertrophy anterior Q-waves possibly due to LVH. On examination patient is awake,alert and coherent ,appears uncomfortable. Patient denies fever, chills, cough, sore throat, chest pain, palpitation, nausea, vomiting, diaphoresis and abdominal pain. Latest vital signs temperature 97.9, heart rate 79 BP 94/55 saturation 96% at 1 L nasal cannula. Labs: Hemoglobin 10, hematocrit 31, platelet count 173. Sodium 134, chloride 93, BUN 90, creatinine 5, GFR 10, glucose 300 troponin 110 to 212 . Chest x-ray result revealed no acute cardiopulmonary pathology. Mild cardiomegaly with a right-sided cardiac pacemaker. We will admit patient for further medical management. REVIEW OF SYSTEMS CONSTITUTIONAL: Denies fevers, chills, or night sweats. No unintentional weight loss reported. NEUROLOGICAL: Denies headache, amaurosis fugax, motor weakness, sensory deficit, vertigo/spinning sensation, gait abnormalities, or tremors. ENT: Complaints of neck tightness No hearing loss, otalgia, otorrhea, rhinitis, rhinorrhea, hoarseness, or sore throat. CARDIOVASCULAR: Denies any exertional angina, dyspnea on exertion, orthopnea, paroxysmal nocturnal dyspnea, palpitations, life-threatening arrhythmias, claudication. PULMONARY: Shortness of breaths Denies cough, phlegm/sputum, hemoptysis, pleuritic chest pain. SLEEP: Denies morning headaches, daytime somnolence or napping. Denies difficulty falling asleep, staying asleep, waking from sleep. Denies knowledge of snoring. GASTROINTESTINAL: Denies any type of dysphagia to either liquids or solids. Denies nausea, vomiting, pyrosis, early satiety, abdominal pain, diarrhea, constipation, or changes in stool consistency or caliber. Denies coffee-ground emesis, hematemesis, hematochezia, or melanotic stools. GENITOURINARY: Denies frequency, urgency, nocturia, hematuria or incontinence (Storage/Irritative symptoms.) Low urinary stream, straining to void, urinary intermittency or hesitancy, splitting of the voiding stream, terminal dribbling. ENDOCRINOLOGIC: Denies polyuria, polydipsia, polyphagia or heat/cold intolerances. HEMATOLOGIC: Denies thrombophilia/previous clots, or coagulopathy/bleeding disorders. ONCOLOGIC: Denies personal history of malignancy. DERMATOLOGIC: Denies rashes or pruritus. PSYCHIATRIC: Denies any suicidal or homicidal ideation. Denies hallucinations. PAST MEDICAL HISTORY: [ Diabetes, hypertension, hyperlipidemia, CHF, coronary artery disease with cardiac stent x4 and permanent pacemaker end-stage renal disease on hemodialysis ] PAST SURGICAL HISTORY: [ Lava, right permanent pacemaker, cholecystectomy, right big toe partial amputation and left foot surgery ] PAST SOCIAL HISTORY: [ Patient lives with . Patient denies alcohol , cigarette and recreational drug use] FAMILY HISTORY: [ Hypertension, diabetes, cardiovascular disease and Alzheimer's disease ] Coded Allergies: No Known Allergies (Unverified Allergy, 11/14/12) PHYSICAL EXAM GENERAL APPEARANCE: The patient is awake, alert, and oriented, in no acute cardiopulmonary distress. NEUROLOGICAL: Cranial nerves II-XII grossly intact. Motor is 5/5 in bilateral upper and lower extremities proximal to distal. No sensory deficits. HEENT: Face is symmetric. Pupils are equal and reactive. Extraocular movements are intact. NECK: Supple. No JVD. No thyromegaly. No submental, submandibular, pre- /postauricular, occipital or supraclavicular lymphadenopathy. CHEST: Normal chest expansion. No Telemetry. LUNGS: Absence of any rales, rhonchi or any wheezing. CARDIOVASCULAR: Regular. S1 and S2 normal. No appreciable rubs, murmurs or gallops. ABDOMEN: Soft, nontender, and nondistended. There is no rebound, voluntary guarding, or rigidity. : Deferred. No Yusuf. EXTREMITIES: edema 1+ bilateral lower extremities Good capillary refill. SKIN: No skin breakdown. Vital Sign (Last 24 Hours) 01/06/25 01/06/25 20:35 22:08 Temp 97.9 Pulse 85 Resp 18 B/P (MAP) 108/60 Pulse Ox 96 O2 Delivery Nasal Cannula* O2 Flow Rate 1 FiO2 24 LABS: Laboratory: Test 01/06/25 19:24 Range/Units White Blood Count 5.6 4.8-10.8 K/uL Red Blood Count 3.24 L 4.00-5.50 MIL/uL Hemoglobin 10.2 L 12.0-16.0 g/dL Hematocrit 31.3 L 36-48 % Mean Corpuscular Volume 96.6 79-99 fL Mean Corpuscular Hemoglobin 31.5 27.0-33.0 pg Mean Corpuscular Hemoglobin Concent 32.6 32.0-36.0 g/dL Red Cell Distribution Width 18.6 H 11.0-15.5 % Platelet Count 173 130-400 K/uL Mean Platelet Volume 10.7 H 7.5-10.5 fL Immature Granulocyte % (Auto) 0.4 0-1 % Neutrophils (%) (Auto) 79.6 H 40.0-77.0 % Lymphocytes (%) (Auto) 6.5 L 21.0-51.0 % Monocytes (%) (Auto) 10.8 3.0-13.0 % Eosinophils (%) (Auto) 2.2 0.0-8.0 % Basophils (%) (Auto) 0.5 0.0-5.0 % Neutrophils # (Auto) 4.4 1.8-7.7 K/uL Lymphocytes # (Auto) 0.4 L 1.0-4.8 K/uL Monocytes # (Auto) 0.6 0.1-1.0 K/uL Eosinophils # (Auto) 0.12 0.00-0.70 K/uL Basophils # (Auto) 0.03 0.00-0.20 K/uL Absolute Immature Granulocyte (auto 0.02 0-1 K/uL Nucleated Red Blood Cells 0.0 0.0-0.19 % Sodium Level 134 L 136-145 mmol/L Potassium Level 4.2 3.5-5.1 mmol/L Chloride Level 93 L 101-111 mmol/L Carbon Dioxide Level 28 21-32 mmol/L Blood Urea Nitrogen 50 H 7-18 mg/dL Creatinine 5.0 H 0.5-1.0 mg/dL Glomerular Filtration Rate Calc 10 >90 mL/min Random Glucose 300 H 70-105 mg/dL Total Calcium 8.5 8.5-10.1 mg/dL Magnesium Level 2.40 1.80-2.40 mg/dL Troponin I High Sensitivity 110 *H 4-50 ng/L DIAGNOSTICS / RADIOLOGY: [ ] ASSESSMENT: Suspected ACS -anginal equivalent POA Coronary artery disease with cardiac stent x4 POA Cardiac pacemaker POA Uncontrolled diabetes with hyperglycemia POA End-stage renal disease on hemodialysis POA Morbid obesity POA Hypertension POA Hyperlipidemia POA CHF POA PLAN: We will admit patient in PCCU We will start on renal dialysis diet We we will start on famotidine 20 mg IV q.48h for GI prophylaxis We will start on insulin sliding scale AC & HS with hypoglycemia protocol We will add prn medication for fever,pain,cough , nausea and vomiting We will reconcile home meds once medlist available We will trend troponin q.6 x3 Daily weight and strict I&O We will restrict fluid 1.5 L per day We will seek Cardiology consultation We will seek Nephrology consultation We will request labs in am Further orders to follow depending on above results Case discussed with attending physician and came up with above treatment and plan of care. ADVANCED CARE PLANNING 1. Which of the following were discussed? Hospice Care - No Therapeutic options - Yes Advance Directives - No Other discussions - 2. Discussed with who? Patient and Corey Humphreys 3. Voluntary nature of this service was explained to the patient? Yes 4. Amount of time spent - __25 min 5. Reviewed by Physician? (if this service was performed by NPP) Yes Patient seen and examined by me. Agree with note by ARTIST SUSPECT SEE ADDITIONAL ORDERS PER CHART DISCUSSED WITH NURSING STAFF JET FARIAS METAL HANDLER Jan 06, 2025 22:25
--- NOTE | 2025-01-06 22:38 | NUR ---
DINORA LYON AND AT BEDSIDE.
[2025-01-06] MEDS ORDERED: DEXTROSE 50%-WATER 50 ML DISP.SYRIN IV PRN (23:00)
[2025-01-06] MEDS ORDERED: NITROGLYCERIN 0.4 MG SL TAB SL PRN (23:00)
[2025-01-06] MEDS ORDERED: GLUCAGON 1MG KIT 1 MG ML IM PRN (23:00)
[2025-01-06] MEDS: FAMOTIDINE 20MG VIAL IV SCH (23:31)
--- NOTE | 2025-01-06 23:54 | NUR ---
CONSULTED DR TORRES AT THIS TIME.
[2025-01-07] VITALS (25 sets, daily range): BP systolic 87–132; BP diastolic 44–80; PULSE 61–86; RESP 8–27; TEMP 96.8–98.9; O2SAT 98
[2025-01-07 02:48] LABS: INFLUENZA TYPE A Negative For Type A (NEGATIVE); INFLUENZA TYPE B Negative For Type B (NEGATIVE)
--- NOTE | 2025-01-07 05:02 | EKG ---
[facility] Test Date: 2025-01-07 Test Time: 00:01:00 Pat Name: NICK VEE Department: EDHIP Room: 208 Gender: F Drying Tunnel Operator: [id number] : 1965 Requested By: JET FARIAS Order Number: [id number] Reading MD: Lamar Diaz Measurements Intervals [place] Rate: 79 P: 12 MT: 165 QRS: -61 QRSD: 135 T: 114 QT: 450 QTc: 518 Interpretive Statements Sinus rhythm Nonspecific IVCD with LAD LVH with secondary repolarization abnormality Anterior Q waves, possibly due to LVH Compared to ECG 01/06/2025 19:42:46 Early repolarization now present Electronically Signed On 01-07-2025 16:11:02 CDT by Lamar Diaz Please click the below link to view image of tracing.
[2025-01-07 07:22] LABS: IMMATURE GRANULOCYTE ABSOLUTE 0.02 K/uL (0-1); NUCLEATED RED BLOOD CELLS 0.0 % (0.0-0.19); PLATELET COUNT (AUTO) 157 K/uL (130-400); RED BLOOD CELL COUNT(AUTO) 3.23 MIL/uL (4.00-5.50); RED CELL DISTRIBUTION WIDTH 18.6 % (11.0-15.5); WHITE BLOOD COUNT (AUTO) 5.1 K/uL (4.8-10.8)
[2025-01-07 07:35] LABS: ASPARTATE AMINOTRANSFERASE 29.0 U/L (10-37); CREATININE 5.4 mg/dL (0.5-1.0); GLOMERULAR FILTR. RATE CALC 9.0 mL/min (>90); GLUCOSE,RANDOM 154.0 mg/dL (70-105); LDL DIRECT 30.0 mg/dL (0-99); SODIUM SERUM 136.0 mmol/L (136-145); TOTAL PROTEIN, SERUM 6.4 g/dL (6.0-8.3); UREA NITROGEN, BLOOD 54.0 mg/dL (7-18)
--- NOTE | 2025-01-07 08:09 | NUR ---
REPORT GIVEN TO ALEXUS ELIZONDO
[2025-01-07] MEDS: ISOSORBIDE MONO 30MG SR TAB PO SCH (09:00)
[2025-01-07] MEDS: CHOLECALCIFEROL 25 MCG PO SCH (09:00)
[2025-01-07] MEDS: GABAPENTIN 300 MG CAPSULE PO SCH (09:33)
[2025-01-07] MEDS ORDERED: NITR.4 SL (10:10)
[2025-01-07] MEDS ORDERED: INSU3INS3 SQ (10:10)
[2025-01-07] MEDS ORDERED: TICA90TA PO (10:10)
[2025-01-07] MEDS ORDERED: INSU500I SQ ×3 (10:10)
[2025-01-07] MEDS ORDERED: ERGO400C PO (10:10)
[2025-01-07] MEDS: 0.9%NACL 1000ML 1,000 ML IV SCH (13:00)
[2025-01-07] MEDS: ALBUMIN (HUMAN) 25% 50 ML IV.SOLN. IV SCH (13:45)
--- NOTE | 2025-01-07 13:45 | NUR ---
Dcp; HOME Pt is dialysis pt on MWF a [facility], Corey Humphreys [phone] transports to treatments. Last treatments was yesterday. Pt states helps her into and out of the tub and provides stand by assistance when bathing, dressing and grooming. Family also assists with home management and meal prep as needed. Pt has cane, walker, w/c, O2 dependent, has concentrator, shower chair. No provider or HH services. PCP is Hubert Pinzon and uses [facility] for rx needs. Pt denies need for SNF [place] at [place]. Addendum: 01/07/25 at 1357 by HUDSON HOFFMAN Amended: Links added.
--- NOTE | 2025-01-07 16:22 | PN ---
[facility] PROGRESS NOTE Date of Service: Jan 07, 2025 Time of Service: 15:50 SUBJECTIVE: This is a 59-year-old female with past medical history of diabetes, hypertension, hyperlipidemia, CHF, coronary artery disease with cardiac stent x4 and permanent pacemaker, end-stage renal disease on hemodialysis who was brought by EMS to the ED for complaints of shortness of breaths and tightness of the neck onset a week ago and it comes and goes and 2 days ago it started to come back and symptoms have been progressively getting worse so today she went for her dialysis and was able to complete the treatment and she continue to have neck tightness and shortness of breath so she decided to come to this facility for evaluation.Patient reports she was here yesterday for similar problem and was anxious and unable to manage financial components of her house and was discharged home .Patient was also here in this ER on 01/03/2025 for chest pain wall and was also discharged home with negative troponin at that time.Patient also reports she has recent cardiac stent x 2 last November 2024 and had a stent x 1 placed on 2012 and another stent x 1 placed on 2014 .Upon arrival to ER an EKG was done and showed sinus rhythm heart rate 87 with nonspecific intraventricular conduction delay with LAD. Left ventricular hypertrophy anterior Q-waves possibly due to LVH. On examination patient is awake,alert and coherent ,appears uncomfortable. Patient denies fever, chills, cough, sore throat, chest pain, palpitation, nausea, vomiting, diaphoresis and abdominal pain. Latest vital signs temperature 97.9, heart rate 79 BP 94/55 saturation 96% at 1 L nasal cannula. Labs: Hemoglobin 10, hematocrit 31, platelet count 173. Sodium 134, chloride 93, BUN 90, creatinine 5, GFR 10, glucose 300 troponin 110 to 212 . Chest x-ray result revealed no acute cardiopulmonary pathology. Mild cardiomegaly with a right-sided cardiac pacemaker. We will admit patient for further medical management. 01/07/25 Patient was evaluated at the bedside. She was hemodynamically stable. She was on oxygen 2 L via nasal cannula. She still complains of neck tightness. In addition to that she also had dry cough for a month. No other associated symptoms like fever, chills and chest pain. She has shortness of breath while walking. She wakes up in middle of the night due to shortness of breath. Her limbs are swollen and has venous ulcer in right lower limb. REVIEW OF SYSTEMS CONSTITUTIONAL: Denies fevers, chills, or night sweats. No unintentional weight loss reported. NEUROLOGICAL: Denies headache, amaurosis fugax, motor weakness, sensory def icit, vertigo/spinning sensation, gait abnormalities, or tremors. ENT: Complaints of neck tightness No hearing loss, otalgia, otorrhea, rhinitis, rhinorrhea, hoarseness, or sore throat. CARDIOVASCULAR: Denies any exertional angina, dyspnea on exertion, orthopnea, paroxysmal nocturnal dyspnea, palpitations, life-threatening arrhythmias, claudication. PULMONARY: Shortness of breaths Denies cough, phlegm/sputum, hemoptysis, pleur itic chest pain. SLEEP: Denies morning headaches, daytime somnolence or napping. Denies difficulty falling asleep, staying asleep, waking from sleep. Denies knowledge of snoring. GASTROINTESTINAL: Denies any type of dysphagia to either liquids or solids. Denies nausea, vomiting, pyrosis, early satiety, abdominal pain, diarrhea, constipation, or changes in stool consistency or caliber. Denies coffee-ground emesis, hematemesis, hematochezia, or melanotic stools. GENITOURINARY: Denies frequency, urgency, nocturia, hematuria or incontinence. ENDOCRINOLOGIC: Denies polyuria, polydipsia, polyphagia or heat/cold intolerances. PHYSICAL EXAM GENERAL APPEARANCE: The patient is awake, alert, and oriented, in no acute cardiopulmonary distress. NEUROLOGICAL: Cranial nerves II-XII grossly intact. Motor is 5/5 in bilateral upper and lower extremities proximal to distal. No sensory deficits. HEENT: Face is symmetric. Pupils are equal and reactive. Extraocular movements are intact. NECK: Supple. No JVD. No thyromegaly. No submental, submandibular, pre- /postauricular, occipital or supraclavicular lymphadenopathy. CHEST: Normal chest expansion. No Telemetry. LUNGS: Absence of any rales, rhonchi or any wheezing. CARDIOVASCULAR: Regular. S1 and S2 normal. No appreciable rubs, murmurs or gallops. ABDOMEN: Soft, nontender, and nondistended. There is no rebound, voluntary guarding, or rigidity. : Deferred. No Yusuf. EXTREMITIES: Edema 1+ bilateral lower extremities. Venous ulcer in right lower limb. Both the limbs at dry and are scaly. Good capillary refill. Vital Signs (last 8hr) Date Time Temp Pulse Resp B/P (MAP) Pulse Ox O2 Delivery O2 Flow Rate FiO2 01/07/25 15:30 64 21 118/61 96 Nasal Cannula 2.0 01/07/25 15:15 63 21 121/52 96 Nasal Cannula 2.0 01/07/25 15:00 64 19 119/53 98 Nasal Cannula 2.0 01/07/25 14:45 62 19 119/76 98 Nasal Cannula 2.0 01/07/25 14:30 62 19 110/75 99 Nasal Cannula 2.0 01/07/25 14:15 62 22 104/53 99 Nasal Cannula 2.0 01/07/25 14:00 63 20 102/49 99 Nasal Cannula 2.0 01/07/25 13:50 65 20 95/58 99 Nasal Cannula 2.0 01/07/25 13:45 64 20 87/45 99 Nasal Cannula 2.0 01/07/25 13:30 97.9 65 20 92/50 99 Nasal Cannula 2.0 01/07/25 13:00 97.9 64 20 105/63 99 Nasal Cannula 2.0 01/07/25 12:00 98.2 70 25 105/54 94 Nasal Cannula 2.0 01/07/25 11:00 73 10 112/62 94 Nasal Cannula 2.0 01/07/25 10:00 77 27 119/68 95 Nasal Cannula 2.0 01/07/25 09:00 76 8 97/53 98 Nasal Cannula 2.0 01/07/25 08:30 98 Nasal Cannula* 2 28 01/07/25 08:30 96.8 74 10 115/63 96 Nasal Cannula 2.0 01/07/25 07:55 97.3 76 23 105/54 97 Nasal Cannula* 3 32 LABS: Laboratory: Test 01/07/25 11:44 01/07/25 11:22 01/07/25 07:10 01/07/25 02:11 Range/Units Whole Blood Glucose 189 H 70-110 MG/DL Troponin I High Sensitivity 289 *H 4-50 ng/L White Blood Count 5.1 4.8-10.8 K/uL Red Blood Count 3.23 L 4.00-5.50 MIL/uL Hemoglobin 10.1 L 12.0-16.0 g/dL Hematocrit 32.3 L 36-48 % Mean Corpuscular Volume 100.0 H 79-99 fL Mean Corpuscular Hemoglobin 31.3 27.0-33.0 pg Mean Corpuscular Hemoglobin Concent 31.3 L 32.0-36.0 g/dL Red Cell Distribution Width 18.6 H 11.0-15.5 % Platelet Count 157 130-400 K/uL Mean Platelet Volume 10.6 H 7.5-10.5 fL Immature Granulocyte % (Auto) 0.4 0-1 % Neutrophils (%) (Auto) 72.2 40.0-77.0 % Lymphocytes (%) (Auto) 8.4 L 21.0-51.0 % Monocytes (%) (Auto) 12.7 3.0-13.0 % Eosinophils (%) (Auto) 5.3 0.0-8.0 % Basophils (%) (Auto) 1.0 0.0-5.0 % Neutrophils # (Auto) 3.7 1.8-7.7 K/uL Lymphocytes # (Auto) 0.4 L 1.0-4.8 K/uL Monocytes # (Auto) 0.7 0.1-1.0 K/uL Eosinophils # (Auto) 0.27 0.00-0.70 K/uL Basophils # (Auto) 0.05 0.00-0.20 K/uL Absolute Immature Granulocyte (auto 0.02 0-1 K/uL Nucleated Red Blood Cells 0.0 0.0-0.19 % Sodium Level 136 136-145 mmol/L Potassium Level 4.1 3.5-5.1 mmol/L Chloride Level 95 L 101-111 mmol/L Carbon Dioxide Level 27 21-32 mmol/L Blood Urea Nitrogen 54 H 7-18 mg/dL Creatinine 5.4 H 0.5-1.0 mg/dL Glomerular Filtration Rate Calc 9 >90 mL/min Random Glucose 154 H 70-105 mg/dL Total Calcium 8.0 L 8.5-10.1 mg/dL Magnesium Level 2.40 1.80-2.40 mg/dL Total Bilirubin 1.5 H 0.2-1.0 mg/dL Aspartate Amino Transf (AST/SGOT) 29 10-37 U/L Alanine Aminotransferase (ALT/SGPT) 30 12-78 U/L Alkaline Phosphatase 270 H 50-136 U/L B-Type Natriuretic Peptide 4570 H 0-100 pg/mL Total Protein 6.4 6.0-8.3 g/dL Albumin 2.5 L 3.5-5.0 g/dL Triglycerides Level 55 30-200 mg/dL Cholesterol Level 80 # <200 mg/dL LDL Cholesterol 30 0-99 mg/dL HDL Cholesterol 35 35-85 mg/dL Influenza Type A Antigen Negative For Type A NEGATIVE Influenza Type B Antigen Negative For Type B NEGATIVE SARS-CoV-2 Antigen (Rapid) PRESUMPTIVE NEGATIVE NEGATIVE Test 01/06/25 14:24 Range/Units Hemoglobin A1c 7.6 H 4.0-6.0 % Estimated Average Glucose (eAG) 171 H 70-126 mg/dL Current Medications Medications (Trade) Dose Ordered Sig/Mark Route PRN Reason Start Time Stop Time Status Last Admin Dose Admin Acetaminophen (TYLenol 325MG TAB) 650 mg Q4H PRN PO MILD PAIN (1-3) 01/06/25 23:00 02/05/25 22:59 Acetaminophen (TYLenol 325MG TAB) 650 mg Q6H PRN PO TEMPERATURE GREATER THAN 101.5 01/06/25 23:00 02/05/25 22:59 Albumin Human (Albumin (Human) 25%) 100 ml ONCE IV 01/07/25 13:30 01/08/25 13:29 01/07/25 13:45 100 ML Apixaban (EliquIS) 5 mg BID PO 01/07/25 09:00 02/06/25 08:59 01/07/25 09:33 5 MG Atorvastatin Calcium (LIPItor 40MG) 40 mg HS PO 01/07/25 21:00 02/06/25 20:59 Buspirone HCl (BUspar) 5 mg BID PO 01/07/25 09:00 02/06/25 08:59 01/07/25 09:33 5 MG Dextrose (D50w) 50 ml AD PRN IV HYPOGLYCEMIA PROTOCOL 01/06/25 23:00 02/05/25 22:59 Famotidine (Pepcid 20mg Vial) 20 mg Q48H IV 01/06/25 23:00 02/05/25 22:59 01/06/25 23:31 20 MG Gabapentin (NEURontin 300 MG CAP) 300 mg DAILY PO 01/07/25 09:00 02/06/25 08:59 01/07/25 09:33 300 MG Glucagon (Glucagon 1mg Kit) 1 mg AD PRN IM HYPOGLYCEMIA PROTOCOL 01/06/25 23:00 02/05/25 22:59 Home Med (Home Medication) DAILY PO 01/07/25 09:00 02/06/25 08:59 Home Med (Home Medication) HS PO 01/07/25 21:00 02/06/25 20:59 Insulin Human Regular (humuLIN R 100 UNIT/ML 3ML) INSULIN SLIDING SCAL... ACHS SQ 01/07/25 07:30 02/06/25 07:29 01/07/25 11:59 2 UNIT Isosorbide Mononitrate (Imdur 30mg Sr) 30 mg DAILY PO 01/07/25 09:00 02/06/25 08:59 Metoprolol Succinate (TopROL XL) 50 mg AM PO 01/07/25 09:00 02/06/25 08:59 Midodrine (PROAMatine 5 MG TABLET) 5 mg ONCE PRN PO hypotension 01/07/25 00:30 02/06/25 00:29 Midodrine (PROAMatine 5 MG TABLET) 10 mg TID PO 01/07/25 09:30 02/06/25 09:29 01/07/25 14:20 10 MG Nitroglycerin (Nitrostat) 0.4 mg PROTOCOL PRN SL CHEST PAIN 01/06/25 23:00 02/05/25 22:59 Ondansetron HCl (zoFRAN 4MG INJ) 4 mg Q6H PRN IV NAUSEA/VOMITING 01/06/25 23:00 01/07/25 07:59 DC 01/07/25 05:10 4 MG Sodium Chloride 1,000 ml @ 0 mls/hr ONCE IV 01/07/25 13:00 02/06/25 12:59 Ticagrelor (BRILinta) 90 mg BID PO 01/07/25 09:00 02/06/25 08:59 01/07/25 09:33 90 MG DIAGNOSTICS / RADIOLOGY: [facility] [address] [place] [id number] IMAGING REPORT Signed PATIENT: NICK VEETA MR#: [id number] : 1965 SEX: F AGE: 59 LOCATION: [facility] ORDER 09 STATUS: REG ER REPORT#: [id number] SERVICE 08 REASON: CHEST PAIN/SOB HISTORY OF HEMODIALYSIS ORDERING PHYSICIAN: CARLOS PALMA NP PROCEDURE: CXR1VW - CHEST 1VW EXAM: XR Chest, 1 View. CLINICAL HISTORY: 59-year-old female with chest pain and shortness of breath. COMPARISON: XR Chest from 01/03/2025 at 02/03/2025 11:15 AM. FINDINGS: LUNGS: The lungs are clear. No consolidation. PLEURAL SPACES: No pleural effusion or pneumothorax. HEART: The heart size is mildly enlarged, indicating mild cardiomegaly. A right-sided cardiac pacemaker is present. BONES: No acute osseous abnormality. IMPRESSION: 1. No acute cardiopulmonary pathology. 2. Mild cardiomegaly with a right-sided cardiac pacemaker. 3. Findings similar to prior XR Chest from 01/03/2025 at 11:15 AM. /[place] DICTATED BY: HECTOR RICKS MD DATE: 01/06/252205 ELECTRONICALLY SIGNED BY: HECTOR RICKS MD DATE: 01/06/252205 ASSESSMENT: Suspected ACS, POA Severe Peripheral artery disease Type 2 Diabetes Mellitus, POA Coronary artery disease with cardiac stent x4 POA Cardiac pacemaker POA Uncontrolled diabetes with hyperglycemia POA End-stage renal disease on hemodialysis POA Morbid obesity POA Hypertension POA Hyperlipidemia POA CHF POA PLAN: Suspected ACS * Presentation with shortness of breath and tightness of neck * There has been gradual rise in serum troponin levels 110<212<306. * EKG showed nonspecific IVCD with LAD;Anterior Q waves, possibly due to LVH * QTC [id number] which is prolonged, Zofran was stopped * Patient currently on Ticagrelor 90 mg b.i.d., metoprolol succinate 50 mg, Eliquis 5 mg b.i.d. and isosorbide mononitrate 30 mg per oral daily. * BNP level is 4570. * Continuous cardiac monitoring * Cardiology has been consulted and awaiting further recommendations Severe Peripheral artery disease * Bilateral lower extremity arterial Doppler showed: There are biphasic wavefo wallace seen in all the arteries of bilateral lower extremities, with the exception of the bilateral distal posterior tibial arteries, which are both occluded (100% stenosis). * There is mild to moderate atherosclerosis seen in the arteries of the bilateral lower extremities. 09/30/23 * Venous ulcer in right lower limb * Bilateral limbs are edematous and scaly. * Venous Doppler ultrasound has been ordered * Regular foot checks and pulse exams at each visit congruent * Optimize BP, lipids and blood glucose level End-stage renal disease on hemodialysis * Her creatinine level during presentation was 5.0 and has trended up to 5.4 today. 01/07/25 * Her dialysis days are Monday, Monday and Monday * Avoid nephrotoxic agents like NSAIDs, IV contrast, aminoglycosides * Transfuse only if symptomatic or Hb been less than 7 grams/dl * Nephrology has been consulted for further recommendations and management. * Resume outpatient dialysis orders at discharge Type 2 Diabetes Mellitus * Her HbA1c level is 7.6 and glucose level during presentation was 144 * Patient is on sliding scale insulin * No current evidence of acute hyperglycemia, DKA or HHS * Advise the patient on limiting sugars, refined carbs saturated fat * Encourage fiber rich foods and person control * Continue atorvastatin 40 mg per oral daily * Reinforce medication adherence, diet log and glucose monitoring Supportive measures * Continue monitoring the morning labs CBC and BMP * DVT and GI prophylaxis as recommended * Closely follow up the patient ATTESTATION BY PHYSICIAN I have seen and examined the patient. I reviewed the documentation, medical decision making, and treatment plan as noted by the resident provider above. I agree with the findings and plan of care. LORIE MEJIA MD [facility] MD Jan 07, 2025 16:22
--- NOTE | 2025-01-07 18:04 | NUR ---
REPORT RECEIVED FROM CARO VAUGHAN. PATIENT HAS A RIGHT 20G ON FOREARM, LAVA, DIALYSIS MWF, HD TODAY 2L/HRS, TRANSFERRED BY WHEELCHAIR. BED IN LOW POSITION, CALL LIGHT WITHIN REACH AND FAMILY AT BEDSIDE. PATIENT NOW IN 202 WILL CONTINUE CARE FROM THIS POINT.
[2025-01-07] MEDS: guaiFENesin-DM 200/20MG 10ML PO PRN (18:13)
[2025-01-07] MEDS: guaiFENesin-DM 200/20MG 10ML ONE (18:14)
[2025-01-07] MEDS: VADADUSTAT PO SCH (20:16)
[2025-01-08] VITALS (21 sets, daily range): BP systolic 102–129; BP diastolic 39–78; PULSE 62–115; RESP 16–18; TEMP 96.8–98.5; O2SAT 95
[2025-01-08 04:37] LABS: IMMATURE GRANULOCYTE ABSOLUTE 0.02 K/uL (0-1); NUCLEATED RED BLOOD CELLS 0.7 % (0.0-0.19); PLATELET COUNT (AUTO) 179 K/uL (130-400); RED BLOOD CELL COUNT(AUTO) 3.10 MIL/uL (4.00-5.50); RED CELL DISTRIBUTION WIDTH 18.8 % (11.0-15.5); WHITE BLOOD COUNT (AUTO) 7.2 K/uL (4.8-10.8)
[2025-01-08 05:13] LABS: CREATININE 5.0 mg/dL (0.5-1.0); GLOMERULAR FILTR. RATE CALC 10.0 mL/min (>90); GLUCOSE,RANDOM 101.0 mg/dL (70-105); PHOSPHORUS 5.2 mg/dL (2.5-4.9); SODIUM SERUM 137.0 mmol/L (136-145); UREA NITROGEN, BLOOD 51.0 mg/dL (7-18)
--- NOTE | 2025-01-08 06:20 | PN ---
DIALYSIS NOTE SUBJECTIVE: The patient was seen and evaluated on hemodialysis, prescription noted. OBJECTIVE: VITAL SIGNS: Blood pressure 132/80. CARDIOVASCULAR: Regular. LUNGS: Coarse. IMPRESSION: End-stage renal disease. PLAN: The patient will continue with maximum ultrafiltration as blood pressure allows. I did discuss with the primary team. TID: [id number] RECEIPT: [id number]
--- NOTE | 2025-01-08 06:32 | CONS ---
REASON FOR CONSULTATION: Volume overload, respiratory distress, coronary artery disease, ESRD. HISTORY OF PRESENT ILLNESS: A 59-year-old female, who was just recently discharged from the hospital. She has a history of diabetes mellitus and hypertension. She has a history of coronary artery disease, status post recent coronary catheterization with intervention. She has a pacemaker placed. The patient has a history of end-stage renal disease, on dialysis three times a week. The patient did receive dialysis on 01/06/2025 as an outpatient with 3 L of ultrafiltration. She presented to the hospital with increasing shortness of breath and orthopnea. The patient with significant volume overload. She has a history of noncompliance with her general medical care including her fluid restriction and the patient is being seen for an urgent dialysis. PAST MEDICAL HISTORY: Diabetes mellitus, hypertension, coronary artery disease, and CHF. PAST SURGICAL HISTORY: AV access, pacemaker, and cholecystectomy. SOCIAL HISTORY: She lives independently. There is no tobacco use. FAMILY HISTORY: There is no renal disease in family. ALLERGIES: There are no allergies. MEDICATIONS: Medications are all noted. REVIEW OF SYSTEMS: GENERAL: She is feeling weak and tired. HEENT: No change in vision. No change in hearing. CARDIOVASCULAR: There are no current chest pains or palpitations. PULMONARY: As described above. GASTROINTESTINAL: She is tolerating a diet. MUSCULOSKELETAL: Complains of weakness. NEUROLOGIC: No seizures or focal deficits. PSYCHIATRIC: No history of hallucinations or psychosis. ENDOCRINE: Diabetes mellitus. No history of thyroid disease. HEME: History of anemia. No history of malignancy. PHYSICAL EXAMINATION: VITAL SIGNS: Blood pressure is 132/80, pulse 60, she is afebrile. GENERAL: Chronically old female, much older than appearing. HEENT: Head is atraumatic. Pupils are equal, round, and reactive to light. Oropharynx is without exudate. Nares clear. NECK: There is no JVP. There is no thyromegaly. No masses. CARDIOVASCULAR: Regular. There is no S3 or S4 gallop. LUNGS: Coarse with equal thoracic movement. ABDOMEN: Soft, nondistended, and nontender. EXTREMITIES: Reveal no clubbing, no cyanosis. NEUROLOGICAL: She is awake. She is alert. She is oriented. SKIN: Reveals no rashes onto her back. BACK: There is no CVA tenderness and no back deformities seen. LABORATORY DATA: Hematocrit is 32, white blood cell count is 5000, sodium 136, potassium 4, BUN 54, creatinine 4, and albumin 2.5. IMPRESSION: * Coronary artery disease. * Respiratory failure with volume overload. * End stage renal disease. * Hypotension. PLAN: The patient with significant volume overload despite the dialysis on 01/06/2025. We will proceed with dialysis the day of this consultation. We will continue with maximal ultrafiltration as blood pressure allows. We will add midodrine 10 mg t.i.d. to the medical regimen for her underlying hypotension and we will continue to follow closely. I did discuss with the patient in regards to her noncompliance with her general medical care including the fluid restrictions. She does have significant anemia. The patient will be started on Epogen with dialysis. All labs including phosphorus will be checked in the morning. We will continue to follow closely. The patient with multiple questions, all of which were answered. TID: [id number] RECEIPT: [id number]
--- NOTE | 2025-01-08 11:23 | PN ---
[facility] PROGRESS NOTE Date of Service: Jan 08, 2025 Time of Service: 11:16 SUBJECTIVE: This is a 59-year-old female with past medical history of diabetes, hypertension, hyperlipidemia, CHF, coronary artery disease with cardiac stent x4 and permanent pacemaker, end-stage renal disease on hemodialysis who was brought by EMS to the ED for complaints of shortness of breaths and tightness of the neck onset a week ago and it comes and goes and 2 days ago it started to come back and symptoms have been progressively getting worse so today she went for her dialysis and was able to complete the treatment and she continue to have neck tightness and shortness of breath so she decided to come to this facility for evaluation.Patient reports she was here yesterday for similar problem and was anxious and unable to manage financial components of her house and was discharged home .Patient was also here in this ER on 01/03/2025 for chest pain wall and was also discharged home with negative troponin at that time.Patient also reports she has recent cardiac stent x 2 last November 2024 and had a stent x 1 placed on 2012 and another stent x 1 placed on 2014 .Upon arrival to ER an EKG was done and showed sinus rhythm heart rate 87 with nonspecific intraventricular conduction delay with LAD. Left ventricular hypertrophy anterior Q-waves possibly due to LVH. On examination patient is awake,alert and coherent ,appears uncomfortable. Patient denies fever, chills, cough, sore throat, chest pain, palpitation, nausea, vomiting, diaphoresis and abdominal pain. Latest vital signs temperature 97.9, heart rate 79 BP 94/55 saturation 96% at 1 L nasal cannula. Labs: Hemoglobin 10, hematocrit 31, platelet count 173. Sodium 134, chloride 93, BUN 90, creatinine 5, GFR 10, glucose 300 troponin 110 to 212 . Chest x-ray result revealed no acute cardiopulmonary pathology. Mild cardiomegaly with a right-sided cardiac pacemaker. We will admit patient for further medical management. 01/07/25 Patient was evaluated at the bedside. She was hemodynamically stable. She was on oxygen 2 L via nasal cannula. She still complains of neck tightness. In addition to that she also had dry cough for a month. No other associated symptoms like fever, chills and chest pain. She has shortness of breath while walking. She wakes up in middle of the night due to shortness of breath. Her limbs are swollen and has venous ulcer in right lower limb. 01/08/25 Patient was evaluated at the bedside. She was hemodynamically stable. She was on oxygen 2 L via nasal cannula. She still complaints of dry cough cough, she had it whole night. She feels short of breath even after minimal walking. She was planned for Bilateral venous Doppler examination, which she declined. She has been planned for Echocardiogram today. REVIEW OF SYSTEMS CONSTITUTIONAL: Denies fevers, chills, or night sweats. No unintentional weight loss reported. NEUROLOGICAL: Denies headache, amaurosis fugax, motor weakness, sensory deficit, vertigo/spinning sensation, gait abnormalities, or tremors. ENT: Complaints of neck tightness No hearing loss, otalgia, otorrhea, rhinitis, rhinorrhea, hoarseness, or sore throat. CARDIOVASCULAR: Denies any exertional angina, dyspnea on exertion, orthopnea, paroxysmal nocturnal dyspnea, palpitations, life-threatening arrhythmias, claudication. PULMONARY: Shortness of breaths, Dry Cough, Denies phlegm/sputum, hemoptysis, pleuritic chest pain. SLEEP: Denies morning headaches, daytime somnolence or napping. Denies difficulty falling asleep, staying asleep, waking from sleep. Denies knowledge of snoring. GASTROINTESTINAL: Denies any type of dysphagia to either liquids or solids. Denies nausea, vomiting, pyrosis, early satiety, abdominal pain, diarrhea, constipation, or changes in stool consistency or caliber. Denies coffee-ground emesis, hematemesis, hematochezia, or melanotic stools. GENITOURINARY: Denies frequency, urgency, nocturia, hematuria or incontinence. ENDOCRINOLOGIC: Denies polyuria, polydipsia, polyphagia or heat/cold intolerances. PHYSICAL EXAM GENERAL APPEARANCE: The patient is awake, alert, and oriented, in no acute cardiopulmonary distress. NEUROLOGICAL: Cranial nerves II-XII grossly intact. Motor is 5/5 in bilateral upper and lower extremities proximal to distal. No sensory deficits. HEENT: Face is symmetric. Pupils are equal and reactive. Extraocular movements are intact. NECK: Supple. No JVD. No thyromegaly. No submental, submandibular, pre- /postauricular, occipital or supraclavicular lymphadenopathy. CHEST: Normal chest expansion. No Telemetry. LUNGS: Absence of any rales, rhonchi or any wheezing. CARDIOVASCULAR: Regular. S1 and S2 normal. No appreciable rubs, murmurs or gallops. ABDOMEN: Soft, nontender, and nondistended. There is no rebound, voluntary guarding, or rigidity. : Deferred. No Yusuf. EXTREMITIES: Wound dressings are intact. Edema 1+ bilateral lower extremities. Venous ulcer in right lower limb. Both the limbs at dry and are scaly. Good capillary refill. Vital Signs (last 8hr) Date Time Temp Pulse Resp B/P (MAP) Pulse Ox O2 Delivery O2 Flow Rate FiO2 01/08/25 07:53 98.2 115 18 113/53 95 Nasal Cannula 01/08/25 03:57 98.4 69 18 108/59 93 Nasal Cannula 2.0 LABS: Laboratory: Test 01/08/25 05:09 01/08/25 04:19 01/07/25 11:22 01/07/25 07:10 Range/Units Whole Blood Glucose 93 70-110 MG/DL White Blood Count 7.2 # 4.8-10.8 K/uL Red Blood Count 3.10 L 4.00-5.50 MIL/uL Hemoglobin 9.8 L 12.0-16.0 g/dL Hematocrit 30.5 L 36-48 % Mean Corpuscular Volume 98.4 79-99 fL Mean Corpuscular Hemoglobin 31.6 27.0-33.0 pg Mean Corpuscular Hemoglobin Concent 32.1 32.0-36.0 g/dL Red Cell Distribution Width 18.8 H 11.0-15.5 % Platelet Count 179 130-400 K/uL Mean Platelet Volume 10.7 H 7.5-10.5 fL Immature Granulocyte % (Auto) 0.3 0-1 % Neutrophils (%) (Auto) 70.6 40.0-77.0 % Lymphocytes (%) (Auto) 8.7 L 21.0-51.0 % Monocytes (%) (Auto) 11.2 3.0-13.0 % Eosinophils (%) (Auto) 8.4 H 0.0-8.0 % Basophils (%) (Auto) 0.8 0.0-5.0 % Neutrophils # (Auto) 5.1 1.8-7.7 K/uL Lymphocytes # (Auto) 0.6 L 1.0-4.8 K/uL Monocytes # (Auto) 0.8 0.1-1.0 K/uL Eosinophils # (Auto) 0.61 0.00-0.70 K/uL Basophils # (Auto) 0.06 0.00-0.20 K/uL Absolute Immature Granulocyte (auto 0.02 0-1 K/uL Nucleated Red Blood Cells 0.7 H 0.0-0.19 % Sodium Level 137 136-145 mmol/L Potassium Level 4.3 3.5-5.1 mmol/L Chloride Level 96 L 101-111 mmol/L Carbon Dioxide Level 27 21-32 mmol/L Blood Urea Nitrogen 51 H 7-18 mg/dL Creatinine 5.0 H 0.5-1.0 mg/dL Glomerular Filtration Rate Calc 10 >90 mL/min Random Glucose 101 70-105 mg/dL Total Calcium 8.8 8.5-10.1 mg/dL Phosphorus Level 5.2 H 2.5-4.9 mg/dL Troponin I High Sensitivity 289 *H 4-50 ng/L Magnesium Level 2.40 1.80-2.40 mg/dL Total Bilirubin 1.5 H 0.2-1.0 mg/dL Aspartate Amino Transf (AST/SGOT) 29 10-37 U/L Alanine Aminotransferase (ALT/SGPT) 30 12-78 U/L Alkaline Phosphatase 270 H 50-136 U/L B-Type Natriuretic Peptide 4570 H 0-100 pg/mL Total Protein 6.4 6.0-8.3 g/dL Albumin 2.5 L 3.5-5.0 g/dL Triglycerides Level 55 30-200 mg/dL Cholesterol Level 80 # <200 mg/dL LDL Cholesterol 30 0-99 mg/dL HDL Cholesterol 35 35-85 mg/dL Test 01/07/25 02:11 01/06/25 14:24 Range/Units Influenza Type A Antigen Negative For Type A NEGATIVE Influenza Type B Antigen Negative For Type B NEGATIVE SARS-CoV-2 Antigen (Rapid) PRESUMPTIVE NEGATIVE NEGATIVE Hemoglobin A1c 7.6 H 4.0-6.0 % Estimated Average Glucose (eAG) 171 H 70-126 mg/dL Current Medications Medications (Trade) Dose Ordered Sig/Mark Route PRN Reason Start Time Stop Time Status Last Admin Dose Admin Acetaminophen (TYLenol 325MG TAB) 650 mg Q4H PRN PO MILD PAIN (1-3) 10/6/25 23:00 02/05/25 22:59 01/07/25 18:47 650 MG Acetaminophen (TYLenol 325MG TAB) 650 mg Q6H PRN PO TEMPERATURE GREATER THAN 101.5 01/06/25 23:00 02/05/25 22:59 Albumin Human (Albumin (Human) 25%) 100 ml ONCE IV 01/07/25 13:30 01/08/25 13:29 01/07/25 13:45 100 ML Apixaban (EliquIS) 5 mg BID PO 01/07/25 09:00 02/06/25 08:59 01/08/25 08:22 5 MG Atorvastatin Calcium (LIPItor 40MG) 40 mg HS PO 01/07/25 21:00 02/06/25 20:59 01/07/25 20:17 40 MG Buspirone HCl (BUspar) 5 mg BID PO 01/07/25 09:00 02/06/25 08:59 01/08/25 08:22 5 MG Dextrose (D50w) 50 ml AD PRN IV HYPOGLYCEMIA PROTOCOL 01/06/25 23:00 02/05/25 22:59 Epoetin Hilario-epbx (Retacrit) 10,000 unit QMOWEFR SQ 01/08/25 09:00 02/07/25 08:59 Famotidine (Pepcid 20mg Vial) 20 mg Q48H IV 01/06/25 23:00 02/05/25 22:59 01/06/25 23:31 20 MG Gabapentin (NEURontin 300 MG CAP) 300 mg DAILY PO 01/07/25 09:00 02/06/25 08:59 01/08/25 08:23 300 MG Glucagon (Glucagon 1mg Kit) 1 mg AD PRN IM HYPOGLYCEMIA PROTOCOL 01/06/25 23:00 02/05/25 22:59 Guaifenesin/ Dextromethorphan (RobiTUSSin DM 200/20MG 10ML) 10 ml Q6H PRN PO COUGH 01/07/25 18:00 02/06/25 17:59 01/08/25 08:19 10 ML Home Med (Home Medication) DAILY PO 01/07/25 09:00 02/06/25 08:59 Home Med (Home Medication) HS PO 01/07/25 21:00 02/06/25 20:59 01/07/25 20:16 3 EACH Insulin Human Regular (humuLIN R 100 UNIT/ML 3ML) INSULIN SLIDING SCAL... ACHS SQ 01/07/25 07:30 02/06/25 07:29 01/07/25 11:59 2 UNIT Isosorbide Mononitrate (Imdur 30mg Sr) 30 mg DAILY PO 01/07/25 09:00 02/06/25 08:59 01/08/25 08:23 30 MG Metoprolol Succinate (TopROL XL) 50 mg AM PO 01/07/25 09:00 02/06/25 08:59 01/08/25 08:23 50 MG Midodrine (PROAMatine 5 MG TABLET) 5 mg ONCE PRN PO hypotension 01/07/25 00:30 01/07/25 16:26 DC Midodrine (PROAMatine 5 MG TABLET) 10 mg TID PO 01/07/25 09:30 02/06/25 09:29 01/08/25 08:23 10 MG Nitroglycerin (Nitrostat) 0.4 mg PROTOCOL PRN SL CHEST PAIN 01/06/25 23:00 02/05/25 22:59 Ondansetron HCl (zoFRAN 4MG INJ) 4 mg Q6H PRN IV NAUSEA/VOMITING 01/06/25 23:00 01/07/25 07:59 DC 01/07/25 05:10 4 MG Sodium Chloride 1,000 ml @ 0 mls/hr ONCE IV 01/07/25 13:00 02/06/25 12:59 Ticagrelor (BRILinta) 90 mg BID PO 01/07/25 09:00 02/06/25 08:59 01/08/25 08:23 90 MG DIAGNOSTICS / RADIOLOGY: [ ] ASSESSMENT: Suspected ACS, POA HFrEF (LVEF: 20-25% by echo done on 11/07/2024) Severe Peripheral artery disease Type 2 Diabetes Mellitus, POA Coronary artery disease with cardiac stent x4 POA Cardiac pacemaker POA Uncontrolled diabetes with hyperglycemia POA End-stage renal disease on hemodialysis POA Morbid obesity POA Hypertension POA Hyperlipidemia POA CHF POA PLAN: Suspected ACS * Presentation with shortness of breath and tightness of neck * There has been gradual rise in serum troponin levels 110<212<306. * EKG showed nonspecific IVCD with LAD;Anterior Q waves, possibly due to LVH * QTC [id number] which is prolonged, Zofran was stopped * Patient currently on Ticagrelor 90 mg b.i.d., metoprolol succinate 50 mg, Eliquis 5 mg b.i.d. and isosorbide mononitrate 30 mg per oral daily. * Continuous cardiac monitoring * Cardiology has been consulted and awaiting further recommendations HFrEF (LVEF: 20-25% by echo done on 11/07/2024) * Patient complaints of shortness of breath, she is on 2L of Oxygen. She has oxygen support in home as well. * Her BNP level is 4570. * Echocardiogram has been ordered to rule out pericardial effusion. 01/08/25 * She is not a candidate for GDMT with ACEI/ARB/ARNI therapy due to her borderline blood pressures or aldosterone antagonist therapy due to her advanced renal dysfunction. * Please record strict I/O's, daily weights, and restrict fluids to less than 1.5L/day. Severe Peripheral artery disease * Bilateral lower extremity arterial Doppler showed: There are biphasic waveforms seen in all the arteries of bilateral lower extremities, with the exception of the bilateral distal posterior tibial arteries, which are both o ccluded (100% stenosis). * There is mild to moderate atherosclerosis seen in the arteries of the bilateral lower extremities. 09/30/23 * Venous ulcer in right lower limb * Bilateral limbs are edematous and scaly. * Venous Doppler ultrasound has been ordered * Regular foot checks and pulse exams at each visit congruent * Optimize BP, lipids and blood glucose level * Patient Declined Bilateral venous Doppler examination because she says she feels alot of pain during the process. She was counseled regarding the need of the procedure, still refused to undergo the examination. 01/08/30 End-stage renal disease on hemodialysis * Creatinine level today is 5.0, she underwent dialysis yesterday: Net ultrafiltration 2.0L removed. 01/08/25 * As per the Nephrology: she has been started on Retacrit 10,000 unit. * Her creatinine level during presentation was 5.0 and has trended up to 5.4 today. 01/07/25 * Her dialysis days are Monday, Monday and Monday * Avoid nephrotoxic agents like NSAIDs, IV contrast, aminoglycosides * Transfuse only if symptomatic or Hb been less than 7 grams/dl * Nephrology has been consulted for further recommendations and management. * Resume outpatient dialysis orders at discharge Type 2 Diabetes Mellitus * Her HbA1c level is 7.6 and glucose level during presentation was 144 * Patient is on sliding scale insulin * No current evidence of acute hyperglycemia, DKA or HHS * Advise the patient on limiting sugars, refined carbs saturated fat * Encourage fiber rich foods and person control * Continue atorvastatin 40 mg per oral daily * Reinforce medication adherence, diet log and glucose monitoring Supportive measures * Continue monitoring the morning labs CBC and BMP * DVT and GI prophylaxis as recommended * Closely follow up the patient ATTESTATION BY PHYSICIAN I have seen and examined the patient. I reviewed the documentation, medical decision making, and treatment plan as noted by the resident physician above. I agree with the findings and plan of care. LORIE MEJIA MD [facility],QUITA VALDEZ Jan 08, 2025 11:23
--- NOTE | 2025-01-08 14:12 | NUR ---
[facility] Consult: Patient assessed by wound healing team. See wound assessment. Assessment and recommendations provided to primary nurse. Education provided. Addendum: 01/08/25 at 1510 by ESTER WILLIAM RN RN/ Amended: Links added.
[2025-01-08] MEDS: EPOETIN ALFA-EPBX (NON-ESRD) 10,000 UNIT/ML VIAL SQ SCH (17:06)
--- NOTE | 2025-01-08 17:30 | CONS ---
CONSULTATION NOTE Date of Service: Jan 08, 2025 Reason for Consultation: [ ] Requesting Physician: [ ] HISTORY OF PRESENT ILLNESS: [ ] REVIEW OF SYSTEMS CONSTITUTIONAL: Denies fever, chills, or fatigue. HEAD/FACE: No signs of trauma. EENT: Denies eye pain, blurred vision, double vision, or light sensitivity. RESPIRATORY: Denies shortness of breath, cough, wheezing CARDIOVASCULAR: Denies chest pain, palpitation, syncope GASTROINTESTINAL/ABDOMINAL: Denies abdominal pain, constipation, diarrhea, nausea or vomiting GENITOURINARY: Denies dysuria or hematuria. MUSCULOSKELETAL: Denies joint pain, tenderness, or trauma. INTEGUMENTARY: Denies rash or itchiness NEUROLOGICAL/PSYCH: Denies anxiety, depression, heat or cold intolerance. PAST MEDICAL HISTORY: [ ] PAST SURGICAL HISTORY: [ ] PAST SOCIAL HISTORY: [ ] FAMILY HISTORY: [ ] Coded Allergies: No Known Allergies (Unverified Allergy, 11/14/12) PHYSICAL EXAM EYES: Anicteric. Pupils equal and reactive. HENT: No oral thrush seen, moist Oral mucosa NECK: Supple, no JVD or thyromegaly. LUNGS: Good air entry. No rales, no rhonchi. CARDIOVASCULAR: S1, S2 regular. No murmur heard. ABDOMEN: Soft, non tender, bowel sounds present, no organomegaly CENTRAL NERVOUS SYSTEM: Awake, alert, oriented x 3. No focal deficits. SKIN: No rashes, no swelling. LYMPHATICS: No peripheral lymphadenopathy MUSCULOSKELETAL: No joint swelling, erythema or tenderness. EXTREMITIES: No cyanosis or clubbing BACK: No deformity, no pressure ulcer. GENITOURINARY: No dysuria or hematuria Vital Sign (Last 24 Hours) 01/07/25 01/08/25 20:00 16:16 Temp 98.1 Pulse 78 Resp 18 B/P (MAP) 106/55 Pulse Ox 98 O2 Delivery Nasal Cannula O2 Flow Rate 2.0 FiO2 28 Intake & Output (last 24hrs) 01/07/25 01/07/25 01/08/25 15:00 23:00 07:00 Intake Total 150 ml 200 ml Output Total 2000 ml Balance 150 ml -1800 ml LABS: Laboratory: Test 01/08/25 15:14 01/08/25 04:19 01/07/25 11:22 01/07/25 07:10 Range/Units Whole Blood Glucose 230 #H 70-110 MG/DL White Blood Count 7.2 # 4.8-10.8 K/uL Red Blood Count 3.10 L 4.00-5.50 MIL/uL Hemoglobin 9.8 L 12.0-16.0 g/dL Hematocrit 30.5 L 36-48 % Mean Corpuscular Volume 98.4 79-99 fL Mean Corpuscular Hemoglobin 31.6 27.0-33.0 pg Mean Corpuscular Hemoglobin Concent 32.1 32.0-36.0 g/dL Red Cell Distribution Width 18.8 H 11.0-15.5 % Platelet Count 179 130-400 K/uL Mean Platelet Volume 10.7 H 7.5-10.5 fL Immature Granulocyte % (Auto) 0.3 0-1 % Neutrophils (%) (Auto) 70.6 40.0-77.0 % Lymphocytes (%) (Auto) 8.7 L 21.0-51.0 % Monocytes (%) (Auto) 11.2 3.0-13.0 % Eosinophils (%) (Auto) 8.4 H 0.0-8.0 % Basophils (%) (Auto) 0.8 0.0-5.0 % Neutrophils # (Auto) 5.1 1.8-7.7 K/uL Lymphocytes # (Auto) 0.6 L 1.0-4.8 K/uL Monocytes # (Auto) 0.8 0.1-1.0 K/uL Eosinophils # (Auto) 0.61 0.00-0.70 K/uL Basophils # (Auto) 0.06 0.00-0.20 K/uL Absolute Immature Granulocyte (auto 0.02 0-1 K/uL Nucleated Red Blood Cells 0.7 H 0.0-0.19 % Sodium Level 137 136-145 mmol/L Potassium Level 4.3 3.5-5.1 mmol/L Chloride Level 96 L 101-111 mmol/L Carbon Dioxide Level 27 21-32 mmol/L Blood Urea Nitrogen 51 H 7-18 mg/dL Creatinine 5.0 H 0.5-1.0 mg/dL Glomerular Filtration Rate Calc 10 >90 mL/min Random Glucose 101 70-105 mg/dL Total Calcium 8.8 8.5-10.1 mg/dL Phosphorus Level 5.2 H 2.5-4.9 mg/dL Troponin I High Sensitivity 289 *H 4-50 ng/L Magnesium Level 2.40 1.80-2.40 mg/dL Total Bilirubin 1.5 H 0.2-1.0 mg/dL Aspartate Amino Transf (AST/SGOT) 29 10-37 U/L Alanine Aminotransferase (ALT/SGPT) 30 12-78 U/L Alkaline Phosphatase 270 H 50-136 U/L B-Type Natriuretic Peptide 4570 H 0-100 pg/mL Total Protein 6.4 6.0-8.3 g/dL Albumin 2.5 L 3.5-5.0 g/dL Triglycerides Level 55 30-200 mg/dL Cholesterol Level 80 # <200 mg/dL LDL Cholesterol 30 0-99 mg/dL HDL Cholesterol 35 35-85 mg/dL Test 01/07/25 02:11 Range/Units Influenza Type A Antigen Negative For Type A NEGATIVE Influenza Type B Antigen Negative For Type B NEGATIVE SARS-CoV-2 Antigen (Rapid) PRESUMPTIVE NEGATIVE NEGATIVE DIAGNOSTICS / RADIOLOGY: [ ] PROBLEM LIST : Medical Problems: Chronic Venous Hypertension with ulcer of right lower leg Non pressure chronic ulcer of right lower leg PLAN: Wound care to right lower leg- Cleanse with normal saline, pat dry, apply medi honey, cover with gauze, secure with tape change daily and prn Keep wounds clean and dry Offloading/reposition q 2 hours Comorbidities per primary care team Further Management per hospital course. Thank You for the consult and allowing us to participate in the care of this patient. ATTESTATION BY PHYSICIAN I have seen and examined the patient. I reviewed the documentation, medical decision making, and treatment plan as noted by the mid-level provider above. I agree with the findings and plan of care. BRYCE HENRIQUEZ MD, [employer] Jan 08, 2025 17:30
[2025-01-08] MEDS: ALBUMIN (HUMAN) 25% 50 ML IV.SOLN. IV SCH (18:28)
[2025-01-08] MEDS: HONEY 1 APPL/ML TUBE TP SCH (20:33)
--- NOTE | 2025-01-08 22:43 | HMCSR ---
APPROVED REPORT EXAM: Limited Two-dimensional echocardiogram with color Doppler . INDICATION ICD: Rule out pericardial effusion 2D Dimensions RVDd4.7 cmLVEF(%)28.7 (>50%)LVED Vol(simp.)168.7 mL IVSd1.0 (0.7-1.1cm)FS(%)14 %LVES Vol(simp.)116.5 mL LVDd6.1 (3.8-5.6cm)LA (2D)4.9 (1.6-4.0cm)LVEF(%, simp.)31 % PWd0.9 (0.7-1.1cm)Ao Root(2D)3.0 (2.0-3.7cm)LA ESV INDEX (BP)49.27 mL/m2 LVDs5.2 (2.5-4.0cm) Left Ventricle The left ventricle is mildly dilated. There is global hypokinesis of the left ventricle. There is nor mal left ventricular wall thickness. Anterior, anteroseptal, and inferoseptal segments are thin and a kinetic, as is apical cap. LVEF is 30%. Indetetrminate diastolic function. Right Ventricle The right ventricle is severely dilated. Right ventricular systolic function is severely reduced. Dev ice lead is present in the right ventricle. Atria The left atrium appears moderately to severely dilated. The right atrium appears borderline dilated. Aortic Valve Aortic valve appears to open well. Mitral Valve Mitral valve appears domming. Tricuspid Valve The tricuspid valve leaflets appear to open well There is mild tricuspid valve regurgitation noted by color Doppler. Great Vessels The aortic root appears normal in size. Pericardium Trace pericardial effusion. Other Information Quality : Limited/Follow-up Conclusion LVEF is 30%. Anterior, anteroseptal, and inferoseptal segments are thin and akinetic, as is apical cap. The left ventricle is mildly dilated. The right ventricle is severely dilated. Right ventricular systolic function is severely reduced. The left atrium appears moderately to severely dilated.
[2025-01-09] VITALS (8 sets, daily range): BP systolic 102–115; BP diastolic 48–69; PULSE 65–75; RESP 16–20; TEMP 97.6–98.7; O2SAT 97–99
[2025-01-09 05:14] LABS: NUCLEATED RED BLOOD CELLS 1.1 % (0.0-0.19); PLATELET COUNT (AUTO) 192.0 K/uL (130-400); RED BLOOD CELL COUNT(AUTO) 3.14 MIL/uL (4.00-5.50); RED CELL DISTRIBUTION WIDTH 18.8 % (11.0-15.5); WHITE BLOOD COUNT (AUTO) 6.6 K/uL (4.8-10.8)
[2025-01-09 05:31] LABS: CREATININE 4.7 mg/dL (0.5-1.0); GLOMERULAR FILTR. RATE CALC 10.0 mL/min (>90); GLUCOSE,RANDOM 191.0 mg/dL (70-105); SODIUM SERUM 137.0 mmol/L (136-145); UREA NITROGEN, BLOOD 45.0 mg/dL (7-18)
--- NOTE | 2025-01-09 08:34 | PN ---
[facility] PROGRESS NOTE Date of Service: Jan 09, 2025 Time of Service: 08:31 SUBJECTIVE: This is a 59-year-old female with past medical history of diabetes, hypertension, hyperlipidemia, CHF, coronary artery disease with cardiac stent x4 and permanent pacemaker, end-stage renal disease on hemodialysis who was brought by EMS to the ED for complaints of shortness of breaths and tightness of the neck onset a week ago and it comes and goes and 2 days ago it started to come back and symptoms have been progressively getting worse so today she went for her dialysis and was able to complete the treatment and she continue to have neck tightness and shortness of breath so she decided to come to this facility for evaluation.Patient reports she was here yesterday for similar problem and was anxious and unable to manage financial components of her house and was discharged home .Patient was also here in this ER on 01/03/2025 for chest pain wall and was also discharged home with negative troponin at that time.Patient also reports she has recent cardiac stent x 2 last November 2024 and had a stent x 1 placed on 2012 and another stent x 1 placed on 2014 .Upon arrival to ER an EKG was done and showed sinus rhythm heart rate 87 with nonspecific intraventricular conduction delay with LAD. Left ventricular hypertrophy anterior Q-waves possibly due to LVH. On examination patient is awake,alert and coherent ,appears uncomfortable. Patient denies fever, chills, cough, sore throat, chest pain, palpitation, nausea, vomiting, diaphoresis and abdominal pain. Latest vital signs temperature 97.9, heart rate 79 BP 94/55 saturation 96% at 1 L nasal cannula. Labs: Hemoglobin 10, hematocrit 31, platelet count 173. Sodium 134, chloride 93, BUN 90, creatinine 5, GFR 10, glucose 300 troponin 110 to 212 . Chest x-ray result revealed no acute cardiopulmonary pathology. Mild cardiomegaly with a right-sided cardiac pacemaker. We will admit patient for further medical management. 01/07/25 Patient was evaluated at the bedside. She was hemodynamically stable. She was on oxygen 2 L via nasal cannula. She still complains of neck tightness. In addition to that she also had dry cough for a month. No other associated symptoms like fever, chills and chest pain. She has shortness of breath while walking. She wakes up in middle of the night due to shortness of breath. Her limbs are swollen and has venous ulcer in right lower limb. 01/08/25 Patient was evaluated at the bedside. She was hemodynamically stable. She was on oxygen 2 L via nasal cannula. She still complaints of dry cough cough, she had it whole night. She feels short of breath even after minimal walking. She was planned for Bilateral venous Doppler examination, which she declined. She has been planned for Echocardiogram today. 01/09/25 Patient was evaluated at the bedside. She was hemodynamically stable. She is still on oxygen support, 2L. She still complaints of dry cough cough, which has been the same. ECHO showed LVEF is 30% with Right ventricular systolic function is severely reduced. CT chest was done today which showed both lungs have ill- defined ground glass opacity suggesting of infectious process possibly viral origin. It also revealed Coronary Calcification suggesting CAD. As per Cardiology: she should be continued on uninterrupted dual antiplatelet therapy with the aspirin 81 mg daily and ticagrelor 90 mg p.o. b.i.d. along with antianginal isosorbide mononitrate 30 mg daily and metoprolol. She is not a candidate for other GDM T given her history of hypotension and she is currently maintained on midodrine p.o.. Continue with therapeutic anticoagulation Eliquis. REVIEW OF SYSTEMS CONSTITUTIONAL: Denies fevers, chills, or night sweats. No unintentional weight loss reported. NEUROLOGICAL: Denies headache, amaurosis fugax, motor weakness, sensory deficit, vertigo/spinning sensation, gait abnormalities, or tremors. ENT: Complaints of neck tightness No hearing loss, otalgia, otorrhea, rhinitis, rhinorrhea, hoarseness, or sore throat. CARDIOVASCULAR: Denies any exertional angina, dyspnea on exertion, orthopnea, paroxysmal nocturnal dyspnea, palpitations, life-threatening arrhythmias, claudication. PULMONARY: Shortness of breaths on 2L O2, Dry Cough, Denies phlegm/sputum, hemoptysis, pleuritic chest pain. SLEEP: Denies morning headaches, daytime somnolence or napping. Denies difficulty falling asleep, staying asleep, waking from sleep. Denies knowledge of snoring. GASTROINTESTINAL: Denies any type of dysphagia to either liquids or solids. Denies nausea, vomiting, pyrosis, early satiety, abdominal pain, diarrhea, constipation, or changes in stool consistency or caliber. Denies coffee-ground emesis, hematemesis, hematochezia, or melanotic stools. GENITOURINARY: Denies frequency, urgency, nocturia, hematuria or incontinence. ENDOCRINOLOGIC: Denies polyuria, polydipsia, polyphagia or heat/cold intolerances. PHYSICAL EXAM GENERAL APPEARANCE: The patient is awake, alert, and oriented, in no acute cardiopulmonary distress. NEUROLOGICAL: Cranial nerves II-XII grossly intact. Motor is 5/5 in bilateral upper and lower extremities proximal to distal. No sensory deficits. HEENT: Face is symmetric. Pupils are equal and reactive. Extraocular movements are intact. NECK: Supple. No JVD. No thyromegaly. No submental, submandibular, pre- /postauricular, occipital or supraclavicular lymphadenopathy. CHEST: Normal chest expansion. No Telemetry. LUNGS: Absence of any rales, rhonchi or any wheezing. CARDIOVASCULAR: Regular. S1 and S2 normal. No appreciable rubs, murmurs or g allops. ABDOMEN: Soft, nontender, and nondistended. There is no rebound, voluntary gua rding, or rigidity. : Deferred. No Yusuf. EXTREMITIES: Wound dressings are intact. Edema 1+ bilateral lower extremities. Venous ulcer in right lower limb. Both the limbs at dry and are scaly. Good capillary refill. Vital Signs (last 8hr) Date Time Temp Pulse Resp B/P (MAP) Pulse Ox O2 Delivery O2 Flow Rate FiO2 01/09/25 07:57 98.8 70 20 110/67 99 Nasal Cannula 2.0 01/09/25 03:17 97.5 65 16 111/69 100 Nasal Cannula 2.0 LABS: Laboratory: Test 01/09/25 05:14 01/09/25 04:35 01/08/25 04:19 01/07/25 11:22 Range/Units Whole Blood Glucose 165 #H 70-110 MG/DL White Blood Count 6.6 4.8-10.8 K/uL Red Blood Count 3.14 L 4.00-5.50 MIL/uL Hemoglobin 10.0 L 12.0-16.0 g/dL Hematocrit 30.6 L 36-48 % Mean Corpuscular Volume 97.5 79-99 fL Mean Corpuscular Hemoglobin 31.8 27.0-33.0 pg Mean Corpuscular Hemoglobin Concent 32.7 32.0-36.0 g/dL Red Cell Distribution Width 18.8 H 11.0-15.5 % Platelet Count 192 130-400 K/uL Mean Platelet Volume 10.7 H 7.5-10.5 fL Nucleated Red Blood Cells 1.1 H 0.0-0.19 % Sodium Level 137 136-145 mmol/L Potassium Level 3.9 3.5-5.1 mmol/L Chloride Level 96 L 101-111 mmol/L Carbon Dioxide Level 28 21-32 mmol/L Blood Urea Nitrogen 45 H 7-18 mg/dL Creatinine 4.7 H 0.5-1.0 mg/dL Glomerular Filtration Rate Calc 10 >90 mL/min Random Glucose 191 H 70-105 mg/dL Total Calcium 8.8 8.5-10.1 mg/dL Immature Granulocyte % (Auto) 0.3 0-1 % Neutrophils (%) (Auto) 70.6 40.0-77.0 % Lymphocytes (%) (Auto) 8.7 L 21.0-51.0 % Monocytes (%) (Auto) 11.2 3.0-13.0 % Eosinophils (%) (Auto) 8.4 H 0.0-8.0 % Basophils (%) (Auto) 0.8 0.0-5.0 % Neutrophils # (Auto) 5.1 1.8-7.7 K/uL Lymphocytes # (Auto) 0.6 L 1.0-4.8 K/uL Monocytes # (Auto) 0.8 0.1-1.0 K/uL Eosinophils # (Auto) 0.61 0.00-0.70 K/uL Basophils # (Auto) 0.06 0.00-0.20 K/uL Absolute Immature Granulocyte (auto 0.02 0-1 K/uL Phosphorus Level 5.2 H 2.5-4.9 mg/dL Troponin I High Sensitivity 289 *H 4-50 ng/L Current Medications Medications (Trade) Dose Ordered Sig/Mark Route PRN Reason Start Time Stop Time Status Last Admin Dose Admin Acetaminophen (TYLenol 325MG TAB) 650 mg Q4H PRN PO MILD PAIN (1-3) 01/06/25 23:00 02/05/25 22:59 01/07/25 18:47 650 MG Acetaminophen (TYLenol 325MG TAB) 650 mg Q6H PRN PO TEMPERATURE GREATER THAN 101.5 01/06/25 23:00 02/05/25 22:59 Albumin Human (Albumin (Human) 25%) 100 ml ONCE IV 01/07/25 13:30 01/08/25 13:29 DC 01/07/25 13:45 100 ML Albumin Human (Albumin (Human) 25%) 100 ml ONCE IV 01/08/25 18:00 01/09/25 17:59 01/08/25 18:28 100 ML Apixaban (EliquIS) 5 mg BID PO 01/07/25 09:00 02/06/25 08:59 01/08/25 20:34 5 MG Atorvastatin Calcium (LIPItor 40MG) 40 mg HS PO 01/07/25 21:00 02/06/25 20:59 01/08/25 20:35 40 MG Buspirone HCl (BUspar) 5 mg BID PO 01/07/25 09:00 02/06/25 08:59 01/08/25 20:34 5 MG Dextrose (D50w) 50 ml AD PRN IV HYPOGLYCEMIA PROTOCOL 01/06/25 23:00 02/05/25 22:59 Epoetin Hilario-epbx (Retacrit) 10,000 unit QMOWEFR SQ 01/08/25 09:00 02/07/25 08:59 01/08/25 17:06 10,000 UNIT Famotidine (Pepcid 20mg Vial) 20 mg Q48H IV 01/06/25 23:00 02/05/25 22:59 01/08/25 22:11 20 MG Gabapentin (NEURontin 300 MG CAP) 300 mg DAILY PO 01/07/25 09:00 02/06/25 08:59 01/08/25 08:23 300 MG Glucagon (Glucagon 1mg Kit) 1 mg AD PRN IM HYPOGLYCEMIA PROTOCOL 01/06/25 23:00 02/05/25 22:59 Guaifenesin/ Dextromethorphan (RobiTUSSin DM 200/20MG 10ML) 10 ml Q6H PRN PO COUGH 01/07/25 18:00 02/06/25 17:59 01/08/25 22:23 10 ML Home Med (Home Medication) DAILY PO 01/07/25 09:00 02/06/25 08:59 Home Med (Home Medication) HS PO 01/07/25 21:00 02/06/25 20:59 01/08/25 20:35 3 EACH Insulin Human Regular (humuLIN R 100 UNIT/ML 3ML) INSULIN SLIDING SCAL... ACHS SQ 01/07/25 07:30 02/06/25 07:29 01/08/25 17:07 4 UNIT Isosorbide Mononitrate (Imdur 30mg Sr) 30 mg DAILY PO 01/07/25 09:00 02/06/25 08:59 01/08/25 08:23 30 MG Leptospermum Honey ([employer]) Right lower leg ulcer DAILY20 TP 01/08/25 20:00 02/07/25 19:59 01/08/25 20:33 1 APPL Metoprolol Succinate (TopROL XL) 50 mg AM PO 01/07/25 09:00 02/06/25 08:59 01/08/25 08:23 50 MG Midodrine (PROAMatine 5 MG TABLET) 5 mg ONCE PRN PO hypotension 01/07/25 00:30 01/07/25 16:26 DC Midodrine (PROAMatine 5 MG TABLET) 10 mg TID PO 01/07/25 09:30 02/06/25 09:29 01/08/25 20:36 10 MG Nitroglycerin (Nitrostat) 0.4 mg PROTOCOL PRN SL CHEST PAIN 01/06/25 23:00 02/05/25 22:59 Ondansetron HCl (zoFRAN 4MG INJ) 4 mg Q6H PRN IV NAUSEA/VOMITING 01/06/25 23:00 01/07/25 07:59 DC 01/07/25 05:10 4 MG Sodium Chloride 1,000 ml @ 0 mls/hr ONCE IV 01/07/25 13:00 02/06/25 12:59 01/08/25 18:28 1,000 MLS/HR Ticagrelor (BRILinta) 90 mg BID PO 01/07/25 09:00 02/06/25 08:59 01/08/25 20:33 90 MG DIAGNOSTICS / RADIOLOGY: [place] [address] [id number] IMAGING REPORT Signed PATIENT: NICK VEE MR#: [id number] : 1965 SEX: F AGE: 59 LOCATION: 2AH ORDER 24 STATUS: ADM IN REPORT#: [id number] SERVICE 22 REASON: Rule out pericardial effusion ORDERING PHYSICIAN: QUITA FRAGOSO MD PROCEDURE: ECHO FU LD - ECHO 2-D F/U-LTD APPROVED REPORT EXAM: Limited Two-dimensional echocardiogram with color Doppler . INDICATION ICD: Rule out pericardial effusion 2D Dimensions RVDd 4.7 cm LVEF(%) 28.7 (>50%) LVED Vol(simp.) 168.7 mL IVSd 1.0 (0.7-1.1cm) FS(%) 14 % LVES Vol(simp.) 116.5 mL LVDd 6.1 (3.8-5.6cm) LA (2D) 4.9 (1.6-4.0cm) LVEF(%, simp.) 31 % PWd 0.9 (0.7-1.1cm) Ao Root(2D) 3.0 (2.0-3.7cm) LA ESV INDEX (BP) 49.27 mL/m2 LVDs 5.2 (2.5-4.0cm) Left Ventricle The left ventricle is mildly dilated. There is global hypokinesis of the left ventricle. There is normal left ventricular wall thickness. Anterior, anteroseptal, and inferoseptal segments are thin and akinetic, as is apical cap. LVEF is 30%. Indetetrminate diastolic function. Right Ventricle The right ventricle is severely dilated. Right ventricular systolic function is severely reduced. Device lead is present in the right ventricle. Atria The left atrium appears moderately to severely dilated. The right atrium appears borderline dilated. Aortic Valve Aortic valve appears to open well. Mitral Valve Mitral valve appears domming. Tricuspid Valve The tricuspid valve leaflets appear to open well There is mild tricuspid valve regurgitation noted by color Doppler. Great Vessels The aortic root appears normal in size. Pericardium Trace pericardial effusion. Other Information Quality : Limited/Follow-up Conclusion LVEF is 30%. Anterior, anteroseptal, and inferoseptal segments are thin and akinetic, as is apical cap. The left ventricle is mildly dilated. The right ventricle is severely dilated. Right ventricular systolic function is severely reduced. The left atrium appears moderately to severely dilated. DICTATED BY: RUBEN THOMPSON MD DATE: 01/08/251136 ELECTRONICALLY SIGNED BY: RUBEN THOMPSON MD DATE: 01/08/25 6541 [place] [address] [id number] IMAGING REPORT Signed PATIENT: NICK VEE MR#: [id number] : 1965 SEX: F AGE: 59 LOCATION: 2AH ORDER 36 STATUS: ADM IN REPORT#: [id number] SERVICE 34 REASON: SOB, Chronic Cough ORDERING PHYSICIAN: QUITA FRAGOSO MD PROCEDURE: CHEST WO - CT CHEST W/O CONTRAST CT CHEST W/O CONTRAST REASON: SOB, Chronic Cough COMPARISON: Prior study from 12/24/2024 is available. TECHNIQUE: Multiple sequential axial images of the chest were obtained from the thoracic inlet through the upper pole of the kidneys without intravenous contrast administration. FINDINGS: There is cardiomegaly. The pericardium appears to be normal. There is coronary calcification suggesting of coronary artery disease. There is a right-sided AICD with lead in right ventricle which is giving a metallic artifact.. No mediastinal or axillary lymphadenopathy identified. There is no pleural or pericardial effusion. The lungs have ill-defined groundglass opacity suggesting of infectious process.. There is no consolidation or pneumothorax. Trachea and main bronchi are unremarkable. No chest wall abnormality identified. IMPRESSION: Cardiomegaly Coronary calcification suggesting of coronary artery disease Both lungs have ill-defined groundglass opacity suggesting of infectious process possibly viral origin. CT was performed with one or more following dose reduction techniques: automated exposure control, adjustment of the mA and kv according to patient's size, or use of a iterative reconstruction technique. DICTATED BY: HODA HECTOR MD DATE: 01/09/25 1332 ELECTRONICALLY SIGNED BY: HODA HECTOR MD DATE: 01/09/25 134 ASSESSMENT: Suspected ACS, POA Gram negative Community acquired Pneumonia HFrEF (LVEF: 20-25% by echo done on 11/07/2024) Severe Peripheral artery disease Type 2 Diabetes Mellitus, POA Coronary artery disease with cardiac stent x4 POA Cardiac pacemaker POA Uncontrolled diabetes with hyperglycemia POA End-stage renal disease on hemodialysis POA Morbid obesity POA Hypertension POA Hyperlipidemia POA CHF POA PLAN: Suspected ACS * Presentation with shortness of breath and tightness of neck * There has been gradual rise in serum troponin levels 110<212<306. * EKG showed nonspecific IVCD with LAD;Anterior Q waves, possibly due to LVH * QTC [id number] which is prolonged, Zofran was stopped * Patient currently on Ticagrelor 90 mg b.i.d., metoprolol succinate 50 mg, Eliquis 5 mg b.i.d. and isosorbide mononitrate 30 mg per oral daily. * Continuous cardiac monitoring * Cardiology has been consulted and awaiting further recommendations * CT revealed Coronary Calcification suggesting CAD. 01/09/25 Gram negative Community acquired Pneumonia * Patient complains of dry cough and shortness of breath * CT showed the lungs have ill-defined groundglass opacity suggesting of infectious process. * Lab reports showed CRP 103.50 and Procalcitonin 5.30. * She has been started on Doxycycline (Day 1) and Rocephin (Day 1). 01/09/25 HFrEF (LVEF: 20-25% by echo done on 11/07/2024) * Patient complaints of shortness of breath, she is on 2L of Oxygen. She has oxygen support in home as well. * Her BNP level is 4570. * Echocardiogram has been ordered to rule out pericardial effusion. 01/08/25 * She is not a candidate for GDMT with ACEI/ARB/ARNI therapy due to her borderline blood pressures or aldosterone antagonist therapy due to her advanced renal dysfunction. * Please record strict I/O's, daily weights, and restrict fluids to less than 1.5L/day. * As per Cardiology: she should be continued on uninterrupted dual antiplatelet therapy with the aspirin 81 mg daily and ticagrelor 90 mg p.o. b.i.d. along with antianginal isosorbide mononitrate 30 mg daily and metoprolol. She is not a candidate for other GDM T given her history of hypotension and she is currently maintained on midodrine p.o. 01/09/25 * Continue with therapeutic anticoagulation Eliquis. * ECHO showed LVEF is 30% with Right ventricular systolic function is severely reduced. 01/09/25 Severe Peripheral artery disease * Bilateral lower extremity arterial Doppler showed: There are biphasic wavef orms seen in all the arteries of bilateral lower extremities, with the exception of the bilateral distal posterior tibial arteries, which are both occluded (100% stenosis). * There is mild to moderate atherosclerosis seen in the arteries of the bilateral lower extremities. 09/30/23 * Venous ulcer in right lower limb * Bilateral limbs are edematous and scaly. * Venous Doppler ultrasound has been ordered * Regular foot checks and pulse exams at each visit congruent * Optimize BP, lipids and blood glucose level * Patient Declined Bilateral venous Doppler examination because she says she feels alot of pain during the process. She was counseled regarding the need of the procedure, still refused to undergo the examination. 01/08/30 End-stage renal disease on hemodialysis * Creatinine level today is 5.0, she underwent dialysis yesterday: Net ultrafiltration 2.0L removed. 01/08/25 * As per the Nephrology: she has been started on Retacrit 10,000 unit. * Her creatinine level during presentation was 5.0 and has trended up to 5.4 today. 01/07/25 * Her dialysis days are Monday, Monday and Monday * Avoid nephrotoxic agents like NSAIDs, IV contrast, aminoglycosides * Transfuse only if symptomatic or Hb been less than 7 grams/dl * Nephrology has been consulted for further recommendations and management. * Resume outpatient dialysis orders at discharge Type 2 Diabetes Mellitus * Her HbA1c level is 7.6 and glucose level during presentation was 144 * Patient is on sliding scale insulin * No current evidence of acute hyperglycemia, DKA or HHS * Advise the patient on limiting sugars, refined carbs saturated fat * Encourage fiber rich foods and person control * Continue atorvastatin 40 mg per oral daily * Reinforce medication adherence, diet log and glucose monitoring Supportive measures * Continue monitoring the morning labs CBC and BMP * DVT and GI prophylaxis as recommended * Closely follow up the patient ATTESTATION BY PHYSICIAN I have seen and examined the patient. I reviewed the documentation, medical decision making, and treatment plan as noted by the resident physician above. I agree with the findings and plan of care. LORIE MEJIA MD QUITA SAUNDERS MD Jan 09, 2025 08:34
--- NOTE | 2025-01-09 11:17 | NUR ---
CARDIOLOGY CONSULT: AFTER SPEAKING WITH BOBBY AT [phone], SHE STATED PATIENT WAS NOT ON CARDIOLOGY LIST AND WILL NOTIFY DR. SARABIA (WHO IS PHARMACEUTICAL OFFICER TODAY) WHOM WILL SEE PATIENT.
--- NOTE | 2025-01-09 11:28 | CONS ---
[facility] CARDIOLOGY CONSULTATION NOTE Date Patient Seen: Jan 09, 2025 Time of Visit: 11:26 Reason for Consultation: elevated troponin History of Present Illness: [place] is a 59 year old female with PMH of coronary artery disease, ischemic cardiomyopathy (LVEF: 20-25% by echo done on 11/07/2024), single lead ICD placement (2022), ESRD on HD, hypertension, type 2 diabetes mellitus, paroxysmal atrial fibrillation on chronic anticoagulation with DOAC, multivessel coronary artery disease turned down for coronary artery bypass grafting therefore underwent successful treatment with a staged PCI with PTCA, balloon lithotripsy, and DCB angioplasty in the ISR within the proximal-mid LAD, successful treatment with balloon lithotripsy and GENEVA placement (Xience Skypoint 3.5x15 mm) in the ostial LAD, and successful treatment with PTCA and balloon lithotripsy in the mid and distal LCx done on 11/15/2024, pending PCI of the LCx. Stenting to the LCx was deferred to outpatient setting in staged approached, also due to concerns regarding positive blood cultures. Review of microbiology resuts show BCx 2/2 from 12/26/24 negative x5. LVEF was 20-25% by echo on 11/07/24. Previously not a candidate for GDMT ENMA/ARB/ARNI due to borderline hypotension and no MRA due to advanced renal dysfunction, however apparently previously tolerating metoprolol succinate 50mg q daily. LVEF this admission 30% by echo showing akinetic anterior, anteroseptal and inferoseptal wall. She presents with shortness of breath, with complete resolution after she underwent additional hemodialysis sessions. She initially attributed her shortness of breath to anxiety, however it persisted all afternoon Monday into Monday, therefore she presented to the ED for further evaluation. Serial troponins elevated, with peak 300. Of note, this consult was placed in [facility] on 11/06 at 2200 by CERTIFIED PESTICIDE APPLICATOR. Unclear if cardiology was notified in any manner, however I am specimen accessioner today and our office was notified by Xenia VAUGHAN at 1121 AM. Past Medical History: as above Past Surgical History: LHC, LAD stenting ICD Family History: noncontributory. Social History: confined to wheelchair; good family support denies tobacco or etoh. Current Meds: Current Medications Medications Dose Ordered Sig/Mark Start Time Stop Time Status Last Admin Acetaminophen 650 mg Q6H PRN 01/06/25 23:00 02/05/25 22:59 Acetaminophen 650 mg Q4H PRN 01/06/25 23:00 02/05/25 22:59 01/07/25 18:47 Nitroglycerin 0.4 mg PROTOCOL PRN 01/06/25 23:00 02/05/25 22:59 Famotidine 20 mg Q48H 01/06/25 23:00 02/05/25 22:59 01/08/25 22:11 Insulin Human Regular INSULIN SLIDING SCAL... ACHS 01/07/25 07:30 02/06/25 07:29 01/08/25 17:07 Dextrose 50 ml AD PRN 01/06/25 23:00 02/05/25 22:59 Glucagon 1 mg AD PRN 01/06/25 23:00 02/05/25 22:59 Apixaban 5 mg BID 01/07/25 09:00 02/06/25 08:59 01/09/25 09:45 Atorvastatin Calcium 40 mg HS 01/07/25 21:00 02/06/25 20:59 01/08/25 20:35 Buspirone HCl 5 mg BID 01/07/25 09:00 02/06/25 08:59 01/09/25 09:45 Gabapentin 300 mg DAILY 01/07/25 09:00 02/06/25 08:59 01/09/25 09:46 Metoprolol Succinate 50 mg AM 01/07/25 09:00 02/06/25 08:59 01/09/25 09:46 Ticagrelor 90 mg BID 01/07/25 09:00 02/06/25 08:59 01/09/25 09:45 Home Med DAILY 01/07/25 09:00 02/06/25 08:59 Home Med HS 01/07/25 21:00 02/06/25 20:59 01/08/25 20:35 Isosorbide Mononitrate 30 mg DAILY 01/07/25 09:00 02/06/25 08:59 01/09/25 09:45 Midodrine 10 mg TID 01/07/25 09:30 02/06/25 09:29 01/09/25 09:46 Sodium Chloride 1,000 ml @ 0 mls/hr ONCE 01/07/25 13:00 02/06/25 12:59 01/08/25 18:28 Epoetin Hilario-epbx 10,000 unit QMOWEFR 01/08/25 09:00 02/07/25 08:59 01/08/25 17:06 Guaifenesin/ Dextromethorphan 10 ml Q6H PRN 01/07/25 18:00 02/06/25 17:59 01/08/25 22:23 Albumin Human 100 ml ONCE 01/08/25 18:00 01/09/25 17:59 01/08/25 18:28 Leptospermum Honey Right lower leg ulcer DAILY20 01/08/25 20:00 02/07/25 19:59 01/08/25 20:33 Review of Systems: CONST: [No fever, chills.] EYES: [No recent vision problems.] ENT: [No congestion, ear pain, or sore throat.] C/V: [No chest pain, palpitations, or edema.] RESP: +shortness of breath.] GI: [No abdominal pain, nausea, vomiting, constipation, or diarrhea.] : [No incontinence or dysuria.] SKIN: [No rash. no ulcer. no wounds.] NEURO: [No headache, focal numbness or weakness, dizziness, or seizures.] PSYCH: [+anxiety HEME: [No abnormal bruising or bleeding.] Physical Examination: GENERAL: [No acute distress.] HEAD: [Normal with no signs of head trauma.] EYES: [PERRLA, EOMI, conjunctiva and sclera normal.] ENT: [Hearing grossly intact, normal oropharynx.] NECK: [ Normal carotid upstrokes without bruits.] LUNGS: [Clear breath sounds bilaterally.On 2L O2 via NC, her home O2 needs. No wheezes, or rhonchi.] HEART: [Normal rate and rhythm. Normal S1 and S2 without murmurs, gallop or rub.] VASC: [Peripheral pulses +2 bilaterally.] ABD: [soft, nontender, no masses EXT: [No clubbing, cyanosis or edema.] SKIN: [No rashes or lesions noted.] NEURO: [Awake, alert, and oriented x3. No focal sensory or strength deficits noted.] Vital Signs (last 8hr) Date Time Temp Pulse Resp B/P (MAP) Pulse Ox O2 Delivery O2 Flow Rate FiO2 01/09/25 07:57 98.8 70 20 110/67 99 Nasal Cannula 2.0 Laboratory: [ ] Hematology Labs: Test 01/09/25 04:35 01/08/25 04:19 Range/Units White Blood Count 6.6 4.8-10.8 K/uL Red Blood Count 3.14 L 4.00-5.50 MIL/uL Hemoglobin 10.0 L 12.0-16.0 g/dL Hematocrit 30.6 L 36-48 % Mean Corpuscular Volume 97.5 79-99 fL Mean Corpuscular Hemoglobin 31.8 27.0-33.0 pg Mean Corpuscular Hemoglobin Concent 32.7 32.0-36.0 g/dL Red Cell Distribution Width 18.8 H 11.0-15.5 % Platelet Count 192 130-400 K/uL Mean Platelet Volume 10.7 H 7.5-10.5 fL Nucleated Red Blood Cells 1.1 H 0.0-0.19 % Immature Granulocyte % (Auto) 0.3 0-1 % Neutrophils (%) (Auto) 70.6 40.0-77.0 % Lymphocytes (%) (Auto) 8.7 L 21.0-51.0 % Monocytes (%) (Auto) 11.2 3.0-13.0 % Eosinophils (%) (Auto) 8.4 H 0.0-8.0 % Basophils (%) (Auto) 0.8 0.0-5.0 % Neutrophils # (Auto) 5.1 1.8-7.7 K/uL Lymphocytes # (Auto) 0.6 L 1.0-4.8 K/uL Monocytes # (Auto) 0.8 0.1-1.0 K/uL Eosinophils # (Auto) 0.61 0.00-0.70 K/uL Basophils # (Auto) 0.06 0.00-0.20 K/uL Absolute Immature Granulocyte (auto 0.02 0-1 K/uL Chemistry Labs: Test 01/09/25 05:14 01/09/25 04:35 01/08/25 04:19 Range/Units Whole Blood Glucose 165 #H 70-110 MG/DL Sodium Level 137 136-145 mmol/L Potassium Level 3.9 3.5-5.1 mmol/L Chloride Level 96 L 101-111 mmol/L Carbon Dioxide Level 28 21-32 mmol/L Blood Urea Nitrogen 45 H 7-18 mg/dL Creatinine 4.7 H 0.5-1.0 mg/dL Glomerular Filtration Rate Calc 10 >90 mL/min Random Glucose 191 H 70-105 mg/dL Total Calcium 8.8 8.5-10.1 mg/dL Phosphorus Level 5.2 H 2.5-4.9 mg/dL Diagnostics / Radiology: Conclusion LVEF is 30%. Anterior, anteroseptal, and inferoseptal segments are thin and akinetic, as is apical cap. The left ventricle is mildly dilated. The right ventricle is severely dilated. Right ventricular systolic function is severely reduced. The left atrium appears moderately to severely dilated. DICTATED BY: RUBEN THOMPSON MD DATE: 01/08/25 1137 Assessment: AEHFEF, with improved LVEF post LAD stenting from 20 to 30% MVCAD, turned down for CABG. Residual disease in small LCx, pending staged intervention Ischemic cardiomyopathy Single lead ICD Hypertension Type 2 diabetes mellitus ESRD on HD Plan: Patient presented with chief complaint of shortness of breath, with complete resolution after she underwent additional hemodialysis sessions. Mild troponin elevation likely secondary to CHF. She did undergo LAD stenting in his pending left circumflex stenting on 07/22 I see no emergent need for patient undergo coronary angiography this admission and she can follow up with her primary computer training specialist as an outpatient. In the interim, she should be continued on uninterrupted dual antiplatelet therapy with the aspirin 81 mg daily and ticagrelor 90 mg p.o. b.i.d. along with antianginal isosorbide mononitrate 30 mg daily and metoprolol. She is not a candidate for other GDM T given her history of hypotension and she is currently maintained on midodrine p.o.. Continue with therapeutic anticoagulation MIGUELANGEL Suazo DO Jan 09, 2025 11:28
--- NOTE | 2025-01-09 13:47 | HMCIMG ---
CT CHEST W/O CONTRAST REASON: SOB, Chronic Cough COMPARISON: Prior study from 12/24/2024 is available. TECHNIQUE: Multiple sequential axial images of the chest were obtained from the thoracic inlet through the upper pole of the kidneys without intravenous contrast administration. FINDINGS: There is cardiomegaly. The pericardium appears to be normal. There is coronary calcification suggesting of coronary artery disease. There is a right-sided AICD with lead in right ventricle which is giving a metallic artifact.. No mediastinal or axillary lymphadenopathy identified. There is no pleural or pericardial effusion. The lungs have ill-defined groundglass opacity suggesting of infectious process.. There is no consolidation or pneumothorax. Trachea and main bronchi are unremarkable. No chest wall abnormality identified. IMPRESSION: Cardiomegaly Coronary calcification suggesting of coronary artery disease Both lungs have ill-defined groundglass opacity suggesting of infectious process possibly viral origin. CT was performed with one or more following dose reduction techniques: automated exposure control, adjustment of the mA and kv according to patient's size, or use of a iterative reconstruction technique.
--- NOTE | 2025-01-09 14:10 | NUR ---
[facility] Follow-up: Patient re-assessed by wound healing team, Wound improving. Assessment and recommendations provided to primary nurse Education provided. Wound care done. Addendum: 01/09/25 at 1622 by ESTER WILLIAM RN RN/ Amended: Links added.
[2025-01-09] MEDS: SODIUM CHLORIDE 3% FOR INHALATION 4 ML/AMP VIAL.NEB IH ONE ×3 (16:36→23:29)
--- NOTE | 2025-01-09 16:41 | PN ---
PROGRESS NOTE Date of Service: Jan 09, 2025 Time of Service: 16:40 SUBJECTIVE: [ ] REVIEW OF SYSTEMS CONSTITUTIONAL: Denies fever, chills, or fatigue. HEAD/FACE: No signs of trauma. EENT: Denies eye pain, blurred vision, double vision, or light sensitivity. RESPIRATORY: Denies shortness of breath, cough, wheezing CARDIOVASCULAR: Denies chest pain, palpitation, syncope GASTROINTESTINAL/ABDOMINAL: Denies abdominal pain, constipation, diarrhea, nausea or vomiting GENITOURINARY: Denies dysuria or hematuria. MUSCULOSKELETAL: Denies joint pain, tenderness, or trauma. INTEGUMENTARY: Denies rash or itchiness NEUROLOGICAL/PSYCH: Denies anxiety, depression, heat or cold intolerance. PHYSICAL EXAM EYES: Anicteric. Pupils equal and reactive. HENT: No oral thrush seen, moist Oral mucosa NECK: Supple, no JVD or thyromegaly. LUNGS: Good air entry. No rales, no rhonchi. CARDIOVASCULAR: S1, S2 regular. No murmur heard. ABDOMEN: Soft, non tender, bowel sounds present, no organomegaly CENTRAL NERVOUS SYSTEM: Awake, alert, oriented x 3. No focal deficits. SKIN: No rashes, no swelling. LYMPHATICS: No peripheral lymphadenopathy MUSCULOSKELETAL: No joint swelling, erythema or tenderness. EXTREMITIES: No cyanosis or clubbing BACK: No deformity, no pressure ulcer. GENITOURINARY: No dysuria or hematuria Vital Signs (last 8hr) Date Time Temp Pulse Resp B/P (MAP) Pulse Ox O2 Delivery O2 Flow Rate FiO2 01/09/25 15:30 98.4 75 20 115/65 99 Nasal Cannula 2.0 01/09/25 12:00 98.6 72 20 105/50 99 Nasal Cannula 2.0 LABS: Laboratory: Test 01/09/25 11:27 01/09/25 04:35 01/08/25 04:19 Range/Units Whole Blood Glucose 222 H 70-110 MG/DL White Blood Count 6.6 4.8-10.8 K/uL Red Blood Count 3.14 L 4.00-5.50 MIL/uL Hemoglobin 10.0 L 12.0-16.0 g/dL Hematocrit 30.6 L 36-48 % Mean Corpuscular Volume 97.5 79-99 fL Mean Corpuscular Hemoglobin 31.8 27.0-33.0 pg Mean Corpuscular Hemoglobin Concent 32.7 32.0-36.0 g/dL Red Cell Distribution Width 18.8 H 11.0-15.5 % Platelet Count 192 130-400 K/uL Mean Platelet Volume 10.7 H 7.5-10.5 fL Nucleated Red Blood Cells 1.1 H 0.0-0.19 % Sodium Level 137 136-145 mmol/L Potassium Level 3.9 3.5-5.1 mmol/L Chloride Level 96 L 101-111 mmol/L Carbon Dioxide Level 28 21-32 mmol/L Blood Urea Nitrogen 45 H 7-18 mg/dL Creatinine 4.7 H 0.5-1.0 mg/dL Glomerular Filtration Rate Calc 10 >90 mL/min Random Glucose 191 H 70-105 mg/dL Total Calcium 8.8 8.5-10.1 mg/dL C-Reactive Protein, Quantitative 103.50 H 0.5-3.0 mg/L Procalcitonin 5.30 H 0.05-0.5 ng/mL Immature Granulocyte % (Auto) 0.3 0-1 % Neutrophils (%) (Auto) 70.6 40.0-77.0 % Lymphocytes (%) (Auto) 8.7 L 21.0-51.0 % Monocytes (%) (Auto) 11.2 3.0-13.0 % Eosinophils (%) (Auto) 8.4 H 0.0-8.0 % Basophils (%) (Auto) 0.8 0.0-5.0 % Neutrophils # (Auto) 5.1 1.8-7.7 K/uL Lymphocytes # (Auto) 0.6 L 1.0-4.8 K/uL Monocytes # (Auto) 0.8 0.1-1.0 K/uL Eosinophils # (Auto) 0.61 0.00-0.70 K/uL Basophils # (Auto) 0.06 0.00-0.20 K/uL Absolute Immature Granulocyte (auto 0.02 0-1 K/uL Phosphorus Level 5.2 H 2.5-4.9 mg/dL DIAGNOSTICS / RADIOLOGY: [ ] PROBLEM LIST : Medical Problems: 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 Thank You for the consult and allowing us to participate in the care of this patient. ATTESTATION BY PHYSICIAN I have seen and examined the patient. I reviewed the documentation, medical decision making, and treatment plan as noted by the mid-level provider above. I agree with the findings and plan of care. BRYCE HENRIQUEZ MD, MICHELLE A SHEET METAL FOREMAN Jan 09, 2025 16:41
[2025-01-09] MEDS: DOXYCYCLINE 100MG+NS 250ML 250 ML IV SCH (17:39)
[2025-01-10] VITALS (22 sets, daily range): BP systolic 105–130; BP diastolic 52–71; PULSE 60–76; RESP 16–20; TEMP 97.6–98.7; O2SAT 98
[2025-01-10 04:09] LABS: NUCLEATED RED BLOOD CELLS 0.9 % (0.0-0.19); PLATELET COUNT (AUTO) 194.0 K/uL (130-400); RED BLOOD CELL COUNT(AUTO) 3.12 MIL/uL (4.00-5.50); RED CELL DISTRIBUTION WIDTH 19.4 % (11.0-15.5); WHITE BLOOD COUNT (AUTO) 6.3 K/uL (4.8-10.8)
[2025-01-10 04:24] LABS: CREATININE 6.0 mg/dL (0.5-1.0); GLOMERULAR FILTR. RATE CALC 8.0 mL/min (>90); GLUCOSE,RANDOM 181.0 mg/dL (70-105); SODIUM SERUM 136.0 mmol/L (136-145); UREA NITROGEN, BLOOD 60.0 mg/dL (7-18)
--- NOTE | 2025-01-10 08:53 | PN ---
[facility] CARDIOLOGY PROGRESS NOTE Cardiology progress note dictated for Kendall Poe MD Date Patient Seen: Jan 10, 2025 Interval History: The patient admits to resolution of dyspnea, orthopnea and PND. She does endorse a non-productive cough. CT chest on 01/09 did reveal bilateral ground-glass opacities suggesting infectious process possibly viral origin. She denied chest pain, chest pressure, palpitations or dizziness. 12 hr SBP: 102-113mmHg Physical Examination: GENERAL: No acute distress. On 2L of o2 via NC. HEAD: Normal with no signs of head trauma. EYES: Conjunctiva and sclera normal. NECK: Supple without JVD. LUNGS: Clear breath sounds bilaterally. No wheezes, or rhonchi. HEART: Normal rate and rhythm. Normal S1 and S2 without murmurs, gallop or rub. EXT: BLE with 2+ edema and discoloration. RLE with ulceration. LUE with fistula positive for bruit and thrill. NEURO: Awake, alert, and oriented x3. No focal neurological deficits noted. Laboratory: Hematology Labs: Test 01/10/25 03:40 Range/Units White Blood Count 6.3 4.8-10.8 K/uL Red Blood Count 3.12 L 4.00-5.50 MIL/uL Hemoglobin 9.8 L 12.0-16.0 g/dL Hematocrit 30.8 L 36-48 % Mean Corpuscular Volume 98.7 79-99 fL Mean Corpuscular Hemoglobin 31.4 27.0-33.0 pg Mean Corpuscular Hemoglobin Concent 31.8 L 32.0-36.0 g/dL Red Cell Distribution Width 19.4 H 11.0-15.5 % Platelet Count 194 130-400 K/uL Mean Platelet Volume 10.2 7.5-10.5 fL Nucleated Red Blood Cells 0.9 H 0.0-0.19 % Chemistry Labs: Test 01/10/25 05:09 01/10/25 03:40 01/09/25 04:35 Range/Units Whole Blood Glucose 117 H 70-110 MG/DL Sodium Level 136 136-145 mmol/L Potassium Level 4.4 3.5-5.1 mmol/L Chloride Level 94 L 101-111 mmol/L Carbon Dioxide Level 26 21-32 mmol/L Blood Urea Nitrogen 60 H 7-18 mg/dL Creatinine 6.0 H 0.5-1.0 mg/dL Glomerular Filtration Rate Calc 8 >90 mL/min Random Glucose 181 H 70-105 mg/dL Total Calcium 8.4 L 8.5-10.1 mg/dL C-Reactive Protein, Quantitative 103.50 H 0.5-3.0 mg/L Procalcitonin 5.30 H 0.05-0.5 ng/mL Diagnostics / Radiology: Impression and Plan: AEHFREF, with improved LVEF post LAD stenting from 20 to 30% MVCAD, turned down for CABG. Residual disease in small LCx, pending staged intervention Ischemic cardiomyopathy Paroxysmal atrial fibrillation on chronic anticoagulation with DOAC Single lead ICD Hypertension Type 2 diabetes mellitus ESRD on HD MWF AEHFREF, with improved LVEF post LAD stenting from 20 to 30% Mild troponin elevation likely secondary to CHF -Continue GDMT with Metoprolol succinate 50mg daily. -Not a candidate for other ENMA/ARB/Entresto/MRA due to a history of hypotension, currently maintained on Midodrine -Continue fluid removal via hemodialysis -Cardiology will sign-off, follow up with Dr. Gary Poe in 7-10d after discharge Ischemic cardiomyopathy She did undergo LAD stenting and is pending left circumflex stenting on 01/21 -No emergent need for the patient to undergo coronary angiography this admission and she can follow up with her primary business project analyst as an outpatient. -In the interim, she should be continued on Ticagrelor 90 mg p.o. b.i.d., Isosorbide mononitrate 30 mg daily and Metoprolol succinate 50mg daily. Paroxysmal atrial fibrillation Telemetry currently demonstrating NSR with hr in the 60's -Continue Metoprolol succinate 50mg daily and Eliquis 5mg bid MELVA PARSON [facility] Jan 10, 2025 08:53
--- NOTE | 2025-01-10 10:31 | NUR ---
As per patient, please hold viet and natalia this morning due to a possible heart cath procedure she was notified about by her who received a phone call from [facility]. I will follow up with cardiology on this concern.
--- NOTE | 2025-01-10 12:31 | CONS ---
[facility] CONSULTATION NOTE Date Patient Seen: Jan 10, 2025 Time of Visit: 12:31 Supervising Physician: DAMIAN DUMONT MD Reason for Consultation: [facility] Primary Care Physician: BERKLEY HEATH MD Outpatient Specialists: [ ] Inpatient Consults: LAURIE, DR NOE PEREZ MD, BRYCE HENRIQUEZ MD, DR TORRES ATTENDING PHYSICIAN: [employer] TEAM PROBLEM LIST: Acute hypoxic respiratory failure, POA Suspected bilateral viral pneumonia vs atypical pneumoniae NSTEMI likely type 2 from supply demand mismatch due to hypoxia Acute on chronic systolic and diastolic heart failure w/ ICM EF of 20-30% s/p ICD Multivessel CAD turned down for CABG Paroxysmal atrial fibrillation on chronic anticoagulation with Eliquis Essential hypertension Type 2 diabetes mellitus ESRD on HD M[facility] Normocytic anemia likely from CKD Prior history of COVID infection in November of 2024 Morbid obesity BMI of 39.9 HPI: This is a chronically ill 59-year-old with a past medical history of type 2 diabetes mellitus, hypertension, hyperlipidemia, systolic and diastolic heart failure with ICM with reduced EF, CAD s/p cardiac stents x4, turned down for CABG, ESRD dependent on hemodialysis, and ICD who presented to the ED on 01/06/25 for complaints of shortness for breath and tightness of the neck onset of weak prior to arrival. Patient was admitted by the [facility] team to PCCU and Cardiology was consulted for elevated troponins and suspicion of acute coronary syndrome, as well as manager sports for patient is ESRD on hemodialysis. CT chest without contrast was ordered which resulted with cardiomegaly, coronary calcifications suggestive of coronary artery disease, both lungs have ill- defined ground-glass opacities suggesting infectious process possibly viral origin. We are consulted for pneumoniae. On assessment patient is awake alert and oriented x3. She is currently receiving HD treatment at the bedside tolerating well at this time. On laboratory white count is within normal limits H&H is 9.8/30.8 platelet count of 194 K. chemistries shows a sodium of 134 chloride 93 BUN of 50 creatinine 5.0 and GFR of 10 consistent with a ESRD. Glucose of 300 mg/dL this morning with a troponin of 110 trending down. Patient denies any chest tube has been palpitations or shortness for breath at this time. She does report dry cough that is frequent. Influenza and COVID swabs were negative. CT chest highly suspicious for viral pneumoniae vs atypical pneumoniae. Patient is currently on community-acquired pneumonia empiric treatment with Rocephin and doxycycline. Agreed with the antibiotic choice. 2D echo shows LVEF is 30% anterior, anteroseptal and inferoseptal segments are thin and akinetic as is apical cap. The left ventricle is mildly dilated, the right ventricle is severely dilated, the right ventricular systolic function is severely reduced left atrium appears moderately to severely dilated. Recommendations: Respiratory viral panel recommended but not available in the hospital Check for RSV Continue hemodialysis per nephrology Follow cardiology recommendation Continue IV antibiotics with doxycycline and Rocephin Pulmonary toileting Guaifenesin DM for cough PRN Supplemental 02 as needed maintain o2 sats Maintain aspiration precautions at all times Continue PT/OT Continue GI and DVT prophylaxis Code Status: Full code Disposition: per primary Other: Total patient care time exceeds 35 minutes excluding all procedures. PAST MEDICAL HX: see above PAST SURGICAL HX: noncontributory SOCIAL HISTORY: No tobacco, ETOH, or illicit drug use Coded Allergies: No Known Allergies (Unverified Allergy, 11/14/12) REVIEW OF SYSTEMS: Const: + fatigue, no fever no malaise Eyes: no recent vision problems ENT: No congestion, ear pain, or sore throat C/V: no chest pain, palpitations or edema Resp: [+ dry cough, shortness of breaths, dyspnea on exertion GI: No abdominal pain, nausea, vomiting, constipation, or diarrhea : No incontinence of or dyuria M/S: No joint or pain swelling Skin: No rash Neuro: no headache, focal numbness, or weakness, dizziness or seizures Psych: no depression or anxiety Heme: no abnormal bruising or bleeding Lymph: no swollen glands PHYSICAL EXAM: GENERAL: alert, weak, awake oriented x 3 HEENT: EOMI, Sclera non icteric, moist mucosa NECK: Supple, no JVD, trachea midline LUNGS: Diminished breath sounds bilaterally. No wheezes HEART: Regular rate and rhythm. Normal S1 and S2, without murmurs ABD: Abdomen soft obese, nontender. Bowel sounds present EXT: No clubbing cyanosis or edema, left upper extremity AV fistula NEURO: Alert and oriented to person, follows commands Vital Signs (last 8hr) Date Time Temp Pulse Resp B/P (MAP) Pulse Ox O2 Delivery O2 Flow Rate FiO2 01/10/25 11:32 98.8 65 20 112/68 100 Nasal Cannula 2.0 01/10/25 07:25 98.6 61 20 108/52 100 Room Air LABS: Hematology Labs: Test 01/10/25 03:40 Range/Units White Blood Count 6.3 4.8-10.8 K/uL Red Blood Count 3.12 L 4.00-5.50 MIL/uL Hemoglobin 9.8 L 12.0-16.0 g/dL Hematocrit 30.8 L 36-48 % Mean Corpuscular Volume 98.7 79-99 fL Mean Corpuscular Hemoglobin 31.4 27.0-33.0 pg Mean Corpuscular Hemoglobin Concent 31.8 L 32.0-36.0 g/dL Red Cell Distribution Width 19.4 H 11.0-15.5 % Platelet Count 194 130-400 K/uL Mean Platelet Volume 10.2 7.5-10.5 fL Nucleated Red Blood Cells 0.9 H 0.0-0.19 % Chemistry Labs: Test 01/10/25 11:04 01/10/25 03:40 01/09/25 04:35 Range/Units Whole Blood Glucose 168 H 70-110 MG/DL Sodium Level 136 136-145 mmol/L Potassium Level 4.4 3.5-5.1 mmol/L Chloride Level 94 L 101-111 mmol/L Carbon Dioxide Level 26 21-32 mmol/L Blood Urea Nitrogen 60 H 7-18 mg/dL Creatinine 6.0 H 0.5-1.0 mg/dL Glomerular Filtration Rate Calc 8 >90 mL/min Random Glucose 181 H 70-105 mg/dL Total Calcium 8.4 L 8.5-10.1 mg/dL C-Reactive Protein, Quantitative 103.50 H 0.5-3.0 mg/L Procalcitonin 5.30 H 0.05-0.5 ng/mL DIAGNOSTICS / RADIOLOGY RESULTS: [[place] [id number] [id number] IMAGING REPORT Signed PATIENT: NICK VEE MR#: [id number] : 1965 SEX: F AGE: 59 LOCATION: 2A ORDER 36 STATUS: ADM IN REPORT#: [id number] SERVICE 1135 REASON: SOB, Chronic Cough ORDERING PHYSICIAN: QUITA FRAGOSO MD PROCEDURE: CHEST WO - CT CHEST W/O CONTRAST CT CHEST W/O CONTRAST REASON: SOB, Chronic Cough COMPARISON: Prior study from 12/24/2024 is available. TECHNIQUE: Multiple sequential axial images of the chest were obtained from the thoracic inlet through the upper pole of the kidneys without intravenous contrast administration. FINDINGS: There is cardiomegaly. The pericardium appears to be normal. There is coronary calcification suggesting of coronary artery disease. There is a right-sided AICD with lead in right ventricle which is giving a metallic artifact.. No mediastinal or axillary lymphadenopathy identified. There is no pleural or pericardial effusion. The lungs have ill-defined groundglass opacity suggesting of infectious process.. There is no consolidation or pneumothorax. Trachea and main bronchi are unremarkable. No chest wall abnormality identified. IMPRESSION: Cardiomegaly Coronary calcification suggesting of coronary artery disease Both lungs have ill-defined groundglass opacity suggesting of infectious process possibly viral origin. CT was performed with one or more following dose reduction techniques: automated exposure control, adjustment of the mA and kv according to patient's size, or use of a iterative reconstruction technique. DICTATED BY: HODA HECTOR MD DATE: 01/09/25 1332 ELECTRONICALLY SIGNED BY: HODA HECTOR MD DATE: 01/09/25 1347 ] ATTESTATION BY PHYSICIAN I attest that I reviewed and discussed the case with the Physician Bottling Attendant as well as agree with the Physician Bottling Attendant's findings, plans of care, and documentation above. Damian Boyer MD, [facility] Jan 10, 2025 12:31
[2025-01-10] MEDS ORDERED: ALBUMIN (HUMAN) 25% 50 ML IV.SOLN. IV SCH (13:00)
--- NOTE | 2025-01-10 14:55 | PN ---
[facility] PROGRESS NOTE Date of Service: Jan 10, 2025 Time of Service: 14:41 SUBJECTIVE: This is a 59-year-old female with past medical history of diabetes, hypertension, hyperlipidemia, CHF, coronary artery disease with cardiac stent x4 and permanent pacemaker, end-stage renal disease on hemodialysis who was brought by EMS to the ED for complaints of shortness of breaths and tightness of the neck onset a week ago and it comes and goes and 2 days ago it started to come back and symptoms have been progressively getting worse so today she went for her dialysis and was able to complete the treatment and she continue to have neck tightness and shortness of breath so she decided to come to this facility for evaluation.Patient reports she was here yesterday for similar problem and was anxious and unable to manage financial components of her house and was discharged home .Patient was also here in this ER on 01/03/2025 for chest pain wall and was also discharged home with negative troponin at that time.Patient also reports she has recent cardiac stent x 2 last November 2024 and had a stent x 1 placed on 2012 and another stent x 1 placed on 2014 .Upon arrival to ER an EKG was done and showed sinus rhythm heart rate 87 with nonspecific intraventricular conduction delay with LAD. Left ventricular hypertrophy anterior Q-waves possibly due to LVH. On examination patient is awake,alert and coherent ,appears uncomfortable. Patient denies fever, chills, cough, sore throat, chest pain, palpitation, nausea, vomiting, diaphoresis and abdominal pain. Latest vital signs temperature 97.9, heart rate 79 BP 94/55 saturation 96% at 1 L nasal cannula. Labs: Hemoglobin 10, hematocrit 31, platelet count 173. Sodium 134, chloride 93, BUN 90, creatinine 5, GFR 10, glucose 300 troponin 110 to 212 . Chest x-ray result revealed no acute cardiopulmonary pathology. Mild cardiomegaly with a right-sided cardiac pacemaker. We will admit patient for further medical management. 01/07/25 Patient was evaluated at the bedside. She was hemodynamically stable. She was on oxygen 2 L via nasal cannula. She still complains of neck tightness. In addition to that she also had dry cough for a month. No other associated symptoms like fever, chills and chest pain. She has shortness of breath while walking. She wakes up in middle of the night due to shortness of breath. Her limbs are swollen and has venous ulcer in right lower limb. 01/08/25 Patient was evaluated at the bedside. She was hemodynamically stable. She was on oxygen 2 L via nasal cannula. She still complaints of dry cough cough, she had it whole night. She feels short of breath even after minimal walking. She was planned for Bilateral venous Doppler examination, which she declined. She has been planned for Echocardiogram today. 01/09/25 Patient was evaluated at the bedside. She was hemodynamically stable. She is still on oxygen support, 2L. She still complaints of dry cough cough, which has been the same. ECHO showed LVEF is 30% with Right ventricular systolic function is severely reduced. CT chest was done today which showed both lungs have ill- defined ground glass opacity suggesting of infectious process possibly viral origin. It also revealed Coronary Calcification suggesting CAD. As per Cardiology: she should be continued on uninterrupted dual antiplatelet therapy with the aspirin 81 mg daily and ticagrelor 90 mg p.o. b.i.d. along with antianginal isosorbide mononitrate 30 mg daily and metoprolol. She is not a candidate for other GDM T given her history of hypotension and she is currently maintained on midodrine p.o.. Continue with therapeutic anticoagulation Eliquis. 01/10/25 Patient was evaluated at the bedside. She was hemodynamically stable. She is still on oxygen support, 2L. She still complaints of dry cough cough, which has been the same. Pulmonology was consulted and they recommended examination for respiratory syncytial virus. Patient is currently on community-acquired pneumonia empiric treatment with Rocephin and doxycycline(Day 2). As per the cardiology: she did undergo LAD stenting and is pending left circumflex stenting on 01/21. REVIEW OF SYSTEMS CONSTITUTIONAL: Denies fevers, chills, or night sweats. No unintentional weight loss reported. NEUROLOGICAL: Denies headache, amaurosis fugax, motor weakness, sensory deficit, vertigo/spinning sensation, gait abnormalities, or tremors. ENT: Improvement in symptoms related to neck tightness. No hearing loss, otalgia, otorrhea, rhinitis, rhinorrhea, hoarseness, or sore throat. CARDIOVASCULAR: Denies any exertional angina, dyspnea on exertion, orthopnea, paroxysmal nocturnal dyspnea, palpitations, life-threatening arrhythmias, claudication. PULMONARY: Shortness of breaths on 2L O2, Dry Cough, Denies phlegm/sputum, hemoptysis, pleuritic chest pain. SLEEP: Denies morning headaches, daytime somnolence or napping. Denies difficulty falling asleep, staying asleep, waking from sleep. Denies knowledge of snoring. GASTROINTESTINAL: Denies any type of dysphagia to either liquids or solids. Denies nausea, vomiting, pyrosis, early satiety, abdominal pain, diarrhea, constipation, or changes in stool consistency or caliber. Denies coffee-ground emesis, hematemesis, hematochezia, or melanotic stools. GENITOURINARY: Denies frequency, urgency, nocturia, hematuria or incontinence. ENDOCRINOLOGIC: Denies polyuria, polydipsia, polyphagia or heat/cold intolerances. PHYSICAL EXAM GENERAL APPEARANCE: The patient is awake, alert, and oriented, in no acute cardiopulmonary distress. NEUROLOGICAL: Cranial nerves II-XII grossly intact. Motor is 5/5 in bilateral upper and lower extremities proximal to distal. No sensory deficits. HEENT: Face is symmetric. Pupils are equal and reactive. Extraocular movements are intact. NECK: Supple. No JVD. No thyromegaly. No submental, submandibular, pre- /postauricular, occipital or supraclavicular lymphadenopathy. CHEST: Normal chest expansion. No Telemetry. LUNGS: Absence of any rales, rhonchi or any wheezing. CARDIOVASCULAR: Regular. S1 and S2 normal. No appreciable rubs, murmurs or gallops. ABDOMEN: Soft, nontender, and nondistended. There is no rebound, voluntary guarding, or rigidity. : Deferred. No Yusuf. EXTREMITIES: Wound dressings are intact. Edema 1+ bilateral lower extremities. Venous ulcer in right lower limb. Both the limbs at dry and are scaly. Good capillary refill. Vital Signs (last 8hr) Date Time Temp Pulse Resp B/P (MAP) Pulse Ox O2 Delivery O2 Flow Rate FiO2 01/10/25 14:37 68 18 N/Cannula Low lpm 2.0 28 01/10/25 14:30 68 16 123/63 Nasal Cannula 2.0 01/10/25 14:15 70 16 125/71 Nasal Cannula 2.0 01/10/25 14:00 71 16 126/66 Nasal Cannula 2.0 01/10/25 13:45 71 16 118/60 Nasal Cannula 2.0 01/10/25 13:30 71 16 119/65 Nasal Cannula 2.0 01/10/25 13:15 70 16 122/65 Nasal Cannula 2.0 01/10/25 13:00 69 16 118/66 Nasal Cannula 2.0 01/10/25 12:43 97.7 72 16 127/67 Nasal Cannula 2.0 01/10/25 12:20 97.7 72 18 130/63 Nasal Cannula 2.0 01/10/25 11:32 98.8 65 20 112/68 100 Nasal Cannula 2.0 01/10/25 07:25 98.6 61 20 108/52 100 Room Air LABS: Laboratory: Test 01/10/25 11:04 01/10/25 03:40 01/09/25 04:35 Range/Units Whole Blood Glucose 168 H 70-110 MG/DL White Blood Count 6.3 4.8-10.8 K/uL Red Blood Count 3.12 L 4.00-5.50 MIL/uL Hemoglobin 9.8 L 12.0-16.0 g/dL Hematocrit 30.8 L 36-48 % Mean Corpuscular Volume 98.7 79-99 fL Mean Corpuscular Hemoglobin 31.4 27.0-33.0 pg Mean Corpuscular Hemoglobin Concent 31.8 L 32.0-36.0 g/dL Red Cell Distribution Width 19.4 H 11.0-15.5 % Platelet Count 194 130-400 K/uL Mean Platelet Volume 10.2 7.5-10.5 fL Nucleated Red Blood Cells 0.9 H 0.0-0.19 % Sodium Level 136 136-145 mmol/L Potassium Level 4.4 3.5-5.1 mmol/L Chloride Level 94 L 101-111 mmol/L Carbon Dioxide Level 26 21-32 mmol/L Blood Urea Nitrogen 60 H 7-18 mg/dL Creatinine 6.0 H 0.5-1.0 mg/dL Glomerular Filtration Rate Calc 8 >90 mL/min Random Glucose 181 H 70-105 mg/dL Total Calcium 8.4 L 8.5-10.1 mg/dL C-Reactive Protein, Quantitative 103.50 H 0.5-3.0 mg/L Procalcitonin 5.30 H 0.05-0.5 ng/mL Current Medications Medications (Trade) Dose Ordered Sig/Mark Route PRN Reason Start Time Stop Time Status Last Admin Dose Admin Acetaminophen (TYLenol 325MG TAB) 650 mg Q4H PRN PO MILD PAIN (1-3) 01/06/25 23:00 02/05/25 22:59 01/09/25 20:46 650 MG Acetaminophen (TYLenol 325MG TAB) 650 mg Q6H PRN PO TEMPERATURE GREATER THAN 101.5 01/06/25 23:00 02/05/25 22:59 Albumin Human (Albumin (Human) 25%) 100 ml ONCE IV 01/10/25 13:00 01/11/25 12:59 Albumin Human (Albumin (Human) 25%) 100 ml ONCE IV 01/07/25 13:30 01/08/25 13:29 DC 01/07/25 13:45 100 ML Albumin Human (Albumin (Human) 25%) 100 ml ONCE IV 01/08/25 18:00 01/09/25 17:59 DC 01/08/25 18:28 100 ML Apixaban (EliquIS) 5 mg BID PO 01/07/25 09:00 02/06/25 08:59 01/10/25 11:57 5 MG Atorvastatin Calcium (LIPItor 40MG) 40 mg HS PO 01/07/25 21:00 02/06/25 20:59 01/09/25 20:45 40 MG Buspirone HCl (BUspar) 5 mg BID PO 01/07/25 09:00 02/06/25 08:59 01/10/25 10:15 5 MG Ceftriaxone Sodium (ROCEphine 1G INJ) 1 gm Q24H IVPB 01/09/25 16:30 01/19/25 16:29 01/09/25 17:36 1 GM Dextrose (D50w) 50 ml AD PRN IV HYPOGLYCEMIA PROTOCOL 01/06/25 23:00 02/05/25 22:59 Doxycycline Hyclate 250 ml @ 125 mls/hr Q12H IV 01/09/25 16:30 01/19/25 16:29 01/10/25 04:34 125 MLS/HR Epoetin Hilario-epbx (Retacrit) 10,000 unit QMOWEFR SQ 01/08/25 09:00 02/07/25 08:59 01/08/25 17:06 10,000 UNIT Famotidine (Pepcid 20mg Vial) 20 mg Q48H IV 01/06/25 23:00 02/05/25 22:59 01/08/25 22:11 20 MG Gabapentin (NEURontin 300 MG CAP) 300 mg DAILY PO 01/07/25 09:00 02/06/25 08:59 01/10/25 10:15 300 MG Glucagon (Glucagon 1mg Kit) 1 mg AD PRN IM HYPOGLYCEMIA PROTOCOL 01/06/25 23:00 02/05/25 22:59 Guaifenesin/ Dextromethorphan (RobiTUSSin DM 200/20MG 10ML) 10 ml Q6H PRN PO COUGH 01/10/25 14:00 02/09/25 13:59 Guaifenesin/ Dextromethorphan (RobiTUSSin DM 200/20MG 10ML) 10 ml Q6H PRN PO COUGH 01/07/25 18:00 01/10/25 13:38 DC 01/09/25 20:46 10 ML Home Med (Home Medication) DAILY PO 01/07/25 09:00 02/06/25 08:59 Home Med (Home Medication) HS PO 01/07/25 21:00 02/06/25 20:59 01/09/25 20:52 1 EACH Insulin Human Regular (humuLIN R 100 UNIT/ML 3ML) INSULIN SLIDING SCAL... ACHS SQ 01/07/25 07:30 02/06/25 07:29 01/09/25 17:35 2 UNIT Ipratropium Conklin (AtrovENT UD) 0.5 MG Q4H PRN IH SHORTNESS OF BREATH 01/10/25 14:00 02/09/25 13:59 Isosorbide Mononitrate (Imdur 30mg Sr) 30 mg DAILY PO 01/07/25 09:00 02/06/25 08:59 01/09/25 09:45 30 MG Leptospermum Honey ([facility]) Right lower leg ulcer DAILY20 TP 01/08/25 20:00 02/07/25 19:59 01/09/25 20:47 1 APPL Metoprolol Succinate (TopROL XL) 50 mg AM PO 01/07/25 09:00 02/06/25 08:59 01/09/25 09:46 50 MG Midodrine (PROAMatine 5 MG TABLET) 5 mg ONCE PRN PO hypotension 01/07/25 00:30 01/07/25 16:26 DC Midodrine (PROAMatine 5 MG TABLET) 10 mg TID PO 01/07/25 09:30 02/06/25 09:29 01/10/25 13:14 10 MG Nitroglycerin (Nitrostat) 0.4 mg PROTOCOL PRN SL CHEST PAIN 01/06/25 23:00 02/05/25 22:59 Ondansetron HCl (zoFRAN 4MG INJ) 4 mg Q6H PRN IV NAUSEA/VOMITING 01/06/25 23:00 01/07/25 07:59 DC 01/07/25 05:10 4 MG Sodium Chloride 1,000 ml @ 0 mls/hr ONCE IV 01/07/25 13:00 02/06/25 12:59 01/08/25 18:28 1,000 MLS/HR Ticagrelor (BRILinta) 90 mg BID PO 01/07/25 09:00 02/06/25 08:59 01/10/25 11:57 90 MG DIAGNOSTICS / RADIOLOGY: [ ] ASSESSMENT: Suspected ACS, POA Gram negative Community acquired Pneumonia HFrEF (LVEF: 20-25% by echo done on 11/07/2024) Severe Peripheral artery disease Type 2 Diabetes Mellitus, POA Coronary artery disease with cardiac stent x4 POA Cardiac pacemaker POA Uncontrolled diabetes with hyperglycemia POA End-stage renal disease on hemodialysis POA Morbid obesity POA Hypertension POA Hyperlipidemia POA CHF POA PLAN: Suspected ACS * Presentation with shortness of breath and tightness of neck * There has been gradual rise in serum troponin levels 110<212<306. * EKG showed nonspecific IVCD with LAD;Anterior Q waves, possibly due to LVH * QTC qhe816 which is prolonged, Zofran was stopped * Patient currently on Ticagrelor 90 mg b.i.d., metoprolol succinate 50 mg, Eliquis 5 mg b.i.d. and isosorbide mononitrate 30 mg per oral daily. * Continuous cardiac monitoring * Cardiology has been consulted and awaiting further recommendations * CT revealed Coronary Calcification suggesting CAD. 01/09/25 Gram negative Community acquired Pneumonia * Patient complains of dry cough and shortness of breath * CT showed the lungs have ill-defined groundglass opacity suggesting of in fectious process. * Lab reports showed CRP 103.50 and Procalcitonin 5.30. * She has been started on Doxycycline (Day 2) and Rocephin (Day 2). 01/09/25 * Pulmonology was consulted and they recommended examination for respiratory syncytial virus. 01/10/25 * RSV testing has been ordered. HFrEF (LVEF: 20-25% by echo done on 11/07/2024) * Patient complaints of shortness of breath, she is on 2L of Oxygen. She has oxygen support in home as well. * Her BNP level is 4570. * Echocardiogram has been ordered to rule out pericardial effusion. 01/08/25 * She is not a candidate for GDMT with ACEI/ARB/ARNI therapy due to her borderline blood pressures or aldosterone antagonist therapy due to her advanced renal dysfunction. * Please record strict I/O's, daily weights, and restrict fluids to less than 1.5L/day. * As per Cardiology: she should be continued on uninterrupted dual antiplatelet therapy with the aspirin 81 mg daily and ticagrelor 90 mg p.o. b.i.d. along with antianginal isosorbide mononitrate 30 mg daily and metoprolol. She is not a candidate for other GDM T given her history of hypotension and she is currently maintained on midodrine p.o. 01/09/25 * Continue with therapeutic anticoagulation Eliquis. * ECHO showed LVEF is 30% with Right ventricular systolic function is severely reduced. 01/09/25 * As per the cardiology: she did undergo LAD stenting and is pending left circumflex stenting on 01/21. Severe Peripheral artery disease * Bilateral lower extremity arterial Doppler showed: There are biphasic waveforms seen in all the arteries of bilateral lower extremities, with the exception of the bilateral distal posterior tibial arteries, which are both occluded (100% stenosis). * There is mild to moderate atherosclerosis seen in the arteries of the bilateral lower extremities. 09/30/23 * Venous ulcer in right lower limb * Bilateral limbs are edematous and scaly. * Venous Doppler ultrasound has been ordered * Regular foot checks and pulse exams at each visit congruent * Optimize BP, lipids and blood glucose level * Patient Declined Bilateral venous Doppler examination because she says she feels alot of pain during the process. She was counseled regarding the need of the procedure, still refused to undergo the examination. 01/08/30 End-stage renal disease on hemodialysis * Creatinine level today is 6.0, she underwent dialysis yesterday: Net ultrafiltration 2.0L removed. 01/08/25 * As per the Nephrology: she has been started on Retacrit 10,000 unit. * Her creatinine level during presentation was 5.0 and has trended up to 5.4 today. 01/07/25 * Her dialysis days are Monday, Monday and Monday * Avoid nephrotoxic agents like NSAIDs, IV contrast, aminoglycosides * Transfuse only if symptomatic or Hb been less than 7 grams/dl * Nephrology has been consulted for further recommendations and management. * Resume outpatient dialysis orders at discharge Type 2 Diabetes Mellitus * Her HbA1c level is 7.6 and glucose level during presentation was 144 * Patient is on sliding scale insulin * No current evidence of acute hyperglycemia, DKA or HHS * Advise the patient on limiting sugars, refined carbs saturated fat * Encourage fiber rich foods and person control * Continue atorvastatin 40 mg per oral daily * Reinforce medication adherence, diet log and glucose monitoring Supportive measures * Continue monitoring the morning labs CBC and BMP * DVT and GI prophylaxis as recommended * Closely follow up the patient ATTESTATION BY PHYSICIAN I have seen and examined the patient. I reviewed the documentation, medical decision making, and treatment plan as noted by the resident physician above. I agree with the findings and plan of care. LORIE MEJIA MD [facility] MD Jan 10, 2025 14:55
[2025-01-10] MEDS: guaiFENesin-DM 200/20MG 10ML PO PRN (17:12)
[2025-01-11] VITALS (11 sets, daily range): BP systolic 95–121; BP diastolic 39–61; PULSE 67–76; RESP 18–20; TEMP 97.4–98.2; O2SAT 98–100
--- NOTE | 2025-01-11 00:37 | PN ---
DIALYSIS NOTE SUBJECTIVE: The patient was seen and evaluated on hemodialysis, prescription noted. PHYSICAL EXAMINATION: VITAL SIGNS: Blood pressure is 136/70. CARDIOVASCULAR: Regular. LUNGS: Coarse. IMPRESSION: End-stage renal disease. PLAN: The patient will continue with maximum ultrafiltration as blood pressure allows. TID: [id number] RECEIPT: [id number]
[2025-01-11 03:47] LABS: NUCLEATED RED BLOOD CELLS 1.2 % (0.0-0.19); PLATELET COUNT (AUTO) 191 K/uL (130-400); RED BLOOD CELL COUNT(AUTO) 3.20 MIL/uL (4.00-5.50); RED CELL DISTRIBUTION WIDTH 19.3 % (11.0-15.5); WHITE BLOOD COUNT (AUTO) 7.4 K/uL (4.8-10.8)
[2025-01-11 03:58] LABS: CREATININE 4.9 mg/dL (0.5-1.0); GLOMERULAR FILTR. RATE CALC 10.0 mL/min (>90); GLUCOSE,RANDOM 172.0 mg/dL (70-105); SODIUM SERUM 138.0 mmol/L (136-145); UREA NITROGEN, BLOOD 45.0 mg/dL (7-18)
[2025-01-11 04:03] LABS: ABG BASE EXCESS 3.6 mmol/L (-2.0-3.0); ABG HCO3 27.5 mmol/L (21.0-28.0); ABG OXYGEN SATURATION 97.2 % (94.0-98.0); ABG PCO2 39 mmHg (32-45); ABG PH 7.466 (7.350-7.450); DEVICE COMMENT RR,RNMAX; PO2, ARTERIAL BG 88.0 mmHg (83.0-108.0); TEMPERATURE, CELSIUS BG 37.0 CELSIUS (35.5-37.0); VENT MODE, BG NC 2L (ROOM AIR)
--- NOTE | 2025-01-11 13:38 | PN ---
[facility] PROGRESS NOTE Date Patient Seen: Jan 11, 2025 Time of Visit: 13:31 Supervising Physician: Bernard Marin MD Primary Care Physician: BERKLEY HEATH MD Outpatient Specialists: [ ] Inpatient Consults: LAURIE, DR NOE PEREZ MD, BRYCE HENRIQUEZ MD, DR TORRES ATTENDING PHYSICIAN: [facility] TEAM PROBLEM LIST: Acute hypoxic respiratory failure, POA Suspected bilateral viral pneumonia vs atypical pneumoniae NSTEMI likely type 2 from supply demand mismatch due to hypoxia Acute on chronic systolic and diastolic heart failure w/ ICM EF of 20-30% s/p ICD Multivessel CAD turned down for CABG Paroxysmal atrial fibrillation on chronic anticoagulation with Eliquis Essential hypertension Type 2 diabetes mellitus ESRD on HD MWF Normocytic anemia likely from CKD Prior history of COVID infection in November of 2024 Morbid obesity BMI of 39.9 INTERVAL HISTORY: Patient is awake alert and oriented x3. She continues on 2 L via nasal cannula which is her baseline that she uses home. She reports no shortness for breath at this time. She has been hemodynamically stable saturating 99% on 2 L via nasal cannula and afebrile. Patient tolerated hemodialysis yesterday with 2.5 L out. CBC unremarkable, chemistries consistent with ESRD. Potassium of 4.0 no hypokalemia. From pulmonary standpoint patient may be discharged with plans to follow up in 1-2 weeks with [facility]. Recommendations: Continue hemodialysis per nephrology Follow cardiology recommendation continue antibiotics for atypical pneumonia may switch to PO once discharged From pulmonary -pt may be discharged home with plans to follow up with [facility] in 1-2 weeks. Pulmonary toileting Guaifenesin DM for cough PRN Supplemental 02 as needed maintain o2 sats above 92% Maintain aspiration precautions at all times Continue PT/OT Continue GI and DVT prophylaxis Code Status: Full code Disposition: per primary REVIEW OF SYSTEMS: General: No malaise or fever. Neurological: No fainting episodes or seizures. HEENT: No nasal congestion or nasal secretion. Respiratory: No cough, shortness of breath, or wheezing Cardiac: No chest pain or palpitations. Gastrointestinal: No vomiting or diarrhea. Genitourinary: No dysuria hematuria. Skin: No rashes or lesions. Hematological: No bruises or bleeding. Musculoskeletal: No joint pains or arthralgias. Psychiatric: No depression or panic attacks. PHYSICAL EXAM: GENERAL: alert, weak, awake oriented x 3 HEENT: EOMI, Sclera non icteric, moist mucosa NECK: Supple, no JVD, trachea midline LUNGS: Clear breath sounds bilaterally. No wheezes HEART: Regular rate and rhythm. Normal S1 and S2, without murmurs ABD: Abdomen soft obese, nontender. Bowel sounds present EXT: No clubbing cyanosis or edema, left upper extremity AV fistula NEURO: Alert and oriented to person, follows commands Vital Signs (last 8hr) Date Time Temp Pulse Resp B/P (MAP) Pulse Ox O2 Delivery O2 Flow Rate FiO2 01/11/25 11:44 97.9 74 18 115/57 99 Nasal Cannula 2.0 01/11/25 08:00 99 Nasal Cannula* 2 28 01/11/25 07:39 97.3 70 18 95/61 99 Nasal Cannula 2.0 01/11/25 06:47 70 20 N/Cannula Low lpm 2.0 LABS: Hematology Labs: Test 01/11/25 03:32 Range/Units White Blood Count 7.4 4.8-10.8 K/uL Red Blood Count 3.20 L 4.00-5.50 MIL/uL Hemoglobin 10.1 L 12.0-16.0 g/dL Hematocrit 31.1 L 36-48 % Mean Corpuscular Volume 97.2 79-99 fL Mean Corpuscular Hemoglobin 31.6 27.0-33.0 pg Mean Corpuscular Hemoglobin Concent 32.5 32.0-36.0 g/dL Red Cell Distribution Width 19.3 H 11.0-15.5 % Platelet Count 191 130-400 K/uL Mean Platelet Volume 10.5 7.5-10.5 fL Nucleated Red Blood Cells 1.2 H 0.0-0.19 % Red Blood Cell Morphology See comments Chemistry Labs: Test 01/11/25 11:20 01/11/25 03:32 Range/Units Whole Blood Glucose 128 H 70-110 MG/DL Sodium Level 138 136-145 mmol/L Potassium Level 4.0 3.5-5.1 mmol/L Chloride Level 97 L 101-111 mmol/L Carbon Dioxide Level 29 21-32 mmol/L Blood Urea Nitrogen 45 H 7-18 mg/dL Creatinine 4.9 H 0.5-1.0 mg/dL Glomerular Filtration Rate Calc 10 >90 mL/min Random Glucose 172 H 70-105 mg/dL Total Calcium 8.5 8.5-10.1 mg/dL DIAGNOSTICS / RADIOLOGY RESULTS: [[facility] [address] [place] [address] IMAGING REPORT Signed PATIENT: NICK VEE MR#: [id number] : 1965 SEX: F AGE: 59 LOCATION: 2AH ORDER 36 STATUS: ADM IN REPORT#: [id number] SERVICE 34 REASON: SOB, Chronic Cough ORDERING PHYSICIAN: QUITA FRAGOSO MD PROCEDURE: CHEST WO - CT CHEST W/O CONTRAST CT CHEST W/O CONTRAST REASON: SOB, Chronic Cough COMPARISON: Prior study from 12/24/2024 is available. TECHNIQUE: Multiple sequential axial images of the chest were obtained from the thoracic inlet through the upper pole of the kidneys without intravenous contrast administration. FINDINGS: There is cardiomegaly. The pericardium appears to be normal. There is coronary calcification suggesting of coronary artery disease. There is a right-sided AICD with lead in right ventricle which is giving a metallic artifact.. No mediastinal or axillary lymphadenopathy identified. There is no pleural or pericardial effusion. The lungs have ill-defined groundglass opacity suggesting of infectious process.. There is no consolidation or pneumothorax. Trachea and main bronchi are unremarkable. No chest wall abnormality identified. IMPRESSION: Cardiomegaly Coronary calcification suggesting of coronary artery disease Both lungs have ill-defined groundglass opacity suggesting of infectious process possibly viral origin. CT was performed with one or more following dose reduction techniques: automated exposure control, adjustment of the mA and kv according to patient's size, or use of a iterative reconstruction technique. DICTATED BY: HODA HECTOR MD DATE: 01/09/251331 ELECTRONICALLY SIGNED BY: HODA HECTOR MD DATE: 01/09/25 134 ] ATTESTATION BY PHYSICIAN I reviewed the documentation, medical decision making, and treatment plan as noted by the mid-level provider above. I agree with the findings and plan of care. Bernard Marin MD, [facility] Jan 11, 2025 13:38
--- NOTE | 2025-01-11 15:16 | DS ---
Discharge Summary Hospital Course Summary: The patient is a 59-year-old female with a complex medical history including diabetes, hypertension, hyperlipidemia, congestive heart failure, coronary artery disease with multiple cardiac stents, permanent pacemaker, and end-stage renal disease on hemodialysis. She presented to the emergency department with complaints of shortness of breath and neck tightness, which had been progressively worsening over the past week. She was able to complete her dialysis session but continued to experience symptoms, prompting her to seek further evaluation. On admission, she was hemodynamically stable but required supplemental oxygen via nasal cannula. She reported persistent neck tightness and a dry cough that had been present for approximately one month, along with shortness of breath on exertion and nocturnal dyspnea. Physical examination revealed lower extremity edema and a venous ulcer on the right lower limb. Laboratory studies were notable for anemia, elevated BUN and creatinine consistent with her ESRD, hyperglycemia, and a rise in troponin levels. Chest X-ray showed no acute cardiopulmonary pathology. EKG demonstrated sinus rhythm with nonspecific intraventricular conduction delay and evidence of left ventricular hypertrophy. During her hospital stay, the patient remained on 2L oxygen via nasal cannula. She continued to report dry cough and shortness of breath with minimal exertion. Echocardiogram revealed a left ventricular ejection fraction (LVEF) of 30% with severely reduced right ventricular systolic function. CT chest demonstrated bilateral ill-defined ground glass opacities suggestive of an infectious process, possibly viral in origin, and coronary calcifications consistent with her known CAD. Cardiology recommended continuation of dual antiplatelet therapy (aspirin and ticagrelor), antianginal therapy (isosorbide mononitrate and metoprolol), and therapeutic anticoagulation with apixaban. She was not considered a candidate for other guideline-directed medical therapy due to her history of hypotension and was maintained on midodrine. Pulmonology was consulted and recommended evaluation for respiratory syncytial virus. The patient was started on empiric antibiotic therapy with ceftriaxone and doxycycline for community-acquired pneumonia. She remained hemodynamically stable throughout her hospitalization, with persistent but non-worsening respiratory symptoms. She declined a bilateral venous Doppler examination. Plans for further cardiac intervention (left circumflex stenting) are pending. At discharge, she is stable on room air and will continue oral doxycycline to complete her course of antibiotics. She is to continue all prescribed medications as directed and follow up with Cardiology and Pulmonology in 1-2 weeks, and with her primary care provider in 2-3 days. [employer](s): Nephrology: Juan Asencio MD: * The patient will continue with maximum ultrafiltration as blood pressure allows. Cardiology: MIGUELANGEL NO DO: * She did undergo LAD stenting, pending left circumflex stenting on 01/21 Pulmonology: Bernard Marin MD: * From pulmonary standpoint patient may be discharged with plans to follow up in 1-2 weeks with legal nurse consultant of choice. Procedure(s): [facility] [address] [place] [address] IMAGING REPORT Signed PATIENT: NICK VEE MR#: [id number] : 1965 SEX: F AGE: 59 LOCATION: EDH ORDER 09 STATUS: [facility] REPORT#: [id number] SERVICE 08 REASON: CHEST PAIN/SOB HISTORY OF HEMODIALYSIS ORDERING PHYSICIAN: CARLOS PALMA NP PROCEDURE: CXR1VW - CHEST 1VW EXAM: XR Chest, 1 View. CLINICAL HISTORY: 59-year-old female with chest pain and shortness of breath. COMPARISON: XR Chest from 01/03/2025 at 02/03/2025 11:15 AM. FINDINGS: LUNGS: The lungs are clear. No consolidation. PLEURAL SPACES: No pleural effusion or pneumothorax. HEART: The heart size is mildly enlarged, indicating mild cardiomegaly. A right-sided cardiac pacemaker is present. BONES: No acute osseous abnormality. IMPRESSION: 1. No acute cardiopulmonary pathology. 2. Mild cardiomegaly with a right-sided cardiac pacemaker. 3. Findings similar to prior XR Chest from 01/03/2025 at 11:15 AM. /Viola DICTATED BY: HECTOR RICKS MD DATE: 01/06/252205 ELECTRONICALLY SIGNED BY: HECTOR RICKS MD DATE: 01/06/252205 [facility] [address] [place] [address] IMAGING REPORT Signed PATIENT: NICK VEE MR#: [id number] : 1965 SEX: F AGE: 59 LOCATION: 2AH ORDER 24 STATUS: ADM IN REPORT#: [id number] SERVICE 1123 REASON: Rule out pericardial effusion ORDERING PHYSICIAN: QUITA FRAGOSO MD PROCEDURE: ECHO FU LD - ECHO 2-D F/U-LTD APPROVED REPORT EXAM: Limited Two-dimensional echocardiogram with color Doppler . INDICATION ICD: Rule out pericardial effusion 2D Dimensions RVDd 4.7 cm LVEF(%) 28.7 (>50%) LVED Vol(simp.) 168.7 mL IVSd 1.0 (0.7-1.1cm) FS(%) 14 % LVES Vol(simp.) 116.5 mL LVDd 6.1 (3.8-5.6cm) LA (2D) 4.9 (1.6-4.0cm) LVEF(%, simp.) 31 % PWd 0.9 (0.7-1.1cm) Ao Root(2D) 3.0 (2.0-3.7cm) LA ESV INDEX (BP) 49.27 mL/m2 LVDs 5.2 (2.5-4.0cm) Left Ventricle The left ventricle is mildly dilated. There is global hypokinesis of the left ventricle. There is normal left ventricular wall thickness. Anterior, anteroseptal, and inferoseptal segments are thin and akinetic, as is apical cap. LVEF is 30%. Indetetrminate diastolic function. Right Ventricle The right ventricle is severely dilated. Right ventricular systolic function is severely reduced. Device lead is present in the right ventricle. Atria The left atrium appears moderately to severely dilated. The right atrium appears borderline dilated. Aortic Valve Aortic valve appears to open well. Mitral Valve Mitral valve appears domming. Tricuspid Valve The tricuspid valve leaflets appear to open well There is mild tricuspid valve regurgitation noted by color Doppler. Great Vessels The aortic root appears normal in size. Pericardium Trace pericardial effusion. Other Information Quality : Limited/Follow-up Conclusion LVEF is 30%. Anterior, anteroseptal, and inferoseptal segments are thin and akinetic, as is apical cap. The left ventricle is mildly dilated. The right ventricle is severely dilated. Right ventricular systolic function is severely reduced. The left atrium appears moderately to severely dilated. DICTATED BY: RUBEN THOMPSON MD DATE: 01/08/251136 ELECTRONICALLY SIGNED BY: RUBEN THOMPSON MD DATE: 01/08/25 0890 [place] [id number] [place] [id number] IMAGING REPORT Signed PATIENT: NICK VEE MR#: [id number] : 1965 SEX: F AGE: 59 LOCATION: 2AH ORDER 36 STATUS: ADM IN REPORT#: [id number] SERVICE 34 REASON: SOB, Chronic Cough ORDERING PHYSICIAN: QUITA FRAGOSO MD PROCEDURE: CHEST WO - CT CHEST W/O CONTRAST CT CHEST W/O CONTRAST REASON: SOB, Chronic Cough COMPARISON: Prior study from 12/24/2024 is available. TECHNIQUE: Multiple sequential axial images of the chest were obtained from the thoracic inlet through the upper pole of the kidneys without intravenous contrast administration. FINDINGS: There is cardiomegaly. The pericardium appears to be normal. There is coronary calcification suggesting of coronary artery disease. There is a right-sided AICD with lead in right ventricle which is giving a metallic artifact.. No mediastinal or axillary lymphadenopathy identified. There is no pleural or pericardial effusion. The lungs have ill-defined groundglass opacity suggesting of infectious process.. There is no consolidation or pneumothorax. Trachea and main bronchi are unremarkable. No chest wall abnormality identified. IMPRESSION: Cardiomegaly Coronary calcification suggesting of coronary artery disease Both lungs have ill-defined groundglass opacity suggesting of infectious process possibly viral origin. CT was performed with one or more following dose reduction techniques: automated exposure control, adjustment of the mA and kv according to patient's size, or use of a iterative reconstruction technique. DICTATED BY: HODA HECTOR MD DATE: 01/09/25 1332 ELECTRONICALLY SIGNED BY: HODA HECTOR MD DATE: 01/09/25 599 Assessment/Plan: ASSESSMENT: Suspected ACS, POA Gram negative Community acquired Pneumonia HFrEF (LVEF: 20-25% by echo done on 11/07/2024) Severe Peripheral artery disease Type 2 Diabetes Mellitus, POA Coronary artery disease with cardiac stent x4 POA Cardiac pacemaker POA Uncontrolled diabetes with hyperglycemia POA End-stage renal disease on hemodialysis POA Morbid obesity POA Hypertension POA Hyperlipidemia POA CHF POA Discharge Instructions: ADMISSION DATE : 01/06/25 DISCHARGE DATE: 01/11/25 DISPOSITION : Home CONDITION : Stable [employer](S) : Nephrology: Juan Asencio MD Cardiology: MIGUELANGEL SARABIA DO Pulmonology: Bernard Marin MD FOLLOW UP APPOINTMENT(S) : f/u with PCP in one 2-3 days PROCEDURES: none IMAGING (S) : report attached to summary MICROBIOLOGY : none ACTIVITY : ad vonda HOME MEDICATIONS : Continued Home Medications: Active Scripts Doxycycline Hyclate (Doxycycline Hyclate) 100 Mg Capsule, 1 CAP PO BID for 7 Days, #14 CAP 0 Refills Prov:JOSSIE GOODMAN MD 01/11/25 Isosorbide Mononitrate (Isosorbide Mononitrate ER) 30 Mg Tab.er.24h, 1 TAB PO DAILY for 30 Days, #30 TAB 0 Refills Prov:JOSSIE GOODMAN MD 01/11/25 Ticagrelor (Ticagrelor) 90 Mg Tablet, 90 MG PO BID, #60 TAB 1 Refill Prov:YUMIKO LINDSAY 11/16/24 Reported Medications Nitroglycerin (Nitrostat/Nitroquick) 0.4 Mg Sltb, 1 TAB SL AD for chest pain, #25 TAB 0 Refills 1st sign of attack; may repeat every 5 mins; if pain persists after 3 in 15 min, medical attention is recommended 01/07/25 Cholecalciferol (Vitamin D3) (Vitamin D3) 10 Mcg (400 Unit) Capsule, 1 CAP PO DAILY for 30 Days, #30 CAP 0 Refills 01/07/25 Ticagrelor (Brilinta) 90 Mg Tablet, 90 MG PO BID, TAB 01/07/25 Insulin Glargine,Hum.rec.anlog (Lantus Solostar) 100 Unit/Ml (3 Ml) Insuln.pen, 60 UNIT SQ AM, SYRINGE 01/07/25 Insulin Regular, Human (Humulin R U-500 Kwikpen) 500/Ml (3) Insuln.pen, 5 UNIT SQ ACDINNER, SYRINGE 01/07/25 Insulin Regular, Human (Humulin R U-500 Kwikpen) 500/Ml (3) Insuln.pen, 20 UNIT SQ ACLUNCH, SYRINGE 01/07/25 Insulin Regular, Human (Humulin R U-500 Kwikpen) 500/Ml (3) Insuln.pen, 15 UNIT SQ DAILY, SYRINGE 01/07/25 Buspirone HCl (Buspirone HCl) 5 Mg Tablet, 1 TAB PO BID for 30 Days, #60 TAB 0 Refills 12/23/24 Vadadustat (Vafseo) 150 Mg Tablet, 450 MG PO HS, TAB 12/19/24 Gabapentin (Neurontin) 300 Mg Capsule, 300 MG PO TID, CAP 12/19/24 Metoprolol Succinate (Metoprolol Succinate) 50 Mg Tab.er.24h, 50 MG PO AM, TAB 12/19/24 Cholecalciferol (Vitamin D3) (Vitamin D3) 25 Mcg (1000 Unit) Capsule, 25 MCG PO DAILY, CAP 12/19/24 Atorvastatin Calcium (LIPITOR) 40 Mg Tablet, 40 MG PO HS, TAB 11/06/24 Folic Acid/Vitamin B Comp W-C (Shi-Cindy Tablet) 0.8 Mg Tablet, 0.8 MG PO DAILY, TAB 11/06/24 Apixaban (Eliquis) 5 Mg Tablet, 5 MG PO BID, TAB 11/06/24 Nitroglycerin (Nitroglycerin) 0.4 Mg Tab.subl, 0.4 MG SL AD PRN for CHEST PAIN, TAB.SL 06/09/22 Discontinued Scripts Levofloxacin (Levofloxacin) 500 Mg Tablet, 1 TAB PO every 48 hours for 10 Days, #10 TAB 0 Refills Prov:ROSI WELLS 12/27/24 [Isosorbide Twiggs 30MG Sr Tab] 60 mg TAB.ER.24H No Conflict Check, 60 MG PO AM for 30 Days, #30 1 Refill Prov:YUMIKO LINDSAY 11/16/24 Insulin Lispro (Humalog Kwikpen) 200 Unit/Ml (3 Ml) Insuln.pen, 5 UNIT SQ TIDAC for 30 Days, #2 SYRINGE Prov:ROSI WELLS 12/27/24 Insulin Glargine,Hum.rec.anlog (Izabela Lawrencebrea) 300 Unit/Ml (1.5 Ml) Insuln.pen, 30 UNIT SQ DAILY for 30 Days, #2 SYRINGE Prov:ROSI WELLSCNJoanna 12/27/24 Time spent arranging discharge: 31-60 minutes ATTESTATION BY PHYSICIAN I have seen and examined the patient. I reviewed the documentation, medical decision making, and treatment plan as noted by the resident physician above. I agree with the findings and plan of care. LORIE MEJIA MD [facility] MD Jan 11, 2025 15:16
[2025-01-11] MEDS ORDERED: ISOS30TA92 PO (16:50)
[2025-01-11] MEDS ORDERED: DOXY100C5 PO (16:51)
--- NOTE | 2025-01-11 19:13 | PN ---
FOLLOWUP PROGRESS NOTE SUBJECTIVE: A 59-year-old female with a history of diabetes mellitus and hypertension. She initially presented with significant volume overload. The patient did receive aggressive dialysis while in the hospital. The patient's pulmonary symptoms are much improved. She did receive dialysis of 2.5 L of ultrafiltration yesterday and she is being seen as a followup visit for all the above. REVIEW OF SYSTEMS: GENERAL: The patient is feeling weak and tired. HEENT: No change in vision. No change in hearing. CARDIOVASCULAR: There is no current chest pains or palpitations. PULMONARY: No shortness of breath. GASTROINTESTINAL: The patient is tolerating the diet. MUSCULOSKELETAL: Complains of weakness. PHYSICAL EXAMINATION: VITAL SIGNS: Blood pressure 105/56, pulse 60. She is afebrile. GENERAL: She is chronically ill, much older than appearing female lying in bed on the medical floor. HEENT: Atraumatic. Pupils are equal, round and reactive to light. Oropharynx is without exudate. Nares clear. NECK: There is no JVP. There is no thyromegaly, no mass. CARDIOVASCULAR: Regular. There is no S3 or S4 gallop. LUNGS: Coarse with equal thoracic movement. ABDOMEN: Soft, nondistended, nontender. EXTREMITIES: No clubbing, no cyanosis. NEUROLOGICAL: She is awake. She is alert. LABORATORY DATA: BUN 45, creatinine 4.9, sodium 138, hemoglobin 10 and hematocrit 31. IMPRESSION: Cardiomyopathy. Diabetes mellitus. Hypotension. End stage renal disease. PLAN: The patient's pulmonary symptoms continues to slowly improve. The patient did receive aggressive dialysis yesterday without difficulty. The patient is encouraged in regards to her compliance with her general medical care including the fluid restriction. We will continue to follow closely. Once the patient is discharged, the patient will follow up at the dialysis unit. TID: [id number] RECEIPT: [id number]
--- NOTE | 2025-01-11 20:16 | PN ---
[facility] PROGRESS NOTE Date of Service: Jan 11, 2025 Time of Service: 20:09 SUBJECTIVE: This is a 59-year-old female with past medical history of diabetes, hypertension, hyperlipidemia, CHF, coronary artery disease with cardiac stent x4 and permanent pacemaker, end-stage renal disease on hemodialysis who was brought by EMS to the ED for complaints of shortness of breaths and tightness of the neck onset a week ago and it comes and goes and 2 days ago it started to come back and symptoms have been progressively getting worse so today she went for her dialysis and was able to complete the treatment and she continue to have neck tightness and shortness of breath so she decided to come to this facility for evaluation.Patient reports she was here yesterday for similar problem and was anxious and unable to manage financial components of her house and was discharged home .Patient was also here in this ER on 01/03/2025 for chest pain wall and was also discharged home with negative troponin at that time.Patient also reports she has recent cardiac stent x 2 last November 2024 and had a stent x 1 placed on 2012 and another stent x 1 placed on 2014 .Upon arrival to ER an EKG was done and showed sinus rhythm heart rate 87 with nonspecific intraventricular conduction delay with LAD. Left ventricular hypertrophy anterior Q-waves possibly due to LVH. On examination patient is awake,alert and coherent ,appears uncomfortable. Patient denies fever, chills, cough, sore throat, chest pain, palpitation, nausea, vomiting, diaphoresis and abdominal pain. Latest vital signs temperature 97.9, heart rate 79 BP 94/55 saturation 96% at 1 L nasal cannula. Labs: Hemoglobin 10, hematocrit 31, platelet count 173. Sodium 134, chloride 93, BUN 90, creatinine 5, GFR 10, glucose 300 troponin 110 to 212 . Chest x-ray result revealed no acute cardiopulmonary pathology. Mild cardiomegaly with a right-sided cardiac pacemaker. We will admit patient for further medical management. 01/07/25 Patient was evaluated at the bedside. She was hemodynamically stable. She was on oxygen 2 L via nasal cannula. She still complains of neck tightness. In addition to that she also had dry cough for a month. No other associated symptoms like fever, chills and chest pain. She has shortness of breath while walking. She wakes up in middle of the night due to shortness of breath. Her limbs are swollen and has venous ulcer in right lower limb. 01/08/25 Patient was evaluated at the bedside. She was hemodynamically stable. She was on oxygen 2 L via nasal cannula. She still complaints of dry cough cough, she had it whole night. She feels short of breath even after minimal walking. She was planned for Bilateral venous Doppler examination, which she declined. She has been planned for Echocardiogram today. 01/09/25 Patient was evaluated at the bedside. She was hemodynamically stable. She is still on oxygen support, 2L. She still complaints of dry cough cough, which has been the same. ECHO showed LVEF is 30% with Right ventricular systolic function is severely reduced. CT chest was done today which showed both lungs have ill- defined ground glass opacity suggesting of infectious process possibly viral origin. It also revealed Coronary Calcification suggesting CAD. As per Cardiology: she should be continued on uninterrupted dual antiplatelet therapy with the aspirin 81 mg daily and ticagrelor 90 mg p.o. b.i.d. along with antianginal isosorbide mononitrate 30 mg daily and metoprolol. She is not a candidate for other GDM T given her history of hypotension and she is currently maintained on midodrine p.o.. Continue with therapeutic anticoagulation Eliquis. 01/10/25 Patient was evaluated at the bedside. She was hemodynamically stable. She is still on oxygen support, 2L. She still complaints of dry cough cough, which has been the same. Pulmonology was consulted and they recommended examination for respiratory syncytial virus. Patient is currently on community-acquired pneumonia empiric treatment with Rocephin and doxycycline(Day 2). As per the cardiology: she did undergo LAD stenting and is pending left circumflex stenting on 01/21. 01/11/25 Patient was evaluated at the bedside. She was hemodynamically stable. She still has mild cough. As per Nephrology Once the patient is discharged, the patient will follow up at the dialysis unit. Cardiology will be following up with the patient regarding the Left Circumflex stenting. Patient was discharged this morning but she didnot have a ride back to home tonight. Hence couldnot go today. REVIEW OF SYSTEMS CONSTITUTIONAL: Denies fevers, chills, or night sweats. No unintentional weight loss reported. NEUROLOGICAL: Denies headache, amaurosis fugax, motor weakness, sensory deficit, vertigo/spinning sensation, gait abnormalities, or tremors. ENT: Improvement in symptoms related to neck tightness. No hearing loss, otalgia, otorrhea, rhinitis, rhinorrhea, hoarseness, or sore throat. CARDIOVASCULAR: Denies any exertional angina, dyspnea on exertion, orthopnea, paroxysmal nocturnal dyspnea, palpitations, life-threatening arrhythmias, claudication. PULMONARY: Shortness of breaths on 2L O2, Dry Cough, Denies phlegm/sputum, hemoptysis, pleuritic chest pain. SLEEP: Denies morning headaches, daytime somnolence or napping. Denies difficu lty falling asleep, staying asleep, waking from sleep. Denies knowledge of snoring. GASTROINTESTINAL: Denies any type of dysphagia to either liquids or solids. Denies nausea, vomiting, pyrosis, early satiety, abdominal pain, diarrhea, constipation, or changes in stool consistency or caliber. Denies coffee-ground emesis, hematemesis, hematochezia, or melanotic stools. GENITOURINARY: Denies frequency, urgency, nocturia, hematuria or incontinence. ENDOCRINOLOGIC: Denies polyuria, polydipsia, polyphagia or heat/cold intolerances. PHYSICAL EXAM GENERAL APPEARANCE: The patient is awake, alert, and oriented, in no acute cardiopulmonary distress. NEUROLOGICAL: Cranial nerves II-XII grossly intact. Motor is 5/5 in bilateral upper and lower extremities proximal to distal. No sensory deficits. HEENT: Face is symmetric. Pupils are equal and reactive. Extraocular movements are intact. NECK: Supple. No JVD. No thyromegaly. No submental, submandibular, pre- /postauricular, occipital or supraclavicular lymphadenopathy. CHEST: Normal chest expansion. No Telemetry. LUNGS: Absence of any rales, rhonchi or any wheezing. CARDIOVASCULAR: Regular. S1 and S2 normal. No appreciable rubs, murmurs or gallops. ABDOMEN: Soft, nontender, and nondistended. There is no rebound, voluntary guarding, or rigidity. : Deferred. No Yusuf. EXTREMITIES: Wound dressings are intact. Edema 1+ bilateral lower extremities. Venous ulcer in right lower limb. Both the limbs at dry and are scaly. Good capillary refill. Vital Signs (last 8hr) Date Time Temp Pulse Resp B/P (MAP) Pulse Ox O2 Delivery O2 Flow Rate FiO2 01/11/25 19:20 75 20 N/Cannula Low lpm 2.0 28 01/11/25 18:58 98.1 76 18 121/43 97 Nasal Cannula 2.0 01/11/25 15:50 97.5 68 18 113/61 96 Nasal Cannula 2.0 LABS: Laboratory: Test 01/11/25 19:24 01/11/25 04:02 01/11/25 03:32 01/10/25 13:15 Range/Units Whole Blood Glucose 226 H 70-110 MG/DL Blood Gas Specimen Type Arterial Arterial Blood pH 7.466 H 7.350-7.450 Arterial Blood Partial Pressure CO2 39 32-45 mmHg Arterial Blood Partial Pressure O2 88.0 83.0-108.0 mmHg Arterial Blood HCO3 27.5 21.0-28.0 mmol/L Arterial Blood Oxygen Saturation 97.2 94.0-98.0 % Arterial Blood Base Excess 3.6 H -2.0-3.0 mmol/L Blood Gas Temperature 37.0 35.5-37.0 CELSIUS Blood Gas Flow-by 2.00 0.00-15.00 L/min Blood Gas Vent Mode NC 2L ROOM AIR FiO2 28.0 % Blood Gas Specimen Comment RR,RNMAX White Blood Count 7.4 4.8-10.8 K/uL Red Blood Count 3.20 L 4.00-5.50 MIL/uL Hemoglobin 10.1 L 12.0-16.0 g/dL Hematocrit 31.1 L 36-48 % Mean Corpuscular Volume 97.2 79-99 fL Mean Corpuscular Hemoglobin 31.6 27.0-33.0 pg Mean Corpuscular Hemoglobin Concent 32.5 32.0-36.0 g/dL Red Cell Distribution Width 19.3 H 11.0-15.5 % Platelet Count 191 130-400 K/uL Mean Platelet Volume 10.5 7.5-10.5 fL Nucleated Red Blood Cells 1.2 H 0.0-0.19 % Red Blood Cell Morphology See comments Sodium Level 138 136-145 mmol/L Potassium Level 4.0 3.5-5.1 mmol/L Chloride Level 97 L 101-111 mmol/L Carbon Dioxide Level 29 21-32 mmol/L Blood Urea Nitrogen 45 H 7-18 mg/dL Creatinine 4.9 H 0.5-1.0 mg/dL Glomerular Filtration Rate Calc 10 >90 mL/min Random Glucose 172 H 70-105 mg/dL Total Calcium 8.5 8.5-10.1 mg/dL Respiratory Syncytial Virus(Immuno) Negative Negative Current Medications Medications (Trade) Dose Ordered Sig/Mark Route PRN Reason Start Time Stop Time Status Last Admin Dose Admin Acetaminophen (TYLenol 325MG TAB) 650 mg Q4H PRN PO MILD PAIN (1-3) 01/06/25 23:00 02/05/25 22:59 01/10/25 15:10 650 MG Acetaminophen (TYLenol 325MG TAB) 650 mg Q6H PRN PO TEMPERATURE GREATER THAN 101.5 01/06/25 23:00 02/05/25 22:59 Albumin Human (Albumin (Human) 25%) 100 ml ONCE IV 01/10/25 13:00 01/10/25 15:20 DC Albumin Human (Albumin (Human) 25%) 100 ml ONCE IV 01/07/25 13:30 01/08/25 13:29 DC 01/07/25 13:45 100 ML Albumin Human (Albumin (Human) 25%) 100 ml ONCE IV 01/08/25 18:00 01/09/25 17:59 DC 01/08/25 18:28 100 ML Apixaban (EliquIS) 5 mg BID PO 01/07/25 09:00 02/06/25 08:59 01/11/25 09:29 5 MG Atorvastatin Calcium (LIPItor 40MG) 40 mg HS PO 01/07/25 21:00 02/06/25 20:59 01/10/25 20:38 40 MG Buspirone HCl (BUspar) 5 mg BID PO 01/07/25 09:00 02/06/25 08:59 01/11/25 09:29 5 MG Ceftriaxone Sodium (ROCEphine 1G INJ) 1 gm Q24H IVPB 01/09/25 16:30 01/19/25 16:29 01/11/25 16:11 1 GM Dextrose (D50w) 50 ml AD PRN IV HYPOGLYCEMIA PROTOCOL 01/06/25 23:00 02/05/25 22:59 Doxycycline Hyclate 250 ml @ 125 mls/hr Q12H IV 01/09/25 16:30 01/11/25 13:37 DC 01/11/25 05:31 125 MLS/HR Doxycycline Hyclate (Doxycycline Hyclate) 100 mg BID PO 01/11/25 21:00 01/20/25 20:59 Epoetin Hilario-epbx (Retacrit) 10,000 unit QMOWEFR SQ 01/08/25 09:00 02/07/25 08:59 01/10/25 17:02 10,000 UNIT Famotidine (Pepcid 20mg Vial) 20 mg Q48H IV 01/06/25 23:00 02/05/25 22:59 01/10/25 23:14 20 MG Gabapentin (NEURontin 300 MG CAP) 300 mg DAILY PO 01/07/25 09:00 02/06/25 08:59 01/11/25 09:28 300 MG Glucagon (Glucagon 1mg Kit) 1 mg AD PRN IM HYPOGLYCEMIA PROTOCOL 01/06/25 23:00 02/05/25 22:59 Guaifenesin/ Dextromethorphan (RobiTUSSin DM 200/20MG 10ML) 10 ml Q6H PRN PO COUGH 01/10/25 14:00 02/09/25 13:59 01/11/25 05:36 10 ML Guaifenesin/ Dextromethorphan (RobiTUSSin DM 200/20MG 10ML) 10 ml Q6H PRN PO COUGH 01/07/25 18:00 01/10/25 13:38 DC 01/09/25 20:46 10 ML Home Med (Home Medication) DAILY PO 01/07/25 09:00 02/06/25 08:59 01/11/25 09:31 1 EACH Home Med (Home Medication) HS PO 01/07/25 21:00 02/06/25 20:59 01/10/25 20:42 1 EACH Insulin Human Regular (humuLIN R 100 UNIT/ML 3ML) INSULIN SLIDING SCAL... ACHS SQ 01/07/25 07:30 02/06/25 07:29 01/11/25 16:11 3 UNIT Ipratropium [place] (AtrovENT UD) 0.5 MG Q4H PRN IH SHORTNESS OF BREATH 01/10/25 14:00 02/09/25 13:59 Isosorbide Mononitrate (Imdur 30mg Sr) 30 mg DAILY PO 01/07/25 09:00 11/6/25 08:59 01/11/25 09:28 30 MG Leptospermum Honey (Mediluananey) Right lower leg ulcer DAILY20 TP 01/08/25 20:00 02/07/25 19:59 01/10/25 20:40 1 APPL Metoprolol Succinate (TopROL XL) 50 mg AM PO 01/07/25 09:00 02/06/25 08:59 01/11/25 09:29 50 MG Midodrine (PROAMatine 5 MG TABLET) 5 mg ONCE PRN PO hypotension 01/07/25 00:30 01/07/25 16:26 DC Midodrine (PROAMatine 5 MG TABLET) 10 mg TID PO 01/07/25 09:30 02/06/25 09:29 01/11/25 14:15 10 MG Nitroglycerin (Nitrostat) 0.4 mg PROTOCOL PRN SL CHEST PAIN 01/06/25 23:00 02/05/25 22:59 Ondansetron HCl (zoFRAN 4MG INJ) 4 mg Q6H PRN IV NAUSEA/VOMITING 01/06/25 23:00 01/07/25 07:59 DC 01/07/25 05:10 4 MG Sodium Chloride 1,000 ml @ 0 mls/hr ONCE IV 01/07/25 13:00 02/06/25 12:59 01/08/25 18:28 1,000 MLS/HR Ticagrelor (BRILinta) 90 mg BID PO 01/07/25 09:00 02/06/25 08:59 01/11/25 09:29 90 MG DIAGNOSTICS / RADIOLOGY: [ ] ASSESSMENT: Suspected ACS, POA Gram negative Community acquired Pneumonia HFrEF (LVEF: 20-25% by echo done on 11/07/2024) Severe Peripheral artery disease Type 2 Diabetes Mellitus, POA Coronary artery disease with cardiac stent x4 POA Cardiac pacemaker POA Uncontrolled diabetes with hyperglycemia POA End-stage renal disease on hemodialysis POA Morbid obesity POA Hypertension POA Hyperlipidemia POA CHF POA Patient was discharged this morning but she didn't have a ride back to home tonight. Hence couldn't go today. 01/11/25 ATTESTATION BY PHYSICIAN I have seen and examined the patient. I reviewed the documentation, medical decision making, and treatment plan as noted by the resident physician above. I agree with the findings and plan of care. LORIE MEJIA MD QUITA SAUNDERS MD Jan 11, 2025 20:16
--- NOTE | 2025-01-11 20:22 | NUR ---
Discharge order was not executed this evening. Cardiology team notified nurse late in the evening that they had signed out of case and cleared patient, but by that time it was too late for patient to get prescribed discharge medications and arrange transportation home. Patient remains stable. Dr. Sainz was made aware but no response. Night nurse to follow.
[2025-01-11] MEDS: DOXYCYCLINE HYCLATE 100 MG TABLET PO SCH (21:29)
--- NOTE | 2025-01-11 21:56 | NUR ---
Discharge order clarified with Jimbo Perez CITIZEN PARTICIPATION SPECIALIST. Advised to keep conditional discharge order in place, and get patient ready for discharge in the AM.
[2025-01-12 02:57] VITALS: BP 105/64; PULSE 79; RESP 18; TEMP 98.4
[2025-01-12 07:10] VITALS: PULSE 78; RESP 20; O2SAT 99
[2025-01-12 07:42] VITALS: BP 120/78; PULSE 78; RESP 16; TEMP 97.1
[2025-01-12 08:00] VITALS: O2SAT 99
--- NOTE | 2025-01-12 12:22 | PN ---
[facility] PROGRESS NOTE Date Patient Seen: Jan 12, 2025 Time of Visit: 1127 Supervising Physician: Dr. Bernal Primary Care Physician: BERKLEY HEATH MD Outpatient Specialists: [ ] Inpatient Consults: LAURIE, DR NOE PEREZ MD, BRYCE BERNAL MD, DR TORRES ATTENDING PHYSICIAN: [facility] TEAM PROBLEM LIST: Acute hypoxic respiratory failure, POA Suspected bilateral viral pneumonia vs atypical pneumoniae NSTEMI likely type 2 from supply demand mismatch due to hypoxia Acute on chronic systolic and diastolic heart failure w/ ICM EF of 20-30% s/p ICD Multivessel CAD turned down for CABG Paroxysmal atrial fibrillation on chronic anticoagulation with Eliquis Essential hypertension Type 2 diabetes mellitus ESRD on HD MWF Normocytic anemia likely from CKD Prior history of COVID infection in November of 2024 Morbid obesity BMI of 39.9 INTERVAL HISTORY: Patient is awake alert and oriented x3. She continues on 2 L via nasal cannula which is her baseline that she uses home. She reports no shortness for breath at this time. She has been hemodynamically stable saturating 99% on 2 L via nasal cannula and afebrile. Patient tolerated hemodialysis yesterday with 2.5 L out. CBC unremarkable, chemistries consistent with ESRD. Potassium of 4.0 no hypokalemia. From pulmonary standpoint patient may be discharged with plans to follow up in 1-2 weeks with probe operator of choice. 01/12 patient was seen and examined by bedside with present. At time of visit patient has no specific complaints. Patient remains on2 L nasal cannula. Patient's home oxygen has been delivered. Patient denies any chest pain or shortness of breadth. Denies any nausea vomiting or abdominal pain. From a pulmonary standpoint patient is cleared for discharge. Patient will need to follow up with probe operator Dr. Bernal within 1-2 weeks. Dispo per primary team Recommendations: Continue hemodialysis per nephrology Follow cardiology recommendation continue antibiotics for atypical pneumonia may switch to PO once discharged From pulmonary -pt may be discharged home with plans to follow up with Community Administrator in 1-2 weeks. Pulmonary toileting Guaifenesin DM for cough PRN Supplemental 02 as needed maintain o2 sats above 92% Maintain aspiration precautions at all times Continue PT/OT Continue GI and DVT prophylaxis REVIEW OF SYSTEMS: General: No malaise or fever. Neurological: No fainting episodes or seizures. HEENT: No nasal congestion or nasal secretion. Respiratory: No cough, shortness of breath, or wheezing Cardiac: No chest pain or palpitations. Gastrointestinal: No vomiting or diarrhea. Genitourinary: No dysuria hematuria. Skin: No rashes or lesions. Hematological: No bruises or bleeding. Musculoskeletal: No joint pains or arthralgias. Psychiatric: No depression or panic attacks. PHYSICAL EXAM: GENERAL: alert, weak, awake oriented x 3 HEENT: EOMI, Sclera non icteric, moist mucosa NECK: Supple, no JVD, trachea midline LUNGS: Clear breath sounds bilaterally. No wheezes HEART: Regular rate and rhythm. Normal S1 and S2, without murmurs ABD: Abdomen soft obese, nontender. Bowel sounds present EXT: No clubbing cyanosis or edema, left upper extremity AV fistula NEURO: Alert and oriented to person, follows commands Vital Signs (last 8hr) Date Time Temp Pulse Resp B/P (MAP) Pulse Ox O2 Delivery O2 Flow Rate FiO2 01/12/25 08:00 99 Nasal Cannula* 2 28 01/12/25 07:42 97.2 78 16 120/78 99 Nasal Cannula 2.0 01/12/25 07:10 78 20 N/Cannula Low lpm 2.0 LABS: Hematology Labs: Test 01/11/25 03:32 Range/Units White Blood Count 7.4 4.8-10.8 K/uL Red Blood Count 3.20 L 4.00-5.50 MIL/uL Hemoglobin 10.1 L 12.0-16.0 g/dL Hematocrit 31.1 L 36-48 % Mean Corpuscular Volume 97.2 79-99 fL Mean Corpuscular Hemoglobin 31.6 27.0-33.0 pg Mean Corpuscular Hemoglobin Concent 32.5 32.0-36.0 g/dL Red Cell Distribution Width 19.3 H 11.0-15.5 % Platelet Count 191 130-400 K/uL Mean Platelet Volume 10.5 7.5-10.5 fL Nucleated Red Blood Cells 1.2 H 0.0-0.19 % Red Blood Cell Morphology See comments Chemistry Labs: Test 01/12/25 05:19 01/11/25 03:32 Range/Units Whole Blood Glucose 100 # 70-110 MG/DL Sodium Level 138 136-145 mmol/L Potassium Level 4.0 3.5-5.1 mmol/L Chloride Level 97 L 101-111 mmol/L Carbon Dioxide Level 29 21-32 mmol/L Blood Urea Nitrogen 45 H 7-18 mg/dL Creatinine 4.9 H 0.5-1.0 mg/dL Glomerular Filtration Rate Calc 10 >90 mL/min Random Glucose 172 H 70-105 mg/dL Total Calcium 8.5 8.5-10.1 mg/dL DIAGNOSTICS / RADIOLOGY RESULTS: na Case discussed with supervising physician plan of care agreed upon BRITNI REDMAN COIL WRAPPER Jan 12, 2025 12:22
--- NOTE | 2025-01-12 13:18 | NUR ---
DISCHARGE INSTRUCTIONS DISCHARGE INSTRUCTIONS WERE GIVEN TO THIS PATIENT AND EDUCATION WAS PROVIDED ON NEW MEDICATIONS. PIV TO RIGHT FOREARM WAS REMOVED AND DRY DRESSING WAS APPLIED. TELE PACK WAS REMOVED AND RETURNED TO TELE ROOM. ALL BELONGINGS WERE TAKEN WITH THIS PATIENT. PATIENT WAS TAKEN TO PRIVATE VEHICLE VIA WHEEL CHAIR.
--- NOTE | 2025-01-12 13:22 | PN ---
[facility] PROGRESS NOTE Date Patient Seen: Jan 12, 2025 Time of Visit: 13:16 Supervising Physician: Angel Bernal MD Primary Care Physician: BERKLEY HEATH MD Outpatient Specialists: [ ] Inpatient Consults: LAURIE, DR NOE PEREZ MD, BRYCE BERNAL MD, DR TORRES ATTENDING PHYSICIAN: [facility] TEAM PROBLEM LIST: Acute on chronic hypoxic respiratory failure, POA on 2 L home o2 now Suspected bilateral viral pneumonia vs atypical pneumoniae NSTEMI likely type 2 from supply demand mismatch due to hypoxia Acute on chronic systolic and diastolic heart failure w/ ICM EF of 20-30% s/p ICD Multivessel CAD turned down for CABG Paroxysmal atrial fibrillation on chronic anticoagulation with Eliquis Essential hypertension Type 2 diabetes mellitus ESRD on HD MWF Normocytic anemia likely from CKD Prior history of COVID infection in November of 2024 Morbid obesity BMI of 39.9 INTERVAL HISTORY: Alert and oriented x3. No major overnight events. Dear no labs for today. Patient denies any chest pain palpitations or shortness for breath at this time. Back to her baseline on 2 L via nasal cannula in no apparent respiratory distress. Likely DC today per primary team. Recommendations: Continue hemodialysis per nephrology Follow cardiology recommendation continue antibiotics for atypical pneumonia may switch to PO once discharged From pulmonary -pt may be discharged home with plans to follow up with Pulmonol ogist in 1-2 weeks. Pulmonary toileting Guaifenesin DM for cough PRN Supplemental 02 as needed maintain o2 sats above 92% Maintain aspiration precautions at all times Continue PT/OT Continue GI and DVT prophylaxis REVIEW OF SYSTEMS: General: No malaise or fever. Neurological: No fainting episodes or seizures. HEENT: No nasal congestion or nasal secretion. Respiratory: No cough, shortness of breath, or wheezing Cardiac: No chest pain or palpitations. Gastrointestinal: No vomiting or diarrhea. Genitourinary: No dysuria hematuria. Skin: No rashes or lesions. Hematological: No bruises or bleeding. Musculoskeletal: No joint pains or arthralgias. Psychiatric: No depression or panic attacks. PHYSICAL EXAM: GENERAL: alert, weak, awake oriented x 3 HEENT: EOMI, Sclera non icteric, moist mucosa NECK: Supple, no JVD, trachea midline LUNGS: Clear breath sounds bilaterally. No wheezes HEART: Regular rate and rhythm. Normal S1 and S2, without murmurs ABD: Abdomen soft obese, nontender. Bowel sounds present EXT: No clubbing cyanosis or edema, left upper extremity AV fistula NEURO: Alert and oriented to person, follows commands Vital Signs (last 8hr) Date Time Temp Pulse Resp B/P (MAP) Pulse Ox O2 Delivery O2 Flow Rate FiO2 01/12/25 08:00 99 Nasal Cannula* 2 28 01/12/25 07:42 97.2 78 16 120/78 99 Nasal Cannula 2.0 01/12/25 07:10 78 20 N/Cannula Low lpm 2.0 LABS: Hematology Labs: Test 01/11/25 03:32 Range/Units White Blood Count 7.4 4.8-10.8 K/uL Red Blood Count 3.20 L 4.00-5.50 MIL/uL Hemoglobin 10.1 L 12.0-16.0 g/dL Hematocrit 31.1 L 36-48 % Mean Corpuscular Volume 97.2 79-99 fL Mean Corpuscular Hemoglobin 31.6 27.0-33.0 pg Mean Corpuscular Hemoglobin Concent 32.5 32.0-36.0 g/dL Red Cell Distribution Width 19.3 H 11.0-15.5 % Platelet Count 191 130-400 K/uL Mean Platelet Volume 10.5 7.5-10.5 fL Nucleated Red Blood Cells 1.2 H 0.0-0.19 % Red Blood Cell Morphology See comments Chemistry Labs: Test 01/12/25 05:19 01/11/25 03:32 Range/Units Whole Blood Glucose 100 # 70-110 MG/DL Sodium Level 138 136-145 mmol/L Potassium Level 4.0 3.5-5.1 mmol/L Chloride Level 97 L 101-111 mmol/L Carbon Dioxide Level 29 21-32 mmol/L Blood Urea Nitrogen 45 H 7-18 mg/dL Creatinine 4.9 H 0.5-1.0 mg/dL Glomerular Filtration Rate Calc 10 >90 mL/min Random Glucose 172 H 70-105 mg/dL Total Calcium 8.5 8.5-10.1 mg/dL DIAGNOSTICS / RADIOLOGY RESULTS: [[facility] [id number] [place] [address] IMAGING REPORT Signed PATIENT: NICK VEE MR#: [id number] : 1965 SEX: F AGE: 59 LOCATION: 2AH ORDER 36 STATUS: ADM IN REPORT#: [id number] SERVICE 34 REASON: SOB, Chronic Cough ORDERING PHYSICIAN: QUITA FRAGOSO MD PROCEDURE: CHEST WO - CT CHEST W/O CONTRAST CT CHEST W/O CONTRAST REASON: SOB, Chronic Cough COMPARISON: Prior study from 12/24/2024 is available. TECHNIQUE: Multiple sequential axial images of the chest were obtained from the thoracic inlet through the upper pole of the kidneys without intravenous contrast administration. FINDINGS: There is cardiomegaly. The pericardium appears to be normal. There is coronary calcification suggesting of coronary artery disease. There is a right-sided AICD with lead in right ventricle which is giving a metallic artifact.. No mediastinal or axillary lymphadenopathy identified. There is no pleural or pericardial effusion. The lungs have ill-defined groundglass opacity suggesting of infectious process.. There is no consolidation or pneumothorax. Trachea and main bronchi are unremarkable. No chest wall abnormality identified. IMPRESSION: Cardiomegaly Coronary calcification suggesting of coronary artery disease Both lungs have ill-defined groundglass opacity suggesting of infectious process possibly viral origin. CT was performed with one or more following dose reduction techniques: automated exposure control, adjustment of the mA and kv according to patient's size, or use of a iterative reconstruction technique. DICTATED BY: HODA HECTOR MD DATE: 01/09/25 1332 ELECTRONICALLY SIGNED BY: HODA HECTOR MD DATE: 01/09/25 1347 ] ATTESTATION BY PHYSICIAN The patient has been seen and evaluated, the case has been discussed with the GENERAL OFFICE ASSOCIATE, I agree with the clinical findings and plan of care. Angel Bernal MD, [facility] Jan 12, 2025 13:22
--- NOTE | 2025-01-12 14:03 | PN ---
FOLLOWUP PROGRESS NOTE SUBJECTIVE: 59-year-old female with history of diabetes mellitus, hypertension. The patient with a history of known coronary artery disease. She initially presented with significant volume overload. The patient has received aggressive dialysis in the hospital. Pulmonary symptoms have greatly improved. Weight has declined by over 3 kilos since admission and she is being seen as a followup visit for all of the above. REVIEW OF SYSTEMS: GENERAL: She is feeling improved. HEENT: No change in vision. No change in hearing. CARDIOVASCULAR: There are no current chest pains or palpitations. PULMONARY: Her shortness of breath has improved. GASTROINTESTINAL: She is tolerating a diet. MUSCULOSKELETAL: No complaints of weakness. PHYSICAL EXAMINATION: VITAL SIGNS: Blood pressure is 120/78, pulse in the 70s, afebrile. GENERAL: Chronically ill female, much older than appearing. HEENT: Head is atraumatic. Pupils are equal, round and reactive to light. Oropharynx is without exudate. Nares clear. NECK: There is no JVP. There is no thyromegaly, no mass. CARDIOVASCULAR: Regular. There is no S3 or S4 gallop. LUNGS: Coarse with equal thoracic movement. ABDOMEN: Soft, nondistended, nontender. EXTREMITIES: Reveal no clubbing, no cyanosis. NEUROLOGICAL: She is awake, she is alert. LABORATORY DATA: Hemoglobin 10, hematocrit 31, white blood cell count 7,000. IMPRESSION: * End stage renal disease. * Volume overload. * Coronary artery disease. * Diabetes mellitus. * Hypertension. PLAN: The patient has done well in the hospital. The patient continues with aggressive ultrafiltration with her dialysis sessions. The patient can safely be discharged from a renal standpoint. The patient has been counseled in regards to her compliance not only with her general medical care but as well as her fluid restriction. The patient can follow up at the dialysis unit. TID: [id number] RECEIPT: [id number]
== END 2025-01-12 13:13 | disposition home or self-care (01) | DRG 291 ==
LOC: EDH 18:27 → EDHIP 22:51 → 2BH 01-07 09:05 → 2AH 01-07 18:01
PROVIDERS: ADMIT Internal Medicine; ATTEND Internal Medicine
PROC: 5A1D70Z Performance of Urinary Filtration, Intermittent, Less than 6 Hours Per Day (ICD-10-PCS; principal; 2025-01-07)
PROC: 5A1D70Z Performance of Urinary Filtration, Intermittent, Less than 6 Hours Per Day (ICD-10-PCS; 2025-01-08)
PROC: 5A1D70Z Performance of Urinary Filtration, Intermittent, Less than 6 Hours Per Day (ICD-10-PCS; 2025-01-10)
DX: I13.2 Hypertensive heart and chronic kidney disease with heart failure and with stage 5 chronic kidney disease, or end stage renal disease (principal); I50.43 Acute on chronic combined systolic (congestive) and diastolic (congestive) heart failure; J15.69 Pneumonia due to other Gram-negative bacteria; J96.21 Acute and chronic respiratory failure with hypoxia; N18.6 End stage renal disease; I24.9 Acute ischemic heart disease, unspecified; L97.918 Non-pressure chronic ulcer of unspecified part of right lower leg with other specified severity; Z68.41 Body mass index [BMI] 40.0-44.9, adult; I42.9 Cardiomyopathy, unspecified; I25.10 Atherosclerotic heart disease of native coronary artery without angina pectoris; E11.65 Type 2 diabetes mellitus with hyperglycemia; E66.01 Morbid (severe) obesity due to excess calories; Z95.810 Presence of automatic (implantable) cardiac defibrillator; D63.1 Anemia in chronic kidney disease; E11.22 Type 2 diabetes mellitus with diabetic chronic kidney disease; E11.51 Type 2 diabetes mellitus with diabetic peripheral angiopathy without gangrene; E78.00 Pure hypercholesterolemia, unspecified; F41.9 Anxiety disorder, unspecified; I25.5 Ischemic cardiomyopathy; I48.0 Paroxysmal atrial fibrillation; I45.9 Conduction disorder, unspecified; Z79.01 Long term (current) use of anticoagulants; Z82.49 Family history of ischemic heart disease and other diseases of the circulatory system; Z86.16 Personal history of COVID-19; Z91.199 Patient's noncompliance with other medical treatment and regimen due to unspecified reason; Z95.5 Presence of coronary angioplasty implant and graft; Z99.2 Dependence on renal dialysis; Z99.3 Dependence on wheelchair; Z99.81 Dependence on supplemental oxygen; Z83.3 Family history of diabetes mellitus; Z82.0 Family history of epilepsy and other diseases of the nervous system; Z68.39 Body mass index [BMI] 39.0-39.9, adult
CPT/HCPCS: 36415; 36600; 71045; 71250; 80048; 80053; 80061; 80076; 82803; 82948; 83036; 83735; 83880; 84100; 84145; 84484; 85025; 85027; 85610; 85730; 86140; 87040; 87420; 87426; 87804; 90935; 93005; 93308; 94640; 94664; 94667; 99283; 99284; 99285; G0378; J0696; J1171; J1815; J2405; J3490; P9047; J1308; Q5106

== ENCOUNTER 2025-01-15 08:12 | Inpatient (IN) | payer OTHER ==
[~2025-01-15] VITALS: Ht 157.5 cm; Wt 99.8 kg
[~2025-01-15 08:12] MED LIST changes: +DOXY100C5 PO; +ERGO400C PO; -INSU200I SQ; -INSU300I SQ; +INSU3INS3 SQ; +INSU500I SQ; +ISOS30TA92 PO; -Isosorbide Mono 30MG Sr Tab PO; -LEVO-70 PO; +NITR.4 SL; +TICA90TA PO
[2025-01-15 08:13] VITALS: RESP 16; TEMP 98.1
[2025-01-15 08:42] LABS: IMMATURE GRANULOCYTE ABSOLUTE 0.03 K/uL (0-1); NUCLEATED RED BLOOD CELLS 1.0 % (0.0-0.19); PLATELET COUNT (AUTO) 176 K/uL (130-400); RED BLOOD CELL COUNT(AUTO) 3.69 MIL/uL (4.00-5.50); RED CELL DISTRIBUTION WIDTH 20.6 % (11.0-15.5); WHITE BLOOD COUNT (AUTO) 8.1 K/uL (4.8-10.8)
[2025-01-15 08:50] VITALS: PULSE 178
[2025-01-15 08:53] LABS: INR 1.43 (0.85-1.15)
[2025-01-15 08:56] LABS: CREATINE KINASE, TOTAL 77.0 U/L (21-232); CREATININE 6.0 mg/dL (0.5-1.0); GLOMERULAR FILTR. RATE CALC 8.0 mL/min (>90); GLUCOSE,RANDOM 195.0 mg/dL (70-105); SODIUM SERUM 138.0 mmol/L (136-145); UREA NITROGEN, BLOOD 55.0 mg/dL (7-18)
--- NOTE | 2025-01-15 08:59 | HMCIMG ---
EXAM: CR Chest, single view. CLINICAL HISTORY: Chest pain. COMPARISON: Prior chest radiograph dated January 06, 2025 FINDINGS: Battery pack in the right anterior chest wall with pacemaker wires in the right atrium and ventricles. Moderate cardiomegaly with bilateral hilar congestion. Patchy, ill-defined infiltrates in the lingula and left lower lobe. No evidence of pleural effusion or pneumothorax. No acute osseous abnormality. IMPRESSION: Battery pack in the right anterior chest wall with pacemaker wires in the right atrium and ventricles. Moderate cardiomegaly with bilateral hilar congestion. Patch,y ill-defined infiltrates in the lingula and left lower lobe. No evidence of pleural effusion or pneumothorax. Compared to the prior study, there is an interval increase in cardiomegaly and infiltrates in the left lower lobe. /[place]
[2025-01-15] MEDS: MIDAZOLAM 50MG-0.9% NS 50ML 50 ML IV ONE (09:08)
[2025-01-15] MEDS: ZOSYN 3.375GM +NS 50ML IVPB SCH (09:30)
[2025-01-15] MEDS ORDERED: NOREPINEPHRIN 4MG/NS 250ML 250 ML IV SCH ×2 (09:30→10:00)
--- NOTE | 2025-01-15 09:36 | ERN ---
General Chief Complaint: Chest Pain Stated Complaint: CP Time Seen by MD: 08:15 Source: patient History of Present Illness Initial Comments In his is a 59-year-old female coming in complaining of chest pressure chest discomfort and shortness of breath. Per patient she was getting dialyzed earlier today and started presenting with this these symptoms. Patient does has a history of end-stage renal disease and severe cardiac calcification with low ejection fraction Allergies: Coded Allergies: No Known Allergies (Unverified Allergy, 11/14/12) Home Meds Active Scripts Doxycycline Hyclate (Doxycycline Hyclate) 100 Mg Capsule, 1 CAP PO BID for 7 Days, #14 CAP 0 Refills Prov:JOSSIE GOODMAN MD 01/11/25 Isosorbide Mononitrate (Isosorbide Mononitrate ER) 30 Mg Tab.er.24h, 1 TAB PO DAILY for 30 Days, #30 TAB 0 Refills Prov:JOSSIE GOODMAN MD 01/11/25 Ticagrelor (Ticagrelor) 90 Mg Tablet, 90 MG PO BID, #60 TAB 1 Refill Prov:YUMIKO LINDSAY 11/16/24 Reported Medications Nitroglycerin (Nitrostat/Nitroquick) 0.4 Mg Sltb, 1 TAB SL AD for chest pain, #25 TAB 0 Refills 1st sign of attack; may repeat every 5 mins; if pain persists after 3 in 15 min, medical attention is recommended 01/07/25 Cholecalciferol (Vitamin D3) (Vitamin D3) 10 Mcg (400 Unit) Capsule, 1 CAP PO DAILY for 30 Days, #30 CAP 0 Refills 01/07/25 Ticagrelor (Brilinta) 90 Mg Tablet, 90 MG PO BID, TAB 01/07/25 Insulin Glargine,Hum.rec.anlog (Lantus Solostar) 100 Unit/Ml (3 Ml) Insuln.pen, 60 UNIT SQ AM, SYRINGE 01/07/25 Insulin Regular, Human (Humulin R U-500 Kwikpen) 500/Ml (3) Insuln.pen, 5 UNIT SQ ACDINNER, SYRINGE 01/07/25 Insulin Regular, Human (Humulin R U-500 Kwikpen) 500/Ml (3) Insuln.pen, 20 UNIT SQ ACLUNCH, SYRINGE 01/07/25 Insulin Regular, Human (Humulin R U-500 Kwikpen) 500/Ml (3) Insuln.pen, 15 UNIT SQ DAILY, SYRINGE 01/07/25 Buspirone HCl (Buspirone HCl) 5 Mg Tablet, 1 TAB PO BID for 30 Days, #60 TAB 0 Refills 12/23/24 Vadadustat (Vafseo) 150 Mg Tablet, 450 MG PO HS, TAB 12/19/24 Gabapentin (Neurontin) 300 Mg Capsule, 300 MG PO TID, CAP 12/19/24 Metoprolol Succinate (Metoprolol Succinate) 50 Mg Tab.er.24h, 50 MG PO AM, TAB 12/19/24 Cholecalciferol (Vitamin D3) (Vitamin D3) 25 Mcg (1000 Unit) Capsule, 25 MCG PO DAILY, CAP 12/19/24 Atorvastatin Calcium (LIPITOR) 40 Mg Tablet, 40 MG PO HS, TAB 11/06/24 Folic Acid/Vitamin B Comp W-C (Shi-Cindy Tablet) 0.8 Mg Tablet, 0.8 MG PO DAILY, TAB 11/06/24 Apixaban (Eliquis) 5 Mg Tablet, 5 MG PO BID, TAB 11/06/24 Nitroglycerin (Nitroglycerin) 0.4 Mg Tab.subl, 0.4 MG SL AD PRN for CHEST PAIN, TAB.SL 06/09/22 Discontinued Scripts Levofloxacin (Levofloxacin) 500 Mg Tablet, 1 TAB PO every 48 hours for 10 Days, #10 TAB 0 Refills Prov:ROSI WELLS AGACNP 12/27/24 [Isosorbide Harper 30MG Sr Tab] 60 mg TAB.ER.24H No Conflict Check, 60 MG PO AM for 30 Days, #30 1 Refill Prov:YUMIKO LINDSAY PAC 11/16/24 Past Medical History Past Medical History: Diabetes-Type II, High Cholesterol, Hypertension, Other Medical History Other: CKD ON DIALYSIS Past Surgical History: Pacer/AICD, LAVA Surgical History Other: RIGHT CHEST PERMACATH Social History Social History: Negative, Lives with family Female( History) History: Not Applicable ROS Dictation CONSTITUTIONAL: No chills, no fever, no weakness, no diaphoresis, no malaise. HEAD/FACE: No signs of trauma. EENT: No eye pain, no blurred vision, no tearing, no double vision, no ear pain, no ear discharge, no nose pain, no nasal congestion, no throat pain, no throat swelling, no mouth pain. RESPIRATORY: No cough, no orthopnea, SOB, no stridor, no wheezing. CARDIOVASCULAR: chest pain, no edema, no palpitations, no syncope. GASTROINTESTINAL/ABDOMINAL: No abdominal pain, no constipation, no diarrhea, no nausea, no vomiting. GENITOURINARY: No abnormal discharge, no dysuria, no frequent urination, no hematuria. No complaints of pain in the genitals. MUSCULOSKELETAL: No back pain, no gout, no joint pain, no joint swelling, no muscle pain, no muscle stiffness, no neck pain. INTEGUMENTARY: No change in color, no change in hair/nails, no dryness, no lesion, no lumps, no rash. NEUROLOGICAL/PSYCH: No anxiety, not depressed, no emotional problem, no head ache, no numbness, no pre-existing deficit, no history of seizures, no tremors, no weakness. HEMATOLOGIC/LYMPHATIC: Not anemic, no history of blood clots, no apparent bleeding, no bruising, glands not swollen. All Systems Negative, Except as Noted. Physical Exam Physical Exam Dictation VITAL SIGNS: Reviewed. GENERAL APPEARANCE: Alert, oriented x3, no acute distress, obese. HEAD AND FACE: Non-traumatic. EYES: PERRL, pink conjunctivas, eyelid no trauma, anterior chamber clear. EARS: Pinnas intact and no signs of trauma or erythema. Ear canals clear and no discharge. TMs no erythema. NOSE: No discharge, no bleeding. OROPHARYNX: Mouth normal, teeth no caries, tongue pink. Pharynx clear, no erythema. Tonsils no exudates, no abscesses noted. Mucous membrane moist. NECK: Supple, non-tender, no thyromegaly, no masses, no JVD, no bruits. BREAST: Deferred. CHEST: No tenderness, no crepitus, no paradoxical movement, no retractions. LUNGS: Clear, well-ventilated, symmetric, no rales, no wheezing, no rhonchi, no stridor, good breath sounds bilaterally. HEART: Regular rate, regular rhythm, no murmur, no gallops. VASCULAR: No peripheral edema. ABDOMEN: Soft, positive bowel sounds, nondistended, no guarding, nontender, no rebound, no masses no hepatomegaly, no splenomegaly, no Olson's sign, no hernias. RECTAL: Deferred. GENITAL: Deferred. NEUROLOGICAL: Normal speech, gross motor function intact, gross sensory function intact. MUSCULOSKELETAL: Neck nontender, full range of motion, back nontender, full range of motion. EXTREMITIES: Nontender, full range of motion. SKIN: Color pink, dry, no turgor, no rash, no lacerations, no abrasions, no contusions. LYMPHATICS: Deferred. Results Laboratory and Microbiology Lab and Micro Result Laboratory Tests Test 01/15/25 08:34 White Blood Count 8.1 K/uL (4.8-10.8) Red Blood Count 3.69 MIL/uL (4.00-5.50) L Hemoglobin 11.5 g/dL (12.0-16.0) L Hematocrit 37.9 % (36-48) Mean Corpuscular Volume 102.7 fL (79-99) H Mean Corpuscular Hemoglobin 31.2 pg (27.0-33.0) Mean Corpuscular Hemoglobin Concent 30.3 g/dL (32.0-36.0) L Red Cell Distribution Width 20.6 % (11.0-15.5) H Platelet Count 176 K/uL (130-400) Mean Platelet Volume 10.9 fL (7.5-10.5) H Immature Granulocyte % (Auto) 0.4 % (0-1) Neutrophils (%) (Auto) 66.6 % (40.0-77.0) Lymphocytes (%) (Auto) 18.4 % (21.0-51.0) L Monocytes (%) (Auto) 8.4 % (3.0-13.0) Eosinophils (%) (Auto) 5.7 % (0.0-8.0) Basophils (%) (Auto) 0.5 % (0.0-5.0) Neutrophils # (Auto) 5.4 K/uL (1.8-7.7) Lymphocytes # (Auto) 1.5 K/uL (1.0-4.8) Monocytes # (Auto) 0.7 K/uL (0.1-1.0) Eosinophils # (Auto) 0.46 K/uL (0.00-0.70) Basophils # (Auto) 0.04 K/uL (0.00-0.20) Absolute Immature Granulocyte (auto 0.03 K/uL (0-1) Nucleated Red Blood Cells 1.0 % (0.0-0.19) H Prothrombin Time 14.6 SEC (9.6-11.6) H Prothromb Time International Ratio 1.43 (0.85-1.15) H Activated Partial Thromboplast Time 34.1 SEC (26.3-35.5) Sodium Level 138 mmol/L (136-145) Potassium Level 5.8 mmol/L (3.5-5.1) H Chloride Level 94 mmol/L (101-111) L Carbon Dioxide Level 26 mmol/L (21-32) Blood Urea Nitrogen 55 mg/dL (7-18) H Creatinine 6.0 mg/dL (0.5-1.0) H Glomerular Filtration Rate Calc 8 mL/min (>90) Random Glucose 195 mg/dL (70-105) H Total Calcium 8.9 mg/dL (8.5-10.1) Magnesium Level 2.40 mg/dL (1.80-2.40) Total Creatine Kinase 77 U/L (21-232) # Troponin I High Sensitivity 36 ng/L (4-50) Labs Reviewed?: Yes EKG/XRAY/US/CT/MRI EKG Comment 01/15/2025 time 8:12 a.m. Ventricular rate [address] wave elevation or depression 01/15/2025 time 8:44 a.m. After receiving Lopressor Ventricular rate [address] wave elevation leads V2 V1 V4 V5 V6 Cardiology notified 01/15/2025 time 8:55 a.m. Ventricular rate [address] wave elevation aVL V2 V3 V4 MDM MDM: Differential diagnosis: Chest pain, shortness of breath, stage renal disease on dialysis, respiratory distress, Rationale: Tests considered and ordered secondary to shared decision making include: labs, ECG and radiology Previous outside records reviewed: Old ER visits. Risk of complication and/or morbidity or mortality of patient management: None Medications-Per medication reconciliation Need for hospitalization: Patient does meet criteria for hospitalization. Need for emergency major/minor surgery: No There are no social concerns with this patient. Prescription drug management Prescriptions will include symptomatic care Patient's prior external medical records from other ER visits were reviewed by me as indicated. Prior testing and results from previous visits were reviewed. Prior tests were taken into account with medical decision making and resource utilization, independent historian/historians were used to obtain complete medical history. I independently interpreted the test that were performed, results were reviewed by me and considered findings on radiology if ordered. Medical management and examination interpretation discussions were had by me with other qualified healthcare professionals as indicated for the patient's care. STEMI alert called after heart rate was slowed down ST wave elevations with a several leads report given to library media specialist. Per library media specialist no STEMI seen. Patient went into cardiac arrest several sessions of epinephrine with CPR were carried out. Patient will be admitted under the care of hospitalist group for ongoing management ED Course Orders Procedure Category Date Status Time Cbc With Differential LAB 01/15/25 Complete 08:15 Prothrombin Time With LAB 01/15/25 Complete INR 08:15 Chest 1vw RAD 01/15/25 Resulted 08:15 12 Lead Ekg Tracing- EKG 01/15/25 Logged Technical 08:15 Magnesium LAB 01/15/25 Complete 08:15 Creatine Kinase, Total LAB 01/15/25 Complete 08:15 Troponin I High LAB 01/15/25 Complete Sensitivity 08:15 Urinalysis Profile LAB 01/15/25 Logged 08:15 Partial LAB 01/15/25 Complete Thromboplastin Time 08:15 Basic Metabolic Panel LAB 01/15/25 Complete 08:15 Metoprolol Tartrate PHA 01/15/25 Complete (Lopressor) 08:37 Arterial Blood Gas + RT 01/15/25 Transmitted 08:47 Metoprolol Tartrate PHA 01/15/25 Complete (Lopressor) 08:50 Ketamine 50mg/Ml PHA 01/15/25 Complete Syringe (Ketamine 08:56 Ketamine 50mg/Ml PHA 01/15/25 Complete Syringe (Ketamine 08:56 Norepinephrin 4mg/Ns PHA 01/15/25 Complete 250ml (Levophed 4mg 09:02 Fentanyl 1000mcg+Ns PHA 01/15/25 Complete 100ml (Fentanyl 1000 09:08 Midazolam 50mg-0.9% PHA 01/15/25 Complete Ns 50ml (Midazolam 5 09:08 12 Lead Ekg Tracing- EKG 01/15/25 Logged Technical 09:08 12 Lead Ekg Tracing- EKG 01/15/25 Logged Technical 09:08 Hepatic Function Panel LAB 01/15/25 In Process 09:09 Erythrocyte Sed Rate LAB 01/15/25 In Process 09:09 Crp Quantitative LAB 01/15/25 In Process 09:09 Procalcitonin LAB 01/15/25 In Process 09:09 Lactate Dehydrogenase LAB 01/15/25 In Process 09:09 Chest 1vw RAD 01/15/25 Logged 09:19 Pantoprazole 40mg Inj PHA 01/15/25 Logged (Protonix 40mg Inj 09:30 Zosyn 3.375gm+Ns 50ml PHA 01/15/25 Transmitted (Zosyn 3.375gm+Ns 09:30 Lactic Acid LAB 01/15/25 Transmitted 09:26 Current Medications Medications (Trade) Dose Ordered Sig/Mark Route PRN Reason Start Time Stop Time Status Last Admin Dose Admin Fentanyl Citrate 100 ml @ As Directed STK-MED ONCE IV 01/15/25 09:08 01/15/25 09:08 DC Ketamine HCl (ketaMINE 50MG/ ML SYRINGE) 50 mg STK-MED ONCE .ROUTE 01/15/25 08:56 01/15/25 08:56 DC Ketamine HCl (ketaMINE 50MG/ ML SYRINGE) 50 mg STK-MED ONCE .ROUTE 01/15/25 08:56 01/15/25 08:56 DC Metoprolol Tartrate (loprESSOR) 5 mg STK-MED ONCE IV 01/15/25 08:37 01/15/25 08:37 DC 01/15/25 08:44 Metoprolol Tartrate (loprESSOR) 5 mg STK-MED ONCE IV 01/15/25 08:50 01/15/25 08:50 DC Midazolam HCl 50 ml @ As Directed STK-MED ONCE IV 01/15/25 09:08 01/15/25 09:08 DC Norepinephrine 250 ml @ As Directed STK-MED ONCE IV 01/15/25 09:02 01/15/25 09:01 DC Pantoprazole Sodium (PROTonix 40MG INJ) 40 mg Q24H IVP 01/15/25 09:30 02/14/25 09:29 UNV Vital Signs Date Time Temp Pulse Resp B/P (MAP) Pulse Ox O2 Delivery O2 Flow Rate FiO2 01/15/25 08:44 137 145/124 01/15/25 08:13 98.1 163 16 125/85 99 Room Air Procedure Dictation The procedure was emergent, the patient was unable to provide consent, and a designee was not immediately available. PROCEDURE SUMMARY: A time out was performed. My hands were washed immediately prior to the procedure. I wore a surgical cap, mask with protective eyewear, gown and gloves throughout the procedure. The patient was placed on a nurse monitoring including continuous pulse oximetry. Rapid Sequence Intubation was conducted. The patient received 100 mg of KETAMINE for induction and 50 mg of AKSHAT for adequate paralysis. Cricoid pressure was maintained from time induction agent was given to time of cuff balloon inflation. Using a GLIDESCOPE and a size [ ] endotracheal tube with stylet, the patient was intubated on the 1 attempt. The stylet was removed and cuff balloon was inflated. Appropriate endotracheal tube position was confirmed by direct visualization of vocal cord passage, fogging of the tube, CO2 colormetric indicator and symmetric breath sounds. The tube w as secured at [ ] cm at the lips. Post intubation chest x-ray is pending at this time. Critical Care Note Comments Critical Care Procedure Note Authorized and Performed by: Total critical care time: Approximately 36 minutes Due to a high probability of clinically significant, life threatening deterioration, the patient required my highest level of preparedness to intervene emergently and I personally spent this critical care time directly and personally managing the patient. This critical care time included obtaining a history; examining the patient; pulse oximetry; ordering and review of studies; arranging urgent treatment with development of a management plan; evaluation of patient's response to treatment; frequent reassessment; and, discussions with other providers. This critical care time was performed to assess and manage the high probability of imminent, life-threatening deterioration that could result in multi-organ failure. It was exclusive of separately billable procedures and treating other patients and teaching time. Please see MDM section and the rest of the note for further information on patient assessment and treatment. DX & DISP Disposition: Inpatient Decision to Admit Time: 09:36 Departure Impression: Primary Impression: ESRD on hemodialysis Additional Impressions: Hyperkalemia, NSTEMI (non-ST elevated myocardial infarction), Cardiac arrest Condition: Stable Referrals: BERKLEY HEATH MD (PCP) WAYNE AGRAWAL MD Jan 15, 2025 09:36
[2025-01-15 09:40] LABS: ASPARTATE AMINOTRANSFERASE 28.0 U/L (10-37); LACTATE DEHYDROGENASE 329.0 U/L (81-234); TOTAL PROTEIN, SERUM 7.8 g/dL (6.0-8.3)
--- NOTE | 2025-01-15 09:42 | EKG ---
[facility] Test Date: 2025-01-15 Test Time: 08:44:58 Pat Name: NICK VEE Department: EDH Room: ED Gender: F Seed Sorter: [id number] : 1965 Requested By: WAYNE AGRAWAL Order Number: [id number] Reading MD: Honey Lew Measurements Intervals [place] Rate: 147 P: 0 [place]: 0 QRS: -121 QRSD: 133 T: 84 QT: 349 QTc: 546 Interpretive Statements Atrial fibrillation with rapid ventricular response Ventricular premature complex Right bundle branch block Inferior infarct, acute Anterolateral infarct, old Compared to ECG 01/15/2025 08:12:02 Right bundle-branch block now present Myocardial infarct finding now present Supraventricular tachycardia no longer present Electronically Signed On 01-15-2025 10:26:13 CDT by Honey Lew Please click the below link to view image of tracing.
--- NOTE | 2025-01-15 09:42 | EKG ---
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: [id number] : 1965 Requested By: WAYNE AGRAWAL Order Number: [id number] Reading MD: Honey Lew Measurements Intervals [place] Rate: 163 P: 136 DC: 36 QRS: 256 QRSD: 118 T: 108 QT: 308 QTc: 508 Interpretive Statements Atrial fibrillation with rapid ventricular response Ventricular premature complex Consider dextrocardia Compared to ECG 01/07/2025 00:01:00 Ventricular premature complex(es) now present Sinus rhythm no longer present Intraventricular conduction delay no longer present Left ventricular hypertrophy no longer present Early repolarization no longer present Q waves no longer present Electronically Signed On 01-15-2025 10:26:33 CDT by Honey Lew Please click the below link to view image of tracing.
--- NOTE | 2025-01-15 09:43 | EKG ---
[facility] Test Date: 2025-01-15 Test Time: 08:55:45 Pat Name: NICK VEE Department: EDH Room: ED Gender: F Cost Estimating Clerk: [id number] : 1965 Requested By: WAYNE AGRAWAL Order Number: [id number] Reading MD: Honey Lew Measurements Intervals [place] Rate: 40 P: 0 [place]: 184 QRS: 252 QRSD: 218 T: -8 QT: 517 QTc: 422 Interpretive Statements Ventricular-paced rhythm, bradycardia Compared to ECG 01/15/2025 08:44:58 Atrial fibrillation no longer present Ventricular premature complex(es) no longer present Right bundle-branch block no longer present Myocardial infarct finding no longer present Electronically Signed On 01-15-2025 10:13:48 CDT by Honey Lew Please click the below link to view image of tracing.
[2025-01-15] MEDS: NOREPINEPHRIN 4MG/NS 250ML 250 ML IV ONE (09:44)
[2025-01-15 09:47] LABS: ABG BASE EXCESS -17.6 mmol/L (-2.0-3.0); ABG HCO3 11.2 mmol/L (21.0-28.0); ABG OXYGEN SATURATION 55.3 % (94.0-98.0); ABG PCO2 38 mmHg (32-45); ABG PH 7.092 (7.350-7.450); CARBON MONOXIDE 0.7 % (0.5-1.5); DEVICE COMMENT RB; PO2, ARTERIAL BG < 45.0 mmHg (83.0-108.0); TEMPERATURE, CELSIUS BG 37.0 CELSIUS (35.5-37.0); VENT MODE, BG AC (ROOM AIR)
--- NOTE | 2025-01-15 09:51 | CONS ---
[facility] CARDIOLOGY CONSULTATION NOTE Date Patient Seen: Jan 15, 2025 Time of Visit: 09:48 Requesting Physician: FIDEL Ellison Reason for Consultation: AF RVR, Cardiac arrest, STEMI History of Present Illness: [place] is a 59 year old female with PMH of coronary artery disease, ischemic cardiomyopathy (LVEF: 20-25% by echo done on 11/07/2024), single lead Biotronik ICD placement (2022), ESRD on HD, hypertension, type 2 diabetes mellitus, paroxysmal atrial fibrillation on chronic anticoagulation with DOAC, multivessel coronary artery disease turned down for coronary artery bypass grafting therefore underwent successful treatment with a staged PCI with PTCA, balloon lithotripsy, and DCB angioplasty in the ISR within the proximal-mid LAD, successful treatment with balloon lithotripsy and GENEVA placement (Xience Skypoint 3.5x15 mm) in the ostial LAD, and successful treatment with PTCA and balloon lithotripsy in the mid and distal LCx done on 11/15/2024, pending PCI of the small LCx. Stenting to the LCx was deferred to outpatient setting in staged approached, also due to concerns regarding positive blood cultures. Review of microbiology results show BCx 2/2 from 12/26/24 negative x5d. LVEF was 20-25% by echo on 11/07/24. Previously not a candidate for GDMT A CE/ARB/ARNI due to borderline hypotension and no MRA due to advanced renal dysfunction, however apparently previously tolerating metoprolol succinate 50mg q daily. LVEF this admission 30% by echo showing akinetic anterior, anteroseptal and inferoseptal wall. She presented with acute shortness of breath, in atrial fibrillation with rapid ventricular response. She was given IV metoprolol, then bradycardia into the low 40s, paced rhythm, followed by PEA cardiac arrest requiring chest compressions and ACLS with oriental orthodox of sinus rhythm with mild inferior ST elevations. Last interrogation of Biotronik device on 01/02 normal device function, no events. Past Medical History: as above Past Surgical History: LHC, LAD stenting ICD Family History: noncontributory. Social History: confined to wheelchair; good family support denies tobacco or etoh. Current Meds: Current Medications Medications Dose Ordered Sig/Mark Start Time Stop Time Status Last Admin Pantoprazole Sodium 40 mg Q24H 01/15/25 09:30 02/14/25 09:29 Piperacillin Sod/ Tazobactam Sod 3.375 gm Q12H 01/15/25 09:30 01/25/25 09:29 Norepinephrine 250 ml @ 0 mls/hr PROTOCOL 01/15/25 10:00 02/14/25 09:59 Midazolam HCl 50 ml @ 0 mls/hr PROTOCOL 01/15/25 10:00 01/22/25 09:59 Fentanyl Citrate 100 ml @ 0 mls/hr PROTOCOL 01/15/25 10:00 01/22/25 09:59 Heparin Sodium/ Dextrose 250 ml @ 0 mls/hr Q6H 01/15/25 10:30 02/14/25 10:29 Pharmacy Profile Note 1 each ONCE 01/15/25 10:00 01/22/25 09:59 UNV Aspirin 300 mg ONCE ONCE 01/15/25 10:00 01/15/25 10:01 UNV Review of Systems: chest pain, shortness of breath on presentation At present time, she is intubated and unable to provided further history Physical Examination: GENERAL: [intubated. HEAD: [Normal with no signs of head trauma.] NECK: [Normal carotid upstrokes without bruits.] LUNGS: [intubated, mechanically vented. no distress. no audible wheezing. diffuse rhonchi. HEART: irregularly irregular rhythm, atrial fibrillation, hypotension on levophed, no murmurs. VASC: [Peripheral pulses +2 bilaterally radial. diminished lower extremity pulses, with dusky discoloration however no ulcers/blisters] ABD: [soft, central obesity.] EXT: [No clubbing, cyanosis or edema.] SKIN: [warm centrally, dry, cool distal extremities. no mottling..] NEURO: [intubated. no distress. no posturing. Vital Signs (last 8hr) Date Time Temp Pulse Resp B/P (MAP) Pulse Ox O2 Delivery O2 Flow Rate FiO2 01/15/25 09:44 88/27 01/15/25 09:24 100 01/15/25 08:44 137 145/124 01/15/25 08:13 98.1 163 16 125/85 99 Room Air Laboratory: [ ] Hematology Labs: Test 01/15/25 08:34 Range/Units White Blood Count 8.1 4.8-10.8 K/uL Red Blood Count 3.69 L 4.00-5.50 MIL/uL Hemoglobin 11.5 L 12.0-16.0 g/dL Hematocrit 37.9 36-48 % Mean Corpuscular Volume 102.7 H 79-99 fL Mean Corpuscular Hemoglobin 31.2 27.0-33.0 pg Mean Corpuscular Hemoglobin Concent 30.3 L 32.0-36.0 g/dL Red Cell Distribution Width 20.6 H 11.0-15.5 % Platelet Count 176 130-400 K/uL Mean Platelet Volume 10.9 H 7.5-10.5 fL Immature Granulocyte % (Auto) 0.4 0-1 % Neutrophils (%) (Auto) 66.6 40.0-77.0 % Lymphocytes (%) (Auto) 18.4 L 21.0-51.0 % Monocytes (%) (Auto) 8.4 3.0-13.0 % Eosinophils (%) (Auto) 5.7 0.0-8.0 % Basophils (%) (Auto) 0.5 0.0-5.0 % Neutrophils # (Auto) 5.4 1.8-7.7 K/uL Lymphocytes # (Auto) 1.5 1.0-4.8 K/uL Monocytes # (Auto) 0.7 0.1-1.0 K/uL Eosinophils # (Auto) 0.46 0.00-0.70 K/uL Basophils # (Auto) 0.04 0.00-0.20 K/uL Absolute Immature Granulocyte (auto 0.03 0-1 K/uL Nucleated Red Blood Cells 1.0 H 0.0-0.19 % Erythrocyte Sedimentation Rate 59 H 0-30 MM/HR Chemistry Labs: Test 01/15/25 08:34 Range/Units Sodium Level 138 136-145 mmol/L Potassium Level 5.8 H 3.5-5.1 mmol/L Chloride Level 94 L 101-111 mmol/L Carbon Dioxide Level 26 21-32 mmol/L Blood Urea Nitrogen 55 H 7-18 mg/dL Creatinine 6.0 H 0.5-1.0 mg/dL Glomerular Filtration Rate Calc 8 >90 mL/min Random Glucose 195 H 70-105 mg/dL Total Calcium 8.9 8.5-10.1 mg/dL Magnesium Level 2.40 1.80-2.40 mg/dL Total Bilirubin 1.6 H 0.2-1.0 mg/dL Direct Bilirubin 0.9 H 0.0-0.3 mg/dL Aspartate Amino Transf (AST/SGOT) 28 10-37 U/L Alanine Aminotransferase (ALT/SGPT) 23 12-78 U/L Alkaline Phosphatase 362 H 50-136 U/L Lactate Dehydrogenase 329 H 81-234 U/L Total Creatine Kinase 77 # 21-232 U/L Troponin I High Sensitivity 36 4-50 ng/L C-Reactive Protein, Quantitative 96.50 H 0.5-3.0 mg/L Total Protein 7.8 6.0-8.3 g/dL Albumin 2.8 L 3.5-5.0 g/dL Coagulation Labs: Test 01/15/25 08:34 Range/Units Prothrombin Time 14.6 H 9.6-11.6 SEC Prothromb Time International Ratio 1.43 H 0.85-1.15 Activated Partial Thromboplast Time 34.1 26.3-35.5 SEC Assessment: Acte hypoxemic respiratory failure Atrial fibrillation with rapid ventricular response PEA Cardiac arrest Acute STEMI Acute HFREF Ischemic cardiomyopathy with known LVEF 20% Medtronic ICD Multivessel coronary artery disease, CABG turndown status post LAD PCI, with residual disease in a small LCx. ESRD on HD PAD Plan: Patient critically ill Discussed patient management and goals of care with her sister in person and over the phone. After indepth discussion, decision was to avoid chest compressions, invasive procedures and surgeries Will start amiodarone bolus and drip for her AF RVR Will start heparin gtt for her MVCAD/STEMI. Continue ASA. Recheck coags. Consider resumption of her home [id number] ticagrelor Continue with the vasopressor support Given her arrhythmias, will avoid dobutamine at this time Check LFTs, lactate, troponin, mag, phosphorous and close monitoring of electrolytes with replection as needed Discussed with Medtronic regarding device interrogation Obtain limited echo to evaluate LVEF, wall motion, rule out pericardial effusion. MIGUELANGEL SARABIA DO Jan 15, 2025 09:51
[2025-01-15 09:57] LABS: IMMATURE GRANULOCYTE ABSOLUTE 0.48 K/uL (0-1); NUCLEATED RED BLOOD CELLS 7.4 % (0.0-0.19); PLATELET COUNT (AUTO) 109 K/uL (130-400); RED BLOOD CELL COUNT(AUTO) 2.71 MIL/uL (4.00-5.50); RED CELL DISTRIBUTION WIDTH 20.9 % (11.0-15.5); WHITE BLOOD COUNT (AUTO) 7.3 K/uL (4.8-10.8)
--- NOTE | 2025-01-15 09:59 | EKG ---
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
--- NOTE | 2025-01-15 09:59 | EKG ---
[facility] Test Date: 2025-01-15 Test Time: 09:18:21 Pat Name: NICK VEE Department: EDH Room: ED Gender: F Sport Intern: [id number] : 1965 Requested By: WAYNE AGRAWAL Order Number: [id number] Reading MD: Honey Lew Measurements Intervals [place] Rate: 164 P: 0 ID: 0 QRS: -90 QRSD: 162 T: 60 QT: 337 QTc: 559 Interpretive Statements Sinus tachycardia Right bundle branch block Compared to ECG 01/15/2025 09:16:39 Right bundle-branch block now present Myocardial infarct finding now present Electronically Signed On 01-15-2025 10:12:43 CDT by Honey Lew Please click the below link to view image of tracing.
[2025-01-15] MEDS: ASPIRIN 300 MG SUPPOSITORY PR ONE (10:00)
[2025-01-15] MEDS: SODIUM BICARB 50MEQ 50ML VIAL IV ONE ×2 (10:00→13:19)
[2025-01-15] MEDS ORDERED: PHARMACY COMMUNICATION MISC SCH (10:00)
[2025-01-15] MEDS ORDERED: MIDAZOLAM 50MG-0.9% NS 50ML 50 ML IV SCH (10:00)
[2025-01-15] MEDS ORDERED: VANCOMYCIN PROTOCOL PER PHARMACY IV SCH (10:00)
--- NOTE | 2025-01-15 10:01 | EKG ---
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 : 1965 Requested By: WAYNE AGRAWAL Order Number: [id number] Reading MD: Honey Lew Measurements Intervals [place] Rate: 122 P: 8 OR: 161 QRS: -65 QRSD: 158 T: 92 QT: 330 QTc: 470 Interpretive Statements Sinus tachycardia Atrial premature complexes Left bundle branch block ST elevation secondary to IVCD Compared to ECG 01/15/2025 09:18:21 Atrial premature complex(es) now present Left bundle-branch block now present Intraventricular conduction delay now present ST (T wave) deviation now present Right bundle-branch block no longer present Myocardial infarct finding no longer present Electronically Signed On 01-15-2025 10:11:38 CDT by Honey Lew Please click the below link to view image of tracing.
--- NOTE | 2025-01-15 10:02 | EKG ---
[facility] Test Date: 2025-01-15 Test Time: 09:22:08 Pat Name: NICK VEE Department: EDH Room: ED Gender: F General Supervisor: [id number] : 1965 Requested By: WAYNE AGRAWAL Order Number: [id number] Reading MD: Honey Lew Measurements Intervals [place] Rate: 123 P: -17 SD: 166 QRS: -66 QRSD: 156 T: 92 QT: 337 QTc: 482 Interpretive Statements Sinus tachycardia Atrial premature complex Left bundle branch block ST elevation secondary to IVCD Compared to ECG 01/15/2025 09:18:21 Atrial premature complex(es) now present Left bundle-branch block now present Intraventricular conduction delay now present ST (T wave) deviation now present Right bundle-branch block no longer present Myocardial infarct finding no longer present Electronically Signed On 01-15-2025 10:12:12 CDT by Honey Lew Please click the below link to view image of tracing.
[2025-01-15 10:14] LABS: CREATINE KINASE, TOTAL 85.0 U/L (21-232)
[2025-01-15] MEDS: AMIOdarone 150MG/100ML BAG 100 ML IV ONE (10:15)
[2025-01-15] MEDS: AMIODARONE 360MG/200ML BAG 200 ML IV ONE (10:15)
--- NOTE | 2025-01-15 10:29 | HMCSR ---
APPROVED REPORT EXAM: Limited Two-dimensional echocardiogram. INDICATION ICD: Status post code blue, assess ejection fraction, rule out pericardial effusion. 2D Dimensions IVSd0.4 (0.7-1.1cm)LVEF(%)5.2 (>50%)LVED Vol(simp.)163.0 mL LVDd5.3 (3.8-5.6cm)FS(%)2 %LVES Vol(simp.)131.0 mL PWd0.9 (0.7-1.1cm)LA (2D)3.4 (1.6-4.0cm)LVEF(%, simp.)19 % IVSs0.5 cmAo Root(2D)2.5 (2.0-3.7cm) LVDs5.1 (2.5-4.0cm) PWs1.2 cm Deformation Strain Apical 4-4.0 % Apical 2-1.6 % Apical 3-4.0 % Global Strain-3.2 % Left Ventricle The left ventricle is mildly dilated. Severely reduced GLS -3.0% Thinning of the septal wall noted. L VEF is <20%. No left ventricle thrombus noted on this study. Right Ventricle Right ventricular systolic function is moderately reduced. Device lead is present in the right ventri nidia. Atria The left atrium size is normal. Pericardium No pericardial effusion. Other Information Quality : Limited/Follow-upRhythm : Atrial Fibrillation Conclusion The left ventricle is mildly dilated. LVEF is <20%. Device lead is present in the right ventricle. No pericardial effusion.
[2025-01-15] MEDS: ARTIFICAL TEARS SOL 15 ML OU SCH (10:30)
[2025-01-15 10:50] LABS: ASPARTATE AMINOTRANSFERASE 45.0 U/L (10-37); CREATININE 4.0 mg/dL (0.5-1.0); GLOMERULAR FILTR. RATE CALC 12.0 mL/min (>90); GLUCOSE,RANDOM 289.0 mg/dL (70-105); PHOSPHORUS 5.2 mg/dL (2.5-4.9); SODIUM SERUM 147.0 mmol/L (136-145); TOTAL PROTEIN, SERUM 5.3 g/dL (6.0-8.3); UREA NITROGEN, BLOOD 38.0 mg/dL (7-18)
--- NOTE | 2025-01-15 10:58 | HMCIMG ---
EXAM: CR Chest, 2 View. CLINICAL HISTORY: ET TUBE PLACEMENT COMPARISON: Radiograph dated January 15, 2025 at 8:28 AM Findings: AP view of the chest. Endotracheal tube terminates 0.1 cm above the nish, and may be retracted by 1.0 cm. Slightly increased bilateral perihilar and bibasilar airspace disease. Remainder of the examination is relatively unchanged. IMPRESSION: 1. Endotracheal tube tip 0.1 cm above the nish, consider retracting by 1.0 cm. /[place]
--- NOTE | 2025-01-15 10:59 | HMCIMG ---
EXAM: CR Chest, 2 View. CLINICAL HISTORY: POST ETT REPOSITIONING COMPARISON: Radiograph from 9:05 AM today Findings: AP view of the chest is submitted. Interval retraction of the endotracheal tube, tip now 1.8 cm above the nish. Remainder of the examination is unchanged. IMPRESSION: 1. Endotracheal tube tip now 1.8 cm above the nish. /[place]
[2025-01-15] MEDS ORDERED: DEXTROSE 50%-WATER 50 ML DISP.SYRIN IV PRN (11:00)
[2025-01-15] MEDS ORDERED: GLUCAGON 1MG KIT 1 MG ML IM PRN (11:00)
[2025-01-15 11:01] LABS: ABG BASE EXCESS -15.2 mmol/L (-2.0-3.0); ABG HCO3 8.0 mmol/L (21.0-28.0); ABG OXYGEN SATURATION 99.8 % (94.0-98.0); ABG PCO2 < 15 mmHg (32-45); ABG PH 7.348 (7.350-7.450); CARBON MONOXIDE 0.7 % (0.5-1.5); DEVICE COMMENT RB VERO RN; PO2, ARTERIAL BG 300.1 mmHg (83.0-108.0); TEMPERATURE, CELSIUS BG 37.0 CELSIUS (35.5-37.0); VENT MODE, BG AC (ROOM AIR)
[2025-01-15 11:08] VITALS: BP 90/15
--- NOTE | 2025-01-15 11:26 | HP ---
[facility] HISTORY AND PHYSICAL Date of Service: Jan 15, 2025 Time of Service: 10:47 HISTORY OF PRESENT ILLNESS: DATE OF SERVICE: 01/15/2025, patient was seen in ER room 15, patient is critically ill 59-year-old female with underlying history of ESRD, Multivessel coronary artery disease, severe ischemic cardiomyopathy with LVEF of 20-25%, history of ICD placement, hypertension, type 2 diabetes mellitus, paroxysmal atrial fibrillation maintained on chronic anticoagulation with Eliquis, prior history of multiple PCIs who presented to the ER for further evaluation of chest pain, shortness of breath. Patient was recently hospitalized in [facility] – [place] on 01/12/2025, patient was admitted with ACS, Gram-negative pneumonia and was discharged on medical management. Patient was undergoing scheduled hemodialysis today when she started having significant chest pain and shortness of breaths. On presentation, patient was noted to be in significant respiratory distress with tachycardia with atrial fibrillation. She received IV metoprolol5 mg and subsequently was intubated. Patient unfortunately had a cardiac arrest for about 10-15 minutes, she was noted to be in PE arrest, she received several rounds of epinephrine, bicarb, calcium chloride. Eventually she had ROSC. Patient was seen by Cardiology in the ER, and after discussion with family including , they have agreed to medical management. Patient will be initiated on amiodarone drip, IV anticoagulation with heparin, as well as Aspirin due to concerns of ACS. Patient subsequently during her ER stay had multiple episodes of sustained V- tach requiring cardioversion x 4. She received amiodarone bolus, lidocaine bolus and Levophed was changed to Rickey-Synephrine given concerns that it may be contributing towards V-tach. Patient is extremely ill, with high-risk of repeat cardiac arrest. Family has requested no chest compressions and they want to continue with maximum medical therapy today. We will see how patient progresses, discussed with family that there is high-risk that she will likely not survive her illness. REVIEW OF SYSTEMS: Unable to obtain ROS as patient has intubated on mechanical ventilation support and obtunded PAST MEDICAL HISTORY: [Type II DM, hypertension, hyperlipidemia, severe ischemic cardiomyopathy with LVEF 20-25%, coronary artery disease with multiple PCI's previosuly, and end- stage renal disease on hemodialysis ] PAST SURGICAL HISTORY: [ Lava, right permanent pacemaker, cholecystectomy, right big toe partial amputation and left foot surgery ] PAST SOCIAL HISTORY: [ Patient lives with . Patient denies alcohol , cigarette and recreational drug use] FAMILY HISTORY: [ Hypertension, diabetes, cardiovascular disease and Alzheimer's disease ] Coded Allergies: Coded Allergies: No Known Allergies (Unverified Allergy, 11/14/12) PHYSICAL EXAM GENERAL APPEARANCE: The patient is obtunded, does not awaken to verbal stimuli, intubated and on mechanical ventilation support NEUROLOGICAL: pupils are non reactive, patient is comatose on the ventilator HEENT: Face is symmetric. Pupils are dilated and non reactive to light NECK: Supple. No JVD. No thyromegaly. No submental, submandibular, pre- /postauricular, occipital or supraclavicular lymphadenopathy. CHEST/ LUNGS: crackles noted of bilateral lung bases, no wheezing noted CARDIOVASCULAR: Regular. S1 and S2 normal. No appreciable rubs, murmurs or gallops. ABDOMEN: Soft, nontender, and nondistended. There is no rebound, voluntary guarding, or rigidity. : Deferred. No Yusuf. EXTREMITIES: 1+ pitting edema noted of bilateral lower extremities Vital Sign (Last 24 Hours) 01/15/25 01/15/25 01/15/25 01/15/25 08:13 08:44 09:24 09:44 Temp 98.1 Pulse 137 Resp 16 B/P (MAP) 88/27 Pulse Ox 99 O2 Delivery Room Air FiO2 100 LABS: Laboratory: Test 01/15/25 09:45 01/15/25 08:34 Range/Units White Blood Count 7.3 4.8-10.8 K/uL Red Blood Count 2.71 #L 4.00-5.50 MIL/uL Hemoglobin 8.4 #L 12.0-16.0 g/dL Hematocrit 29.5 #L 36-48 % Mean Corpuscular Volume 108.9 H 79-99 fL Mean Corpuscular Hemoglobin 31.0 27.0-33.0 pg Mean Corpuscular Hemoglobin Concent 28.5 L 32.0-36.0 g/dL Red Cell Distribution Width 20.9 H 11.0-15.5 % Platelet Count 109 #L 130-400 K/uL Mean Platelet Volume 11.5 H 7.5-10.5 fL Immature Granulocyte % (Auto) 6.6 H 0-1 % Neutrophils (%) (Auto) 56.8 40.0-77.0 % Lymphocytes (%) (Auto) 26.0 21.0-51.0 % Monocytes (%) (Auto) 5.8 3.0-13.0 % Eosinophils (%) (Auto) 4.4 0.0-8.0 % Basophils (%) (Auto) 0.4 0.0-5.0 % Neutrophils # (Auto) 4.2 1.8-7.7 K/uL Lymphocytes # (Auto) 1.9 1.0-4.8 K/uL Monocytes # (Auto) 0.4 0.1-1.0 K/uL Eosinophils # (Auto) 0.32 0.00-0.70 K/uL Basophils # (Auto) 0.03 0.00-0.20 K/uL Absolute Immature Granulocyte (auto 0.48 0-1 K/uL Nucleated Red Blood Cells 7.4 H 0.0-0.19 % Activated Partial Thromboplast Time 52.4 #H 26.3-35.5 SEC Blood Gas Specimen Type Arterial Arterial Blood pH 7.092 *L 7.350-7.450 Arterial Blood Partial Pressure CO2 38 32-45 mmHg Arterial Blood Partial Pressure O2 < 45.0 *L 83.0-108.0 mmHg Arterial Blood HCO3 11.2 L 21.0-28.0 mmol/L Arterial Blood Oxygen Saturation 55.3 L 94.0-98.0 % Arterial Blood Base Excess -17.6 L -2.0-3.0 mmol/L Hemoglobin (Blood Gas) 10.2 L 12.0-16.0 g/dL Sodium (Blood Gas) 143 136-145 MMOL/L Bedside Potassium (Blood Gas) 3.1 L 3.4-4.5 MMOL/L Bedside Chloride (Blood Gas) 114 H 98-107 MMOL/L Bedside Glucose (Blood Gas) 287 H 65-95 MG/DL Bedside Ionized Calcium (Blood Gas) 1.90 H 1.15-1.33 MMOL/L Bedside Lactic Acid (Blood Gas) 8.52 *H 0.36-0.75 MMOL/L Blood Gas Temperature 37.0 35.5-37.0 CELSIUS Blood Gas Respiration Rate 24.0 min. Blood Gas Vent Mode AC ROOM AIR FiO2 100.0 % Blood Gas Tidal Volume 500 ml Blood Gas PEEP 8 cm H2O Blood Gas Specimen Comment RB Lactic Acid Level 11.2 H 0.8-2.5 mmol/L Total Creatine Kinase 85 21-232 U/L Troponin I High Sensitivity 55.6 *H 4-50 ng/L Erythrocyte Sedimentation Rate 59 H 0-30 MM/HR Prothrombin Time 14.6 H 9.6-11.6 SEC Prothromb Time International Ratio 1.43 H 0.85-1.15 Sodium Level 138 136-145 mmol/L Potassium Level 5.8 H 3.5-5.1 mmol/L Chloride Level 94 L 101-111 mmol/L Carbon Dioxide Level 26 21-32 mmol/L Blood Urea Nitrogen 55 H 7-18 mg/dL Creatinine 6.0 H 0.5-1.0 mg/dL Glomerular Filtration Rate Calc 8 >90 mL/min Random Glucose 195 H 70-105 mg/dL Total Calcium 8.9 8.5-10.1 mg/dL Magnesium Level 2.40 1.80-2.40 mg/dL Total Bilirubin 1.6 H 0.2-1.0 mg/dL Direct Bilirubin 0.9 H 0.0-0.3 mg/dL Aspartate Amino Transf (AST/SGOT) 28 10-37 U/L Alanine Aminotransferase (ALT/SGPT) 23 12-78 U/L Alkaline Phosphatase 362 H 50-136 U/L Lactate Dehydrogenase 329 H 81-234 U/L C-Reactive Protein, Quantitative 96.50 H 0.5-3.0 mg/L Total Protein 7.8 6.0-8.3 g/dL Albumin 2.8 L 3.5-5.0 g/dL Procalcitonin 3.06 H 0.05-0.5 ng/mL Current Medications Medications (Trade) Dose Ordered Sig/Mark Route PRN Reason Start Time Stop Time Status Last Admin Dose Admin Acetaminophen (TYLenol 650MG ELIXIR) 650 mg Q6H PRN NG MILD PAIN (1-3) 01/15/25 10:00 02/14/25 09:59 UNV Amiodarone HCl 540 mg/Dextrose 300 ml @ 16.667 mls/ hr PROTOCOL IV 01/15/25 16:15 02/14/25 16:14 Budesonide (Pulmicort 0.5 Mg/2ml) 0.5 mg BIDRESP IH 01/15/25 18:00 02/14/25 17:59 Fentanyl Citrate 100 ml @ 0 mls/hr PROTOCOL IV 01/15/25 10:00 01/22/25 09:59 Heparin Sodium/ Dextrose 250 ml @ 0 mls/hr Q6H IV 01/15/25 10:30 02/14/25 10:29 Midazolam HCl 50 ml @ 0 mls/hr PROTOCOL IV 01/15/25 10:00 01/22/25 09:59 Norepinephrine 250 ml @ 37.425 mls/ hr PROTOCOL IV 01/15/25 09:30 01/15/25 09:33 DC Norepinephrine 250 ml @ 0 mls/hr PROTOCOL IV 01/15/25 10:00 02/14/25 09:59 Ondansetron HCl (zoFRAN 4MG INJ) 4 mg Q6H PRN IVP NAUSEA/VOMITING 01/15/25 10:00 02/14/25 09:59 UNV Pantoprazole Sodium (PROTonix 40MG INJ) 40 mg Q24H IVP 01/15/25 09:30 02/14/25 09:29 Pharmacy Profile Note (Pharmacy Communication) 1 each ONCE MISC 01/15/25 10:00 01/15/25 09:49 DC Piperacillin Sod/ Tazobactam Sod (Zosyn 3.375gm+NS 50ml) 3.375 gm Q12H IVPB 01/15/25 09:30 01/25/25 09:29 Vancomycin HCl (Vancomycin Protocol) 1 each AD IV 01/15/25 10:00 01/29/25 09:59 UNV DIAGNOSTICS / RADIOLOGY: SERVICE 8 REASON: ET TUBE PLACEMENT ORDERING PHYSICIAN: WAYNE AGRAWAL MD PROCEDURE: CXR1VW - CHEST 1VW EXAM: CR Chest, 2 View. CLINICAL HISTORY: ET TUBE PLACEMENT COMPARISON: Radiograph dated January 15, 2025 at 8:28 AM Findings: AP view of the chest. Endotracheal tube terminates 0.1 cm above the nish, and may be retracted by 1.0 cm. Slightly increased bilateral perihilar and bibasilar airspace disease. Remainder of the examination is relatively unchanged. IMPRESSION: 1. Endotracheal tube tip 0.1 cm above the nish, consider retracting by 1.0 cm. /[facility]inauer DICTATED BY: CARLA BAÑUELOS Jr., MD DATE: 01/15/251156 ELECTRONICALLY SIGNED BY: CARLA BAÑUELOS Jr., MD DATE: 01/15/251156 SERVICE REASON: S/P CODE BLUE, ASSESS EF, R/O PERICARDIAL EFFUSION ORDERING PHYSICIAN: MIGUELANGEL SARABIA DO PROCEDURE: ECHO FU LD - ECHO 2-D F/U-LTD APPROVED REPORT EXAM: Limited Two-dimensional echocardiogram. INDICATION ICD: Status post code blue, assess ejection fraction, rule out pericardial effusion. 2D Dimensions IVSd 0.4 (0.7-1.1cm) LVEF(%) 5.2 (>50%) LVED Vol(simp.) 163.0 mL LVDd 5.3 (3.8-5.6cm) FS(%) 2 % LVES Vol(simp.) 131.0 mL PWd 0.9 (0.7-1.1cm) LA (2D) 3.4 (1.6-4.0cm) LVEF(%, simp.) 19 % IVSs 0.5 cm Ao Root(2D) 2.5 (2.0-3.7cm) LVDs 5.1 (2.5-4.0cm) PWs 1.2 cm Deformation Strain Apical 4 -4.0 % Apical 2 -1.6 % Apical 3 -4.0 % Global Strain -3.2 % Left Ventricle The left ventricle is mildly dilated. Severely reduced GLS -3.0% Thinning of the septal wall noted. LVEF is <20%. No left ventricle thrombus noted on this study. Right Ventricle Right ventricular systolic function is moderately reduced. Device lead is present in the right ventricle. Atria The left atrium size is normal. Pericardium No pericardial effusion. Other Information Quality : Limited/Follow-up Rhythm : Atrial Fibrillation Conclusion The left ventricle is mildly dilated. LVEF is <20%. Device lead is present in the right ventricle. No pericardial effusion. DICTATED BY: MIGUELANGEL SARABIA DO DATE: 01/15/25 0946 ELECTRONICALLY SIGNED BY: MIGUELANGEL SARABIA DO DATE: 01/15/25 1029 ASSESSMENT: Status post cardiopulmonary arrest, (PEA arrest, 01/15/2025) w/ ROSC in 10-15 minutes Ventricular tachycardia status post multiple rounds of synchronized cardioversion post ROSC Acute hypoxemic respiratory failure status post intubation and mechanical ventilation support, POA Acute Coronary Syndrome, POA Post cardiac arrest hypotension, multifactorial from cardiogenic shock and post arrest shock Atrial fibrillation with RVR, POA Aspiration pneumonia, POA History of severe ischemic cardiomyopathy with LV EF of 20%, POA History of multivessel coronary artery disease with prior history of multiple PCI, POA Hyperkalemia, POA ESRD, POA History of ICD, POA Severe lactic acidosis status post cardiopulmonary arrest, POA Metabolic acidosis, POA Anemia, POA Recently treated community-acquired pneumonia, POA PLAN: Patient will be admitted to ICU Patient is critically ill Advanced directives was discussed by Cardiology, family has requested no chest compression and request continued medical management, defibrillation and cardioversion support Continue with mechanical ventilation support, consultation with critical Care will be requested We will maintain map greater than 65 Patient will be started on Rickey-Synephrine, patient while being on Levophed had multiple runs of sustained V-tach requiring amiodarone bolus, lidocaine bolus and multiple rounds of synchronized cardioversion times , patient will be switched to Rickey-synephrine support and dopamine gtt if needed We will start patient on heparin drip, patient will receive aspirin for ACS, patient is on Brilinta at home We will start patient on broad-spectrum antibiotics with vancomycin/Zosyn, blood cultures will be obtained We will monitor serial ABGs, patient will receive multiple amps of sodium bicarb Consultation with Nephrology will be requested Patient will be started on amiodarone drip, we will monitor H and H serially We will follow up results of 2D echocardiogram We will keep patient on analgo-sedation with Versed/fentanyl Lactic acid trend will be monitored closely Prognosis remains extremely poor for this patient with severe ischemic car diomyopathy, underlying history of ESRD and multiple comorbidities including type 2 diabetes mellitus and hypertension, discussed with family that there is high likelihood that she will not survive this admission Critical care minutes: 60 minutes Plan of care was discussed with has been and sister at bedside, Advanced directives: Patient had discussed with Cardiology earlier that they wanted to continue with medical management, they do not want aggressive interventional procedure, they do not want CPR in case patient has repeat cardiac arrest, they are okay with defibrillation/cardioversion in case of cardiac arrest Modesto Chavez MD Advanced Care Planning: Which of the following were discussed: Hospice care: Yes __ No _X_ Therapeutic options: Yes _X_ No __ Advance directives: Yes _X_ No __ Other discussions: Discussed with who?: 25 Minutes Voluntary nature of this service was explained to the patient? Yes _x_ No __ Amount of time spent: 20 minutes MODESTO CHAVEZ MD Jan 15, 2025 11:26
--- NOTE | 2025-01-15 11:34 | NUR ---
@[address] Chavez, pt extubated at 1128 Addendum: 01/15/25 at 1136 by DERRICK MEYERS RT Amended: Links added.
[2025-01-15 11:48] LABS: BAND NEUTROPHILS % (MANUAL) 2 % (0-2); EOSINOPHILS % (MANUAL) 4 % (1-6); LYMPHOCYTES % (MANUAL) 30 % (22-44); MONOCYTES % (MANUAL) 3 % (2-9); SEGMENTED NEUTROPHILS % 61 % (40-70)
[2025-01-15 11:49] LABS: MAN.DIFF COMMENT-IMPRESSION MANUAL DIFFERENTIAL
[2025-01-15 11:51] LABS: PLATELET MORPHOLOGY COMMENT SLIGHTLY DECREASED; WBC MORPHOLOGY NORMAL
--- NOTE | 2025-01-15 12:00 | DS ---
NOTE Date/Time of : [ 01/15/2025/11:25 am ] Code Status: [modified code with no chest compressions, family agreeable to medical therapy and defibrillation/ cardioversion ] Events prior to patient's : [This is a 59-year-old female with History of ESRD, severe ischemic cardiomyopathy, multivessel coronary artery disease with prior history of multiple PCIs who presented in respiratory distress, shortness of breath, chest pain, and was noted to be in atrial fibrillation with RVR. Patient received a IV metoprolol initially and was subsequently intubated, patient had unfortunately cardiopulmonary arrest which lasted for about 10-15 minutes. Patient was noted to be in PEA. Patient was noted to have mild inferior ST elevations post ROSC. Patient was seen by with Interventional Cardiology emergently and goals of care was discussed with the patient's family, family and interventional Cardiology agreed to medical management including IV anticoagulation and antiplatelet therapy. Family declined invasive procedures and surgeries per Cardiology. Patient subsequently was needing vasopressor support with Levophed. She had multiple episodes of sustained ventricular tachycardia requiring cardioversion, she received amiodarone bolus, lidocaine bolus. and ventricular tachycardia finally terminated after vasopressor support was switched to Rickey-Synephrine support. Patient during her ER stay received IV antibiotics for suspected aspiration pneumonia, multiple amps of IV sodium bicarb, and she was optimized on ventilator settings. Unfortunately, secondary to cardiogenic shock post ROSC, she continued to have refractory lactic acidosis. Consultation with Intensive Care Service, Nephrology was requested from the ER. ] Events related to : [Patient close to 11:15 a.m. had PEA arrest. She had no pulse, and no blood pressure. Patient receive amps of sodium bicarbonate, epinephrine, I discussed goals of care again with patient's family including Mr. Humphreys, as well as patient's sister at bedside. Discussed with family that prognosis was extremely poor and if they wanted me to continue with resuscitative measures. Family as noted above had requested no chest compression during code blue. Close to 11:25 a.m., patient continued to remain in PEA arrest with no blood pressure or palpable pulse, family including , Mr. Humphreys and sister who were both present at bedside, requested medical resuscitation to be stopped, and patient was subsequently pronounced at 11:25 a.m. as . ] Cause: [ Cardiogenic shock, acute coronary syndrome, cardiopulmonary arrest, refractory lactic acidosis, aspiration pneumonia, acute hypoxemic respiratory failure, hx of multivessel coronary artery disease] Manner/Autopsy: [ Natural] Provider Pronouncing : [Modesto Villegas MD ] Attending Physician: [ Modesto Villegas MD] MODESTO VILLEGAS MD Jan 15, 2025 12:00
--- NOTE | 2025-01-15 13:10 | NUR ---
NURSING NOTES: CODE 0908 DR. AGRAWAL IN ROOM 0857 ET TUBE 7.5 @21 0911 EPI 1MG IVP 0911 CALCIUM / BICARB IVP 0912 DEXTROSE IVP PULSE CHECK CPR STARTED CALCIUM /BICARB IVP PULSE CHECK / DR. VILLEGAS IN ROOM 0914 CALCIUM IVP 0915 EPI IVP 0916 EPI IVP ROSC 0919
--- NOTE | 2025-01-15 13:21 | NUR ---
SHELLIE CALLED AT 1232, SPOKE TO JOSE PENDING CALL BACK W/I ONE HOUR, IF NO CALL RETURNED INSTRUCTED TO CALL BACK, KEEP PT HERE.
--- NOTE | 2025-01-15 14:08 | NUR ---
PER DIRECTOR OF CONSUMER AFFAIRS WITH CONTACT SHELLIE. PT TAKEN AT 1400 TO [facility] FOR HOLDING TILL HOME ARRIVES. DIRECTOR OF CONSUMER AFFAIRS WILL CALL HOME. SPOUSE TOOK PT PERSONAL BELONGINGS. FAMILT AWARE WALKED TO ED LOBBY.
[2025-01-15] MEDS ORDERED: VANCOMYCIN 2GM/500 ML BAG 500 ML IV ONE (16:00)
[2025-01-15] MEDS ORDERED: AMIODARONE 540 MG/D5W 300ML (0.5MG/MIN) IV SCH (16:15)
[2025-01-15] MEDS ORDERED: BUDESONIDE 0.5 MG/2 ML INH IH SCH (18:00)
== END 2025-01-15 11:25 | DRG 208 ==
LOC: EDH 08:12 → EDHIP 09:45 → UNDODISIN 11:25
PROVIDERS: ADMIT Internal Medicine; ATTEND Internal Medicine
PROC: 5A12012 Performance of Cardiac Output, Single, Manual (ICD-10-PCS; principal; 2025-01-15)
PROC: 5A1935Z Respiratory Ventilation, Less than 24 Consecutive Hours (ICD-10-PCS; 2025-01-15)
PROC: 0BH18EZ Insertion of Endotracheal Airway into Trachea, Via Natural or Artificial Opening Endoscopic (ICD-10-PCS; 2025-01-15)
DX: J69.0 Pneumonitis due to inhalation of food and vomit (principal); J96.01 Acute respiratory failure with hypoxia; I21.3 ST elevation (STEMI) myocardial infarction of unspecified site; I50.21 Acute systolic (congestive) heart failure; N18.6 End stage renal disease; E87.20 Acidosis, unspecified; I13.2 Hypertensive heart and chronic kidney disease with heart failure and with stage 5 chronic kidney disease, or end stage renal disease; I47.20 Ventricular tachycardia, unspecified; D64.9 Anemia, unspecified; E11.22 Type 2 diabetes mellitus with diabetic chronic kidney disease; E78.00 Pure hypercholesterolemia, unspecified; E87.5 Hyperkalemia; I48.0 Paroxysmal atrial fibrillation; I25.2 Old myocardial infarction; I25.10 Atherosclerotic heart disease of native coronary artery without angina pectoris; I25.5 Ischemic cardiomyopathy; I46.9 Cardiac arrest, cause unspecified; R57.0 Cardiogenic shock; Z79.01 Long term (current) use of anticoagulants; Z82.0 Family history of epilepsy and other diseases of the nervous system; Z82.49 Family history of ischemic heart disease and other diseases of the circulatory system; Z83.3 Family history of diabetes mellitus; Z95.1 Presence of aortocoronary bypass graft; Z95.810 Presence of automatic (implantable) cardiac defibrillator; Z99.2 Dependence on renal dialysis; Z99.3 Dependence on wheelchair; Z79.899 Other long term (current) drug therapy
CPT/HCPCS: 31500; 36415; 36600; 71045; 80048; 80053; 80076; 82435; 82550; 82803; 82947; 83605; 83615; 83735; 84100; 84132; 84145; 84295; 84484; 85018; 85025; 85610; 85651; 85730; 86140; 86850; 86900; 86901; 87040; 92950; 93005; 93308; 93356; 94002; 99291; J0282; J2250; J2371; J3010; J3490; J7060; J0283; J3375